=== PATIENT | male | born 1945 | race Caucasian/White ===

== ENCOUNTER 2019-12-15 12:32 | Inpatient (IN) | payer MEDICARE, SELFPAY ==
[2019-12-15] VITALS (7 sets, daily range): BP systolic 122–157; BP diastolic 65–95; PULSE 67–88; RESP 16–22; TEMP 36.4–37.3; O2SAT 98–100; BMI 19.8
--- NOTE | ~2019-12-15 | CT_ITS ---
EXAMINATION: CT brain wo con DATE: 12/15/2019 13:31 INDICATION: Altered mental status. TECHNIQUE: Computed tomography (CT) of the head was performed without intravenous contrast. The mA wa s adjusted according to patient size. Iterative reconstruction technique was employed. The dose-lengt h product was 605.33 mGy-cm. COMPARISON: Head CT 07/28/2019 FINDINGS: There is an old infarct in right occipital lobe. There is an infarct in left parietal occip ital region, new from 07/28/19. There is an old lacunar infarct in the trista. There are old lacunar infa rcts in the thalami and left basal ganglia. There are scattered areas of low attenuation in the cereb ral white matter. There is no intracranial hemorrhage or abnormal mass lesion. The ventricles are nor mal in size. There are likely changes of ocular lens replacement surgeries. There is mild mucosal thi ckening in right maxillary sinus. The mastoid air cells are normal. IMPRESSION: 1. Infarct in left parietal occipital region, likely acute or subacute. 2. Old infarcts involving the right occipital lobe, trista, thalami, and left basal ganglia. 3. Moderate nonspecific cerebral white matter disease, which likely represents chronic small vessel i schemic disease. Reviewed, dictated and finalized at location A. URY WASHER IMPRESSION: 1. Infarct in left parietal occipital region, likely acute or subacute. 2. Old infarcts involving the right occipital lobe, trista, thalami, and left bas al ganglia. 3. Moderate nonspecific cerebral white matter disease, which likely represents chronic small vessel ischemic disease.
--- NOTE | ~2019-12-15 | XR_ITS ---
EXAMINATION: XR chest 2V DATE: 12/15/2019 13:23 INDICATION: Transient alteration of awareness. TECHNIQUE: Frontal and lateral views of the chest were obtained. COMPARISON: Chest single view 07/28/2019, chest CT 07/28/2019 FINDINGS: There is mild atelectasis in right midlung zone and left lower lung zone. No pleural effusi on or pneumothorax. The heart size is normal. There is an old healed right rib fracture. IMPRESSION: 1. Mild atelectasis in right midlung zone and left lower lung zone. Reviewed, dictated and finalized at location A. TENDER
--- NOTE | ~2019-12-15 | XR_ITS ---
EXAMINATION: XR chest 1V portable DATE: 12/18/2019 08:04 INDICATION: Leukocytosis. TECHNIQUE: frontal view of the chest was obtained. COMPARISON: Chest radiograph dated 12/15/2019 FINDINGS: Opacity with sharp linear margins projecting over the lateral right lower lung zone most likely a ski nfold although airspace disease abutting the fissure cannot be excluded. No other airspace opacities, pulmonary edema, pleural effusion or pneumothorax. The cardiomediastinal silhouette is normal. IMPRESSION: 1. Opacity projecting over the right lower lung zone most likely related to a skinfold although diffe rential would include is likely atelectasis or pneumonia abutting the right major fissure. Reviewed, dictated and finalized at location A. RITY INSPECTOR IMPRESSION: 1. Opacity projecting over the right lower lung zone most likely related to a s kinfold although differential would include is likely atelectasis or pneumonia abutting the right major fissure.
--- NOTE | ~2019-12-15 | US_ITS ---
EXAMINATION: US carotid duplex BI DATE: 12/16/2019 13:19 INDICATION: Stroke TECHNIQUE: Grayscale, color Doppler, and pulsed Doppler images of the cervical carotid arteries were obtained. The degree of vessel stenosis is placed in one of the following categories: normal, <50%, 5 0-69%, >=70% but less than near-occlusion, near-occlusion, or total occlusion. Note that percent sten osis relative to normal distal artery lumen diameter is indirectly measured from velocity measurement s as described by Saroj, et al. Radiology 2003; 229:340-346. COMPARISON: 10/06/2017 FINDINGS: RIGHT: The right common carotid artery (CCA) peak systolic velocity (PSV) is 70 cm/s. The right internal car otid artery (ICA) PSV is 78 cm/s. The right ICA end-diastolic velocity (EDV) is 28 cm/s. The right IC A/CCA PSV ratio is 1.1. Grayscale and color Doppler images yield an estimate of <50% diameter reducti on from plaque in the ICA. The external carotid artery (ECA) PSV is 100 cm/s. There is antegrade flow in the right vertebral artery. LEFT: The left CCA PSV is 81 cm/s. The left ICA PSV is 77 cm/s. The left ICA EDV is 26 cm/s. The left ICA/C CA PSV ratio is 1.0. Grayscale and color Doppler images yield an estimate of <50% diameter reduction from plaque in the ICA. The ECA PSV is 81 cm/s. There is antegrade flow in the left vertebral artery. IMPRESSION: 1. <50% stenosis in the right internal carotid artery. 2. <50% stenosis in the left internal carotid artery. Reviewed, dictated and finalized at location A. NICAL ASSISTANCE CONSULTANT
--- NOTE | ~2019-12-15 | MR_ITS ---
EXAMINATION: MR brain/brain stem wo/w con DATE: 12/16/2019 13:06 INDICATION: Stroke TECHNIQUE: Magnetic resonance imaging (MRI) of the brain and brainstem was performed without and with 12 mL Multihance intravenous contrast. Sequences included sagittal and axial T1-weighted SE, axial d iffusion-weighted FS SE, axial T2*-weighted GRE, axial T2-weighted FLAIR, and axial T2-weighted FSE. Postcontrast axial, sagittal and coronal T1-weighted SE was obtained. Apparent diffusion coefficient (ADC) maps were created. COMPARISON: Head CT dated 12/15/2019 FINDINGS: There is restricted diffusion involving the left posterior cerebral artery vascular distribution of t he left parietal and occipital lobes with swelling and prominent T2 hyperintense cytotoxic edema cons istent with relatively acute infarct. Laminar necrosis and enhancement with thin linear increased T1 signal on the noncontrast images which increases on the postcontrast images consistent with an infarc t of at least 3-5 days of age. There is a small region of encephalomalacia consistent with chronic in farct in the contralateral right occipital lobe. There are additional old lacunar infarcts in the sean ateral trista, bilateral thalami, bilateral basal ganglia and white matter of the bilateral centrum xiang iovale. No intracranial hemorrhage or abnormal intracranial mass lesion. There are scattered areas of nonspecific increased T2-weighted signal intensity in the cerebral white matter, predominantly invol ving the deep and periventricular white matter. There are no intraparenchymal signal abnormalities se en on the other pulse sequences. No other abnormally enhancing brain lesions identified. Symmetric pr ominence of the sulci and ventricles consistent with moderate age-appropriate diffuse cerebral volume loss. There are no abnormal extra-axial fluid collections. Flow voids are seen in the cerebral arter ies on the T2-weighted sequences consistent with their expected patency. Changes of bilateral intraoc ular lens replacement. IMPRESSION: 1. Infarct in the left parieto-occipital region of likely 3-10 days of age. 2. Old infarcts involving the right occipital lobe, bilateral trista, thalami, basal ganglia and centru m semiovale. 3. Age-related changes including moderate diffuse volume loss and moderate scattered nonspecific cere bral white matter T2 hyperintensity consistent with chronic small vessel ischemic disease. Reviewed, dictated and finalized at location A. CENTER RN IMPRESSION: 1. Infarct in the left parieto-occipital region of likely 3-10 days of age. 2. Old infarcts involving the right occipital lobe, bilateral trista, thalami, ba ronak ganglia and centrum semiovale. 3. Age-related changes including moderate diffuse volume loss and moderate scat tered nonspecific cerebral white matter T2 hyperintensity consistent with chron ic small vessel ischemic disease.
--- NOTE | 2019-12-15 12:52 | ED.AMS ---
HPI - Altered Mental Status General Chief Complaint: Weakness Stated Complaint: ams Time Seen by Provider: 12/15/19 12:43 Source: patient, family (Niece at bedside), RN notes reviewed and other (Caregiver) Mode of arrival: ambulatory Limitations: clinical condition History of Present Illness HPI narrative: Pt is a 74 y/o male presenting to the ED c/o AMS. Pt states he ended up here, don't remember what happened . Pt's niece states the pt's caregiver witnessed the pt acting altered along with becoming very fatigued earlier today, so they called EMS. Pt's niece reports the pt has chronic weakness, and pt reports blurry vision, but denies CP, ABD pain, N/V, or SOB. Per niece, the pt is usually sharp with conversation, but notes the pt has been asking the same questions frequently. Per niece, the pt has a caregiver due to mobility issues. Pt reports Hx's of HTN and skin cancer excision on nose. Pt states he smokes 4-5 cigarettes per day and smokes marijuana. Pt notes he has a Hx of alcoholism, and states he drinks beer daily. HPI is limited due to pt's clinical condition. Most information provided by pt's niece at bedside. Onset (ago): unknown (Earlier today) Timing confirmed by: caregiver Context: alcohol abuse Associated symptoms: weakness (Chronic (per niece)) and other (Blurry vision; Fatigue (per caregiver)) Related Data Home Medications Medication Instructions Recorded Confirmed dutasteride 0.5 mg PO DAILY 12/15/19 12/15/19 hydrocodone-acetaminophen [[place]] 1 tablet PO Q6H PRN 12/15/19 12/15/19 olmesartan [Benicar] 20 mg PO DAILY 12/15/19 12/15/19 rivaroxaban [Xarelto] 20 mg PO DAILY 12/15/19 12/15/19 tamsulosin [Flomax] 0.4 mg PO DAILY 12/15/19 12/15/19 Allergies Allergy/AdvReac Type Severity Reaction Status Date / Time No Known Allergies Allergy Verified 12/15/19 15:10 Review of Systems Review of Systems: All systems reviewed & are unremarkable except as noted in HPI and below Constitutional: Constitutional: Reports fatigue (Per caregiver) Eyes: Eyes: Reports blurry vision Cardiovascular: Cardiovascular: Denies chest pain Respiratory: Respiratory: Denies dyspnea Gastrointestinal: Gastrointestinal: Denies abdominal pain, Denies nausea and Denies vomiting Neurologic: Reports weakness (Chronic (per niece)) and Reports other (AMS (per niece)) PMFSH Past Medical History Medical History Alcoholism HTN (hypertension) Surgical History Surgical History Status post surgical removal of malignant neoplasm of skin Nose Family History Family History Sibling Cerebrovascular accident Social History Social History Smoking status: Current every day smoker Second hand tobacco smoke exposure: No Smoking end date: 11/27/14 Alcohol intake: current Gender identity (if verbalized by the patient): Male Exam Const: General: cooperative, no acute distress and alert Nutritional Appearance: well nourished Limitations: altered mental status HENMT: Mouth: Yes lip normal and Yes moist mucous membranes Throat: posterior oropharynx normal Eyes: Pupils: Equal, round and reactive pupils present EOM: EOMs intact bilaterally Resp: Effort & Inspection: normal respiratory effort Auscultation: clear to auscultation bilaterally Cardio: Rate: regular rate Rhythm: regular rhythm Heart sounds: no murmurs Peripheral pulses: dorsalis pedis present (2+) GI: GI Palp: Yes Soft to palpation and No Tenderness to palpation present (GI) Auscultation: normal bowel sounds Skin: General skin exam: normal color Neuro: Cranial nerves: Yes CN's II-XII intact bilaterally Cognition (Neuro): normal cognition Speech: normal speech Motor exam (neuro): 5/5 motor strength present throughout Sensory Exam: normal sensation Extrem: General: normal to inspecti
--- NOTE | 2019-12-15 12:53 | ECG_ITS ---
Measurements Intervals Br[place] Rate: 65 P: 55 OH: 140 QRS: 51 QRSD: 114 T: -19 QT: 362 QTc: 378 Interpretive Statements SINUS RHYTHM INTRAVENTRICULAR CONDUCTION DELAY BORDERLINE ST-T WAVE ABNORMALITY- INFERIOR LEADS BASELINE ARTIFACT- I, II, III, AVR, AVL, AVF, V1-V6 BORDERLINE ECG Electronically Signed On 12-15-2019 17:17:52 SBA UNDERWRITER by Herminio Diaz D.O.
[2019-12-15 13:09] LABS: Glucose Point of Care 99 (65-105)
[2019-12-15] MEDS: THIAMINE HCL 200 MG/2 ML VIAL 100 MG IV PUSH (13:13)
[2019-12-15 13:22] LABS: Alveolar/Arterial O2 Gradient 29.9 mmHg; Base Excess ABG 1.6 mEq/l (+/-2.0); Carboxyhemoglobin 2.7 % THb (0-2.0); Device ROOM AIR; Fractional Inspired Oxygen 21 %; HCO3 ABG 24.8 mEq/l (22.0-26.0); Methemoglobin ABG 0.2 %THb (0-1.5); Oxygen Content ABG 16.6 %vol (16.0-22.0); Oxygen Saturation ABG 96.5 % (95.0-100.0); Oxyhemoglobin 93.6 % THb (90.0-100.0); PCO2 ABG 34.3 mmHg (35.0-45.0); PO2 ABG 78.8 mmHg (80.0-100.0); PO2 FiO2 Ratio Arterial Blood 3.75 %; Reduced Hemoglobin 3.5 %THb (0-5.0); Site Drawn RIGHT BRACHIAL; Total Hemoglobin 12.6 g/dL (12.0-18.0); pH ABG 7.477 (7.350-7.450)
[2019-12-15 13:23] LABS: Basophils Absolute Auto 0.1 K/mm3 (0.0-0.1); Basophils Percent Auto 0.6 % (0.2-1.2); Eosinophils Absolute Auto 0.1 K/mm3 (0-0.3); Eosinophils Percent Auto 0.6 % (0-4.4); Hematocrit 36.8 % (42.0-52.0); Hemoglobin 12.3 g/dL (14.0-18.0); Immature Granulocyte Absolute 0.04 K/mm3 (0.00-0.031); Immature Granulocyte Percent A 0.3 % (0-0.5); Lymphocytes Absolute Auto 2.33 K/mm3 (0.9-3.2); Lymphocytes Percent Auto 18.4 % (18.3-44.2); Mean Corpuscular HGB Conc 33.4 g/dl (32-36); Mean Corpuscular Hemoglobin 31.6 pg (26-34); Mean Corpuscular Volume 94.6 fl (80-100); Mean Platelet Volume 11.5 fl (7.4-10.4); Monocytes Absolute Auto 1.4 K/mm3 (0.1-0.6); Monocytes Percent Auto 11.1 % (2.6-8.5); Neutrophils Absolute Auto 8.8 K/mm3 (1.3-6.7); Platelet Count Result 307 k/mm3 (150-375); Red Blood Count 3.89 M/mm3 (4.6-6.20); Red Cell Distribution Width 14.2 % (11.5-14.5); White Blood Count 12.7 K/mm3 (4.5-10.0)
[2019-12-15 13:32] LABS: INR 1.6; Prothrombin Time 18.2 Seconds (11.1-14.7)
[2019-12-15 13:33] LABS: Partial Thromboplastin Time 43.2 SECONDS (22.3-36.8)
[2019-12-15 13:35] LABS: Ethanol < 10 mg/dL (<10)
[2019-12-15 13:36] LABS: Alanine Aminotransferase 13 U/L (4-50); Albumin Level 4.6 g/dL (3.5-5.1); Alkaline Phosphatase 80 U/L (38-126); Aspartate Amino Transferase 23 U/L (17-59); Bilirubin,Total 0.6 mg/dL (0.2-1.3); Blood Urea Nitrogen 12 mg/dL (9-20); Calcium 9.4 mg/dL (8.4-10.2); Carbon Dioxide 25 mmol/L (22-30); Chloride 99 mmol/L (98-107); Creatine Kinase 73 U/L (55-170); Estimated Glomerular Filt Rate > 60; Glucose 99 mg/dL (75-110); Magnesium 1.8 mg/dL (1.6-2.3); Potassium 3.6 mmol/L (3.4-5.0); Sodium 135 mmol/L (137-145)
[2019-12-15 14:02] LABS: Add Urine Microscopic? YES; Appearance Urine Cloudy (Clear); Bacteria Urine Trace /hpf; Bilirubin Urine Negative (Negative); Blood Urine Negative (Negative); Color Urine Yellow (Yellow); Glucose Urine UA Negative (Negative); Ketones Urine Negative (Negative); Leukocyte Esterase Ur Negative LEU/UL (Negative); Mucus Urine Heavy /lpf; Nitrate Urine Negative (Negative); Protein Urine Negative (Negative); RBC Urine 0-2 /hpf (0-2); Specific Grav Ur 1.015 (1.001-1.035); Squamous Epithelial Cell Urine Rare /hpf (Few)
[2019-12-15 14:45] LABS: Thyroid Stimulating Hormone Reflex 0.642 uIU/mL (0.465-4.68)
[2019-12-15 15:28] LABS: Amphetamine Screen Urine Negative (Negative); Barbiturate Screen Urine Negative (Negative); Benzodiazepines Screen Urine Negative (Negative); Cannabinoid Screen Urine Positive (Negative); Cocaine Screen Urine Negative (Negative); Methadone Screen Urine Negative (Negative); Opiate Screen Urine Positive (Negative); Phencyclidine Screen Urine Negative (Negative)
--- NOTE | 2019-12-15 16:02 | ADMGEN ---
This patient, Choco Hastings, was admitted to Medical Room 243-. Patient/family oriented to hospital policies and general routines including ID bracelet, bed and alarms, visiting hours, pain management, procedures, bathroom and other care routines, personal items, smoking policy, room service/diet, and visiting hours. Valuables list has been completed. Information on how to activate the Rapid Response Team has been discussed. Patient/Family are encouraged to report perceived risks to care and to ask questions if they do not understand what they are told or what they should do.
--- NOTE | 2019-12-15 17:20 | PM.IMHP ---
H&P: HPI History of Present Illness Chief complaint: CVA Narrative: Choco Hastings is a 74 year old male who has a history of having CVAs in the past without any residual. He also has a history of alcoholism. Patient tells me that he has not drink and months. He said he used to drink heavily but is down the 2 or 3 drinks a month. But that he also tells me when he does drink a gets drunk. He does have a roommate. She noticed that the patient was not acting like himself. He was very fatigued today and he does was acting altered and there for EMS was activated. The patient was complaining of some blurred vision which is new today. He is swallowing without difficulty and has no problems with speech or moving he is slightly weaker on the right side though. Patient is also had a withdrawal seizure in the past. CT of the brain shows infarction in the left parietal occipital region, likely acute or subacute. Old infarcts involving the right occipital lobe, trista, thalami, and left basal ganglia. Moderate nonspecific cerebral white matter disease, which likely represents chronic small vessel ischemic disease. Patient is on Xarelto for history of having PEs in the past. Neurology has been consulted. Date of service is 12/15/2019 Review of Systems Review of Systems: Narrative: Patient is a very poor historian All systems reviewed & are unremarkable except as noted in HPI and below Constitutional: Constitutional: Reports as per HPI and Reports no additional constitutional complaints Eyes: Eyes: Reports as per HPI and Reports loss of vision (He is having difficulty seeing things close up) ENT: Reports system reviewed and no additional complaints, except as documented and Reports Normal hearing present Cardiovascular: Cardiovascular: Reports no additional cardiovascular complaints Comments: Hypertension Respiratory: Respiratory: Reports no additional respiratory complaints and Reports no additional respiratory complaints Gastrointestinal: Gastrointestinal: Reports as per HPI and Reports no additional gastrointestinal complaints Musculoskeletal: Musculoskeletal: Reports no additional musculoskeletal complaints Comments: Slight weakness on the right upper and lower extremity Integumentary/Breasts: Skin/Breast: Reports system reviewed and no additional complaints, except as docu and Reports as per HPI Neurologic: Reports system reviewed and no additional complaints, except as documented, Reports as per HPI, Reports abnormal gait, Reports confusion and Reports focal weakness (Slightly weaker on the right) Psychiatric: Psychiatric: Reports no additional psychiatric complaints and Reports as per HPI Endocrine: Endocrine: Reports no additional endocrine complaints Hematologic/Lymphatic: Hematologic/Lymphatic: Reports no additional hematologic/lymphatic complaints Allergic/Immunologic: Allergic/Immunologic: Reports no additional allergic/immunologic complaints [facility] Past Medical History Medical History (Updated 12/15/19 @ 17:34 by Kalpana Rawls NP) Alcoholism BPH (benign prostatic hyperplasia) Chronic neck pain Congestive heart failure Diastolic COPD (chronic obstructive pulmonary disease) HTN (hypertension) Pulmonary emboli Tobacco abuse Surgical History Surgical History (Updated 12/15/19 @ 17:34 by Kalpana Rawls NP) H/O cataract extraction Left eye H/O cervical spine surgery Multiple Status post surgical removal of malignant neoplasm of skin Nose Family History Family History (Updated 12/15/19 @ 17:34 by Kalpana Rawls NP) Sibling Cerebrovascular accident Unknown Adopted Social History Social History (Updated 12/15/19 @ 17:37 by Kalpana Rawls NP) Social History: The patient stated that he has a roommate Ms. Hudson has 1 daughter Aliza who has a appointed power [employer] technology transactions attorney. He desires a full code status. Patient stated that he smoked since he is about 12 years old he smokes anywhere from half pack to pa
[2019-12-15] MEDS: CHLORDIAZEPOXIDE 25 MG CAPSULE PO (18:52)
[2019-12-16] VITALS (7 sets, daily range): BP systolic 82–132; BP diastolic 52–78; PULSE 43–90; RESP 16–20; TEMP 36.1–36.5; O2SAT 98–100
[2019-12-16] MEDS: CHLORDIAZEPOXIDE 25 MG CAPSULE PO ×3 (00:01→12:27)
--- NOTE | 2019-12-16 01:14 | PC.NURSE ---
12/15/20191999 PT HAVING DIFFICULTY WITH PERIPHERAL VISION
--- NOTE | 2019-12-16 05:43 | PC.NURSE ---
12/15/2019 0300 PT TAKING OFF MANAGER ANDROID FREQUENTLY AND AT TIMES THROWING IT ACROSS THE ROOM. PT STATES DID NOT KNOW HE DID IT
[2019-12-16 05:46] LABS: Basophils Absolute Auto 0.1 K/mm3 (0.0-0.1); Basophils Percent Auto 0.8 % (0.2-1.2); Eosinophils Absolute Auto 0.2 K/mm3 (0-0.3); Eosinophils Percent Auto 1.4 % (0-4.4); Hematocrit 33.9 % (42.0-52.0); Hemoglobin 10.8 g/dL (14.0-18.0); Immature Granulocyte Absolute 0.03 K/mm3 (0.00-0.031); Immature Granulocyte Percent A 0.3 % (0-0.5); Lymphocytes Absolute Auto 3.09 K/mm3 (0.9-3.2); Lymphocytes Percent Auto 29.2 % (18.3-44.2); Mean Corpuscular HGB Conc 31.9 g/dl (32-36); Mean Corpuscular Hemoglobin 29.8 pg (26-34); Mean Corpuscular Volume 93.6 fl (80-100); Mean Platelet Volume 11.9 fl (7.4-10.4); Monocytes Absolute Auto 1.2 K/mm3 (0.1-0.6); Monocytes Percent Auto 10.9 % (2.6-8.5); Neutrophils Absolute Auto 6.1 K/mm3 (1.3-6.7); Neutrophils Percent Auto 57.4 % (45.5-73.1); Platelet Count Result 279 k/mm3 (150-375); Red Blood Count 3.62 M/mm3 (4.6-6.20); White Blood Count 10.6 K/mm3 (4.5-10.0)
[2019-12-16 05:52] LABS: Alanine Aminotransferase 11 U/L (4-50); Albumin Level 3.7 g/dL (3.5-5.1); Alkaline Phosphatase 68 U/L (38-126); Aspartate Amino Transferase 20 U/L (17-59); Bilirubin,Total 0.5 mg/dL (0.2-1.3); Blood Urea Nitrogen 13 mg/dL (9-20); Calcium 8.9 mg/dL (8.4-10.2); Carbon Dioxide 26 mmol/L (22-30); Chloride 103 mmol/L (98-107); Estimated CRCL calculation 65 ml/min; Estimated Glomerular Filt Rate > 60; Glucose 89 mg/dL (75-110); Magnesium 1.7 mg/dL (1.6-2.3); Potassium 3.7 mmol/L (3.4-5.0); Sodium 136 mmol/L (137-145)
[2019-12-16 06:37] LABS: Thyroid Stimulating Hormone Reflex 0.822 uIU/mL (0.465-4.68)
--- NOTE | 2019-12-16 07:34 | ECHO_ITS ---
Patient Info Name: Choco Hastings Age: 74 years : 1945 Gender: Male Ht: 71 in Wt: 142 lbs BSA: 1.79 m2 HR: 91 bpm BP: 120 / 55 mmHg Heart Rhythm: Sinus Rhythm Technical Quality: Poor Exam Date: 12/16/2019 2:16 PM Exam Location: [facility] Patient Status: Inpatient Admit Date: 12/16/2019 Staff Ordering Physician: Kate Hurtado PA-C Director Of Dance: Isai Michelle RDCS Attending Provider: Kate Hurtado PA-C Exam Type: CA echo dop bubble study w con Study Info Indications 436.0 - CVA Complete two-dimensional, color flow and Doppler transthoracic echocardiogram is performed with contrast to opacify the left ventricle and to improve the deliniation of the left ventricle endocardial borders. Agitated saline study was performed. Contrast/Agitated Saline Contrast/Ag. Saline: Definity Amount: 2.00 ml Administered By: Coretta Serrano RN Contrast/Ag. Saline: Agitated Saline Amount: 18.00 ml Administered By: Coretta Serrano RN Reason for Poor Study: poor patient cooperation History/Risk Factors CVA; COPD, HTN, EtOH, AMS, HFpEF. Summary 1. Technically suboptimal study due to poor sonographic images. 2. Definity contrast administered improved wall motion interpretation. 3. Left ventricular chamber dimension is normal. 4. Left ventricular systolic function is normal, estimated at 55-60%. 5. The left ventricular diastolic function is grade I diastolic dysfunction. 6. E/e' 3 is not elevated. Left Ventricle E/e' 3 is not elevated. Definity contrast administered improved wall motion interpretation. Technically suboptimal study due to poor sonographic images. Left ventricular chamber dimension is normal. Left ventricular systolic function is normal, estimated at 55-60%. The left ventricular diastolic function is grade I diastolic dysfunction. Right Ventricle Right ventricular chamber dimension is not well visualized. Left Atria Left atrial chamber dimension is not well visualized. Right Atria Right atrial chamber dimension is not well visualized. Atrial Septum Interatrial septum not well visualized by agitated saline imaging. No obvious shunting of administered agitated saline with and without valsalva maneuver. Aortic Valve The aortic valve is not well visualized. There is no aortic valve stenosis. There is no aortic valve regurgitation. Pulmonic Valve The pulmonic valve is not well visualized. Mitral Valve The mitral valve has not well visualized. There is no mitral valve stenosis. There is no mitral valve regurgitation. Tricuspid Valve The tricuspid valve leaflets are not well visualized. Pericardium/Pleural There is no pericardial effusion. Aorta The aortic root size at the sinus of Valsalva is not well visualized. Mitral Valve Name Value Normal MV Doppler MV Decel [place] 163 cm/s2 MV PHT 72 ms MV Area (PHT) 3.0 cm2 4.0-5.0 MV Diastolic Function MV E Peak Velocity
[2019-12-16] MEDS: RIVAROXABAN 20 MG TABLET PO (08:37)
[2019-12-16] MEDS: DUTASTERIDE 0.5 MG CAPSULE PO (08:37)
[2019-12-16] MEDS: OLMESARTAN MEDOXOMIL 20 MG TABLET PO (08:37)
[2019-12-16] MEDS: FOLIC ACID 1 MG TABLET PO (08:37)
[2019-12-16] MEDS: THIAMINE HCL 100 MG TABLET PO (08:37)
[2019-12-16] MEDS: TAMSULOSIN HCL 0.4 MG CAPSULE PO (08:37)
--- NOTE | 2019-12-16 09:05 | PC.NURSE ---
Kate ROSENBAUM notified that pt will not keep tele on and keeps throwing it across the room. Pt also pulled his iv out and threw his plate breakfast tray across room and broke the plate. Pt confused and does not know where he is at or that he is trowing stuff
[2019-12-16] MEDS: MAGNESIUM SULF 2 GM/WATER 50ML 2 GM/50 ML BAG IVPB (11:23)
--- NOTE | 2019-12-16 13:43 | PM.IMPN ---
Progress Note: A&P Assessment and Plan (1) CVA (cerebral vascular accident): Qualifiers: CVA mechanism: unspecified Qualified Code(s): I63.9 - Cerebral infarction, unspecified Code(s): I63.9 - Cerebral infarction, unspecified Status: Acute Assessment and Plan: Patient with history of multiple prior CVAs presents with change in vision. MRI brain shows an infarct in the left parieto-occipital region and multiple old infarcts. Carotid Dopplers are within normal limits. Echocardiogram shows normal systolic function, EF 55-60% without obvious evidence of shunting. Neurology consulted -appreciate recommendations. Continue Xarelto. Check and lipid profile in the morning and start statin therapy. Continue PT/OT. He lives at home with a roommate. Therapy recommends rehab. Care coordination working on SNF. (2) Behavior disturbance: Code(s): F91.9 - Conduct disorder, unspecified Status: Acute Assessment and Plan: Patient has been throwing things in the room such as his breakfast plate and his telemetry box. He has required a patient sitter today. Patient has a history of alcoholism in the past and I am unsure if he is withdrawing or if his behavior is psychiatric vs. neurologic related. Monitor further symptoms of alcohol withdrawal. Ativan available. (3) HTN (hypertension): Qualifiers: Hypertension type: essential hypertension Qualified Code(s): I10 - Essential (primary) hypertension Code(s): I10 - Essential (primary) hypertension Status: Chronic Assessment and Plan: Stable on his home Benicar. Monitor BP and adjust if needed. (4) Alcoholism: Code(s): F10.20 - Alcohol dependence, uncomplicated Status: Chronic Assessment and Plan: Patient reports previously being a heavy drinker, but reported he has been drinking much less recently. Continue to monitor with CIWA protocol. Continue folic acid, thiamine, Librium. (5) Tobacco abuse: Code(s): Z72.0 - Tobacco use Status: Chronic Assessment and Plan: Smoking cessation encouraged. (6) Chronic neck pain: Code(s): M54.2 - Cervicalgia; G89.29 - Other chronic pain Status: Acute Assessment and Plan: Continue home [place]. (7) BPH (benign prostatic hyperplasia): Qualifiers: Lower urinary tract symptom presence: symptoms absent Qualified Code(s): N40.0 - Benign prostatic hyperplasia without lower urinary tract symptoms Code(s): N40.0 - Benign prostatic hyperplasia without lower urinary tract symptoms Status: Chronic Assessment and Plan: Stable. Continue home meds. (8) Anticoagulation therapy continued upon discharge: Code(s): Z79.01 - salvage determiner (current) use of anticoagulants Status: Acute Assessment and Plan: Patient is on Xarelto for history of PEs. Subjective Date/time seen: 12/16/19 13:20 Interval history: Mr. Hastings is a 74yo M admitted for new CVA. He continues with right-sided weakness today. He has had a sitter in the room today because he is throwing things. He has, however, cooperative from my exam. He reports feeling well and denies chest pain, shortness of breath, nausea, or vomiting. He is tolerating PO intake. Review of Systems Review of Systems: Narrative: Twelve systems were reviewed with pertinent positives and negatives as per HPI. Exam Narrative: Exam Narrative: General: Male resting in bed in no acute distress, eating lunch. HEENT: Normocephalic, EOMI, oral mucosa moist. Cardiovascular: Rate and rhythm regular. Respiratory: Lungs clear to auscultation all carmona. Non-labored breathing. Abdomen: Soft, non-tender, non-distended, bowel sounds present. Extr
--- NOTE | 2019-12-16 15:13 | CONS_ITS ---
DATE OF CONSULTATION: 12/16/2019 HISTORY: This 74 years old right-handed male, admitted to the hospital with the complaint not behaving like himself, very fatigued, EMS was called to the scene when he was complaining of blurred vision, swallowing difficulties, and weakness on the right side. The patient does have ongoing history of chronic alcoholism, though he has not been drinking regularly for the several months. Initial evaluation in the emergency room included a CT scan of the brain, which documented left parietal occipital stroke, likely subacute or acute in addition to the old stroke in the right occipital lobe, thalami, trista, and left basal ganglia with moderate nonspecific white matter disease. Neurology consultation was obtained for that particular reason. MEDICAL HISTORY: The patient has ongoing history of chronic recurrent alcoholism, benign prostatic hypertrophy, chronic neck pain, congestive heart failure, COPD, hypertension, tobacco abuse, and pulmonary emboli. 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 SOCIAL HISTORY: He had smoked for 57 years with documented date of smoking November 27, 2014, but drinking 2 drinks twice per week and also smoking marijuana. MEDICATIONS: At the time of admission to the hospital, he was taking 1. Dutasteride 0.5 mg daily. 2. Hydrocodone p.r.n. 3. Benicar 20 mg daily. 4. Xarelto 20 mg daily. 5. Tamsulosin 0.4 mg daily. ALLERGIES: HE IS NOT ALLERGIC TO ANY MEDICATION. PHYSICAL EXAMINATION: VITAL SIGNS: Evaluation up until now revealed him to be afebrile with pulse of 78, respirations 16, and blood pressure 157/74. GENERAL: Today, he was awake, alert, and cooperative, in no obvious acute distress. HEENT: Head normocephalic with no cranial bruit. Ear, nose, throat examination normal except the scar of the previous surgery on the nasal tip. HEART: Regular. LUNGS: Clear. ABDOMEN: Soft with no organomegaly. NEUROLOGICAL: He is awake, alert. He recognized the physician immediately. His speech not dysphasic, not dysarthric, not dysphonic. Pupils round and regular. Brooks of vision full. Extraocular movements full. Face symmetrical. Tongue midline. Motor examination revealed him to have decreased strength on the right side compared to the left with hyperreflexia, but downgoing plantar responses and ankle jerks absent. IMPRESSION AND PLAN: History of chronic recurrent alcoholism. In addition the history of the stroke documented by the head CT scan bilaterally more so on the left in addition to old stroke on the right side as well. Plan is to continue the treatment as such and involving the Physical Therapy and Occupational Therapy. Further care accordingly. JOSEPH ROSENBAUM M.D. LEGAL FILE CLERK LEGAL FILE CLERK D I MT: Rufus
[2019-12-16] MEDS: LORAZEPAM INJ 2 MG/ML VIAL 1 MG IV PUSH (15:23)
--- NOTE | 2019-12-16 15:25 | PCPTNOTE ---
Attempted PT, unable to see patient, per nursing: patient is agitated and feels PT should wait until tomorrow to see patient.
[2019-12-16] MEDS: CHLORDIAZEPOXIDE 25 MG CAPSULE 50 MG PO ×2 (17:14→23:55)
--- NOTE | 2019-12-16 17:35 | PC.NURSE ---
Patient was transferred ICU 3. Report given to nurse at bedside.
--- NOTE | 2019-12-16 17:36 | PC.NURSE ---
Called into patients room around 1515 for patient being aggressive and agitated. Patient was trying to climb out of bed and also throwing blankets and pillows from bed. Tried talking with patient to help calm him down. Ativan given IVP to patient around 1530. Patient continued to get more agitated and started to get physical with aides and nurses. Arleen olivares called at this time. Dr Tran came and evaluated patient and adjusted meds and transferred him to ICU.
--- NOTE | 2019-12-16 17:47 | PM.IMPN ---
Progress Note: A&P Assessment and Plan (1) CVA (cerebral vascular accident): Qualifiers: CVA mechanism: unspecified Qualified Code(s): I63.9 - Cerebral infarction, unspecified Code(s): I63.9 - Cerebral infarction, unspecified Status: Acute Assessment and Plan: CT brain on admission with infarct in left parietal occipital region, likely acute or subacute and old infarcts involving the right occipital lobe, trista, thalami and left basal ganglia. MRI brain infarct in left parietal-occipital region likely 3-10 days of age, old infarcts also noted. Carotid Dopplers less than 50% stenosis bilaterally. EF 55-60% and grade 1 diastolic dysfunction. Neurology consulted and appreciate input. On Xarelto. Continue PT/OT when able. Given continued increasing agitation and aggressive behavior, PA did speak with waterway traffic checker. Transfer to ICU. Precedex drip started. Total time spent in critical care 35 minutes. (2) Alcoholism: Code(s): F10.20 - Alcohol dependence, uncomplicated Status: Chronic Assessment and Plan: Known alcohol use. Nurse reports daughter who lives in [place] has stated patient with increasing alcohol use. Patient with noted increasing CIWA which was 13 at time of code purple. Already on scheduled Librium which was increased to 50 mg p.o. q.6 hours. IM lorazepam ordered as needed per Neurology. Now started on Precedex drip and in ICU. Will continue thiamine and folic acid. (3) HTN (hypertension): Qualifiers: Hypertension type: essential hypertension Qualified Code(s): I10 - Essential (primary) hypertension Code(s): I10 - Essential (primary) hypertension Status: Chronic Assessment and Plan: Blood pressure reviewed on 12/16/2019 and stable. Will continue to monitor on home olmesartan. (4) BPH (benign prostatic hyperplasia): Qualifiers: Lower urinary tract symptom presence: symptoms absent Qualified Code(s): N40.0 - Benign prostatic hyperplasia without lower urinary tract symptoms Code(s): N40.0 - Benign prostatic hyperplasia without lower urinary tract symptoms Status: Chronic Assessment and Plan: Continue home tamsulosin. (5) Tobacco abuse: Code(s): Z72.0 - Tobacco use Status: Chronic Assessment and Plan: Cessation encouraged. (6) Chronic neck pain: Code(s): M54.2 - Cervicalgia; G89.29 - Other chronic pain Status: Acute Assessment and Plan: Has oral hydrocodone acetaminophen available if needed. (7) DVT prophylaxis: Code(s): Z29.9 - Encounter for prophylactic measures, unspecified Status: Acute Assessment and Plan: Remains on home Xarelto. Time Spent With Patient Time with patient: 25 - 35 minutes Subjective Date/time seen: 12/16/19 17:47 Interval history: Date of Service: 12/16/2019. Admitted with new CVA and alcohol abuse. Discussed with PA. Case reviewed. Patient has been combative with staff throughout the day. Arleen olivares called this evening. Upon my arrival, nursing staff in room. Patient trying to get out bed. Requiring frequent redirection. I able to calm him and speak with him. He states he is ?pissed . Continues to ask about getting some food. Denies headache. No chest pain. No shortness of breath. No abdominal pain. Review of Systems Cardiovascular: Cardiovascular: Denies chest pain Respiratory: Respiratory: Denies dyspnea Gastrointestinal: Gastrointestinal: Denies abdominal pain Neurologic: Comments: unable to see on right side Psychiatric: Comments: irritated Exam Narrative: Exam Narrative: Awake. Continue is still trying to climb out of bed. Requires report frequent redirection. Eventually, does throw food that had been put in front of him. Disheveled. HENMT: Other: Unable to assess. Neck: Neck: supple Lymphatic: lymphadenopathy not noted Resp: Auscultation: clear to auscultation bilaterally, no r
[2019-12-17] VITALS (12 sets, daily range): BP systolic 101–162; BP diastolic 56–88; PULSE 53–107; RESP 14–24; TEMP 36.3–37.1; O2SAT 97–100
[2019-12-17] MEDS: LORAZEPAM INJ 2 MG/ML VIAL IM (00:57)
[2019-12-17] MEDS: LORAZEPAM INJ 2 MG/ML VIAL IV PUSH ×4 (03:18→22:45)
[2019-12-17 04:42] LABS: Basophils Absolute Auto 0.1 K/mm3 (0.0-0.1); Basophils Percent Auto 0.4 % (0.2-1.2); Eosinophils Absolute Auto 0.2 K/mm3 (0-0.3); Eosinophils Percent Auto 0.9 % (0-4.4); Hemoglobin 11.1 g/dL (14.0-18.0); Immature Granulocyte Absolute 0.08 K/mm3 (0.00-0.031); Immature Granulocyte Percent A 0.5 % (0-0.5); Lymphocytes Percent Auto 11.8 % (18.3-44.2); Mean Corpuscular HGB Conc 31.7 g/dl (32-36); Mean Corpuscular Hemoglobin 29.6 pg (26-34); Mean Corpuscular Volume 93.3 fl (80-100); Mean Platelet Volume 11.4 fl (7.4-10.4); Monocytes Absolute Auto 1.7 K/mm3 (0.1-0.6); Monocytes Percent Auto 9.8 % (2.6-8.5); Neutrophils Percent Auto 76.6 % (45.5-73.1); Platelet Count Result 259 k/mm3 (150-375); Red Blood Count 3.75 M/mm3 (4.6-6.20); Red Cell Distribution Width 14.1 % (11.5-14.5); White Blood Count 16.9 K/mm3 (4.5-10.0)
[2019-12-17 05:04] LABS: Cholesterol 99 mg/dL (0-200); HDL Direct 30 mg/dL; Triglycerides 57 mg/dL (<150)
[2019-12-17 05:15] LABS: LDL Cholesterol Direct 64 mg/dL
[2019-12-17 05:43] LABS: Alanine Aminotransferase 12 U/L (4-50); Albumin Level 3.8 g/dL (3.5-5.1); Alkaline Phosphatase 73 U/L (38-126); Aspartate Amino Transferase 25 U/L (17-59); Bilirubin,Total 0.5 mg/dL (0.2-1.3); Blood Urea Nitrogen 17 mg/dL (9-20); Calcium 8.9 mg/dL (8.4-10.2); Carbon Dioxide 25 mmol/L (22-30); Chloride 104 mmol/L (98-107); Estimated CRCL calculation 67 ml/min; Estimated Glomerular Filt Rate > 60; Glucose 96 mg/dL (75-110); Phosphorus 3.5 mg/dL (2.5-4.5); Potassium 3.5 mmol/L (3.4-5.0); Sodium 139 mmol/L (137-145)
--- NOTE | 2019-12-17 07:39 | WPDCDIQUERY2 ---
CDI Query Clarification Request MRI FINDINGS: There is restricted diffusion involving the left posterior cerebral artery vascular distribution of the left parietal and occipital lobes with swelling and prominent T2 hyperintense cytotoxic edema consistent with relatively acute infarct. If you agree with above MRI findings of cytotoxic edema, please add to problem list.
--- NOTE | 2019-12-17 09:42 | WPDCNINT ---
Assessment and Plan Assessment and plan (1) Alcohol withdrawal: Qualifiers: Complication of substance-induced condition: with delirium Qualified Code(s): F10.231 - Alcohol dependence with withdrawal delirium Code(s): F10.239 - Alcohol dependence with withdrawal, unspecified Status: Acute Assessment and Plan: patient was transferred from medical floor to the ICU for alcohol withdrawal, delirium and combativeness. - Patient was placed on Librium and CIWA protocol - patient also on Precedex infusion overnight, was significantly bradycardic in the low 40s, Precedex was discontinued - with restart Precedex at a lower dose this morning, maintain RASS of 0-1. (2) Alcoholism: Code(s): F10.20 - Alcohol dependence, uncomplicated Status: Chronic Assessment and Plan: Patient with known alcohol use, according the records the daughter who lives in [place] stated that the patient has been having increasing Alcohol use - continue CIWA protocol - continue Librium - continue p.r.n. Ativan (3) CVA (cerebral vascular accident): Qualifiers: CVA mechanism: unspecified Qualified Code(s): I63.9 - Cerebral infarction, unspecified Code(s): I63.9 - Cerebral infarction, unspecified Status: Acute Assessment and Plan: patient presented with weakness, altered mental status was found to have acute to subacute left parietal occipital region infarct - neurology has been consulted - patient on Xarelto - will require rehab once he improves from his alcohol withdrawal (4) HTN (hypertension): Qualifiers: Hypertension type: essential hypertension Qualified Code(s): I10 - Essential (primary) hypertension Code(s): I10 - Essential (primary) hypertension Status: Chronic Assessment and Plan: patient not taking p.o. medications due to delirium and alcohol withdrawal symptoms - will add hydralazine p.r.n. for systolic blood pressures > 160 mmHg (5) Tobacco abuse: Code(s): Z72.0 - Tobacco use Status: Chronic Assessment and Plan: will counselor education professor patient on tobacco cessation once he is more alert and awake (6) DVT prophylaxis: Code(s): Z29.9 - Encounter for prophylactic measures, unspecified Status: Acute Assessment and Plan: Xarelto Additional Plan will discuss with family when available Code status: Full code Critical care time spent: 38 minutes Due to a high probability of clinically significant, life threatening deterioration, the patient required my highest level of preparedness to intervene emergently and I personally spent this critical care time directly and personally managing the patient. This critical care time included obtaining a history; examining the patient; pulse oximetry; ordering and review of studies; arranging urgent treatment with development of a management plan; evaluation of patient's response to treatment; frequent reassessment; and discussions with other providers. It was exclusive of separately billable procedures and treating other patients and teaching time. Please see Assessment and Plan section and the rest of the note for further information on patient assessment and treatment Integration Director Consult Note Consult date: 12/17/19 Time Seen: 07:04 Reason for consult: alcohol withdrawal, CVA HPI: Cohco Hastings is a 74 year old male with significant past medical history of CVAs in the past without any residual FX, history of alcoholism, BPH, diastolic heart failure, essential hypertension, history of pulmonary embolism, tobacco abuse presented to the ED on 12/15/2019 with altered mental status. According the patient's his caregiver patient was acting altered along with becoming tired and weak on the day of admission and was brought to the ED. Patient was found to have a new infarct in the left parietal occipital region, likely acute to subacute on CT scan of the head. On
--- NOTE | 2019-12-17 11:49 | WPDNEUROPN ---
Progress Note: A&P Assessment and Plan (1) Alcohol withdrawal: Qualifiers: Complication of substance-induced condition: with delirium Qualified Code(s): F10.231 - Alcohol dependence with withdrawal delirium Code(s): F10.239 - Alcohol dependence with withdrawal, unspecified Status: Acute (2) DVT prophylaxis: Code(s): Z29.9 - Encounter for prophylactic measures, unspecified Status: Acute (3) Behavior disturbance: Code(s): F91.9 - Conduct disorder, unspecified Status: Acute (4) COPD (chronic obstructive pulmonary disease): Qualifiers: COPD type: unspecified COPD Qualified Code(s): J44.9 - Chronic obstructive pulmonary disease, unspecified Code(s): J44.9 - Chronic obstructive pulmonary disease, unspecified Status: Chronic (5) Tobacco abuse: Code(s): Z72.0 - Tobacco use Status: Chronic (6) BPH (benign prostatic hyperplasia): Qualifiers: Lower urinary tract symptom presence: symptoms absent Qualified Code(s): N40.0 - Benign prostatic hyperplasia without lower urinary tract symptoms Code(s): N40.0 - Benign prostatic hyperplasia without lower urinary tract symptoms Status: Chronic (7) Congestive heart failure: Code(s): I50.9 - Heart failure, unspecified Status: Chronic (8) Alcoholism: Code(s): F10.20 - Alcohol dependence, uncomplicated Status: Chronic (9) HTN (hypertension): Qualifiers: Hypertension type: essential hypertension Qualified Code(s): I10 - Essential (primary) hypertension Code(s): I10 - Essential (primary) hypertension Status: Chronic (10) CVA (cerebral vascular accident): Qualifiers: CVA mechanism: unspecified Qualified Code(s): I63.9 - Cerebral infarction, unspecified Code(s): I63.9 - Cerebral infarction, unspecified Status: Acute Additional Plan alcohol withdrawl Review of Systems Constitutional: Constitutional: Reports no additional constitutional complaints Exam Const: General: no acute distress, confusion and poor hygiene Orientation/consciousness: oriented to person Eyes: General: appearance normal, both eyes and all related structures Neck: Neck: full ROM and no lymphadenopathy Resp: Effort & Inspection: normal respiratory effort Auscultation: clear to auscultation bilaterally Cardio: Jugular venous distension: no JVD Rate: regular rate Rhythm: regular rhythm GI: Auscultation: normal bowel sounds Neuro: General: moves all extremities and no meningeal signs Cranial nerves: Yes Equal, round and reactive pupils present, Yes Nystagmus not present, Yes Normal facial strength present and Yes Midline tongue present Cognition (Neuro): abnormal cognition Gait exam (Neuro): Unable to assess gait Motor exam (neuro): 5/5 motor strength present throughout (4/5), Pronator motor function not present, Motor fasciculations not present, Normal motor muscle tone present throughout and Motor abnormalities not present Deep tendon reflexes (DTR's): Right triceps reflex intensity grade: 1+, Left triceps reflex intensity grade: 1+, Rt Biceps (C5, C6): 1+, Left biceps reflex intensity grade: 1+, Right brachioradialis reflex intensity grade: 1+, Left brachioradialis reflex intensity grade: 1+, Right patellar reflex intensity grade: 1+, Left patellar reflex intensity grade: 1+, Right ankle reflex intensity grade: 1+ and Left ankle reflex intensity grade: 1+ Plantar Reflex Responses: equivocal: bilateral Psych: Appearance: disheveled Speech and movement: Slowed movement present (Neuro) Affect: Indifferent affect present Attitude: cooperative Thought process: Confabulating thought process present Insight: Poor insight present (Psych) Judgement: Poor judgement present (Psych) Objective Data Vital Signs Vital Signs: Vital Signs - 24 hr 12/16/19 14:00 12/16/19 16:00 12/16/19 20:00 Temperature 36.5 C 36.1 C L Pulse Rat
--- NOTE | 2019-12-17 12:01 | PCPTNOTE ---
The PT treatment was held today, nursing states patient unable to be seen for therapy due to other medical conditions. Will continue per Plan of Care frequency and duration.
--- NOTE | 2019-12-17 13:04 | PCOTNOTE ---
Hold today per nursing due to patient behaviors and restraints. Will attempt OT evaluation at later time per nurse/physician OK.
--- NOTE | 2019-12-17 15:38 | PM.IMPN ---
Progress Note: A&P Assessment and Plan (1) Alcohol withdrawal: Qualifiers: Complication of substance-induced condition: with delirium Qualified Code(s): F10.231 - Alcohol dependence with withdrawal delirium Code(s): F10.239 - Alcohol dependence with withdrawal, unspecified Status: Acute Assessment and Plan: Patient is admitted to the ICU after developing delirium on the medical floor. Suspected related to alcohol withdrawal. Precedex held because of bradycardia. Continue Ativan and Haldol as needed. Continue CIWA protocol. (2) CVA (cerebral vascular accident): Qualifiers: CVA mechanism: unspecified Qualified Code(s): I63.9 - Cerebral infarction, unspecified Code(s): I63.9 - Cerebral infarction, unspecified Status: Acute Assessment and Plan: CT brain on admission with infarct in left parietal occipital region, likely acute or subacute. Old infarcts involving the right occipital lobe, trista, thalami and left basal ganglia also noted. MRI brain showing an infarct in left parietal-occipital region likely 3-10 days of age, old infarcts also noted. Carotid Dopplers less than 50% stenosis bilaterally. Echo showing EF 55-60% and grade 1 diastolic dysfunction. Neurology following and appreciate their input. Resume PT/OT when able. Speech therapy also evaluated the patient and patient did not demonstrate any s/sx of aspiration. (3) Alcoholism: Code(s): F10.20 - Alcohol dependence, uncomplicated Status: Chronic Assessment and Plan: Daysi has known hx of alcohol abuse. Nurse reports daughter who lives in [place] has stated patient with increasing alcohol use. Daysi not taking the scheduled Librium at this point. Conitnue as above to keep the patinet calm. Continue Thiamine and Folate but change to IV route. (4) HTN (hypertension): Qualifiers: Hypertension type: essential hypertension Qualified Code(s): I10 - Essential (primary) hypertension Code(s): I10 - Essential (primary) hypertension Status: Chronic Assessment and Plan: Blood pressure reviewed on 12/17/2019. BP stable and would not intervene given recent CVA. Will continue to monitor. Not taking the oral home olmesartan. (5) BPH (benign prostatic hyperplasia): Qualifiers: Lower urinary tract symptom presence: symptoms absent Qualified Code(s): N40.0 - Benign prostatic hyperplasia without lower urinary tract symptoms Code(s): N40.0 - Benign prostatic hyperplasia without lower urinary tract symptoms Status: Chronic Assessment and Plan: Levy secured. Home Avodart and tamsulosin listed but not taking due to current condition. (6) Tobacco abuse: Code(s): Z72.0 - Tobacco use Status: Chronic Assessment and Plan: Cessation has been encouraged. Will need to be reinforced once he is more alert oriented. (7) Chronic neck pain: Code(s): M54.2 - Cervicalgia; G89.29 - Other chronic pain Status: Acute Assessment and Plan: Has oral hydrocodone acetaminophen available if needed. (8) DVT prophylaxis: Code(s): Z29.9 - Encounter for prophylactic measures, unspecified Status: Acute Assessment and Plan: Remains on home Xarelto but not taking. SCDs started. Subjective Date/time seen: 12/17/19 15:38 Interval history: 74yo male admitted with new CVA and alcohol abuse with symptoms of withdrawal. Assuming care. Chart reviewed. Patient was on Preceex but this was stopped due to bradycardia. Still having hallucinations per RN. Patietn being treated with Haldol and Ativan prn. Patient is calm and cooperative. He is confused and thus unable to provide history. Review of Systems Review of Systems: ROS unobtainable: unobtainable due to mental status Exam Narrative: Exam Narrative: Gen - NARD lying flat in bed Chest -lungs clear anteriorly and in th
[2019-12-17] MEDS: HALOPERIDOL LACTATE 5 MG/ML VIAL IV PUSH (16:02)
[2019-12-17] MEDS: THIAMINE HCL 200 MG/2 ML VIAL 100 MG IV PUSH (18:20)
[2019-12-17] MEDS: FOLIC ACID 1 MG/0.2 ML INJ IV PUSH (18:20)
[2019-12-18] VITALS (14 sets, daily range): BP systolic 90–171; BP diastolic 62–94; PULSE 88–133; RESP 16–27; TEMP 36.6–37.6; O2SAT 94–99; BMI 10.0
[2019-12-18] MEDS: CHLORDIAZEPOXIDE 25 MG CAPSULE 50 MG PO ×3 (00:29→11:51)
[2019-12-18 04:43] LABS: Basophils Absolute Auto 0.1 K/mm3 (0.0-0.1); Basophils Percent Auto 0.4 % (0.2-1.2); Eosinophils Percent Auto 0.2 % (0-4.4); Hematocrit 39.3 % (42.0-52.0); Hemoglobin 12.6 g/dL (14.0-18.0); Immature Granulocyte Absolute 0.08 K/mm3 (0.00-0.031); Immature Granulocyte Percent A 0.4 % (0-0.5); Lymphocytes Absolute Auto 1.82 K/mm3 (0.9-3.2); Lymphocytes Percent Auto 10.2 % (18.3-44.2); Mean Corpuscular HGB Conc 32.1 g/dl (32-36); Mean Corpuscular Hemoglobin 29.4 pg (26-34); Mean Corpuscular Volume 91.8 fl (80-100); Mean Platelet Volume 11.7 fl (7.4-10.4); Monocytes Absolute Auto 1.9 K/mm3 (0.1-0.6); Monocytes Percent Auto 10.6 % (2.6-8.5); Neutrophils Percent Auto 78.2 % (45.5-73.1); Platelet Count Result 292 k/mm3 (150-375); Red Blood Count 4.28 M/mm3 (4.6-6.20); Red Cell Distribution Width 14.2 % (11.5-14.5); White Blood Count 17.9 K/mm3 (4.5-10.0)
[2019-12-18 05:02] LABS: Alanine Aminotransferase 15 U/L (4-50); Albumin Level 4.4 g/dL (3.5-5.1); Alkaline Phosphatase 93 U/L (38-126); Aspartate Amino Transferase 30 U/L (17-59); Bilirubin,Total 0.7 mg/dL (0.2-1.3); Blood Urea Nitrogen 14 mg/dL (9-20); Calcium 9.4 mg/dL (8.4-10.2); Carbon Dioxide 27 mmol/L (22-30); Chloride 104 mmol/L (98-107); Estimated CRCL calculation 76 ml/min; Estimated Glomerular Filt Rate > 60; Glucose 87 mg/dL (75-110); Magnesium 1.8 mg/dL (1.6-2.3); Phosphorus 3.8 mg/dL (2.5-4.5); Potassium 3.7 mmol/L (3.4-5.0); Sodium 141 mmol/L (137-145)
[2019-12-18] MEDS: TAMSULOSIN HCL 0.4 MG CAPSULE PO (10:02)
[2019-12-18] MEDS: OLMESARTAN MEDOXOMIL 20 MG TABLET PO (10:02)
[2019-12-18] MEDS: RIVAROXABAN 20 MG TABLET PO (10:02)
[2019-12-18] MEDS: ATORVASTATIN 40 MG TABLET PO (10:02)
[2019-12-18] MEDS: DUTASTERIDE 0.5 MG CAPSULE PO (10:02)
[2019-12-18] MEDS: THIAMINE HCL 200 MG/2 ML VIAL 100 MG IV PUSH (10:04)
[2019-12-18] MEDS: FOLIC ACID 1 MG/0.2 ML INJ IV PUSH (10:07)
--- NOTE | 2019-12-18 12:22 | PM.IMPN ---
Progress Note: A&P Assessment and Plan (1) Alcohol withdrawal: Qualifiers: Complication of substance-induced condition: with delirium Qualified Code(s): F10.231 - Alcohol dependence with withdrawal delirium Code(s): F10.239 - Alcohol dependence with withdrawal, unspecified Status: Acute Assessment and Plan: Patient is admitted to the ICU after developing delirium on the medical floor. Suspected related to alcohol withdrawal. Precedex held because of bradycardia. Continue Ativan as needed. Continue CIWA protocol. Decrease Librium dose. Discussed with usability specialist. (2) CVA (cerebral vascular accident): Qualifiers: CVA mechanism: unspecified Qualified Code(s): I63.9 - Cerebral infarction, unspecified Code(s): I63.9 - Cerebral infarction, unspecified Status: Acute Assessment and Plan: CT brain on admission with infarct in left parietal occipital region, likely acute or subacute. Old infarcts also noted. MRI brain showing left parietal and occipital lobes with swelling and prominent T2 hyperintense cytotoxic edema consistent with relatively acute infarct likely 3-10 days of age. Old infarcts involving the right occipital lobe, bilateral trista, thalami, basal ganglia and centrum semiovale as well. Carotid Dopplers less than 50% stenosis bilaterally. Echo showing EF 55-60% and grade 1 diastolic dysfunction. Neurology following and appreciate their input. Resume PT/OT when able. Speech therapy also evaluated the patient and patient did not demonstrate any s/sx of aspiration. Add aspirin. (3) Cytotoxic cerebral edema: Code(s): G93.6 - Cerebral edema Status: Acute Assessment and Plan: As above. (4) Alcoholism: Code(s): F10.20 - Alcohol dependence, uncomplicated Status: Chronic Assessment and Plan: Daysi has known hx of alcohol abuse. Nurse reports daughter who lives in [place] has stated patient with increasing alcohol use. Daysi now taking the scheduled Librium at 50mg Q6hr. Continue Thiamine and Folate IV route for now. Will back off on the Librium. (5) Leukocytosis: Code(s): D72.829 - Elevated white blood cell count, unspecified Status: Acute Assessment and Plan: WBC mildly elevated on admission but has climbed to 17K. MRSA nasal swab negative. No other cultures drawn. No fevers. CXR showing no acute findings. Could be leukomoid reaction from the withdrawal. UA ordered and is pending. Continue to follow. (6) HTN (hypertension): Qualifiers: Hypertension type: essential hypertension Qualified Code(s): I10 - Essential (primary) hypertension Code(s): I10 - Essential (primary) hypertension Status: Chronic Assessment and Plan: Blood pressure reviewed on 12/18/2019. BP stable. Will continue to monitor. Continue oral home olmesartan. (7) BPH (benign prostatic hyperplasia): Qualifiers: Lower urinary tract symptom presence: symptoms absent Qualified Code(s): N40.0 - Benign prostatic hyperplasia without lower urinary tract symptoms Code(s): N40.0 - Benign prostatic hyperplasia without lower urinary tract symptoms Status: Chronic Assessment and Plan: Levy secured. Continue home Avodart and tamsulosin. (8) Tobacco abuse: Code(s): Z72.0 - Tobacco use Status: Chronic Assessment and Plan: Cessation has been encouraged. Will need to be reinforced once he is more alert oriented. (9) Chronic neck pain: Code(s): M54.2 - Cervicalgia; G89.29 - Other chronic pain Status: Acute Assessment and Plan: Has oral hydrocodone acetaminophen available if needed but has not been requiring this. (10) DVT prophylaxis: Code(s): Z29.9 - Encounter for prophylactic measures, unspecified Status: Acute Assessment and Plan: Remains on home Xarelto (11) Atrial fibr
--- NOTE | 2019-12-18 13:52 | WPDINTPN ---
Progress Note: A&P Assessment and Plan (1) Alcohol withdrawal: Qualifiers: Complication of substance-induced condition: with delirium Qualified Code(s): F10.231 - Alcohol dependence with withdrawal delirium Code(s): F10.239 - Alcohol dependence with withdrawal, unspecified Status: Acute Assessment and Plan: patient was transferred from medical floor to the ICU for alcohol withdrawal, delirium and combativeness. - Patient is on CIWA protocol. Precedex drip is off - patient has been taking his Librium - patient is more awake, cooperative and calm with intermittent confusion but no agitation. (2) Alcoholism: Code(s): F10.20 - Alcohol dependence, uncomplicated Status: Chronic Assessment and Plan: Patient with known alcohol use, according the records the daughter who lives in [place] stated that the patient has been having increasing Alcohol use - continue CIWA protocol - Librium dose has been decreased - continue p.r.n. Ativan (3) CVA (cerebral vascular accident): Qualifiers: CVA mechanism: unspecified Qualified Code(s): I63.9 - Cerebral infarction, unspecified Code(s): I63.9 - Cerebral infarction, unspecified Status: Acute Assessment and Plan: patient presented with weakness, altered mental status was found to have acute to subacute left parietal occipital region infarct - neurology has been consulted - patient on Xarelto and aspirin - will require rehab once he improves from his alcohol withdrawal (4) HTN (hypertension): Qualifiers: Hypertension type: essential hypertension Qualified Code(s): I10 - Essential (primary) hypertension Code(s): I10 - Essential (primary) hypertension Status: Chronic Assessment and Plan: patient not taking p.o. medications due to delirium and alcohol withdrawal symptoms - will add hydralazine p.r.n. for systolic blood pressures > 160 mmHg (5) Tobacco abuse: Code(s): Z72.0 - Tobacco use Status: Chronic Assessment and Plan: will guidance counselor patient on tobacco cessation once he is more alert and awake (6) DVT prophylaxis: Code(s): Z29.9 - Encounter for prophylactic measures, unspecified Status: Acute Assessment and Plan: Xarelto (7) Leukocytosis: Code(s): D72.829 - Elevated white blood cell count, unspecified Status: Acute Assessment and Plan: leukocytosis with increased WBC to 17,000. no fevers, chest x-ray with no acute findings, UA is been ordered and is pending. - Could be reactive - will continue to monitor Additional Plan will discuss with family when available Code status: Full code Critical care time spent: 32 minutes minutes discussed with grupo Aquino to transfer to IMU Due to a high probability of clinically significant, life threatening deterioration, the patient required my highest level of preparedness to intervene emergently and I personally spent this critical care time directly and personally managing the patient. This critical care time included obtaining a history; examining the patient; pulse oximetry; ordering and review of studies; arranging urgent treatment with development of a management plan; evaluation of patient's response to treatment; frequent reassessment; and discussions with other providers. It was exclusive of separately billable procedures and treating other patients and teaching time. Please see Assessment and Plan section and the rest of the note for further information on patient assessment and treatment Subjective Date/time seen: 12/18/19 13:52 Reason for consult: alcohol withdrawal, CVA 12/18/2019: Patient seen examined this morning in the ICU. patient is off Precedex infusion, is more awake, alert, oriented x2. Patient was to eat breakfast. Patient has been taking his Librium. Received 1 dose of Ativan yesterday 10:00 p.m.. still has i
--- NOTE | 2019-12-18 14:48 | ECG_ITS ---
Measurements Intervals [place] Rate: 139 P: [place]: 0 QRS: 58 QRSD: 105 T: 254 QT: 282 QTc: 430 Interpretive Statements ATRIAL FIBRILLATION WITH RAPID VENTRICULAR RESPONSE VOLTAGE CRITERIA FOR LVH ST-T WAVE ABNORMALITY IN ANTEROLAT/INF LEADS- CONSIDER ISCHEMIA BASELINE ARTIFACT- I, III, AVL, AVF ABNORMAL ECG Electronically Signed On 12-18-2019 15:38:49 CHILD LIFE THERAPIST by Herminio Diaz D.O.
[2019-12-18] MEDS: METOPROLOL TARTRATE INJ 5 MG/5 ML VIAL IV PUSH (15:10)
[2019-12-18] MEDS: ASPIRIN 81 MG CHEWABLE TABLET PO (15:14)
[2019-12-18 15:15] LABS: Add Urine Microscopic? YES; Appearance Urine Cloudy (Clear); Bacteria Urine Trace /hpf; Bilirubin Urine Negative (Negative); Blood Urine 3+ (Negative); Color Urine Amber (Yellow); Glucose Urine UA Negative (Negative); Ketones Urine 1+ mg/dL (Negative); Leukocyte Esterase Ur 2+ LEU/UL (Negative); Mucus Urine Heavy /lpf; Nitrate Urine Negative (Negative); Protein Urine 2+ mg/dL (Negative); RBC Urine >75 /hpf (0-2); Specific Grav Ur 1.025 (1.001-1.035); Squamous Epithelial Cell Urine Rare /hpf (Few); WBC Urine >75 /hpf
[2019-12-18] MEDS: CHLORDIAZEPOXIDE 25 MG CAPSULE PO (17:43)
[2019-12-18] MEDS: METOPROLOL TARTRATE 12.5 MG TABLET PO (21:50)
[2019-12-19] VITALS (14 sets, daily range): BP systolic 91–115; BP diastolic 60–79; PULSE 72–125; RESP 16–18; TEMP 36.6–36.9; O2SAT 95–100
[2019-12-19] MEDS: CHLORDIAZEPOXIDE 25 MG CAPSULE PO ×5 (00:15→23:04)
[2019-12-19 04:25] LABS: Basophils Absolute Auto 0.1 K/mm3 (0.0-0.1); Basophils Percent Auto 0.4 % (0.2-1.2); Eosinophils Absolute Auto 0.1 K/mm3 (0-0.3); Eosinophils Percent Auto 0.8 % (0-4.4); Hematocrit 37.8 % (42.0-52.0); Hemoglobin 12.3 g/dL (14.0-18.0); Immature Granulocyte Absolute 0.09 K/mm3 (0.00-0.031); Immature Granulocyte Percent A 0.6 % (0-0.5); Lymphocytes Percent Auto 15.8 % (18.3-44.2); Mean Corpuscular HGB Conc 32.5 g/dl (32-36); Mean Corpuscular Hemoglobin 29.6 pg (26-34); Mean Corpuscular Volume 90.9 fl (80-100); Mean Platelet Volume 11.7 fl (7.4-10.4); Monocytes Absolute Auto 1.9 K/mm3 (0.1-0.6); Monocytes Percent Auto 11.8 % (2.6-8.5); Neutrophils Absolute Auto 11.1 K/mm3 (1.3-6.7); Neutrophils Percent Auto 70.6 % (45.5-73.1); Platelet Count Result 269 k/mm3 (150-375); Red Blood Count 4.16 M/mm3 (4.6-6.20); Red Cell Distribution Width 14.5 % (11.5-14.5); White Blood Count 15.8 K/mm3 (4.5-10.0)
[2019-12-19 04:45] LABS: Blood Urea Nitrogen 22 mg/dL (9-20); Calcium 9.2 mg/dL (8.4-10.2); Carbon Dioxide 25 mmol/L (22-30); Chloride 103 mmol/L (98-107); Estimated CRCL calculation 63 ml/min; Estimated Glomerular Filt Rate > 60; Glucose 101 mg/dL (75-110); Potassium 3.5 mmol/L (3.4-5.0); Sodium 137 mmol/L (137-145)
[2019-12-19] MEDS: METOPROLOL TARTRATE 12.5 MG TABLET PO ×2 (05:52→20:10)
[2019-12-19 06:08] LABS: Folic Acid > 20.0 ng/mL (2.76->20)
[2019-12-19] MEDS: ATORVASTATIN 40 MG TABLET PO (08:35)
[2019-12-19] MEDS: FOLIC ACID 1 MG TABLET PO (08:35)
[2019-12-19] MEDS: ASPIRIN 81 MG CHEWABLE TABLET PO (08:35)
[2019-12-19] MEDS: THIAMINE HCL 100 MG TABLET PO (08:35)
[2019-12-19] MEDS: TAMSULOSIN HCL 0.4 MG CAPSULE PO (08:35)
[2019-12-19] MEDS: DUTASTERIDE 0.5 MG CAPSULE PO (08:35)
[2019-12-19] MEDS: RIVAROXABAN 20 MG TABLET PO (08:35)
--- NOTE | 2019-12-19 10:39 | PM.IMPN ---
Progress Note: A&P Assessment and Plan (1) Alcohol withdrawal: Qualifiers: Complication of substance-induced condition: with delirium Qualified Code(s): F10.231 - Alcohol dependence with withdrawal delirium Code(s): F10.239 - Alcohol dependence with withdrawal, unspecified Status: Acute Assessment and Plan: Patient is admitted to the ICU after developing delirium on the medical floor. Suspected related to alcohol withdrawal. Precedex held because of bradycardia. Symptoms improving. Continue Ativan as needed. Continue CIWA protocol. Continue current Librium dose. (2) CVA (cerebral vascular accident): Qualifiers: CVA mechanism: unspecified Qualified Code(s): I63.9 - Cerebral infarction, unspecified Code(s): I63.9 - Cerebral infarction, unspecified Status: Acute Assessment and Plan: CT brain on admission with infarct in left parietal occipital region, likely acute or subacute. Old infarcts also noted. MRI brain showing left parietal and occipital lobes with swelling and prominent T2 hyperintense cytotoxic edema consistent with relatively acute infarct likely 3-10 days of age. Old infarcts involving the right occipital lobe, bilateral trista, thalami, basal ganglia and centrum semiovale as well. Carotid Dopplers less than 50% stenosis bilaterally. Echo showing EF 55-60% and grade 1 diastolic dysfunction. Neurology following and appreciate their input. Continue PT/OT. Speech therapy also evaluated the patient and patient did not demonstrate any s/sx of aspiration. Continue aspirin. Continue Lipitor. (3) Cytotoxic cerebral edema: Code(s): G93.6 - Cerebral edema Status: Acute Assessment and Plan: As above (4) Atrial fibrillation: Code(s): I48.91 - Unspecified atrial fibrillation Status: Acute Assessment and Plan: Patient developed AFib yesterday afternoon treated with Metoprolol IV once and then placed on scheduled Metoprolol orally. Already on Xarelto. Daysi converted this mornign. Continue telemetry monitoring. (5) Alcoholism: Code(s): F10.20 - Alcohol dependence, uncomplicated Status: Chronic Assessment and Plan: Patient has known hx of alcohol abuse. Nurse reports daughter who lives in [place] stated patient with increasing alcohol use. Patient was taking the scheduled Librium at 50mg Q6hr but decreased to 25mg yesterday. Continue Thiamine and Folate. Continue current Librium dose for now. maybe wean tomorrow if remains stable. (6) Leukocytosis: Code(s): D72.829 - Elevated white blood cell count, unspecified Status: Acute Assessment and Plan: WBC mildly elevated on admission but has climbed to 17K. MRSA nasal swab negative. No other cultures drawn. No fevers. CXR (12/18) showing no acute findings. Could be leukomoid reaction from the withdrawal. UA noted. UCx pending. Start Rocephin. (7) HTN (hypertension): Qualifiers: Hypertension type: essential hypertension Qualified Code(s): I10 - Essential (primary) hypertension Code(s): I10 - Essential (primary) hypertension Status: Chronic Assessment and Plan: Blood pressure reviewed on 12/19/2019. BP low this morning. Will decrease frequency of Metoprolol and hold home olmesartan. BP may be low due to dehydration. NS stared as mentioned below. (8) BPH (benign prostatic hyperplasia): Qualifiers: Lower urinary tract symptom presence: symptoms absent Qualified Code(s): N40.0 - Benign prostatic hyperplasia without lower urinary tract symptoms Code(s): N40.0 - Benign prostatic hyperplasia without lower urinary tract symptoms Status: Chronic Assessment and Plan: Levy removed. Continue home Avodart and tamsulosin. Monitor UOP closely. Called by RN later and informed poor UOP but bladder scan also showing only 150mL. Will start NS. M
[2019-12-19] MEDS: SODIUM CHLORIDE 0.9% IV 1,000 ML 75 ML IV CONT (17:40)
[2019-12-20] VITALS (15 sets, daily range): BP systolic 100–175; BP diastolic 59–130; PULSE 63–79; RESP 12–20; TEMP 36–37.1; O2SAT 95–100
[2019-12-20 04:43] LABS: Basophils Absolute Auto 0.1 K/mm3 (0.0-0.1); Basophils Percent Auto 0.4 % (0.2-1.2); Eosinophils Absolute Auto 0.2 K/mm3 (0-0.3); Eosinophils Percent Auto 1.4 % (0-4.4); Hematocrit 33.7 % (42.0-52.0); Hemoglobin 10.6 g/dL (14.0-18.0); Immature Granulocyte Absolute 0.05 K/mm3 (0.00-0.031); Immature Granulocyte Percent A 0.4 % (0-0.5); Lymphocytes Absolute Auto 2.28 K/mm3 (0.9-3.2); Mean Corpuscular HGB Conc 31.5 g/dl (32-36); Mean Corpuscular Hemoglobin 29.4 pg (26-34); Mean Corpuscular Volume 93.6 fl (80-100); Mean Platelet Volume 12.4 fl (7.4-10.4); Monocytes Absolute Auto 1.4 K/mm3 (0.1-0.6); Monocytes Percent Auto 10.6 % (2.6-8.5); Neutrophils Absolute Auto 9.4 K/mm3 (1.3-6.7); Neutrophils Percent Auto 70.2 % (45.5-73.1); Platelet Count Result 252 k/mm3 (150-375); Red Cell Distribution Width 14.5 % (11.5-14.5); White Blood Count 13.4 K/mm3 (4.5-10.0)
[2019-12-20 05:01] LABS: Blood Urea Nitrogen 24 mg/dL (9-20); Calcium 8.7 mg/dL (8.4-10.2); Carbon Dioxide 28 mmol/L (22-30); Chloride 104 mmol/L (98-107); Estimated CRCL calculation 58 ml/min; Estimated Glomerular Filt Rate > 60; Glucose 96 mg/dL (75-110); Potassium 3.6 mmol/L (3.4-5.0); Sodium 138 mmol/L (137-145)
[2019-12-20] MEDS: CHLORDIAZEPOXIDE 25 MG CAPSULE PO (05:17)
[2019-12-20] MEDS: SODIUM CHLORIDE 0.9% IV 1,000 ML 75 ML IV CONT ×2 (08:24→21:44)
[2019-12-20] MEDS: METOPROLOL TARTRATE 12.5 MG TABLET PO ×2 (09:01→20:43)
[2019-12-20] MEDS: ATORVASTATIN 40 MG TABLET PO (09:01)
[2019-12-20] MEDS: THIAMINE HCL 100 MG TABLET PO (09:01)
[2019-12-20] MEDS: TAMSULOSIN HCL 0.4 MG CAPSULE PO (09:02)
[2019-12-20] MEDS: FOLIC ACID 1 MG TABLET PO (09:02)
[2019-12-20] MEDS: RIVAROXABAN 20 MG TABLET PO (09:02)
[2019-12-20] MEDS: DUTASTERIDE 0.5 MG CAPSULE PO (09:02)
[2019-12-20] MEDS: ASPIRIN 81 MG CHEWABLE TABLET PO (09:02)
--- NOTE | 2019-12-20 10:32 | PM.IMPN ---
Progress Note: A&P Assessment and Plan (1) Alcohol withdrawal: Qualifiers: Complication of substance-induced condition: with delirium Qualified Code(s): F10.231 - Alcohol dependence with withdrawal delirium Code(s): F10.239 - Alcohol dependence with withdrawal, unspecified Status: Acute Assessment and Plan: Patient is admitted to the ICU after developing delirium on the medical floor. Suspected related to alcohol withdrawal. Precedex held because of bradycardia. Symptoms improving. Ativan available as needed but none required. Continue CIWA protocol. Will wean Librium. (2) CVA (cerebral vascular accident): Qualifiers: CVA mechanism: unspecified Qualified Code(s): I63.9 - Cerebral infarction, unspecified Code(s): I63.9 - Cerebral infarction, unspecified Status: Acute Assessment and Plan: CT brain on admission with infarct in left parietal occipital region, likely acute or subacute. Old infarcts also noted. MRI brain showing left parietal and occipital lobes with swelling and prominent T2 hyperintense cytotoxic edema consistent with relatively acute infarct likely 3-10 days of age. Old infarcts involving the right occipital lobe, bilateral trista, thalami, basal ganglia and centrum semiovale as well. Carotid Dopplers less than 50% stenosis bilaterally. Echo showing EF 55-60% and grade 1 diastolic dysfunction. Neurology following and appreciate their input. Continue PT/OT. Speech therapy also evaluated the patient and patient did not demonstrate any s/sx of aspiration. Continue aspirin and Lipitor. Willneed placement (3) Cytotoxic cerebral edema: Code(s): G93.6 - Cerebral edema Status: Acute Assessment and Plan: As above. (4) Atrial fibrillation: Code(s): I48.91 - Unspecified atrial fibrillation Status: Acute Assessment and Plan: Patient developed AFib 11/28/19 treated with Metoprolol IV once and then placed on scheduled Metoprolol orally. Already on Xarelto. Patietn converted on the morning on 12/19/19. No obvious recurrence. Continue telemetry monitoring. Check Mag level (5) Alcoholism: Code(s): F10.20 - Alcohol dependence, uncomplicated Status: Chronic Assessment and Plan: Patient has known hx of alcohol abuse. Nurse reports daughter who lives in [place] stated patient with increasing alcohol use. Patient was taking the scheduled Librium at 50mg Q6hr but decreased to 25mg on 1/22/20. Continue Thiamine and Folate. Continue to wean Librium. (6) Leukocytosis: Code(s): D72.829 - Elevated white blood cell count, unspecified Status: Acute Assessment and Plan: WBC mildly elevated on admission but has climbed to 17K. MRSA nasal swab negative. No other cultures drawn. No fevers. CXR (12/18) showing no acute findings. Could be leukomoid reaction from the withdrawal. UA noted but UCx not consistent with UTI. Stop Rocephin. WBC tredning down past few days. (7) HTN (hypertension): Qualifiers: Hypertension type: essential hypertension Qualified Code(s): I10 - Essential (primary) hypertension Code(s): I10 - Essential (primary) hypertension Status: Chronic Assessment and Plan: Blood pressure reviewed on 12/20/2019. BP remains well controlled. continueMetoprolol and hold home olmesartan. (8) BPH (benign prostatic hyperplasia): Qualifiers: Lower urinary tract symptom presence: symptoms absent Qualified Code(s): N40.0 - Benign prostatic hyperplasia without lower urinary tract symptoms Code(s): N40.0 - Benign prostatic hyperplasia without lower urinary tract symptoms Status: Chronic Assessment and Plan: Levy removed. Continue home Avodart and tamsulosin. urine output improving. Stop IV fluids once patient eating normally. (9) Tobacco abuse: Code(s): Z72.0 - Tobacco use Status: Chroni
[2019-12-20 12:40] LABS: Magnesium 1.8 mg/dL (1.6-2.3)
[2019-12-20] MEDS: MAGNESIUM SULF 2 GM/WATER 50ML 2 GM/50 ML BAG IVPB (13:39)
[2019-12-20] MEDS: CHLORDIAZEPOXIDE 10 MG CAPSULE PO ×2 (15:39→23:45)
--- NOTE | 2019-12-20 17:54 | PC.NURSE ---
pt trying to climb out of bed, pulling off leads for telemetry. whipping covers off, taking gown off, unable to redirect, doctor Carly here and exhibeted behavior, pt also pulled out one iv, reoriented to no avail
--- NOTE | 2019-12-20 18:00 | PC.NURSE ---
This patient, Choco Hastings, was transferred to [ ] on 12/20/19 at 1801. Personal belongings sent with patient. [ ]. Report given to [rn ]. Appropriate documentation sent with patient.
[2019-12-20] MEDS: hydrALAZINE HCL 20 MG/ML VIAL 10 MG IV PUSH (23:43)
[2019-12-20] MEDS: LORAZEPAM INJ 2 MG/ML VIAL 1 MG IV PUSH (23:45)
[2019-12-21] VITALS (14 sets, daily range): BP systolic 126–175; BP diastolic 61–130; PULSE 52–85; RESP 16–20; TEMP 36.4–36.6; O2SAT 93–100
[2019-12-21] MEDS: LORAZEPAM INJ 2 MG/ML VIAL 1 MG IV PUSH ×2 (04:12→21:16)
[2019-12-21 04:50] LABS: Hematocrit 33.5 % (42.0-52.0); Hemoglobin 10.7 g/dL (14.0-18.0); Mean Corpuscular HGB Conc 31.9 g/dl (32-36); Mean Corpuscular Hemoglobin 29.3 pg (26-34); Mean Corpuscular Volume 91.8 fl (80-100); Mean Platelet Volume 12.5 fl (7.4-10.4); Platelet Count Result 242 k/mm3 (150-375); Red Blood Count 3.65 M/mm3 (4.6-6.20); White Blood Count 10.5 K/mm3 (4.5-10.0)
[2019-12-21 05:07] LABS: Blood Urea Nitrogen 14 mg/dL (9-20); Calcium 8.9 mg/dL (8.4-10.2); Carbon Dioxide 24 mmol/L (22-30); Chloride 104 mmol/L (98-107); Estimated CRCL calculation 85 ml/min; Estimated Glomerular Filt Rate > 60; Glucose 88 mg/dL (75-110); Potassium 3.8 mmol/L (3.4-5.0); Sodium 136 mmol/L (137-145)
[2019-12-21] MEDS: ATORVASTATIN 40 MG TABLET PO (09:26)
[2019-12-21] MEDS: ASPIRIN 81 MG CHEWABLE TABLET PO (09:26)
[2019-12-21] MEDS: FOLIC ACID 1 MG TABLET PO (09:27)
[2019-12-21] MEDS: TAMSULOSIN HCL 0.4 MG CAPSULE PO (09:27)
[2019-12-21] MEDS: DUTASTERIDE 0.5 MG CAPSULE PO (09:27)
[2019-12-21] MEDS: RIVAROXABAN 20 MG TABLET PO (09:27)
[2019-12-21] MEDS: METOPROLOL TARTRATE 12.5 MG TABLET PO ×2 (09:27→19:52)
[2019-12-21] MEDS: THIAMINE HCL 100 MG TABLET PO (09:28)
--- NOTE | 2019-12-21 12:03 | PM.IMPN ---
Progress Note: A&P Assessment and Plan (1) Alcohol withdrawal: Qualifiers: Complication of substance-induced condition: with delirium Qualified Code(s): F10.231 - Alcohol dependence with withdrawal delirium Code(s): F10.239 - Alcohol dependence with withdrawal, unspecified Status: Acute Assessment and Plan: Patient is admitted to the ICU after developing delirium on the medical floor. Suspected related to alcohol withdrawal. Precedex held because of bradycardia. Symptoms improving. Was on Librium but his has been weaned off. Ativan available as needed but none required. Continue CIWA protocol. Hopefully the confusion sameer limprove. (2) CVA (cerebral vascular accident): Qualifiers: CVA mechanism: unspecified Qualified Code(s): I63.9 - Cerebral infarction, unspecified Code(s): I63.9 - Cerebral infarction, unspecified Status: Acute Assessment and Plan: CT brain on admission with infarct in left parietal occipital region, likely acute or subacute. Old infarcts also noted. MRI brain showing left parietal and occipital lobes with swelling and prominent T2 hyperintense cytotoxic edema consistent with relatively acute infarct likely 3-10 days of age. Old infarcts involving the right occipital lobe, bilateral trista, thalami, basal ganglia and centrum semiovale as well. Carotid Dopplers less than 50% stenosis bilaterally. Echo showing EF 55-60% and grade 1 diastolic dysfunction. Neurology following and appreciate their input. Speech therapy also evaluated the patient and patient did not demonstrate any s/sx of aspiration. Continue aspirin and Lipitor. Contineu PT/OT. Will need placement.. (3) Cytotoxic cerebral edema: Code(s): G93.6 - Cerebral edema Status: Acute Assessment and Plan: As above. (4) Atrial fibrillation: Code(s): I48.91 - Unspecified atrial fibrillation Status: Acute Assessment and Plan: Patient developed AFib 12/18/19 treated with Metoprolol IV once and then placed on scheduled Metoprolol orally. Already on Xarelto. Patient converted on the morning on 12/19/19. No obvious recurrence by tele. Mag low yesterday and replaced due to the bigeminy. No further bigeminy. Continue telemetry monitoring. (5) Alcoholism: Code(s): F10.20 - Alcohol dependence, uncomplicated Status: Chronic Assessment and Plan: Patient has known hx of alcohol abuse. Nurse reports daughter stated patient with increasing alcohol use. Patient was taking the scheduled Librium at 50mg Q6hr but able to wean off. Continue Thiamine and Folate. (6) Leukocytosis: Code(s): D72.829 - Elevated white blood cell count, unspecified Status: Acute Assessment and Plan: WBC mildly elevated on admission but has climbed to 17.9K. MRSA nasal swab negative. No other cultures drawn. No fevers. CXR (12/18) showing no acute findings. Could be leukomoid reaction from the withdrawal. UA noted but UCx not consistent with UTI (strept viridans with only 10-50K colonies and more likely contaminate). Rocephin stopped. WBC continues to trend down off abx. (7) HTN (hypertension): Qualifiers: Hypertension type: essential hypertension Qualified Code(s): I10 - Essential (primary) hypertension Code(s): I10 - Essential (primary) hypertension Status: Chronic Assessment and Plan: Blood pressure reviewed on 12/21/2019. BP remains well controlled. Continue Metoprolol and hold home olmesartan. (8) BPH (benign prostatic hyperplasia): Qualifiers: Lower urinary tract symptom presence: symptoms absent Qualified Code(s): N40.0 - Benign prostatic hyperplasia without lower urinary tract symptoms Code(s): N40.0 - Benign prostatic hyperplasia without lower urinary tract symptoms Status: Chronic Assessment and Plan: Levy removed. No evidence of urine reten
--- NOTE | 2019-12-21 12:13 | PCPTNOTE ---
Attempted therapy Pt was unable to stay awake. Will attempt again.
--- NOTE | 2019-12-21 12:23 | PC.NURSE ---
Notified Dr. Carroll of intermittent bradycardia, no new orders at this time. Will continue to monitor closely. Pt has no complaints at this time.
--- NOTE | 2019-12-21 14:20 | PC.NURSE ---
pt moving to 245 12/21/19 at 1415. Report given to Bri VALENZUELA. family called.
--- NOTE | 2019-12-21 14:27 | PC.NURSE ---
Patient transferred from room 231 to room 245. Sitter at bedside.
--- NOTE | 2019-12-21 14:52 | PCPTNOTE ---
Attempt PT this PM, pt refused to participate, stating I'm not doing any exercise until I get my belongings . Pt confused and uncooperative. Will continue per Plan of Care frequency and duration.
[2019-12-21] MEDS: MEGESTROL ACETATE (*CHEMO) ORAL SUSP 40 MG/ML SYR 800 MG PO (15:41)
[2019-12-21] MEDS: QUEtiapine FUMARATE 12.5 MG TABLET PO (19:52)
[2019-12-21] MEDS: CHLORDIAZEPOXIDE 10 MG CAPSULE PO (22:29)
[2019-12-22] VITALS (9 sets, daily range): BP systolic 112–143; BP diastolic 52–79; PULSE 70–88; RESP 18–20; TEMP 36.6; O2SAT 96–97
[2019-12-22] MEDS: LORAZEPAM INJ 2 MG/ML VIAL 1 MG IV PUSH ×3 (02:37→16:27)
--- NOTE | 2019-12-22 05:49 | PC.NURSE ---
ON 12/21/2019 @ 2009 PT THREW HIS PLATE OF FOOD ACROSS THE ROOM. JAIDA THE SENIOR JAVA PROGRAMMER WAS IN SITTING WHEN THIS OCCURRED. WILL MONITOR PATIENT CLOSELY. BED EXIT ALARM ACTIVATED. REFER TO EMAR REGARDING MEDICATIONS GIVEN.
--- NOTE | 2019-12-22 05:54 | PC.NURSE ---
HE KEEPS PULLING THE TELEMETRY LEADS OFF THROUGHOUT THE NIGHT. HE JUST THREW HIS TELEMETRY BOX ACROSS THE ROOM. SITTER AT BEDSIDE. MONITORING PT CLOSELY.
[2019-12-22] MEDS: FOLIC ACID 1 MG TABLET PO (09:18)
[2019-12-22] MEDS: ASPIRIN 81 MG CHEWABLE TABLET PO (09:18)
[2019-12-22] MEDS: DUTASTERIDE 0.5 MG CAPSULE PO (09:18)
[2019-12-22] MEDS: MEGESTROL ACETATE (*CHEMO) ORAL SUSP 40 MG/ML SYR 800 MG PO (09:18)
[2019-12-22] MEDS: ATORVASTATIN 40 MG TABLET PO (09:18)
[2019-12-22] MEDS: METOPROLOL TARTRATE 12.5 MG TABLET PO ×2 (09:18→20:47)
[2019-12-22] MEDS: TAMSULOSIN HCL 0.4 MG CAPSULE PO (09:19)
[2019-12-22] MEDS: THIAMINE HCL 100 MG TABLET PO (09:19)
[2019-12-22] MEDS: RIVAROXABAN 20 MG TABLET PO (09:19)
--- NOTE | 2019-12-22 15:06 | PM.IMPN ---
Progress Note: A&P Assessment and Plan (1) Alcohol withdrawal: Qualifiers: Complication of substance-induced condition: with delirium Qualified Code(s): F10.231 - Alcohol dependence with withdrawal delirium Code(s): F10.239 - Alcohol dependence with withdrawal, unspecified Status: Acute Assessment and Plan: Patient is admitted to the ICU after developing delirium on the medical floor. Suspected related to alcohol withdrawal. Precedex started but held because of bradycardia. Symptoms improving. Was on scheduld Librium but he was over sedated and this has since been weaned off. Ativan available as needed. Hopefully the confusion will improve. (2) CVA (cerebral vascular accident): Qualifiers: CVA mechanism: unspecified Qualified Code(s): I63.9 - Cerebral infarction, unspecified Code(s): I63.9 - Cerebral infarction, unspecified Status: Acute Assessment and Plan: CT brain on admission with infarct in left parietal occipital region, likely acute or subacute. Old infarcts also noted. MRI brain showing left parietal and occipital lobes with swelling and prominent T2 hyperintense cytotoxic edema consistent with relatively acute infarct likely 3-10 days of age. Old infarcts involving the right occipital lobe, bilateral trista, thalami, basal ganglia and centrum semiovale as well. Carotid Dopplers less than 50% stenosis bilaterally. Echo showing EF 55-60% and grade 1 diastolic dysfunction. Neurology following and appreciate their input. Speech therapy also evaluated the patient and patient did not demonstrate any s/sx of aspiration. Continue aspirin and Lipitor. Continue PT/OT. Awaiting placement. (3) Cytotoxic cerebral edema: Code(s): G93.6 - Cerebral edema Status: Acute Assessment and Plan: As above. (4) Atrial fibrillation: Code(s): I48.91 - Unspecified atrial fibrillation Status: Acute Assessment and Plan: Patient developed AFib 12/18/19 treated with Metoprolol IV once and then placed on scheduled Metoprolol orally. Already on Xarelto. Patient converted on the morning on 12/19/19. No obvious recurrence by tele. Okay to stop telemetry monitoring. (5) Alcoholism: Code(s): F10.20 - Alcohol dependence, uncomplicated Status: Chronic Assessment and Plan: Patient has known hx of alcohol abuse. Nurse reports daughter stated patient with increasing alcohol use. Patient was taking the scheduled Librium at 50mg Q6hr but able to wean off. Patient remaining calm except at night. Seroquel added a few nights ago and will advance dose. Continue Megace to try to improve oral intake. Continue supplements. Continue Thiamine and Folate. (6) Leukocytosis: Code(s): D72.829 - Elevated white blood cell count, unspecified Status: Acute Assessment and Plan: WBC mildly elevated on admission but climbed to 17.9K. MRSA nasal swab negative. No other cultures drawn. No fevers. CXR (12/18) showing no acute findings. Could be leukomoid reaction from the withdrawal. UA noted but UCx not consistent with UTI (strept viridans with only 10-50K colonies and more likely contaminate). Rocephin stopped. WBC continues to trend down off abx. WBC not checked today. Follow periodically. (7) HTN (hypertension): Qualifiers: Hypertension type: essential hypertension Qualified Code(s): I10 - Essential (primary) hypertension Code(s): I10 - Essential (primary) hypertension Status: Chronic Assessment and Plan: Blood pressure reviewed on 12/22/2019. BP elevated at times but could be related to his agitation. Continue Metoprolol and continue to hold home olmesartan. (8) BPH (benign prostatic hyperplasia): Qualifiers: Lower urinary tract symptom presence: symptoms absent Qualified Code(s): N40.0 - Benign prostatic hyperplasia without lower urinary tract symp
--- NOTE | 2019-12-22 15:35 | WPDNEUROPN ---
Progress Note: A&P Assessment and Plan (1) Atrial fibrillation: Code(s): I48.91 - Unspecified atrial fibrillation Status: Acute (2) Alcohol withdrawal: Qualifiers: Complication of substance-induced condition: with delirium Qualified Code(s): F10.231 - Alcohol dependence with withdrawal delirium Code(s): F10.239 - Alcohol dependence with withdrawal, unspecified Status: Acute (3) Behavior disturbance: Code(s): F91.9 - Conduct disorder, unspecified Status: Acute (4) COPD (chronic obstructive pulmonary disease): Qualifiers: COPD type: unspecified COPD Qualified Code(s): J44.9 - Chronic obstructive pulmonary disease, unspecified Code(s): J44.9 - Chronic obstructive pulmonary disease, unspecified Status: Chronic (5) Tobacco abuse: Code(s): Z72.0 - Tobacco use Status: Chronic (6) BPH (benign prostatic hyperplasia): Qualifiers: Lower urinary tract symptom presence: symptoms absent Qualified Code(s): N40.0 - Benign prostatic hyperplasia without lower urinary tract symptoms Code(s): N40.0 - Benign prostatic hyperplasia without lower urinary tract symptoms Status: Chronic (7) Congestive heart failure: Code(s): I50.9 - Heart failure, unspecified Status: Chronic (8) Anticoagulation therapy continued upon discharge: Code(s): Z79.01 - alf (current) use of anticoagulants Status: Acute (9) Chronic neck pain: Code(s): M54.2 - Cervicalgia; G89.29 - Other chronic pain Status: Acute (10) Alcoholism: Code(s): F10.20 - Alcohol dependence, uncomplicated Status: Chronic (11) HTN (hypertension): Qualifiers: Hypertension type: essential hypertension Qualified Code(s): I10 - Essential (primary) hypertension Code(s): I10 - Essential (primary) hypertension Status: Chronic (12) CVA (cerebral vascular accident): Qualifiers: CVA mechanism: unspecified Qualified Code(s): I63.9 - Cerebral infarction, unspecified Code(s): I63.9 - Cerebral infarction, unspecified Status: Acute Additional Plan patient's neurological status has improved but he does have cognitive deficit and 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 he is on appropriate medication including the anti-platelet and anticoagulation therapy for underlying issues he has had I understand placement is being looked into patient is happy what he has and does not have any specific complaints to this examiner Review of Systems Constitutional: Constitutional: Reports no additional constitutional complaints Eyes: Eyes: Reports no additional eye complaints ENT: Reports system reviewed and no additional complaints, except as documented Cardiovascular: Cardiovascular: Reports no additional cardiovascular complaints Respiratory: Respiratory: Reports no additional respiratory complaints Gastrointestinal: Gastrointestinal: Reports no additional gastrointestinal complaints Musculoskeletal: Musculoskeletal: Reports no additional musculoskeletal complaints Integumentary/Breasts: Skin/Breast: Reports system reviewed and no additional complaints, except as docu Neurologic: Reports system reviewed and no additional complaints, except as documented Psychiatric: Psychiatric: Reports no additional psychiatric complaints Exam Const: General: comfortable and no acute distress HENMT: General nose exam: Normal nares present Mouth: Yes moist mucous membranes Eyes: General: appearance normal, both eyes and all related structures Neck: Neck: supple and no JVD Resp: Effort & Inspection: normal respiratory effort Auscultation: clear to auscultation bilaterally Cardio: Rate: regular rate Rhythm: regular rhythm GI: Auscultation: normal bowel sounds Skin: General skin exam: normal color Neuro: Other: patient has alcohol related dementia and r
[2019-12-22] MEDS: QUEtiapine FUMARATE 12.5 MG TABLET PO ×2 (20:47→21:49)
[2019-12-23] VITALS: BP 124/65; PULSE 87; RESP 18; O2SAT 97
[2019-12-23 08:00] VITALS: BP 116/63; PULSE 81; RESP 18; TEMP 36.9; O2SAT 95
[2019-12-23 09:20] VITALS: PULSE 87
[2019-12-23] MEDS: ASPIRIN 81 MG CHEWABLE TABLET PO (09:20)
[2019-12-23] MEDS: TAMSULOSIN HCL 0.4 MG CAPSULE PO (09:20)
[2019-12-23] MEDS: ATORVASTATIN 40 MG TABLET PO (09:20)
[2019-12-23] MEDS: METOPROLOL TARTRATE 12.5 MG TABLET PO (09:20)
[2019-12-23] MEDS: FOLIC ACID 1 MG TABLET PO (09:20)
[2019-12-23] MEDS: DUTASTERIDE 0.5 MG CAPSULE PO (09:20)
[2019-12-23] MEDS: THIAMINE HCL 100 MG TABLET PO (09:21)
[2019-12-23] MEDS: RIVAROXABAN 20 MG TABLET PO (09:21)
[2019-12-23] MEDS: MEGESTROL ACETATE (*CHEMO) ORAL SUSP 40 MG/ML SYR 800 MG PO (09:31)
--- NOTE | 2019-12-23 10:35 | WPDNEUROPN ---
Progress Note: A&P Additional Plan remains stable/placement needed meds same Review of Systems Review of Systems: All systems reviewed & are unremarkable except as noted in HPI and below Exam Const: General: cooperative, comfortable and no acute distress Nutritional Appearance: cachectic Orientation/consciousness: oriented to person and oriented to place Eyes: General: appearance normal, both eyes and all related structures Pupils: Equal, round and reactive pupils present EOM: EOMs intact bilaterally Neck: Neck: full ROM and no lymphadenopathy Resp: Auscultation: clear to auscultation bilaterally Cardio: Rate: regular rate Rhythm: regular rhythm GI: Auscultation: normal bowel sounds Neuro: General: oriented to person Cranial nerves: Yes Equal, round and reactive pupils present, Yes Bilaterally intact EOM present, Yes Nystagmus not present, Yes Normal facial strength present, Yes Midline tongue present and Yes Ability to bilaterally elevate shoulders present Cognition (Neuro): abnormal cognition Gait exam (Neuro): Unable to assess gait Motor exam (neuro): Normal motor muscle tone present throughout (decreased) and Abnormal motor strength present (decreased) Sensory Exam: normal sensation (decreased distally) Deep tendon reflexes (DTR's): Right triceps reflex intensity grade: 1+, Left triceps reflex intensity grade: 1+, Rt Biceps (C5, C6): 1+, Left biceps reflex intensity grade: 1+, Right brachioradialis reflex intensity grade: 0, Left brachioradialis reflex intensity grade: 0, Right patellar reflex intensity grade: 0, Left patellar reflex intensity grade: 0, Right ankle reflex intensity grade: 0 and Left ankle reflex intensity grade: 0 Psych: Appearance: disheveled Affect: Anxious affect present Attitude: cooperative Insight: Limited insight present (Psych) Objective Data Vital Signs Vital Signs: Vital Signs - 24 hr 12/22/19 12:00 12/22/19 14:00 12/22/19 16:00 Temperature 36.6 C Pulse Rate 84 74 79 Pulse Rate [Monitor] 84 79 Respiratory Rate 18 Blood Pressure 112/52 L Pulse Oximetry 97 12/22/19 20:47 12/23/19 00:00 12/23/19 09:20 Temperature Pulse Rate 87 87 87 Pulse Rate [Monitor] Respiratory Rate 18 Blood Pressure 124/65 Pulse Oximetry 97 Intake/Output Intake/Output: Intake & Output 12/20/19 12/21/19 12/22/19 12/23/19 23:59 23:59 23:59 23:59 Intake Total 3030 1527 120 Output Total 500 0 Balance 2530 1527 120 Meds/Results Medications: Active Medications Generic Name Dose Route Start Last Admin Trade Name Freq PRN Reason Stop Dose Admin Hydrocodone Bitart/Acetaminophen 1 tab 12/15/19 17:17 12/20/19 05:17 Powell 7.5-325 Mg PO 1 tab Q6H PRN Administration Pain Aspirin 81 mg 12/18/19 12:35 12/23/19 09:20 Aspirin Chewable PO 81 mg DAILY@0800 JESS Administration Atorvastatin Calcium 40 mg 12/17/19 09:00 12/23/19 09:20 Lipitor PO 40 mg DAILY JESS Administration Chlordiazepoxide HCl 10 mg 12/20/19 10:40 12/21/19 22:29 Librium Po PO 10 mg Q8H PRN Administration Anxiety Dutasteride 0.5 mg 12/16/19 09:00 12/23/19 09:20 Avodart PO 0.5 mg DAILY JESS Administration Folic Acid 1 mg 12/16/19 09:00 12/23/19 09:20 Folic Acid PO 1 mg DAILY JESS Administration Hydralazine HCl 10 mg 12/17/19 09:48 12/20/19 23:43 Apresoline Hcl Inj IV PUSH 10 mg Q8H PRN Administration Blood Pressure - High Lorazepam 1 mg 12/18/19 14:13 12/22/19 16:27 Ativan Inj IV PUSH 1 mg Q4H PRN Administration Anxiety Megestrol Acetate 800 mg 12/21/19 12:15 12/23/19 09:31 Megace Oral Susp PO 800 mg QAM JESS Administration Metoprolol Tartrate 12.5 mg 12/19/19 21:00 12/23/19 09:20 Lopressor PO 12.5 mg Q12HR JESS Administration Quetiapine Fumarate 25 mg 12/23/19 21:00 Seroquel PO HS [facility] Rivaroxaban 20 mg 12/16/19 09:00 12/23/19 09:21 Xarelto PO 20 mg D
[2019-12-23 11:39] VITALS: BMI 18.8
--- NOTE | 2019-12-23 14:30 | PM.DS ---
DS: Diagnosis Admitting Diagnosis Admitting Diagnosis: Cerebral infarction, unspecified Discharge Diagnosis (1) Alcohol withdrawal: Qualifiers: Complication of substance-induced condition: with delirium Qualified Code(s): F10.231 - Alcohol dependence with withdrawal delirium Code(s): F10.239 - Alcohol dependence with withdrawal, unspecified Status: Acute Assessment and Plan: Patient is admitted to the ICU after developing delirium on the medical floor. Suspected related to alcohol withdrawal. Precedex was started but held because of bradycardia. Symptoms improved. Was on scheduled Librium but he was somnolent so Librium weaned then ultimately stopped. Ativan was made available as needed. (2) CVA (cerebral vascular accident): Qualifiers: CVA mechanism: unspecified Qualified Code(s): I63.9 - Cerebral infarction, unspecified Code(s): I63.9 - Cerebral infarction, unspecified Status: Acute Assessment and Plan: CT brain on admission with infarct in left parietal occipital region, likely acute or subacute. Old infarcts also noted. MRI brain showing left parietal and occipital lobes with swelling and prominent T2 hyperintense cytotoxic edema consistent with relatively acute infarct likely 3-10 days of age. Old infarcts involving the right occipital lobe, bilateral trista, thalami, basal ganglia and centrum semiovale as well. Carotid Dopplers less than 50% stenosis bilaterally. Echo showing EF 55-60% and grade 1 diastolic dysfunction. Neurology followed. Speech therapy also evaluated the patient and patient did not demonstrate any s/sx of aspiration. We added low dose aspirin and Lipitor. We continued PT/OT. Placement arranged for further therapy. (3) Cytotoxic cerebral edema: Code(s): G93.6 - Cerebral edema Status: Acute Assessment and Plan: As above. (4) Atrial fibrillation: Code(s): I48.91 - Unspecified atrial fibrillation Status: Acute Assessment and Plan: Patient developed AFib 12/18/19 treated with Metoprolol IV once and then placed on scheduled Metoprolol orally. Already on Xarelto. Patient converted on the morning on 12/19/19. No obvious recurrence by tele. We continue the metoprolol. (5) Alcoholism: Code(s): F10.20 - Alcohol dependence, uncomplicated Status: Chronic Assessment and Plan: Patient has known hx of alcohol abuse. Nurse reports daughter stated patient with increasing alcohol use. Patient was taking the scheduled Librium at 50mg Q6hr but able to wean off. Patient remaining calm except at night. Seroquel added at night with benefit. Started Megace to try to improve oral intake. Supplements added. Has been on Thiamine and Folate. (6) Leukocytosis: Code(s): D72.829 - Elevated white blood cell count, unspecified Status: Acute Assessment and Plan: WBC mildly elevated on admission but climbed to 17.9K. MRSA nasal swab negative. No other cultures drawn. No fevers. CXR (12/18) showing no acute findings. Could be leukomoid reaction from the withdrawal. UA noted but UCx not consistent with UTI (strept viridans with only 10-50K colonies and more likely contaminate). Rocephin stopped. WBC trended to 10.5K. (7) HTN (hypertension): Qualifiers: Hypertension type: essential hypertension Qualified Code(s): I10 - Essential (primary) hypertension Code(s): I10 - Essential (primary) hypertension Status: Chronic Assessment and Plan: Blood pressure monitored closely. BP elevated at times but could be related to his agitation. We continued Metoprolol and held home olmesartan. (8) BPH (benign prostatic hyperplasia): Qualifiers: Lower urinary tract symptom presence: symptoms absent Qualified Code(s): N40.0 - Benign prostatic hyperplasia without lower urinary tract symptoms Code(s): N40.0 - Benign prostati
[2019-12-23 16:00] VITALS: BP 118/69; PULSE 80; RESP 20; TEMP 36.7; O2SAT 99
== END 2019-12-23 16:20 | DRG 65 ==
LOC: ANHED 14:29 → ANH2MED 14:42 → ANHICU 12-16 23:47 → ANH2MED 12-23 14:43 → ANHICU 12-26 08:50 → ANHIMU 12-26 08:50
PROVIDERS: Internal Medicine; Nurse Practitioner; Physician Assistant; Admitting Provider Hospitalist; Emergency Provider Emergency Medicine; PCP Family Medicine; Visit Provider Internal Medicine
DX: I63.50 Cerebral infarction due to unspecified occlusion or stenosis of unspecified cerebral artery (principal); I50.32 Chronic diastolic (congestive) heart failure; F10.231 Alcohol dependence with withdrawal delirium; I11.0 Hypertensive heart disease with heart failure; I48.91 Unspecified atrial fibrillation; R00.1 Bradycardia, unspecified; Z86.73 Personal history of transient ischemic attack (TIA), and cerebral infarction without residual deficits; Z86.711 Personal history of pulmonary embolism; N40.0 Benign prostatic hyperplasia without lower urinary tract symptoms; J44.9 Chronic obstructive pulmonary disease, unspecified; Z85.828 Personal history of other malignant neoplasm of skin; Z98.49 Cataract extraction status, unspecified eye; G89.29 Other chronic pain; M54.2 Cervicalgia; F17.210 Nicotine dependence, cigarettes, uncomplicated; Z79.01 Long term (current) use of anticoagulants
CPT/HCPCS: 36415; 36600; 70450; 70553; 71045; 71046; 80048; 80053; 80061; 80307; 81001; 82375; 82550; 82607; 82746; 82805; 82948; 83050; 83735; 84100; 84443; 85025; 85027; 85610; 85730; 87081; 87086; 87088; 87804; 92610; 93005; 93880; 96374; 96375; 97110; 97162; 97166; 97530; 97535; 99285; A9270; A9577; C8929; G0378; J0360; J0696; J1630; J2060; J3411; J3475; J7030; Q9957

== ENCOUNTER 2020-01-31 12:22 | Emergency (ER) | payer MEDICARE, SELFPAY ==
--- NOTE | ~2020-01-31 | XR_ITS ---
EXAMINATION: XR foot RT min 3V DATE: 01/31/2020 13:37 INDICATION: Right foot fracture. TECHNIQUE: 4 views of right foot were obtained. COMPARISON: None. FINDINGS: There is an old healed fracture deformity of neck of fifth metatarsal. No acute fracture. O steopenia is noted. There is mild osteoarthritis of many of the interphalangeal joints. There are ent hesophytes at the posterior and plantar aspects of calcaneal tuberosity. IMPRESSION: 1. Polyarticular osteoarthritis. Reviewed, dictated and finalized at location A. S LEAD
--- NOTE | ~2020-01-31 | CT_ITS ---
EXAMINATION: CT brain wo con DATE: 01/31/2020 13:33 INDICATION: History of falls. CVA 6 weeks ago. TECHNIQUE: Computed tomography (CT) of the head was performed without intravenous contrast. The dose- length product was 605.33 mGy-cm. The mA was adjusted according to patient size. Iterative reconstruc tion technique was employed. COMPARISON: CT dated 12/15/2019 FINDINGS: There are bilateral occipital lobe infarctions. There are chronic infarctions of the left t halamus, trista there is intracranial atherosclerosis. Generalized atrophy. There are scattered moderat e periventricular and subcortical white matter changes, most likely related to small vessel ischemic disease (microangiopathy). No depressed skull fractures. Paranasal sinuses and mastoids are pneumatiz ed. There are changes of ocular lens surgery. IMPRESSION: 1. No acute intracranial abnormality. 2: Chronic right occipital and maturing subacute left occipital lobe infarction. Chronic left thalami c and trista infarctions. 3: Chronic age-related findings. Reviewed, dictated and finalized at location B. ATE CHANGE RISK ASSESSOR IMPRESSION: 1. No acute intracranial abnormality. 2: Chronic right occipital and maturing subacute left occipital lobe infarction . Chronic left thalamic and trista infarctions. 3: Chronic age-related findings.
--- NOTE | 2020-01-31 12:31 | ED.LOWEXIN ---
HPI - Extremity Injury (Lower) General Chief Complaint: Extremity Injury, Lower Stated Complaint: Rt foot injury Time Seen by Provider: 01/31/20 12:29 Source: patient Mode of arrival: wheelchair Limitations: no limitations History of Present Illness HPI Narrative: A 74 y/o male presents to the ED with c/o right foot injury. According to the patient's family, the patient had a stroke 6 weeks ago. After the stroke he was sent to [facility], and has been there for the last 6 weeks. He has memory issues, confusion, generalized weakness, frequent falls, and right sided weakness since the stroke according to family. The family notes that these residual effects from the stroke are unchanged today. [place] staff called the patient's family today and informed them that he had an X-Ray done on his right foot that revealed a fracture. It is unknown how and when the patient injured his right foot. Pt denies fever, N/V/D, ABD pain, CP, and SOB. MD complaint: foot injury (Right) Onset (ago): unknown Injury: Right: foot Type of Injury: unknown Place: other ([facility]) Context: other (Unknown) Other symptoms: none Related Data Home Medications Medication Instructions Recorded Confirmed Xarelto 20 mg PO DAILY 12/15/19 12/15/19 dutasteride 0.5 mg PO DAILY 12/15/19 12/15/19 tamsulosin [Flomax] 0.4 mg PO DAILY 12/15/19 12/15/19 Allergies Allergy/AdvReac Type Severity Reaction Status Date / Time No Known Allergies Allergy Verified 12/15/19 15:10 Review of Systems Review of Systems: All systems reviewed & are unremarkable except as noted in HPI and below Constitutional: Constitutional: Denies fever(s) Cardiovascular: Cardiovascular: Denies chest pain Respiratory: Respiratory: Denies dyspnea Gastrointestinal: Gastrointestinal: Denies abdominal pain, Denies diarrhea, Denies nausea and Denies vomiting Musculoskeletal: Musculoskeletal: Reports other (Right foot injury) [facility] Past Medical History Medical History (Updated 01/31/20 @ 14:38 by Riley Bautista MD) Alcohol withdrawal Alcoholism Atrial fibrillation BPH (benign prostatic hyperplasia) Chronic neck pain Congestive heart failure Diastolic COPD (chronic obstructive pulmonary disease) CVA (cerebral vascular accident) Cytotoxic cerebral edema DVT (deep venous thrombosis) DVT prophylaxis HTN (hypertension) Hyperlipidemia Leukocytosis Pneumonia Pulmonary emboli Tobacco abuse Surgical History Surgical History (Updated 01/31/20 @ 13:04 by Chaya Russell) H/O cataract extraction Left eye H/O cervical spine surgery Multiple H/O local excision of skin lesion History of open reduction and internal fixation (ORIF) procedure History of tonsillectomy 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 Hudson has 1 daughter Aliza who has a appointed power ip attorney. He desires a full code status. Patient stated that he smoked since he is about 12 years old he smokes anywhere from half pack to pack cigarettes a day. Patient states that he drinks 3 to 4 times a month and he usually drinks to get drunk. He said he has not drank in over a week. 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 He also sold [employer] is a as well. Years smoked: 57 Smoking status: Current every day smoker Tobacco type: cigarettes Second hand tobacco smoke exposure: Yes Smoking end date: 11/27/14 Alcohol intake: current Drinks per week: 2 Substance use: current Substance use type: marijuana Other substance usage details: Uses marijuana 1 to 2 times a month Gender identity (if verbalized by the patient): Male Spiritual care concerns: No Agree to blood products: Yes
[2020-01-31 12:41] VITALS: BP 131/65; PULSE 65; RESP 18; TEMP 36.9; O2SAT 99
[2020-01-31 13:01] VITALS: RESP 18
--- NOTE | 2020-01-31 13:02 | ECG_ITS ---
Measurements Intervals [place] Rate: 72 P: 61 GA: 153 QRS: 52 QRSD: 118 T: 28 QT: 374 QTc: 412 Interpretive Statements SINUS RHYTHM INTRAVENTRICULAR CONDUCTION DELAY PEAKED T WAVES- CONSIDER HYPERKALEMIA OR ISCHEMIA BORDERLINE ST ABNORMALITY- INFERIOR LEADS BASELINE ARTIFACT- I, II, III, AVR, AVL, AVF, V1-V6 ABNORMAL ECG Electronically Signed On 01-31-2020 13:23:52 HYDRAULIC PRESS IN OPERATOR by Herimnio Diaz D.O.
--- NOTE | 2020-01-31 13:28 | PC.NURSE ---
Patient in CT at this time.
[2020-01-31 13:42] LABS: Basophils Absolute Auto 0.1 K/mm3 (0.0-0.1); Basophils Percent Auto 0.6 % (0.2-1.2); Eosinophils Absolute Auto 0.3 K/mm3 (0-0.3); Hematocrit 29.6 % (42.0-52.0); Hemoglobin 9.3 g/dL (14.0-18.0); Immature Granulocyte Absolute 0.03 K/mm3 (0.00-0.031); Immature Granulocyte Percent A 0.3 % (0-0.5); Lymphocytes Absolute Auto 2.19 K/mm3 (0.9-3.2); Lymphocytes Percent Auto 21.4 % (18.3-44.2); Mean Corpuscular HGB Conc 31.4 g/dl (32-36); Mean Corpuscular Hemoglobin 28.1 pg (26-34); Mean Corpuscular Volume 89.4 fl (80-100); Mean Platelet Volume 10.1 fl (7.4-10.4); Monocytes Absolute Auto 1.2 K/mm3 (0.1-0.6); Monocytes Percent Auto 11.4 % (2.6-8.5); Neutrophils Absolute Auto 6.5 K/mm3 (1.3-6.7); Neutrophils Percent Auto 63.3 % (45.5-73.1); Platelet Count Result 475 k/mm3 (150-375); Red Blood Count 3.31 M/mm3 (4.6-6.20); Red Cell Distribution Width 15.3 % (11.5-14.5); White Blood Count 10.3 K/mm3 (4.5-10.0)
[2020-01-31 13:55] LABS: Blood Urea Nitrogen 14 mg/dL (9-20); Calcium 8.5 mg/dL (8.4-10.2); Carbon Dioxide 28 mmol/L (22-30); Chloride 108 mmol/L (98-107); Estimated Glomerular Filt Rate > 60; Glucose 67 mg/dL (75-110); Potassium 3.3 mmol/L (3.4-5.0); Sodium 141 mmol/L (137-145)
[2020-01-31 14:42] LABS: Add Urine Microscopic? YES; Appearance Urine Clear (Clear); Bilirubin Urine Negative (Negative); Blood Urine Negative (Negative); Color Urine Yellow (Yellow); Glucose Urine UA Negative (Negative); Ketones Urine Negative (Negative); Leukocyte Esterase Ur Negative LEU/UL (Negative); Mucus Urine Rare /lpf; Nitrate Urine Negative (Negative); Protein Urine Negative (Negative); RBC Urine 0-2 /hpf (0-2); Specific Grav Ur 1.024 (1.001-1.035); WBC Urine 0-3 /hpf
--- NOTE | 2020-01-31 14:44 | PC.NURSE ---
Pt. removed IV themselves. Pt. is confused. Pt. stated they didn't it was an IV they removed. Pt. threw it across the room.
[2020-01-31 14:55] VITALS: BP 112/79; PULSE 65; RESP 16; O2SAT 100
== END 2020-01-31 15:26 ==
PROVIDERS: Emergency Provider Emergency Medicine; PCP Family Medicine
DX: R53.1 Weakness (principal); I69.351 Hemiplegia and hemiparesis following cerebral infarction affecting right dominant side; I69.311 Memory deficit following cerebral infarction; M19.071 Primary osteoarthritis, right ankle and foot; I48.91 Unspecified atrial fibrillation; Z79.01 Long term (current) use of anticoagulants; N40.0 Benign prostatic hyperplasia without lower urinary tract symptoms; J44.9 Chronic obstructive pulmonary disease, unspecified; Z86.718 Personal history of other venous thrombosis and embolism; I10 Essential (primary) hypertension; E78.5 Hyperlipidemia, unspecified; Z86.711 Personal history of pulmonary embolism; Z98.42 Cataract extraction status, left eye; Z85.828 Personal history of other malignant neoplasm of skin; F17.210 Nicotine dependence, cigarettes, uncomplicated; I45.9 Conduction disorder, unspecified; R94.31 Abnormal electrocardiogram [ECG] [EKG]
CPT/HCPCS: 36415; 51701; 70450; 73630; 80048; 81001; 85025; 93005; 99284

== ENCOUNTER 2020-05-14 17:13 | Inpatient (IN) | payer MEDICARE, SELFPAY ==
[2020-05-14] VITALS (11 sets, daily range): BP systolic 103–139; BP diastolic 54–72; PULSE 103–121; RESP 15–25; TEMP 36.8–38.5; O2SAT 93–100; BMI 21.2
--- NOTE | ~2020-05-14 | CT_ITS ---
EXAMINATION: CT brain wo con DATE: 05/14/2020 20:13 INDICATION: Stroke 6 weeks prior presenting with increasing confusion and falls. TECHNIQUE: Computed tomography (CT) of the head was performed without intravenous contrast. Sagittal and coronal reconstructions were performed. The mA was adjusted according to patient size. Iterative reconstruction technique was employed. The dose-length product was 1513.33 mGy-cm. COMPARISON: head CT dated 01/31/2020 FINDINGS: Again seen is encephalomalacia consistent with chronic bilateral occipital lobe infarctions. Addition al unchanged small old lacunar infarcts in the central trista and left thalamus. No acute intracranial hemorrhage, acute infarction or abnormal extra axial fluid collection. There is mild scattered white matter hypoattenuation consistent with chronic small vessel ischemic disease. Symmetric prominence of the sulci and ventricles consistent with moderate age-appropriate diffuse cerebral volume loss. No m ass/mass effect. Changes of bilateral intraocular lens replacement. The orbits, paranasal sinuses and mastoid air cells are normal. Intracranial calcified cerebral atherosclerosis is noted. IMPRESSION: 1. No acute intracranial process. 2. Chronic infarcts in the bilateral occipital lobes and additional small old lacunar infarcts in the trista and left thalamus. 3. Age-related changes including moderate diffuse volume loss and mild scattered white matter hypoatt enuation consistent with chronic small vessel ischemic disease. Reviewed, dictated and finalized at location A. IMPRESSION: 1. No acute intracranial process. 2. Chronic infarcts in the bilateral occipital lobes and additional small old l acunar infarcts in the trista and left thalamus. 3. Age-related changes including moderate diffuse volume loss and mild scattere d white matter hypoattenuation consistent with chronic small vessel ischemic di sease.
--- NOTE | ~2020-05-14 | CT_ITS ---
EXAMINATION: CT abdomen pelvis w con DATE: 05/14/2020 19:07 INDICATION: Abdominal pain and fever TECHNIQUE: Computed tomography (CT) of the abdomen and pelvis was performed with 100 mL Omnipaque-350 intravenous contrast. Automated exposure control and iterative reconstruction technique were employe d. The dose-length product was 612.38 mGy-cm. COMPARISON: None FINDINGS: Small posteriorly layering left pleural effusion with mild compressive atelectasis in the dependent l eft lower lobe. Minimal dependent atelectasis at the medial right lower lobe. Borderline heart size w ith mild left ventricular enlargement. Atherosclerotic coronary artery calcifications. Subendocardial fat along the lateral wall of the left ventricle consistent with chronic infarct. No pericardial eff usion. Liver, gallbladder, spleen, pancreas, bilateral adrenal glands and right kidney are normal. 1.4 cm in termediate attenuation lesion at the lower pole of the left kidney which is equivocal for complex cys t versus solid neoplasm. Normal appendix. Moderate amount of stool scattered throughout the colon. Th ere is a 6.3 cm ball of stool at the rectum. There is mild wall thickening of the distal rectum with mild haziness to the perirectal fat consistent with stercoral colitis. No bowel obstruction. There is diffuse wall thickening of the bladder which is decompressed around a Levy catheter. No free intrap eritoneal gas or fluid. No pathologically enlarged abdominal/pelvic lymphadenopathy. Moderate to jakob re lumbar spondylosis. L5 spondylolysis with bilateral pars interarticularis defects and 10 mm zari listhesis on S1. IMPRESSION: 1. Small left pleural effusion. 2. Large ball of stool at the rectum with mild rectal wall thickening and haziness to the surrounding fat consistent with stercoral colitis. 3. 1.4 cm indeterminate intermediate attenuation lesion at the lower pole of the left kidney which co uld represent either complex cyst or solid neoplasm. Recommend further evaluation with follow-up pre and postcontrast MRI or CT. 4. Diffuse wall thickening of the decompressed bladder which could be due to decompressed state with differential including cystitis either acute or chronic. Correlate with urinalysis. 5. Coronary artery disease and borderline heart size with mild left ventricular enlargement and fatty replacement of some epicardial fat along the lateral wall of the left ventricle consistent with dopeman candice infarct. Reviewed, dictated and finalized at location A. IMPRESSION: 1. Small left pleural effusion. 2. Large ball of stool at the rectum with mild rectal wall thickening and hazin ess to the surrounding fat consistent with stercoral colitis. 3. 1.4 cm indeterminate intermediate attenuation lesion at the lower pole of th e left kidney which could represent either complex cyst or solid neoplasm. Seamus mmend further evaluation with follow-up pre and postcontrast MRI or CT. 4. Diffuse wall thickening of the decompressed bladder which could be due to de compressed state with differential including cystitis either acute or chronic. Correlate with urinalysis. 5. Coronary artery disease and borderline heart size with mild left ventricular enlargement and fatty replacement of some epicardial fat along the lateral wal l of the left ventricle consistent with chronic infarct.
--- NOTE | ~2020-05-14 | XR_ITS ---
EXAMINATION: XR chest 1V portable DATE: 05/14/2020 17:45 INDICATION: Shortness of breath. Fever. TECHNIQUE: frontal view of the chest was obtained. COMPARISON: Chest radiograph dated 12/18/2019 FINDINGS: The lungs are clear with no focal airspace opacities, pulmonary edema, pleural effusion or pneumothor ax. The cardiomediastinal silhouette is normal. Atherosclerotic aorta. Old healed left rib fractures. IMPRESSION: 1. No acute cardiopulmonary disease. Reviewed, dictated and finalized at location A.
--- NOTE | 2020-05-14 17:36 | ED.FEVER ---
HPI - Fever General Chief Complaint: Fever <CARLY Zuleta Last Filed: 05/14/20 20:50> Stated Complaint: Fever,low BP <CARLY Zuleta Last Filed: 05/14/20 20:50> Time Seen by Provider: 05/14/20 17:15 <CARLY Zuleta Last Filed: 05/14/20 20:50> Source: patient <CARLY Zuleta Last Filed: 05/14/20 20:50> Mode of arrival: EMS <CARLY Zuleta Last Filed: 05/14/20 20:50> Limitations: dementia <CARLY Zuleta Last Filed: 05/14/20 20:50> History of Present Illness HPI Narrative: Patient is a 74-year-old male who [facility] of weakness lethargy and fever that reportedly began today per EMS. Patient is alert and oriented x1 which is his baseline mentation with history of dementia. Patient on arrival is in the bed in no distress and orients to verbal stimuli and name. Patient is an unreliable historian unable to answer questions effectively. EMS denies any known recent illness medication changes injury or trauma or COVID-19 cases at this facility <CARLY Zuleta Last Filed: 05/14/20 20:50> MD elicited complaint: fever <CARLY Zuleta Last Filed: 05/14/20 20:50> Related Data Home Medications: Home Medications Medication Instructions Recorded Confirmed Xarelto 20 mg PO DAILY 12/15/19 12/15/19 [id number] K tablet PO 05/14/20 [Adults Multivitamin] <CARLY Zuleta Last Filed: 05/14/20 20:50> Allergies/Adverse Reactions: Allergies Allergy/AdvReac Type Severity Reaction Status Date / Time No Known Allergies Allergy Verified 05/14/20 17:28 <CARLY Zuleta Last Filed: 05/14/20 20:50> Review of Systems Review of Systems: ROS unobtainable: Yes unobtainable due to medical condition and unobtainable due to mental status <CARLY Zuleta Last Filed: 05/14/20 20:50> [facility] Past Medical History Medical History: Medical History Alcohol withdrawal Alcoholism Atrial fibrillation BPH (benign prostatic hyperplasia) Chronic neck pain Congestive heart failure Diastolic COPD (chronic obstructive pulmonary disease) CVA (cerebral vascular accident) Cytotoxic cerebral edema DVT (deep venous thrombosis) DVT prophylaxis HTN (hypertension) Hyperlipidemia Leukocytosis Pneumonia Pulmonary emboli Tobacco abuse <Adria Cody PA-C - Last Filed: 05/14/20 20:50> Surgical History Surgical History: Surgical History H/O cataract extraction Left eye H/O cervical spine surgery Multiple H/O local excision of skin lesion History of open reduction and internal fixation (ORIF) procedure History of tonsillectomy Status post surgical removal of malignant neoplasm of skin Nose <Adria Cody PA-C - Last Filed: 05/14/20 20:50> Social History Social History: Social History Social History: The patient stated that he has a roommate Ms. Hudson has 1 daughter Aliza who has a appointed power business attorney. He desires a full code status. Patient stated that he smoked since he is about 12 years old he smokes anywhere from half pack to pack cigarettes a day. Patient states that he drinks 3 to 4 times a month and he usually drinks to get drunk. He said he has not drank in over a week. 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 Years smoked: 57 Smoking status: Current every day smoker Tobacco type: cigarettes Second hand tobacco smoke exposure: Yes Smoking end date: 11/27/14 Alcohol intake: current Drinks per week: 2 Substance use: current Substance use type: marijuana Other substance usage details: Uses marijuana 1 to 2 times a month Gender identity (if verbalized by the patient): Mal
--- NOTE | 2020-05-14 17:39 | PC.NURSE ---
VERBAL ORDER PER [facility] COURT FOR PEREA CATH TO BE PLACED.
--- NOTE | 2020-05-14 17:40 | ECG_ITS ---
Measurements Intervals [place] Rate: 112 P: 83 KS: 133 QRS: 72 QRSD: 92 T: 32 QT: 320 QTc: 437 Interpretive Statements SINUS TACHYCARDIA ST-T WAVE ABNORMALITY IN ANT/INF LEADS- CONSIDER ISCHEMIA BASELINE ARTIFACT- I, II, III, AVR, AVL, AVF, V1-V4 ABNORMAL ECG Electronically Signed On 05-15-2020 6:48:14 CDT by Herminio Diaz D.O.
[2020-05-14] MEDS: LACTATED RINGERS 1,000 ML 999 ML IV CONT (17:52)
[2020-05-14 18:04] LABS: Basophils Percent Auto 0.2 % (0.2-1.2); Immature Granulocyte Absolute 0.07 K/mm3 (0.00-0.031); Immature Granulocyte Percent A 0.5 % (0-0.5); Lymphocytes Absolute Auto 2.47 K/mm3 (0.9-3.2); Lymphocytes Percent Auto 16.3 % (18.3-44.2); Mean Corpuscular HGB Conc 30.3 g/dl (32-36); Mean Corpuscular Volume 82.5 fl (80-100); Mean Platelet Volume 11.2 fl (7.4-10.4); Monocytes Absolute Auto 2.5 K/mm3 (0.1-0.6); Monocytes Percent Auto 16.4 % (2.6-8.5); Neutrophils Absolute Auto 10.1 K/mm3 (1.3-6.7); Neutrophils Percent Auto 66.6 % (45.5-73.1); Nucleated Red Blood Cells Absolute Auto 0.1 K/mm3 (0.0-0.012); Nucleated Red Blood Cells Perc 0.6 % (0.0-0.2); Platelet Count Result 519 k/mm3 (150-375); White Blood Count 15.1 K/mm3 (4.5-10.0)
--- NOTE | 2020-05-14 18:09 | PC.NURSE ---
Per NICOLAS Ragsdale @ [facility] - Patient was given Tylenol 650mg @ 1615.
[2020-05-14 18:14] LABS: Hematocrit 13.2 % (42.0-52.0)
[2020-05-14 18:15] LABS: INR 1.6; Partial Thromboplastin Time 28.2 SECONDS (22.3-36.8); Prothrombin Time 18.3 Seconds (11.1-14.7)
[2020-05-14 18:20] LABS: Lactic Acid Reflex 2.3 mmol/L (0.7-2.1)
[2020-05-14 18:22] LABS: Add Urine Microscopic? YES; Amorphous Sediment Urine Few; Appearance Urine Cloudy (Clear); Bacteria Urine Trace /hpf; Bilirubin Urine Negative (Negative); Blood Urine Negative (Negative); Color Urine Yellow (Yellow); Glucose Urine UA Negative (Negative); Ketones Urine Negative (Negative); Leukocyte Esterase Ur Negative LEU/UL (Negative); Mucus Urine Rare /lpf; Nitrate Urine Negative (Negative); Protein Urine Negative (Negative); RBC Urine 0-2 /hpf (0-2); Specific Grav Ur 1.017 (1.001-1.035); Squamous Epithelial Cell Urine Rare /hpf (Few); WBC Urine 0-3 /hpf
[2020-05-14 18:24] LABS: Alanine Aminotransferase 28 U/L (4-50); Alkaline Phosphatase 63 U/L (38-126); Aspartate Amino Transferase 75 U/L (17-59); Bilirubin,Total 0.5 mg/dL (0.2-1.3); Blood Urea Nitrogen 37 mg/dL (9-20); CRP 2.8 mg/dL (<1.0); Calcium 7.7 mg/dL (8.4-10.2); Carbon Dioxide 20 mmol/L (22-30); Chloride 112 mmol/L (98-107); Estimated CRCL calculation 59 ml/min; Estimated Glomerular Filt Rate > 60; Glucose 99 mg/dL (75-110); Potassium 4.1 mmol/L (3.4-5.0); Sodium 140 mmol/L (137-145)
[2020-05-14] MEDS: SODIUM CHLORIDE 0.9% IV 1,000 ML 999 ML IV CONT (18:34)
--- NOTE | 2020-05-14 18:46 | PC.NURSE ---
ERP at bedside for stool occult.
[2020-05-14 20:00] LABS: Ethanol < 10 mg/dL (<10)
--- NOTE | 2020-05-14 20:22 | PC.NURSE ---
Per Marixa in the lab, blood is still being prepared.
[2020-05-14 21:01] LABS: Reflex Lactic Acid Yes or No Add Lactic
[2020-05-14] MEDS: SODIUM CHLORIDE 0.9% IV 250 ML 30 ML IV CONT (21:30)
--- NOTE | 2020-05-14 22:34 | PM.IMHP ---
H&P: HPI History of Present Illness Chief complaint: Sepsis, dehydration, elevated troponin, anemia Narrative: This is a 74 year old male well known to our Hospitalist service from a previous admission this year for alcohol withdrawal and who returned to the hospital today from [facility] secondary to weakness, fever, and lethargy. The patient was found to be alert and oriented only to himself in the ER and denied any significant symptoms. He denied any pain, cough, dysuria, diarrhea, rectal bleeding, or other symptoms. Routine labs were obtained which demonstrated profound anemia w/ an H/H of 4.0 and 13.2 and an elevated troponin of 8.2. He was also found to be severely septic w/ leukocytosis, tachycardia, fever, and elevated lactic acid. The patient is known to be anticoagulated on Xarelto. He was given Zosyn IV in the ER. Auto Service Writer, Dr. Briceno and Cardiology was consulted. EKG was obtained and did not demonstrate any ST segment elevation. Review of Systems Review of Systems: All systems reviewed & are unremarkable except as noted in HPI and below PMFSH Past Medical History Medical History Alcohol withdrawal Alcoholism Atrial fibrillation BPH (benign prostatic hyperplasia) Chronic neck pain Congestive heart failure Diastolic COPD (chronic obstructive pulmonary disease) CVA (cerebral vascular accident) Cytotoxic cerebral edema DVT (deep venous thrombosis) DVT prophylaxis HTN (hypertension) Hyperlipidemia Leukocytosis Pneumonia Pulmonary emboli Tobacco abuse Surgical History Surgical History H/O cataract extraction Left eye H/O cervical spine surgery Multiple H/O local excision of skin lesion History of open reduction and internal fixation (ORIF) procedure History of tonsillectomy 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 Hudson has 1 daughter Aliza who has a appointed power associate attorney. He desires a full code status. Patient stated that he smoked since he is about 12 years old he smokes anywhere from half pack to pack cigarettes a day. Patient states that he drinks 3 to 4 times a month and he usually drinks to get drunk. He said he has not drank in over a week. 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 Years smoked: 57 Smoking status: Former smoker Tobacco type: cigarettes Second hand tobacco smoke exposure: Yes Smoking end date: 11/27/14 Alcohol intake: former Drinks per week: 2 Substance use: former Substance use type: unknown Other substance usage details: Uses marijuana 1 to 2 times a month Gender identity (if verbalized by the patient): Male Spiritual care concerns: No Agree to blood products: Yes Meds Home Medications and Allergies Home Medications Medication Instructions Recorded Confirmed Type Xarelto 20 mg PO DAILY 12/15/19 05/15/20 History aspirin [Children's Aspirin] 81 mg PO DAILY@0800 #30 tablet 12/23/19 05/15/20 Rx folic acid 1 mg PO DAILY #30 tablet 12/23/19 05/15/20 Rx megestrol 800 mg PO QAM #200 ml 12/23/19 05/15/20 Rx thiamine HCl (vitamin B1) [Vitamin 100 mg PO QAM #30 tablet 12/23/19 05/15/20 Rx B-1] dutasteride 0.5 mg capsule 0.5 mg PO DAILY #90 cap 02/24/20 05/15/20 Rx tamsulosin 0.4 mg capsule 0.4 mg PO DAILY #90 cap 02/24/20 05/15/20 Rx ptkdwhenhpux-lyl-epxf-FA-vit K 1 tablet PO DAILY 05/14/20 05/15/20 History [Adults Multivitamin] atorvastatin 40 mg PO HS 05/15/20 05/15/20 History chlordiazepoxide HCl 10 mg PO BID 05/15/20 05/15/20 History metoprolol tartrate 12.5 mg PO Q12H
[2020-05-14] MEDS: FAMOTIDINE 20 MG/2 ML VIAL IV PUSH (22:35)
[2020-05-14] MEDS: PANTOPRAZOLE SODIUM IV 40 MG VIAL IV PUSH (22:36)
[2020-05-15] VITALS (28 sets, daily range): BP systolic 90–126; BP diastolic 51–87; PULSE 70–106; RESP 10–20; TEMP 36.4–37.6; O2SAT 96–100; BMI 21.7
[2020-05-15 01:52] LABS: Glucose Point of Care 110 (65-105)
[2020-05-15 05:19] LABS: Mean Corpuscular HGB Conc 30.1 g/dl (32-36); Mean Corpuscular Hemoglobin 24.7 pg (26-34); Mean Corpuscular Volume 82.1 fl (80-100); Mean Platelet Volume 10.8 fl (7.4-10.4); Platelet Count Result 395 k/mm3 (150-375); Red Blood Count 2.35 M/mm3 (4.6-6.20); Red Cell Distribution Width 16.5 % (11.5-14.5); White Blood Count 13.5 K/mm3 (4.5-10.0)
[2020-05-15 05:30] LABS: Lactic Acid 0.8 mmol/L (0.7-2.1)
[2020-05-15 05:45] LABS: Hematocrit 19.3 % (42.0-52.0); Hemoglobin 5.8 g/dL (14.0-18.0)
--- NOTE | 2020-05-15 07:29 | PC.NURSE ---
05/14/20202199 This patient, Choco Hastings, was admitted to Intensive Care Unit-1. Patient/family oriented to hospital policies and general routines including ID bracelet, bed and alarms, visiting hours, pain management, procedures, bathroom and other care routines, personal items, smoking policy, room service/diet, and visiting hours. Valuables list has been completed. Information on how to activate the Rapid Response Team has been discussed. Patient/Family are encouraged to report perceived risks to care and to ask questions if they do not understand what they are told or what they should do.
--- NOTE | 2020-05-15 07:29 | PM.CNCAR ---
Assessment and Plan Assessment and plan (1) NSTEMI (non-ST elevated myocardial infarction): Code(s): I21.4 - Non-ST elevation (NSTEMI) myocardial infarction Status: Acute Assessment and Plan: 74 y/o with h/o tobacco and alcohol abuse, h/o PE 2016, ?history of A fib, CVA who presented with AMS Patient has NSTMI with trop that peaked at 8 in the setting of profound anemia (Hg 4) and sepsis (fever, leukocytosis and lactic acidosis) EKG shows sinus tachycardia with no acute injury. No report of chest pain though patient is very altered currently NonSTMI is likely due to type II NM from increased demand and less likely due to ACS though he likely has underlying CAD given extensive risk factors Will check 2D echo to assess LV function He is not candidate for anticoagulation in the setting of severe anemia. Previously he was on Xarelto that is on hold now Would start low dose ASA once Hg is stable. Resume Statin . Will consider ischemic evaluation once more stable depending on his neurological recovery and overall condition. We need to take in consideration his baseline mental and physical status (2) HTN (hypertension): Qualifiers: Hypertension type: essential hypertension Qualified Code(s): I10 - Essential (primary) hypertension Code(s): I10 - Essential (primary) hypertension Status: Chronic Assessment and Plan: Borderline low. Blood transufusions and IV fluids per primary team for sepsis management (3) Sepsis: Code(s): A41.9 - Sepsis, unspecified organism Status: Acute Assessment and Plan: Unclear source. Follow cultures (4) Alcoholism: Code(s): F10.20 - Alcohol dependence, uncomplicated Status: Chronic (5) Anemia: Code(s): D64.9 - Anemia, unspecified Status: Acute Assessment and Plan: in the setting of Xarelto use with h/o PE and ?Afib. Hold AC. Start ASA once Hg stable (6) History of pulmonary embolism: Code(s): Z86.711 - Personal history of pulmonary embolism Status: Acute Assessment and Plan: Xarelto on hold History of Present Illness History of Present Illness Consult date/time: 05/15/20 07:29 74 y/o with h/o HTN, HLD, tobacco and alcohol abuse, h/o sub massive PE and DVT in 2016 who presented from [facility] with [facility] and fever. Patient is lethargic now and unable to provide any history. On presentation he was noted to be febrile at 38.5 with labs showing profound anemia with Hg of 4.0, markedly leukocytosis 22K and lactic acidosis at 2.3. His labs were also notable for Troponin of 8.2 that has peaked already at that level (subsequent trop was 5.2). It is unclear to me what his baseline mental status is but it was documented that he has history of dementia. Currently he is very lethargic and difficult to arouse. EKG shows sinus tachycardia at HR 110. It appears that he underwent extensive cardiac work up around 2018 by [facility] including 2D echo showing normal EF with mildly dilated left atrium, Holter monitor with PACs but no arrhythmia, , Carotid US with mild disease and US of lower ext with chronic DVT in right leg extending from distal femoral vein to popliteal vein. It does not appear he had any ischemic work up at that time Reason For Visit: Sepsis, dehydration, elevated troponin, anemia Review of Systems Review of Systems: Narrative: Unable to obtain. [facility], [facility] Past Medical History Medical History Alcohol withdrawal Alcoholism Atrial fibrillation BPH (benign prostatic hyperplasia) Chronic neck pain Congestive heart failure Diastolic COPD (chronic obstructive pulmonary disease) CVA (cerebral vascular accident) Cytotoxic cerebral edema DVT (deep venous thrombosis) DVT prophylaxis HTN (hypertension) Hyperlipidemia Leukocytosis Pneumonia Pulmonary emboli Tobacco abuse Surgical History Surgical Hist
[2020-05-15] MEDS: SODIUM CHLORIDE 0.9% IV 250 ML 30 ML IV CONT (07:34)
[2020-05-15] MEDS: FAMOTIDINE 20 MG/2 ML VIAL IV PUSH (07:36)
[2020-05-15] MEDS: PANTOPRAZOLE SODIUM IV 40 MG VIAL IV PUSH ×2 (07:36→20:58)
[2020-05-15] MEDS: THIAMINE HCL 200 MG/2 ML VIAL 100 MG IV PUSH (07:36)
--- NOTE | 2020-05-15 07:52 | ECHO_ITS ---
Patient Info Name: Choco Hastings Age: 74 years : 1945 Gender: Male Ht: 67 in Wt: 138 lbs BSA: 1.72 m2 HR: 75 bpm BP: 102 / 63 mmHg Heart Rhythm: Sinus Rhythm Technical Quality: Fair Exam Date: 05/15/2020 1:59 PM Exam Location: [facility] Patient Status: Inpatient Admit Date: 05/14/2020 Staff Ordering Physician: Salvatore Hennessy MD (adiel/bandar) It Support Technician: Isai Michelle RDCS Attending Provider: Bri Schroeder DO Exam Type: CA echo dop color flow w con Study Info Indications I21.4 - Non-ST elevation (NSTEMI) myocardial infarction Complete two-dimensional, color flow and Doppler transthoracic echocardiogram is performed with contrast to opacify the left ventricle and to improve the deliniation of the left ventricle endocardial borders. Contrast/Agitated Saline Contrast/Ag. Saline: Definity Amount: 2.00 ml Administered By: Steff Morton RN Existing IV Access: Yes History/Risk Factors NSTEMI w/ profound anemia, Afib, CHF, COPD, HTN, EtOH. Summary 1. There is mild mitral valve regurgitation. 2. Left ventricular systolic function is normal, estimated at 50-55%. Left Ventricle Left ventricular systolic function is normal, estimated at 50-55%. Left ventricular chamber dimension is normal. There is no increased left ventricular wall thickness. Left ventricular septal wall motion is normal. The left ventricular diastolic function is normal. The apical septum, apical lateral wall, apical inferior wall, and apical cap are hypokinetic. All other smith appear normal. Right Ventricle Right ventricular chamber dimension is normal. Right ventricular systolic function is normal. Left Atria Left atrial chamber dimension is normal. Right Atria Right atrial chamber dimension is normal. Aortic Valve The aortic valve is trileaflet. There is no aortic valve sclerosis. There is no aortic valve stenosis. There is no aortic valve regurgitation. Pulmonic Valve The pulmonic valve is normal. There is no pulmonic valve stenosis. There is no pulmonic regurgitation. Mitral Valve There is mild mitral valve regurgitation. The mitral valve has normal leaflets. There is no mitral valve stenosis. Tricuspid Valve Mild pulmonary hypertension, estimated pulmonary arterial systolic pressure is 38 mmHg. The tricuspid valve leaflets are normal. There is no significant tricuspid valve stenosis. There is no tricuspid valve regurgitation. Pericardium/Pleural The pericardium appears normal. There is no pericardial effusion. Aorta The aortic root size at the sinus of Valsalva is normal. The prox ascending aorta size is normal. Left Ventricular Outflow Tract Name Value Normal LVOT 2D LVOT Diameter 1.92 cm LVOT Doppler LVOT Peak Gradient 3 mmHg LVOT Mean Gradient 1 mmHg LVOT VTI 14.48 cm LVOT VTI/AV VTI Ratio 0.75 LVOT Stroke Volume 41.84 ml LVOT CO
--- NOTE | 2020-05-15 09:40 | WPDCNINT ---
Assessment and Plan Assessment and plan (1) Symptomatic anemia: Code(s): D64.9 - Anemia, unspecified Status: Acute Assessment and Plan: Symptomatic anemia with weakness, hypotension, shortness of breath. -receiving a total of 4 units of packed RBCs -blood pressures have been stable -will monitor H&H -GI following the patient with possible GI bleed -stool for Hemoccult times, check iron panel, fall at and B12 levels. (2) Severe sepsis: Code(s): A41.9 - Sepsis, unspecified organism; R65.20 - Severe sepsis without septic shock Status: Acute Assessment and Plan: Patient with severe sepsis, lactic acidosis, tachypnea and tachycardia -tachypnea and tachycardia have resolved with blood transfusion -started on Zosyn and vancomycin -cultures have been obtained -blood pressures have been stable -continue to monitor (3) Alcoholism: Code(s): F10.20 - Alcohol dependence, uncomplicated Status: Chronic Assessment and Plan: Patient with history of alcoholism, alcohol withdrawal. -currently at [facility], non if he is continues to drain -patient's has been started on thiamine and folic acid -CIWA protocol in place -monitor for withdrawals (4) NSTEMI (non-ST elevated myocardial infarction): Code(s): I21.4 - Non-ST elevation (NSTEMI) myocardial infarction Status: Acute Assessment and Plan: Significantly elevated troponins likely related to NSTEMI, -tropes peaked at 8.2, this could be also secondary to profound anemia and severe sepsis -EKG showed sinus tachycardia with no acute ST-T changes. -appreciate Cardiology evaluation recommendation, -patient not a candidate for anticoagulation since patient has severe anemia and possible GI bleed -echocardiogram has been ordered per Cardiology, patient will have to be evaluated for ischemia at some point (5) Suspected 2019 novel coronavirus infection: Code(s): Z20.828 - Contact with and (suspected) exposure to other viral communicable diseases Status: Acute Assessment and Plan: Patient with fevers, has severe sepsis, weakness, from the retirement -SARS-CoV-2 PCR has been obtained and pending -patient started on droplet, airborne and contact precautions/isolation (6) Colitis: Code(s): K52.9 - Noninfective gastroenteritis and colitis, unspecified Status: Acute Assessment and Plan: CT scan of the abdomen and pelvis showed large ball of stool at the rectum with mild rectal wall thickening and haziness in the surrounding fat consistent with stercoral colitis. -patient has been on opiates at at retirement (7) HTN (hypertension): Qualifiers: Hypertension type: essential hypertension Qualified Code(s): I10 - Essential (primary) hypertension Code(s): I10 - Essential (primary) hypertension Status: Chronic Assessment and Plan: Patient with history of essential hypertension, blood pressures were low on admission, after the IV fluids and blood transfusions, blood pressures have been stable. Will hold antihypertensives for now (8) Congestive heart failure: Qualifiers: Heart failure chronicity: chronic Heart failure type: diastolic Qualified Code(s): I50.32 - Chronic diastolic (congestive) heart failure Code(s): I50.9 - Heart failure, unspecified Status: Chronic Assessment and Plan: Echocardiogram on 12/16/2019 showed normal LV chamber dimension, normal LV systolic function with estimated EF of 55-60%. Grade 1 diastolic dysfunction -currently seems to be compensated, will continue to monitor (9) DVT prophylaxis: Code(s): Z29.9 - Encounter for prophylactic measures, unspecified Status: Acute Assessment and Plan: SCDs Additional Plan Code status: Full code Critical care time spent: 43 minutes Due to a high probability of clinically significant, life threatening deterioration, the patient required my hig
--- NOTE | 2020-05-15 10:49 | WPDGICN ---
Assessment and Plan Assessment and plan (1) Anemia: Code(s): D64.9 - Anemia, unspecified Status: Acute Assessment and Plan: Profound anemia noted at the time of presentation. No obvious signs of GI bleeding. Plan is for stool Hemoccult iron folate B12 levels will be obtained. Consider GI endoscopy when is status is more stable perhaps after several days in the ICU. (2) Atrial fibrillation: Qualifiers: Atrial fibrillation type: unspecified Qualified Code(s): I48.91 - Unspecified atrial fibrillation Code(s): I48.91 - Unspecified atrial fibrillation Status: Acute Assessment and Plan: Patient on anticoagulation because of atrial fibrillation concern over significant anemia. will hold his anticoagulation for the immediate future. (3) Anticoagulation therapy continued upon discharge: Code(s): Z79.01 - buttermilk drier operator (current) use of anticoagulants Status: Acute (4) Alcoholism: Code(s): F10.20 - Alcohol dependence, uncomplicated Status: Chronic (5) COPD (chronic obstructive pulmonary disease): Qualifiers: COPD type: unspecified COPD Qualified Code(s): J44.9 - Chronic obstructive pulmonary disease, unspecified Code(s): J44.9 - Chronic obstructive pulmonary disease, unspecified Status: Chronic (6) Sepsis: Code(s): A41.9 - Sepsis, unspecified organism Status: Acute Assessment and Plan: Fever I would and leukocytosis identified in ER period source of anemia remains somewhat unclear. It is difficult to attribute stercoral colitis as an etiology for this fever. Other etiology should be considered. (7) NSTEMI (non-ST elevated myocardial infarction): Code(s): I21.4 - Non-ST elevation (NSTEMI) myocardial infarction Status: Acute Assessment and Plan: Acute [place] manifested by elevated troponins. Plan is for ICU management cardiology follow-up. (8) Colitis: Code(s): K52.9 - Noninfective gastroenteritis and colitis, unspecified Status: Acute Assessment and Plan: Fecal impaction identified on CT scan stercoral colitis described on CT scan. It is unlikely this contributes to anemia unless significant bleed loss has been identified. Additional Plan We will follow with you in the ICU. Consider covering with proton pump inhibitor. Monitor hemoglobin as patient is transfuse. GI Consult Note Consult date/time: 05/15/20 10:49 HPI: Choco Hastings is a 74 year old male seen at the request of the emergency room. Patient is a resident of a intermediate. Presented to the ER with complaints of weakness fevers lethargy. He has a past history of alcoholism alcohol withdrawal dementia atrial fibrillation on chronic Xarelto anticoagulation, underlying COPD. In the emergency room he was found to have rather profound anemia. No obvious GI bleeding was described in none has been visualized. In the emergency room he remains somewhat confused unable to give additional history. He was found to be profoundly anemic with elevated troponins. His past history is significant for alcohol abuse. On physical exam today patient is able to wake up and responds to his name. He is unable to give any useful history. During the night he was noted have a fever. No obvious GI bleeding is described by the nursing staff. Review of Systems Review of Systems: All systems reviewed & are unremarkable except as noted in HPI and below PMFSH Past Medical History Medical History Alcohol withdrawal Alcoholism Atrial fibrillation BPH (benign prostatic hyperplasia) Chronic neck pain Congestive heart failure Diastolic COPD (chronic obstructive pulmonary disease) CVA (cerebral vascular accident) Cytotoxic cerebral edema DVT (deep venous thrombosis) DVT prophylaxis HTN (hypertension) Hyperlipidemia Leukocytosis Pneumonia Pulmonary emboli Tobacco abuse Surg
[2020-05-15] MEDS: LACTATED RINGERS 1,000 ML 75 ML IV CONT (11:49)
[2020-05-15 12:30] LABS: Iron 44 ug/dL (49-181)
[2020-05-15 12:39] LABS: Percent Iron Saturation 14 % (20-50)
[2020-05-15 13:14] LABS: Folic Acid > 20.0 ng/mL (2.76->20)
[2020-05-15 13:27] LABS: SARS-CoV-2 RNA PCR Negative
--- NOTE | 2020-05-15 14:02 | PC.NURSE ---
Dr. Manley notified of covid-19 results are negative
[2020-05-15] MEDS: PERFLUTREN LIPID MICROSPHERES 1.5 ML VIAL DILUTED TO 10 ML TOTAL VOLUME IV PUSH (14:32)
--- NOTE | 2020-05-15 15:51 | PC.NURSE ---
Pt transfered via bed to [facility]. .Belonging verified and sent with patient. No issues noted during transport. No report given as RN will be the same in IMU
--- NOTE | 2020-05-15 16:08 | PM.IMPN ---
Progress Note: A&P Assessment and Plan (1) Symptomatic anemia: Code(s): D64.9 - Anemia, unspecified Status: Acute Assessment and Plan: May be secondary to an GI Bleed and initially thought acute but with hemoglobin rising appropriately with 4 units of packed cells and no further evidence of GI blood loss with large stool and the rectal sigmoid area is probably more chronic blood loss anemia. Iron studies are compatible with iron deficiency anemia with low ferritin also. PPI and GI is following can advance to clear liquids (2) NSTEMI (non-ST elevated myocardial infarction): Code(s): I21.4 - Non-ST elevation (NSTEMI) myocardial infarction Status: Acute Assessment and Plan: r/o NSTEMI. troponin trending down The patient is not a candidate for anticoagulation given his likely GI Bleed. Elevated troponin and non ST elevation [place] probably secondary to severe anemia with no ongoing ischemia. Repeat echo is pending to assess for any new wall motion abnormality and assessed ejection fraction compared echo 04/14. (3) Elevated troponin: Code(s): R79.89 - Other specified abnormal findings of blood chemistry Status: Acute Assessment and Plan: As above (4) Severe sepsis: Code(s): A41.9 - Sepsis, unspecified organism; R65.20 - Severe sepsis without septic shock Status: Acute Assessment and Plan: May be secondray to colitis? Continue IV antibiotics. blood cultures pending. Continue IV hydration. (5) Colitis: Code(s): K52.9 - Noninfective gastroenteritis and colitis, unspecified Status: Acute Assessment and Plan: Continue IV antibiotics without any significant colitis with no evidence of ongoing stools (6) Suspected 2019 novel coronavirus infection: Code(s): Z20.828 - Contact with and (suspected) exposure to other viral communicable diseases Status: Acute Assessment and Plan: The patient has been swabbed for COVID-19 virus. And results are negative (7) Elevated lactic acid level: Code(s): R79.89 - Other specified abnormal findings of blood chemistry Status: Acute Assessment and Plan: Seconadry to severe sepsis. Returned quickly to normal (8) Alcoholism: Code(s): F10.20 - Alcohol dependence, uncomplicated Status: Chronic Assessment and Plan: The patient states he has not had a drink of alcohol for over a week. Thiamine daily. CIWA-AR protocol. Ativan IV prn. (9) HTN (hypertension): Qualifiers: Hypertension type: essential hypertension Qualified Code(s): I10 - Essential (primary) hypertension Code(s): I10 - Essential (primary) hypertension Status: Chronic Assessment and Plan: stable. Monitor blood pressure. Resume metoprolol this p.m. . (10) Congestive heart failure: Qualifiers: Heart failure type: diastolic Heart failure chronicity: chronic Qualified Code(s): I50.32 - Chronic diastolic (congestive) heart failure Code(s): I50.9 - Heart failure, unspecified Status: Chronic Assessment and Plan: Compensated. Chronic diastolic Monitor Is and Os and daily weights. Resume beta-juan. (11) BPH (benign prostatic hyperplasia): Qualifiers: Lower urinary tract symptom presence: symptoms absent Qualified Code(s): N40.0 - Benign prostatic hyperplasia without lower urinary tract symptoms Code(s): N40.0 - Benign prostatic hyperplasia without lower urinary tract symptoms Status: Chronic Assessment and Plan: Continue flomax and dutasteride (12) COPD (chronic obstructive pulmonary disease): Qualifiers: COPD type: unspecified COPD Qualified Code(s): J44.9 - Chronic obstructive pulmonary disease, unspecified Code(s): J44.9 - Chronic obstructive pulmonary disease, unspecified Status: Chronic Assessment and Plan: PRN bronchodilators. (13) Leukocytosis: Quali
[2020-05-15] MEDS: polyethylene glycoL 3350 17 GM POWD.PACK BY MOUTH (17:35)
[2020-05-15 18:29] LABS: IFOB Positive Control Positive; Immunochemical Fecal Occult Bl Positive (N)
[2020-05-15] MEDS: TAMSULOSIN HCL 0.4 MG CAPSULE PO (20:57)
[2020-05-15] MEDS: METOPROLOL TARTRATE 12.5 MG TABLET PO (20:57)
[2020-05-15] MEDS: QUEtiapine FUMARATE 12.5 MG TABLET PO (20:57)
[2020-05-15] MEDS: CHLORDIAZEPOXIDE 10 MG CAPSULE PO (20:57)
[2020-05-16] VITALS (21 sets, daily range): BP systolic 101–130; BP diastolic 46–58; PULSE 66–97; RESP 14–18; TEMP 35.9–37.7; O2SAT 97–100
[2020-05-16] MEDS: LACTATED RINGERS 1,000 ML 75 ML IV CONT (03:28)
[2020-05-16] MEDS: LORAZEPAM INJ 2 MG/ML VIAL 0.5 MG IV PUSH (04:47)
[2020-05-16 07:02] LABS: Basophils Percent Auto 0.3 % (0.2-1.2); Eosinophils Absolute Auto 0.3 K/mm3 (0-0.3); Hematocrit 22.4 % (42.0-52.0); Hemoglobin 7.1 g/dL (14.0-18.0); Immature Granulocyte Absolute 0.05 K/mm3 (0.00-0.031); Immature Granulocyte Percent A 0.5 % (0-0.5); Lymphocytes Absolute Auto 1.95 K/mm3 (0.9-3.2); Lymphocytes Percent Auto 17.7 % (18.3-44.2); Mean Corpuscular HGB Conc 31.7 g/dl (32-36); Mean Corpuscular Hemoglobin 25.9 pg (26-34); Mean Corpuscular Volume 81.8 fl (80-100); Mean Platelet Volume 10.7 fl (7.4-10.4); Monocytes Absolute Auto 1.1 K/mm3 (0.1-0.6); Monocytes Percent Auto 9.6 % (2.6-8.5); Neutrophils Absolute Auto 7.6 K/mm3 (1.3-6.7); Neutrophils Percent Auto 68.9 % (45.5-73.1); Nucleated Red Blood Cells Absolute Auto 0.1 K/mm3 (0.0-0.012); Nucleated Red Blood Cells Perc 0.5 % (0.0-0.2); Platelet Count Result 312 k/mm3 (150-375); Red Blood Count 2.74 M/mm3 (4.6-6.20); Red Cell Distribution Width 15.9 % (11.5-14.5)
[2020-05-16 07:37] LABS: Blood Urea Nitrogen 14 mg/dL (9-20); Calcium 7.4 mg/dL (8.4-10.2); Carbon Dioxide 24 mmol/L (22-30); Chloride 109 mmol/L (98-107); Estimated CRCL calculation 85 ml/min; Estimated Glomerular Filt Rate > 60; Glucose 90 mg/dL (75-110); Potassium 2.9 mmol/L (3.4-5.0); Sodium 135 mmol/L (137-145)
[2020-05-16] MEDS: THIAMINE HCL 100 MG TABLET PO (09:04)
[2020-05-16] MEDS: METOPROLOL TARTRATE 12.5 MG TABLET PO ×2 (09:04→20:45)
[2020-05-16] MEDS: DUTASTERIDE 0.5 MG CAPSULE PO (09:04)
[2020-05-16] MEDS: PANTOPRAZOLE SODIUM IV 40 MG VIAL IV PUSH ×2 (09:04→20:45)
[2020-05-16] MEDS: CHLORDIAZEPOXIDE 10 MG CAPSULE PO ×2 (09:06→20:45)
[2020-05-16] MEDS: polyethylene glycoL 3350 17 GM POWD.PACK PO (09:06)
--- NOTE | 2020-05-16 09:30 | WPDGIPROGNO ---
Progress Note: A&P Additional Plan Patient more alert this morning. Not oriented. Lying in bed. No bleeding night reported per nursing staff. Good bowel movement reported last evening. Physical exam reveals patient alert but not oriented. Vital Signs more stable. Lungs are clear. Heart without murmur. Abdomen bowel sounds are present soft and nontender. Digital rectal exam reveals no obvious lesions. Labs reveal white count 11, hemoglobin 7.1, hematocrit 22.4, MCV 81. Stool confirmed to be Hemoccult-positive. Impression 1. Profound anemia. Stool Hemoccult confirmed to be positive. Suspect GI blood loss. Likely chronic. Plan is to transfuse to a stable hemoglobin. GI endoscopy when more stable. No active bleeding has been described. 2. Fecal impaction. Identified by CT scan. Concern over possible surrounding colitis. This could certainly could contribute to patient's anemia. Plan is to continue laxatives as needed to correct patient's bowel habits. Abnormality seen on CT scan can be evaluated at a later date when more stable by colonoscopy. 3. Dementia. 4. Acute [place]. 5. Sepsis. Elevated fever at the time of admission etiology of this remains somewhat unclear. Patient on empiric antibiotics. COVID has been excluded. 6. Alcoholism. Patient drinking heavily until the last week. Seven. Atrial fibrillation. Patient previously anticoagulated. No longer on anticoagulation. This certainly could contribute to blood loss. In subsequent anemia. Plan is for GI endoscopy at a later day when cardiovascular status is felt more stable. Subjective Date/time seen: 05/16/20 09:30 Objective Data Vital Signs Vital Signs: Vital Signs - 24 hr 05/15/20 09:45 05/15/20 10:00 05/15/20 10:10 Temperature 37.0 C 37.3 C 37.3 C Pulse Rate 77 73 93 Pulse Rate [Monitor] Respiratory Rate 20 16 20 Blood Pressure 106/62 105/65 106/65 Pulse Oximetry 99 97 99 05/15/20 10:22 05/15/20 10:39 05/15/20 11:39 Temperature 37.3 C 37.3 C 37.6 C Pulse Rate 75 74 78 Pulse Rate [Monitor] Respiratory Rate 10 L 17 19 Blood Pressure 110/66 109/68 108/63 Pulse Oximetry 99 99 99 05/15/20 12:00 05/15/20 12:43 05/15/20 14:00 Temperature 37.6 C 37.0 C Pulse Rate 75 74 75 Pulse Rate [Monitor] 75 Respiratory Rate 19 15 Blood Pressure 108/63 101/59 L Pulse Oximetry 99 98 05/15/20 15:39 05/15/20 16:00 05/15/20 18:00 Temperature 37.0 C Pulse Rate 74 77 98 Pulse Rate [Monitor] 74 Respiratory Rate 13 Blood Pressure 123/60 123/60 Pulse Oximetry 96 05/15/20 20:00 05/15/20 20:22 05/15/20 20:57 Temperature 36.4 C Pulse Rate 92 97 84 Pulse Rate [Monitor] Respiratory Rate 20 Blood Pressure 121/51 L Pulse Oximetry 100 05/15/20 22:00 05/16/20 00:00 05/16/20 00:09 Temperature 36.3 C L Pulse Rate 72 86 81 Pulse Rate [Monitor] Respiratory Rate 18 Blood Pressure 112/50 L Pulse Oximetry 99 05/16/20 02:00 05/16/20 03:58 05/16/20 04:00 Temperature 35.9 C L Pulse Rate 87 80 81 Pulse Rate [Monitor] Respiratory Rate 18 Blood Pressure 108/58 L Pulse Oximetry 99 05/16/20 05:52 05/16/20 08:00 05/16/20 09:04 Temperature 36.2 C L Pulse Rate 79 73 66 Pulse Rate [Monitor] Respiratory Rate 14 Blood Pressure 109/49 L Pulse Oximetry 97 Intake/Output Intake/Output: Intake & Output 05/13/20 05/14/20 05/15/20 05/16/20 23:59 23:59 23:59 23:59 Intake Total 3050 3462.7 1365.3 Output Total 1475 300 Balance 3050 1987.7 1065.3 Meds/Results Medications: Active Medications Generic Name Dose Route Start Last Admin Trade Name Freq PRN Reason Stop Dose Admin Chlordiazepoxide HCl 10 mg 05/15/20 21:00 05/16/20 09:06 Librium Po PO 10 mg Q12HR JESS Administration Dutasteride 0.5 mg 05/16/20 09:00 05/16/20 09:04 Avodart PO 0.5 mg QAM JESS Administration Lactated Ringer's 1,000 mls @ 75 mls/hr 05/14/20 20:55 05/16/20 05:58 Lr - L
--- NOTE | 2020-05-16 11:36 | PM.PNCARD ---
Progress Note: A&P Assessment and Plan (1) NSTEMI (non-ST elevated myocardial infarction): Code(s): I21.4 - Non-ST elevation (NSTEMI) myocardial infarction Status: Acute Assessment and Plan: 74 y/o with h/o tobacco and alcohol abuse, h/o PE 2016, ?history of A fib, CVA who presented with AMS Patient has NSTMI with trop that peaked at 8 in the setting of profound anemia (Hg 4) and sepsis (fever, leukocytosis and lactic acidosis) EKG shows sinus tachycardia with no acute injury. No report of chest pain though patient is very altered currently NonSTMI is likely due to type II VA from increased demand and less likely due to ACS though he likely has underlying CAD given extensive risk factors echocardiogram showed mild left ventricular wall motion abnormalities, he would need to have cardiac catheterization if he is otherwise okay will tentatively plan on doing this next week (2) HTN (hypertension): Qualifiers: Hypertension type: essential hypertension Qualified Code(s): I10 - Essential (primary) hypertension Code(s): I10 - Essential (primary) hypertension Status: Chronic Assessment and Plan: Borderline low. Blood transufusions and IV fluids per primary team for sepsis management (3) Sepsis: Code(s): A41.9 - Sepsis, unspecified organism Status: Acute Assessment and Plan: Unclear source. Follow cultures (4) Alcoholism: Code(s): F10.20 - Alcohol dependence, uncomplicated Status: Chronic (5) Anemia: Code(s): D64.9 - Anemia, unspecified Status: Acute Assessment and Plan: in the setting of Xarelto use with h/o PE and ?Afib. Hold AC. Start ASA once Hg stable (6) History of pulmonary embolism: Code(s): Z86.711 - Personal history of pulmonary embolism Status: Acute Assessment and Plan: Xarelto on hold Subjective Date/time seen: 05/16/20 11:36 he feels better today, seems to be confused no chest pain Exam Narrative: Exam Narrative: obtunded. Appears younger than stated age Const: General: no acute distress Eyes: Sclera: sclerae normal Neck: Neck: no JVD Carotids: no bruits Resp: Effort & Inspection: normal respiratory effort Auscultation: clear to auscultation bilaterally Cardio: Rate: regular rate and not tachycardic Rhythm: regular rhythm Heart sounds: no gallops, no murmurs and no rubs Skin: General skin exam: normal color Neuro: Cranial nerves: Yes Normal hearing present Other: obtunded Extrem: General: normal to inspection and no edema Objective Data Vital Signs Vital Signs: Vital Signs - 24 hr 05/15/20 11:39 05/15/20 12:00 05/15/20 12:43 Temperature 37.6 C 37.6 C 37.0 C Pulse Rate 78 75 74 Pulse Rate [Monitor] 75 Respiratory Rate 19 19 15 Blood Pressure 108/63 108/63 101/59 L Pulse Oximetry 99 99 98 05/15/20 14:00 05/15/20 15:39 05/15/20 16:00 Temperature 37.0 C Pulse Rate 75 74 77 Pulse Rate [Monitor] 74 Respiratory Rate 13 Blood Pressure 123/60 123/60 Pulse Oximetry 96 05/15/20 18:00 05/15/20 20:00 05/15/20 20:22 Temperature 36.4 C Pulse Rate 98 92 97 Pulse Rate [Monitor] Respiratory Rate 20 Blood Pressure 121/51 L Pulse Oximetry 100 05/15/20 20:57 05/15/20 22:00 05/16/20 00:00 Temperature Pulse Rate 84 72 86 Pulse Rate [Monitor] Respiratory Rate Blood Pressure Pulse Oximetry 05/16/20 00:09 05/16/20 02:00 05/16/20 03:58 Temperature 36.3 C L 35.9 C L Pulse Rate 81 87 80 Pulse Rate [Monitor] Respiratory Rate 18 18 Blood Pressure 112/50 L 108/58 L Pulse Oximetry 99 99 05/16/20 04:00 05/16/20 05:52 05/16/20 08:00 Temperature 36.2 C L Pulse Rate 81 79 74 Pulse Rate [Monitor] Respiratory Rate 14 Blood Pressure 109/49 L Pulse Oximetry 97 05/16/20 09:04 05/16/20 10:00 Temperature Pulse Rate 66 70 Pulse Rate [Monitor] Respiratory Rate Blood Pressure Pulse
[2020-05-16 12:09] LABS: Hematocrit 22.9 % (42.0-52.0); Hemoglobin 7.4 g/dL (14.0-18.0); Mean Corpuscular HGB Conc 32.3 g/dl (32-36); Mean Corpuscular Hemoglobin 26.3 pg (26-34); Mean Corpuscular Volume 81.5 fl (80-100); Mean Platelet Volume 9.8 fl (7.4-10.4); Platelet Count Result 276 k/mm3 (150-375); Red Blood Count 2.81 M/mm3 (4.6-6.20); Red Cell Distribution Width 16.1 % (11.5-14.5); White Blood Count 10.7 K/mm3 (4.5-10.0)
[2020-05-16] MEDS: POTASSIUM CHLORIDE 20 MEQ TABLET 40 MEQ PO ×3 (12:11→18:15)
[2020-05-16] MEDS: SODIUM CHLORIDE 0.9% IV 250 ML 30 ML IV CONT (15:26)
[2020-05-16] MEDS: TUBING, BLOOD PLUM PUMP TUBING 1 EACH XX (15:27)
--- NOTE | 2020-05-16 15:45 | PM.IMPN ---
Progress Note: A&P Assessment and Plan (1) Symptomatic anemia: Code(s): D64.9 - Anemia, unspecified Status: Acute Assessment and Plan: May be secondary to GI Bleed and initially thought acute but with hemoglobin rising appropriately with 4 units of packed cells and no further evidence of GI blood loss with large stool in the rectal sigmoid area is probably more chronic blood loss anemia. Iron studies are compatible with iron deficiency anemia with low ferritin also. PPI and GI is following can advance to clear liquids will transfuse to hgb of 8 with the NSTEMI (2) NSTEMI (non-ST elevated myocardial infarction): Code(s): I21.4 - Non-ST elevation (NSTEMI) myocardial infarction Status: Acute Assessment and Plan: NSTEMI. troponin trending down The patient is not a candidate for anticoagulation given his likely GI Bleed. Elevated troponin and non ST elevation [place] probably secondary to severe anemia with no ongoing ischemia. Repeat echo new wall motion abnormality with EF of 50%. (3) Elevated troponin: Code(s): R79.89 - Other specified abnormal findings of blood chemistry Status: Acute Assessment and Plan: As above (4) Severe sepsis: Code(s): A41.9 - Sepsis, unspecified organism; R65.20 - Severe sepsis without septic shock Status: Acute Assessment and Plan: May be secondray to colitis? Continue IV antibiotics. blood cultures NG . . (5) Colitis: Code(s): K52.9 - Noninfective gastroenteritis and colitis, unspecified Status: Acute Assessment and Plan: Continue IV antibiotics doubt any significant colitis with no evidence of ongoing stools (6) Suspected 2019 novel coronavirus infection: Code(s): Z20.828 - Contact with and (suspected) exposure to other viral communicable diseases Status: Acute Assessment and Plan: The patient has been swabbed for COVID-19 virus. And results are negative (7) Elevated lactic acid level: Code(s): R79.89 - Other specified abnormal findings of blood chemistry Status: Acute Assessment and Plan: Seconadry to severe sepsis. Returned quickly to normal (8) Alcoholism: Code(s): F10.20 - Alcohol dependence, uncomplicated Status: Chronic Assessment and Plan: The patient states he has not had a drink of alcohol for over a week. Thiamine daily. CIWA-AR protocol. Ativan IV prn. (9) HTN (hypertension): Qualifiers: Hypertension type: essential hypertension Qualified Code(s): I10 - Essential (primary) hypertension Code(s): I10 - Essential (primary) hypertension Status: Chronic Assessment and Plan: stable. Monitor blood pressure. Resumed metoprolol 05/15 pm. . (10) Congestive heart failure: Qualifiers: Heart failure type: diastolic Heart failure chronicity: chronic Qualified Code(s): I50.32 - Chronic diastolic (congestive) heart failure Code(s): I50.9 - Heart failure, unspecified Status: Chronic Assessment and Plan: Compensated. Chronic diastolic Monitor Is and Os and daily weights. Resumed beta-juan 05/15 pm (11) BPH (benign prostatic hyperplasia): Qualifiers: Lower urinary tract symptom presence: symptoms absent Qualified Code(s): N40.0 - Benign prostatic hyperplasia without lower urinary tract symptoms Code(s): N40.0 - Benign prostatic hyperplasia without lower urinary tract symptoms Status: Chronic Assessment and Plan: Continue flomax and dutasteride (12) COPD (chronic obstructive pulmonary disease): Qualifiers: COPD type: unspecified COPD Qualified Code(s): J44.9 - Chronic obstructive pulmonary disease, unspecified Code(s): J44.9 - Chronic obstructive pulmonary disease, unspecified Status: Chronic Assessment and Plan: PRN bronchodilators. (13) Leukocytosis: Qualifiers: Leukocytosis type: unspecif
--- NOTE | 2020-05-16 16:40 | PC.NURSE ---
This patient, Choco Hastings, was transferred to [facility] on 05/16/20 at 1625. Personal belongings sent with patient. Belongings list checked. Report given to Marko VALENZUELA. Appropriate documentation sent with patient.
--- NOTE | 2020-05-16 16:40 | PC.NURSE ---
This patient, Choco Hastings, was received from IMU on 05/16/20 at 1630. Personal belongings list checked and signed. Patient oriented to unit policies and routines
[2020-05-16] MEDS: TAMSULOSIN HCL 0.4 MG CAPSULE PO (20:45)
[2020-05-16] MEDS: QUEtiapine FUMARATE 12.5 MG TABLET PO (20:45)
[2020-05-17] VITALS (12 sets, daily range): BP systolic 102–114; BP diastolic 45–56; PULSE 67–91; RESP 18; TEMP 36.4–37.9; O2SAT 97–100
[2020-05-17 06:35] LABS: Basophils Percent Auto 0.3 % (0.2-1.2); Eosinophils Absolute Auto 0.6 K/mm3 (0-0.3); Eosinophils Percent Auto 5.1 % (0-4.4); Hematocrit 28.3 % (42.0-52.0); Hemoglobin 9.1 g/dL (14.0-18.0); Immature Granulocyte Absolute 0.07 K/mm3 (0.00-0.031); Immature Granulocyte Percent A 0.6 % (0-0.5); Lymphocytes Absolute Auto 1.46 K/mm3 (0.9-3.2); Lymphocytes Percent Auto 12.3 % (18.3-44.2); Mean Corpuscular HGB Conc 32.2 g/dl (32-36); Mean Corpuscular Hemoglobin 25.9 pg (26-34); Mean Corpuscular Volume 80.4 fl (80-100); Mean Platelet Volume 10.7 fl (7.4-10.4); Monocytes Absolute Auto 1.3 K/mm3 (0.1-0.6); Monocytes Percent Auto 10.7 % (2.6-8.5); Neutrophils Absolute Auto 8.4 K/mm3 (1.3-6.7); Nucleated Red Blood Cells Perc 0.3 % (0.0-0.2); Platelet Count Result 293 k/mm3 (150-375); Red Blood Count 3.52 M/mm3 (4.6-6.20); Red Cell Distribution Width 16.4 % (11.5-14.5); White Blood Count 11.8 K/mm3 (4.5-10.0)
[2020-05-17 06:59] LABS: Blood Urea Nitrogen 7 mg/dL (9-20); Calcium 7.5 mg/dL (8.4-10.2); Carbon Dioxide 23 mmol/L (22-30); Chloride 110 mmol/L (98-107); Estimated CRCL calculation 85 ml/min; Estimated Glomerular Filt Rate > 60; Glucose 84 mg/dL (75-110); Potassium 3.9 mmol/L (3.4-5.0); Sodium 135 mmol/L (137-145)
--- NOTE | 2020-05-17 08:28 | WPDGIPROGNO ---
Progress Note: A&P Additional Plan Patient had a good night. Slept throughout the night. He denies abdominal pain. He does have a baseline dementia is unable to give any additional history. No bleeding is reported. He denies abdominal or chest pain. Tolerating diet. Physical exam reveals patient to be alert. Vital signs are stable. HEENT exam reveals him to be anicteric. Lungs are clear. Heart without murmur. Abdomen bowel sounds are present soft nontender with no organomegaly. Laboratory work reveals hemoglobin 9.1, hematocrit 28.3, MCV 80. This appears stable. Impression 1. Dementia. 2. Alcohol abuse. 3. Profound anemia. Likely multifactorial. Occult blood noted in stool raises question of GI blood loss. Plan is for GI endoscopy. However this will be held until cardiovascular status. Patient is status post acute NSTEMI. 4. NSTEMI. 5. Atrial fibrillation. It Xarelto on hold because of profound anemia and possible contributing to GI blood loss. 6. Constipation. Stercal fecal ball noted on CT scan. Question of stercoral colitis. This is unlikely to contribute to sepsis. Potentially could contribute to anemia. 7. Sepsis with fever on admission etiology remains unclear. Patient on empiric antibiotics. Plan is for GI endoscopy eventually when cardiac status felt stable. Currently hemoglobin stable. On empiric acid suppression for possible stress gastritis or ulceration. Laxatives for constipation. Subjective Date/time seen: 05/17/20 08:28 Objective Data Vital Signs Vital Signs: Vital Signs - 24 hr 05/16/20 09:04 05/16/20 10:00 05/16/20 12:00 Temperature 36.6 C Pulse Rate 66 70 66 Respiratory Rate 16 Blood Pressure 101/58 L Pulse Oximetry 100 05/16/20 15:38 05/16/20 15:39 05/16/20 15:53 Temperature 36.7 C 36.7 C 36.7 C Pulse Rate 75 75 75 Respiratory Rate 18 18 18 Blood Pressure 106/53 L 106/53 L 114/52 L Pulse Oximetry 100 100 100 05/16/20 16:00 05/16/20 16:53 05/16/20 17:53 Temperature 36.8 C 37.0 C Pulse Rate 75 73 97 Respiratory Rate 18 18 Blood Pressure 119/58 L 107/56 L Pulse Oximetry 100 100 05/16/20 18:53 05/16/20 19:25 05/16/20 20:45 Temperature 37.0 C 37.0 C Pulse Rate 95 96 92 Respiratory Rate 18 18 Blood Pressure 120/58 L 121/46 L Pulse Oximetry 99 99 05/16/20 21:00 05/16/20 22:00 05/17/20 00:00 Temperature 37.7 C H 37.1 C Pulse Rate 82 84 83 Respiratory Rate 18 Blood Pressure 130/56 L Pulse Oximetry 97 05/17/20 04:00 05/17/20 06:00 05/17/20 07:41 Temperature 37.9 C H 37.1 C Pulse Rate 67 78 Respiratory Rate 18 Blood Pressure 114/56 L Pulse Oximetry 100 Intake/Output Intake/Output: Intake & Output 05/14/20 05/15/20 05/16/20 05/17/20 23:59 23:59 23:59 23:59 Intake Total 3050 3462.7 2295.3 400 Output Total 1475 300 225 Balance 3050 1987.7 1995.3 175 Meds/Results Medications: Active Medications Generic Name Dose Route Start Last Admin Trade Name Freq PRN Reason Stop Dose Admin Chlordiazepoxide HCl 10 mg 05/15/20 21:00 05/16/20 20:45 Librium Po PO 10 mg Q12HR JESS Administration Dutasteride 0.5 mg 05/16/20 09:00 05/16/20 09:04 Avodart PO 0.5 mg QAM JESS Administration Piperacillin/Tazobactam/Dextrose 3.375 gm in 50 mls @ 100 mls/hr 05/15/20 00:00 05/17/20 06:38 Zosyn 3.375 Gm/D5w 50ml Pm IVPB 100 mls/hr Q6HR JESS Administration Vancomycin HCl 1,000 mg in 250 mls @ 250 mls/hr 05/16/20 11:00 05/17/20 00:50 Vancomycin 1,000 Mg/D5w 250 Ml IVPB Infused Q12H JESS Infusion Metoprolol Tartrate 12.5 mg 05/15/20 21:00 05/16/20 20:45 Lopressor PO 12.5 mg Q12HR JESS Administration Ondansetron HCl 4 mg 05/14/20 20:52 Zofran Inj IV PUSH Q4H PRN Nausea Pantoprazole Sodium 40 mg 05/14/20 21:00 05/16/20 20:45 Protonix Iv IV PUSH 40 mg Q12HR JESS Administration Polyethylene Glycol 17 gm 05/16/20 09:00 05/16/20 09:06 Miralax PO
[2020-05-17] MEDS: polyethylene glycoL 3350 17 GM POWD.PACK PO (09:00)
[2020-05-17] MEDS: THIAMINE HCL 100 MG TABLET PO (09:00)
[2020-05-17] MEDS: PANTOPRAZOLE SODIUM IV 40 MG VIAL IV PUSH ×2 (09:00→20:58)
[2020-05-17] MEDS: DUTASTERIDE 0.5 MG CAPSULE PO (09:00)
[2020-05-17] MEDS: METOPROLOL TARTRATE 12.5 MG TABLET PO ×2 (09:01→20:58)
[2020-05-17] MEDS: CHLORDIAZEPOXIDE 10 MG CAPSULE PO ×2 (09:06→21:00)
--- NOTE | 2020-05-17 12:18 | PM.PNCARD ---
Progress Note: A&P Assessment and Plan (1) NSTEMI (non-ST elevated myocardial infarction): Code(s): I21.4 - Non-ST elevation (NSTEMI) myocardial infarction Status: Acute Assessment and Plan: 74 y/o with h/o tobacco and alcohol abuse, h/o PE 2016, ?history of A fib, CVA who presented with AMS Patient has NSTMI with trop that peaked at 8 in the setting of profound anemia (Hg 4) and sepsis (fever, leukocytosis and lactic acidosis) EKG shows sinus tachycardia with no acute injury. No report of chest pain though patient is very altered currently Non STMI is likely due to type II DC from increased demand and less likely due to ACS though he likely has underlying CAD given extensive risk factors echocardiogram showed mild left ventricular wall motion abnormalities, he would need to have cardiac catheterization if he is otherwise okay will tentatively plan on doing this next week (2) HTN (hypertension): Qualifiers: Hypertension type: essential hypertension Qualified Code(s): I10 - Essential (primary) hypertension Code(s): I10 - Essential (primary) hypertension Status: Chronic Assessment and Plan: Borderline low. Blood transufusions and IV fluids per primary team for sepsis management (3) Sepsis: Code(s): A41.9 - Sepsis, unspecified organism Status: Acute Assessment and Plan: Unclear source. Follow cultures (4) Alcoholism: Code(s): F10.20 - Alcohol dependence, uncomplicated Status: Chronic (5) Anemia: Code(s): D64.9 - Anemia, unspecified Status: Acute Assessment and Plan: in the setting of Xarelto use with h/o PE and ?Afib. Hold AC. Start ASA once Hg stable Okay to go for GI procedures tomorrow, to consider cardiac catheterization after that (6) History of pulmonary embolism: Code(s): Z86.711 - Personal history of pulmonary embolism Status: Acute Assessment and Plan: Xarelto on hold Subjective Date/time seen: 05/17/20 12:18 He feels better today, still is confused but denies any chest pain no shortness of breath at rest Exam Narrative: Exam Narrative: obtunded. Appears younger than stated age Const: General: no acute distress Eyes: Sclera: sclerae normal Neck: Neck: no JVD Carotids: no bruits Resp: Effort & Inspection: normal respiratory effort Auscultation: clear to auscultation bilaterally Cardio: Rate: regular rate and not tachycardic Rhythm: regular rhythm Heart sounds: no gallops, no murmurs and no rubs Skin: General skin exam: normal color Neuro: Cranial nerves: Yes Normal hearing present Other: obtunded Extrem: General: normal to inspection and no edema Objective Data Vital Signs Vital Signs: Vital Signs - 24 hr 05/16/20 15:38 05/16/20 15:39 05/16/20 15:53 Temperature 36.7 C 36.7 C 36.7 C Pulse Rate 75 75 75 Respiratory Rate 18 18 18 Blood Pressure 106/53 L 106/53 L 114/52 L Pulse Oximetry 100 100 100 05/16/20 16:00 05/16/20 16:53 05/16/20 17:53 Temperature 36.8 C 37.0 C Pulse Rate 75 73 97 Respiratory Rate 18 18 Blood Pressure 119/58 L 107/56 L Pulse Oximetry 100 100 05/16/20 18:53 05/16/20 19:25 05/16/20 20:45 Temperature 37.0 C 37.0 C Pulse Rate 95 96 92 Respiratory Rate 18 18 Blood Pressure 120/58 L 121/46 L Pulse Oximetry 99 99 05/16/20 21:00 05/16/20 22:00 05/17/20 00:00 Temperature 37.7 C H 37.1 C Pulse Rate 82 84 83 Respiratory Rate 18 Blood Pressure 130/56 L Pulse Oximetry 97 05/17/20 04:00 05/17/20 06:00 05/17/20 07:41 Temperature 37.9 C H 37.1 C Pulse Rate 67 78 Respiratory Rate 18 Blood Pressure 114/56 L Pulse Oximetry 100 05/17/20 08:00 05/17/20 09:01 Temperature Pulse Rate 81 91 Respiratory Rate Blood Pressure Pulse Oximetry Intake/Output Intake/Output: Intake & Output 05/14/20 05/15/20 05/16/20 05/17/20 23:59 23:59 23:59 23:59 Intake Total 3050 3462.7 2295.3 1450
[2020-05-17] MEDS: PEG (High)/E-LYTE SOLN 4,000 ML BTL 4000 ML PO (13:35)
--- NOTE | 2020-05-17 14:32 | PM.IMPN ---
Progress Note: A&P Assessment and Plan (1) Symptomatic anemia: Code(s): D64.9 - Anemia, unspecified Status: Acute Assessment and Plan: May be secondary to GI Bleed and initially thought acute but with hemoglobin rising appropriately with 5 units of packed cells and no further evidence of GI blood loss with large stool in the rectal sigmoid area is probably more chronic blood loss anemia. Iron studies are compatible with iron deficiency anemia with low ferritin also. PPI and GI is following can advance to regular diet now will transfuse to hgb of 8 with the NSTEMI (2) NSTEMI (non-ST elevated myocardial infarction): Code(s): I21.4 - Non-ST elevation (NSTEMI) myocardial infarction Status: Acute Assessment and Plan: NSTEMI. troponin trending down The patient is not a candidate for anticoagulation given his likely GI Bleed. Elevated troponin and non ST elevation [place] probably secondary to severe anemia with no ongoing ischemia. Repeat echo new wall motion abnormality with EF of 50%. beta juan and cardiology may proceed to cath. (3) Elevated troponin: Code(s): R79.89 - Other specified abnormal findings of blood chemistry Status: Acute Assessment and Plan: As above (4) Severe sepsis: Code(s): A41.9 - Sepsis, unspecified organism; R65.20 - Severe sepsis without septic shock Status: Acute Assessment and Plan: May be secondray to colitis? Continue IV antibiotics. blood cultures NG .and if continues to do well d/c antibiotics 05/18 . (5) Colitis: Code(s): K52.9 - Noninfective gastroenteritis and colitis, unspecified Status: Acute Assessment and Plan: Continue IV antibiotics doubt any significant colitis with no evidence of ongoing stools and probable d/c antibiotics 05/18 (6) Suspected 2019 novel coronavirus infection: Code(s): Z20.828 - Contact with and (suspected) exposure to other viral communicable diseases Status: Acute Assessment and Plan: The patient has been swabbed for COVID-19 virus. And results are negative (7) Elevated lactic acid level: Code(s): R79.89 - Other specified abnormal findings of blood chemistry Status: Acute Assessment and Plan: [place] to severe sepsis. Returned quickly to normal (8) Alcoholism: Code(s): F10.20 - Alcohol dependence, uncomplicated Status: Chronic Assessment and Plan: The patient states he has not had a drink of alcohol for over a week. Thiamine daily. PRESTONWA-RICK protocol. Ativan IV prn. (9) HTN (hypertension): Qualifiers: Hypertension type: essential hypertension Qualified Code(s): I10 - Essential (primary) hypertension Code(s): I10 - Essential (primary) hypertension Status: Chronic Assessment and Plan: stable. Monitor blood pressure. Resumed metoprolol 05/15 pm. . (10) Congestive heart failure: Qualifiers: Heart failure type: diastolic Heart failure chronicity: chronic Qualified Code(s): I50.32 - Chronic diastolic (congestive) heart failure Code(s): I50.9 - Heart failure, unspecified Status: Chronic Assessment and Plan: Compensated. Chronic diastolic Monitor Is and Os and daily weights. Resumed beta-juan 05/15 pm (11) BPH (benign prostatic hyperplasia): Qualifiers: Lower urinary tract symptom presence: symptoms absent Qualified Code(s): N40.0 - Benign prostatic hyperplasia without lower urinary tract symptoms Code(s): N40.0 - Benign prostatic hyperplasia without lower urinary tract symptoms Status: Chronic Assessment and Plan: Continue flomax and dutasteride (12) COPD (chronic obstructive pulmonary disease): Qualifiers: COPD type: unspecified COPD Qualified Code(s): J44.9 - Chronic obstructive pulmonary disease, unspecified Code(s): J44.9 - Chronic obstructive pulmonary disease, unspecified Status: C
[2020-05-17] MEDS: QUEtiapine FUMARATE 12.5 MG TABLET PO (20:58)
[2020-05-17] MEDS: TAMSULOSIN HCL 0.4 MG CAPSULE PO (20:58)
[2020-05-17 23:06] LABS: Vancomycin Trough 10.9 ug/mL (10.0-20.0)
[2020-05-18] VITALS (15 sets, daily range): BP systolic 96–120; BP diastolic 38–75; PULSE 65–91; RESP 16–23; TEMP 36.8–37.7; O2SAT 90–100
[2020-05-18 05:50] LABS: Basophils Percent Auto 0.2 % (0.2-1.2); Eosinophils Absolute Auto 0.7 K/mm3 (0-0.3); Eosinophils Percent Auto 5.7 % (0-4.4); Hematocrit 27.3 % (42.0-52.0); Hemoglobin 8.7 g/dL (14.0-18.0); Immature Granulocyte Absolute 0.13 K/mm3 (0.00-0.031); Immature Granulocyte Percent A 1.1 % (0-0.5); Lymphocytes Absolute Auto 1.73 K/mm3 (0.9-3.2); Lymphocytes Percent Auto 14.1 % (18.3-44.2); Mean Corpuscular HGB Conc 31.9 g/dl (32-36); Mean Corpuscular Hemoglobin 25.8 pg (26-34); Mean Platelet Volume 10.7 fl (7.4-10.4); Monocytes Absolute Auto 1.3 K/mm3 (0.1-0.6); Monocytes Percent Auto 10.4 % (2.6-8.5); Neutrophils Absolute Auto 8.4 K/mm3 (1.3-6.7); Neutrophils Percent Auto 68.5 % (45.5-73.1); Platelet Count Result 261 k/mm3 (150-375); Red Blood Count 3.37 M/mm3 (4.6-6.20); Red Cell Distribution Width 17.2 % (11.5-14.5); White Blood Count 12.3 K/mm3 (4.5-10.0)
[2020-05-18 06:03] LABS: Blood Urea Nitrogen 7 mg/dL (9-20); Calcium 7.3 mg/dL (8.4-10.2); Carbon Dioxide 23 mmol/L (22-30); Chloride 108 mmol/L (98-107); Estimated CRCL calculation 101 ml/min; Estimated Glomerular Filt Rate > 60; Glucose 91 mg/dL (75-110); Potassium 3.1 mmol/L (3.4-5.0); Sodium 135 mmol/L (137-145)
[2020-05-18] MEDS: PANTOPRAZOLE SODIUM IV 40 MG VIAL IV PUSH ×2 (08:51→20:06)
--- NOTE | 2020-05-18 10:27 | PCOTNOTE ---
OT evaluation attempted. Patient getting new IV started. Will attempt OT evaluation at later time.
--- NOTE | 2020-05-18 10:32 | PCPTNOTE ---
PT evaluation attempted. Patient getting new IV started. Will attempt PT evaluation at later time.
--- NOTE | 2020-05-18 11:12 | PCOTNOTE ---
OT evaluation attempted. Patient down for procedure. Will attempt OT evaluation at later time.
[2020-05-18] MEDS: LACTATED RINGERS 1,000 ML 150 ML IV CONT (11:28)
--- NOTE | 2020-05-18 11:31 | WPDANESEPPF ---
Anes - Initial Pre Proc Eval Procedure: Operation Date: 05/18/20 11:00 Proposed Procedures p Esophagogastroduodenoscopy & Colonoscopy - Riley Larson MD Date/Time: 05/18/20 11:31 Surgeon: Bri Schroeder DO Pre Op Diagnosis: Sepsis, dehydration, elevated troponin, anemia Patient Data Age: 74 Gender: M Height: 1.7 m Weight: 64.8 kg Last Vital Signs Temp 37.7 C H 05/18/20 11:25 Pulse 81 05/18/20 11:25 Resp 18 05/18/20 11:25 BP 111/75 05/18/20 11:25 Pulse Ox 95 05/18/20 11:25 Allergies Allergy/AdvReac Type Severity Reaction Status Date / Time No Known Allergies Allergy Verified 05/18/20 11:23 Home Medications Medication Instructions Recorded Confirmed Type Xarelto 20 mg PO DAILY 12/15/19 05/15/20 History aspirin [Children's Aspirin] 81 mg PO DAILY@0800 #30 tablet 12/23/19 05/15/20 Rx folic acid 1 mg PO DAILY #30 tablet 12/23/19 05/15/20 Rx megestrol 800 mg PO QAM #200 ml 12/23/19 05/15/20 Rx thiamine HCl (vitamin B1) [Vitamin 100 mg PO QAM #30 tablet 12/23/19 05/15/20 Rx B-1] dutasteride 0.5 mg capsule 0.5 mg PO DAILY #90 cap 02/24/20 05/15/20 Rx tamsulosin 0.4 mg capsule 0.4 mg PO DAILY #90 cap 02/24/20 05/15/20 Rx uhafpdjdyrdb-bvg-dhjf-FA-vit K 1 tablet PO DAILY 05/14/20 05/15/20 History [Adults Multivitamin] atorvastatin 40 mg PO HS 05/15/20 05/15/20 History chlordiazepoxide HCl 10 mg PO BID 05/15/20 05/15/20 History metoprolol tartrate 12.5 mg PO Q12H 05/15/20 05/15/20 History quetiapine 12.5 mg PO HS 05/15/20 05/15/20 History Laboratory Tests 05/17/20 05/18/20 05/18/20 22:21 05:34 05:34 WBC 12.3 K/mm3 H K/mm3 (4.5-10.0) RBC 3.37 M/mm3 L M/mm3 (4.6-6.20) Hgb 8.7 g/dL L g/dL (14.0-18.0) Hct 27.3 % L % (42.0-52.0) MCV 81.0 fl fl (80-100) MCH 25.8 pg L pg (26-34) MCHC 31.9 g/dl L g/dl (32-36) RDW 17.2 % H % (11.5-14.5) Plt Count 261 k/mm3 k/mm3 (150-375) MPV 10.7 fl H fl (7.4-10.4) Immature Gran % (Auto) 1.1 % H % (0-0.5) Neut % (Auto) 68.5 % % (45.5-73.1) Lymph % (Auto) 14.1 % L % (18.3-44.2) [place] % (Auto) 10.4 % H % (2.6-8.5) Eos % (Auto) 5.7 % H % (0-4.4) Baso % (Auto) 0.2 % % (0.2-1.2) Lymph # (Auto) 1.73 K/mm3 K/mm3 (0.9-3.2) [place] # (Auto) 1.3 K/mm3 H K/mm3 (0.1-0.6) Eos # (Auto) 0.7 K/mm3 H K/mm3 (0-0.3) Baso # (Auto) 0.0 K/mm3 K/mm3 (0.0-0.1) Abs Immat Gran (auto) 0.13 K/mm3 H K/mm3 (0.00-0.031) Absolute Neuts (auto) 8.4 K/mm3 H K/mm3 (1.3-6.7) Absolute Nucleated RBC 0.0 K/mm3 K/mm3 (0.0-0.012) Nucleated RBC % 0.0 % % (0.0-0.2) Sodium 135 mmol/L L mmol/L (137-145) Potassium 3.1 mmol/L L mmol/L (3.4-5.0) Chloride 108 mmol/L H mmol/L (98-107) Carbon Dioxide 23 mmol/L mmol/L (22-30) BUN 7 mg/dL L mg/dL (9-20) Creatinine 0.50 mg/dL L mg/dL (0.7-1.3) Estim Creat Clear Calc 101 ml/min ml/min Estimated GFR > 60 (59 - ) Glucose 91 mg/dL mg/dL (75-110) Calcium 7.3 mg/dL L mg/dL (8.4-10.2) Vancomycin Trough 10.9 ug/mL ug/mL (10.0-20.0) Patient hx anesthesia problems: none Family hx anesthesia problems: none PMF Past Medical History Medical History Alcohol withdrawal Alcoholism Atrial fibrillation BPH (benign prostatic hyperplasia) Chronic neck pain Congestive heart failure Diastolic COPD (chronic obstructive pulmonary disease) CVA (cerebral vascular accident) Cytotoxic cerebral edema DVT (deep venous thrombosis) DVT prophylaxis HTN (hypertension) Hyperlipidemia Leukocytosis Pneumonia Pulmonary emboli Tobacco abuse Surgical History Surgical History (Reviewed 05/15/20 @ 10:51 by Riley Whalen
--- NOTE | 2020-05-18 11:34 | PCNFU ---
Nutrition Follow-Up Complete: Inadequate oral intake related to multiple medical issues as evidenced by NPO status. Goal: Patient to meet estimated nutritional needs. Progressing towards goal. We will continue with current goal. Pt current nutrition is NPO. Nutrition recommendation: 4 gm Na Last recorded weight is 64.8 kg. Bowel Motility:+BM reported 05/18 Labs Reviewed:Na 135,Cr 0.5,K 3.1 Meds Noted:Vanco,LR @ 150 ml/hr,Thiamine, Protonix Additional Notes: Patient NPO for EGD/colonoscopy and possible heart cath today. Overall intake's have been 100% of a 4 gm Na diet. Plans to transfer back to [place] at discharge. Monitoring: Follow up every 5 days.
--- NOTE | 2020-05-18 13:18 | SUR.OPER ---
egd ended 1255, colonoscopy started 1303.
--- NOTE | 2020-05-18 13:44 | SUR.OPER ---
set up for snare of polyp, dr. cantu decided not to snare polyp at this time due to poor prep.
--- NOTE | 2020-05-18 13:54 | SUR.PHASEII ---
1330 pt cleaned up of a large liquid brown stool, prior to leaving procedure room.
--- NOTE | 2020-05-18 13:55 | SUR.PHASEII ---
1335 left arm noted to be very bruised most of arm prior to procedure. not change noted during proc and into post-op
[2020-05-18] MEDS: THIAMINE HCL 100 MG TABLET PO (14:25)
[2020-05-18] MEDS: DUTASTERIDE 0.5 MG CAPSULE PO (14:25)
[2020-05-18] MEDS: polyethylene glycoL 3350 17 GM POWD.PACK PO (14:26)
[2020-05-18] MEDS: METOPROLOL TARTRATE 12.5 MG TABLET PO ×2 (14:28→20:05)
[2020-05-18] MEDS: PEG (High)/E-LYTE SOLN 4,000 ML BTL 4000 ML PO (15:20)
--- NOTE | 2020-05-18 16:18 | PM.IMPN ---
Progress Note: A&P Assessment and Plan (1) Symptomatic anemia: Code(s): D64.9 - Anemia, unspecified Status: Acute Assessment and Plan: May be secondary to GI Bleed and initially thought acute but with hemoglobin rising appropriately with 5 units of packed cells and no further evidence of GI blood loss with large stool in the rectal sigmoid area is probably more chronic blood loss anemia. Iron studies are compatible with iron deficiency anemia with low ferritin also. PPI and GI is following EGD neg today, and poor prep for colon but no colitis or source of blood loss. Polyp seen and repeat scope planned for 05/19 will transfuse to hgb of 8 with the NSTEMI (2) NSTEMI (non-ST elevated myocardial infarction): Code(s): I21.4 - Non-ST elevation (NSTEMI) myocardial infarction Status: Acute Assessment and Plan: NSTEMI. troponin trending down The patient is not a candidate for anticoagulation given his likely GI Bleed. Elevated troponin and non ST elevation [place] probably secondary to severe anemia with no ongoing ischemia. Repeat echo new wall motion abnormality with EF of 50%. beta juan and cardiology may proceed to cath. once cleared from GI that no source of obvious blood loss in case anticoagulants needed post cath (3) Severe sepsis: Code(s): A41.9 - Sepsis, unspecified organism; R65.20 - Severe sepsis without septic shock Status: Acute Assessment and Plan: no infectious source found. no colitis on scope. blood cultures NG .Lactic acid normal and will d/c antibiotics (4) Colitis: Code(s): K52.9 - Noninfective gastroenteritis and colitis, unspecified Status: Acute Assessment and Plan: suspected on ct but none seen on colonoscope so antibiotics stopped (5) Suspected 2019 novel coronavirus infection: Code(s): Z20.828 - Contact with and (suspected) exposure to other viral communicable diseases Status: Acute Assessment and Plan: The patient has been swabbed for COVID-19 virus. And results are negative (6) Alcoholism: Code(s): F10.20 - Alcohol dependence, uncomplicated Status: Chronic Assessment and Plan: The patient states he has not had a drink of alcohol for over a week. Thiamine daily. CIWA-AR protocol. Ativan IV prn. (7) HTN (hypertension): Qualifiers: Hypertension type: essential hypertension Qualified Code(s): I10 - Essential (primary) hypertension Code(s): I10 - Essential (primary) hypertension Status: Chronic Assessment and Plan: stable. Monitor blood pressure. Resumed metoprolol 05/15 pm. . (8) Congestive heart failure: Qualifiers: Heart failure chronicity: chronic Heart failure type: diastolic Qualified Code(s): I50.32 - Chronic diastolic (congestive) heart failure Code(s): I50.9 - Heart failure, unspecified Status: Chronic Assessment and Plan: Compensated. Chronic diastolic Monitor Is and Os and daily weights. Resumed beta-juan 05/15 pm (9) BPH (benign prostatic hyperplasia): Qualifiers: Lower urinary tract symptom presence: symptoms absent Qualified Code(s): N40.0 - Benign prostatic hyperplasia without lower urinary tract symptoms Code(s): N40.0 - Benign prostatic hyperplasia without lower urinary tract symptoms Status: Chronic Assessment and Plan: Continue flomax and dutasteride (10) COPD (chronic obstructive pulmonary disease): Qualifiers: COPD type: unspecified COPD Qualified Code(s): J44.9 - Chronic obstructive pulmonary disease, unspecified Code(s): J44.9 - Chronic obstructive pulmonary disease, unspecified Status: Chronic Assessment and Plan: PRN bronchodilators. (11) Atrial fibrillation: Qualifiers: Atrial fibrillation type: unspecified Qualified Code(s): I48.91 - Unspecified atrial fibrillation Code(s): I48.91 - Unspecified atrial fibr
--- NOTE | 2020-05-18 16:59 | PM.PNCARD ---
Progress Note: A&P Assessment and Plan (1) NSTEMI (non-ST elevated myocardial infarction): Code(s): I21.4 - Non-ST elevation (NSTEMI) myocardial infarction Status: Acute Assessment and Plan: 74 y/o with h/o tobacco and alcohol abuse, h/o PE 2016, ?history of A fib, CVA who presented with AMS Patient has NSTMI with trop that peaked at 8 in the setting of profound anemia (Hg 4) and sepsis (fever, leukocytosis and lactic acidosis) EKG shows sinus tachycardia with no acute injury. No report of chest pain though patient is very altered currently Non STMI is likely due to type II HI from increased demand and less likely due to ACS though he likely has underlying CAD given extensive risk factors echocardiogram showed mild left ventricular wall motion abnormalities, he would need to have cardiac catheterization if he is otherwise okay will tentatively plan tomorrow (2) HTN (hypertension): Qualifiers: Hypertension type: essential hypertension Qualified Code(s): I10 - Essential (primary) hypertension Code(s): I10 - Essential (primary) hypertension Status: Chronic Assessment and Plan: Borderline low. Blood transufusions and IV fluids per primary team for sepsis management (3) Sepsis: Code(s): A41.9 - Sepsis, unspecified organism Status: Acute Assessment and Plan: Unclear source. Follow cultures (4) Alcoholism: Code(s): F10.20 - Alcohol dependence, uncomplicated Status: Chronic (5) Anemia: Code(s): D64.9 - Anemia, unspecified Status: Acute Assessment and Plan: in the setting of Xarelto use with h/o PE and ?Afib. Hold AC. Start ASA once Hg stable Okay to go for GI procedures tomorrow, to consider cardiac catheterization after that (6) History of pulmonary embolism: Code(s): Z86.711 - Personal history of pulmonary embolism Status: Acute Assessment and Plan: Xarelto on hold Subjective Date/time seen: 05/18/20 16:59 Feels okay today, no chest pain no shortness breath, he had EGD which was negative, supposed to go for colonoscopy tomorrow. Exam Narrative: Exam Narrative: obtunded. Appears younger than stated age Const: General: no acute distress Eyes: Sclera: sclerae normal Neck: Neck: no JVD Carotids: no bruits Resp: Effort & Inspection: normal respiratory effort Auscultation: clear to auscultation bilaterally Cardio: Rate: regular rate and not tachycardic Rhythm: regular rhythm Heart sounds: no gallops, no murmurs and no rubs Skin: General skin exam: normal color Neuro: Cranial nerves: Yes Normal hearing present Other: obtunded Extrem: General: normal to inspection and no edema Objective Data Vital Signs Vital Signs: Vital Signs - 24 hr 05/17/20 20:00 05/17/20 20:58 05/17/20 22:00 Temperature 36.7 C Pulse Rate 85 70 79 Respiratory Rate 18 Blood Pressure 102/47 L Pulse Oximetry 97 05/18/20 00:00 05/18/20 04:00 05/18/20 06:00 Temperature 37.3 C Pulse Rate 83 82 78 Respiratory Rate 20 Blood Pressure 100/38 L Pulse Oximetry 90 05/18/20 08:00 05/18/20 09:00 05/18/20 11:25 Temperature 37.1 C 37.7 C H Pulse Rate 76 80 81 Respiratory Rate 16 18 Blood Pressure 100/42 L 111/75 Pulse Oximetry 91 95 05/18/20 13:33 05/18/20 13:43 05/18/20 13:53 Temperature Pulse Rate 75 71 68 Respiratory Rate 20 23 H 20 Blood Pressure 116/55 L 96/56 L 110/53 L Pulse Oximetry 99 99 100 05/18/20 14:10 05/18/20 14:28 05/18/20 16:00 Temperature 36.8 C Pulse Rate 81 65 75 Respiratory Rate 18 Blood Pressure 120/56 L Pulse Oximetry 100 Intake/Output Intake/Output: Intake & Output 05/15/20 05/16/20 05/17/20 05/18/20 23:59 23:59 23:59 23:59 Intake Total 3462.7 2295.3 2660 4100 Output Total 1475 300 225 2 Balance 1986.7 1994.3 5995 4098 Meds/Results Medications: Active Medications Generic Name Dose Route Start Last Admin Trade N
[2020-05-18] MEDS: POTASSIUM CHLORIDE 20 MEQ TABLET 40 MEQ PO (17:20)
[2020-05-18] MEDS: CHLORDIAZEPOXIDE 10 MG CAPSULE PO (20:06)
[2020-05-18] MEDS: TAMSULOSIN HCL 0.4 MG CAPSULE PO (20:06)
[2020-05-18] MEDS: QUEtiapine FUMARATE 12.5 MG TABLET PO (20:06)
[2020-05-19] VITALS (18 sets, daily range): BP systolic 100–137; BP diastolic 50–72; PULSE 65–98; RESP 12–20; TEMP 36.6–38.1; O2SAT 95–100
[2020-05-19 06:38] LABS: Basophils Percent Auto 0.3 % (0.2-1.2); Eosinophils Absolute Auto 0.9 K/mm3 (0-0.3); Eosinophils Percent Auto 6.9 % (0-4.4); Hematocrit 28.7 % (42.0-52.0); Hemoglobin 9.5 g/dL (14.0-18.0); Immature Granulocyte Absolute 0.13 K/mm3 (0.00-0.031); Lymphocytes Absolute Auto 1.29 K/mm3 (0.9-3.2); Lymphocytes Percent Auto 10.3 % (18.3-44.2); Mean Corpuscular HGB Conc 33.1 g/dl (32-36); Mean Corpuscular Hemoglobin 28.6 pg (26-34); Mean Corpuscular Volume 86.4 fl (80-100); Mean Platelet Volume 11.2 fl (7.4-10.4); Monocytes Absolute Auto 1.3 K/mm3 (0.1-0.6); Monocytes Percent Auto 10.6 % (2.6-8.5); Neutrophils Absolute Auto 8.9 K/mm3 (1.3-6.7); Neutrophils Percent Auto 70.9 % (45.5-73.1); Platelet Count Result 238 k/mm3 (150-375); Red Blood Count 3.32 M/mm3 (4.6-6.20); Red Cell Distribution Width 17.9 % (11.5-14.5); White Blood Count 12.6 K/mm3 (4.5-10.0)
[2020-05-19 06:50] LABS: Blood Urea Nitrogen 4 mg/dL (9-20); Calcium 7.6 mg/dL (8.4-10.2); Carbon Dioxide 22 mmol/L (22-30); Chloride 108 mmol/L (98-107); Estimated CRCL calculation 101 ml/min; Estimated Glomerular Filt Rate > 60; Glucose 77 mg/dL (75-110); Potassium 3.6 mmol/L (3.4-5.0); Sodium 135 mmol/L (137-145)
--- NOTE | 2020-05-19 07:07 | PC.NURSE ---
Pt to GI lab at this time.
--- NOTE | 2020-05-19 07:13 | WPDANESEPPF ---
Anes - Initial Pre Proc Eval Procedure: Operation Date: 05/18/20 11:00 Proposed Procedures p Esophagogastroduodenoscopy & Colonoscopy - Riley Larson MD Operation Date: 05/19/20 08:00 Proposed Procedures p Colonoscopy - Riley Larson MD Date/Time: 05/19/20 07:13 Surgeon: Bryan Carroll MD Pre Op Diagnosis: Sepsis, dehydration, elevated troponin, anemia Patient Data Age: 74 Gender: M Height: 1.7 m Weight: 65.5 kg Last Vital Signs Temp 36.9 C 05/19/20 05:30 Pulse 97 05/19/20 05:30 Resp 20 05/19/20 05:30 BP 137/72 05/19/20 05:30 Pulse Ox 96 05/19/20 05:30 Allergies Allergy/AdvReac Type Severity Reaction Status Date / Time No Known Allergies Allergy Verified 05/18/20 11:23 Home Medications Medication Instructions Recorded Confirmed Type Xarelto 20 mg PO DAILY 12/15/19 05/15/20 History aspirin [Children's Aspirin] 81 mg PO DAILY@0800 #30 tablet 12/23/19 05/15/20 Rx folic acid 1 mg PO DAILY #30 tablet 12/23/19 05/15/20 Rx megestrol 800 mg PO QAM #200 ml 12/23/19 05/15/20 Rx thiamine HCl (vitamin B1) [Vitamin 100 mg PO QAM #30 tablet 12/23/19 05/15/20 Rx B-1] dutasteride 0.5 mg capsule 0.5 mg PO DAILY #90 cap 02/24/20 05/15/20 Rx tamsulosin 0.4 mg capsule 0.4 mg PO DAILY #90 cap 02/24/20 05/15/20 Rx cngmkfltputa-bwy-bozv-FA-vit K 1 tablet PO DAILY 05/14/20 05/15/20 History [Adults Multivitamin] atorvastatin 40 mg PO HS 05/15/20 05/15/20 History chlordiazepoxide HCl 10 mg PO BID 05/15/20 05/15/20 History metoprolol tartrate 12.5 mg PO Q12H 05/15/20 05/15/20 History quetiapine 12.5 mg PO HS 05/15/20 05/15/20 History Laboratory Tests 06/23/20 06/23/20 06:03 06:03 WBC 12.6 K/mm3 H K/mm3 (4.5-10.0) RBC 3.32 M/mm3 L M/mm3 (4.6-6.20) Hgb 9.5 g/dL L g/dL (14.0-18.0) Hct 28.7 % L % (42.0-52.0) MCV 86.4 fl D fl (80-100) MCH 28.6 pg D pg (26-34) MCHC 33.1 g/dl g/dl (32-36) RDW 17.9 % H % (11.5-14.5) Plt Count 238 k/mm3 k/mm3 (150-375) MPV 11.2 fl H fl (7.4-10.4) Immature Gran % (Auto) 1.0 % H % (0-0.5) Neut % (Auto) 70.9 % % (45.5-73.1) Lymph % (Auto) 10.3 % L % (18.3-44.2) [place] % (Auto) 10.6 % H % (2.6-8.5) Eos % (Auto) 6.9 % H % (0-4.4) Baso % (Auto) 0.3 % % (0.2-1.2) Lymph # (Auto) 1.29 K/mm3 K/mm3 (0.9-3.2) [place] # (Auto) 1.3 K/mm3 H K/mm3 (0.1-0.6) Eos # (Auto) 0.9 K/mm3 H K/mm3 (0-0.3) Baso # (Auto) 0.0 K/mm3 K/mm3 (0.0-0.1) Abs Immat Gran (auto) 0.13 K/mm3 H K/mm3 (0.00-0.031) Absolute Neuts (auto) 8.9 K/mm3 H K/mm3 (1.3-6.7) Absolute Nucleated RBC 0.0 K/mm3 K/mm3 (0.0-0.012) Nucleated RBC % 0.0 % % (0.0-0.2) Sodium 135 mmol/L L mmol/L (137-145) Potassium 3.6 mmol/L mmol/L (3.4-5.0) Chloride 108 mmol/L H mmol/L (98-107) Carbon Dioxide 22 mmol/L mmol/L (22-30) BUN 4 mg/dL L mg/dL (9-20) Creatinine 0.50 mg/dL L mg/dL (0.7-1.3) Estim Creat Clear Calc 101 ml/min ml/min Estimated GFR > 60 (59 - ) Glucose 77 mg/dL mg/dL (75-110) Calcium 7.6 mg/dL L mg/dL (8.4-10.2) Patient hx anesthesia problems: none Family hx anesthesia problems: none [facility] Past Medical History Medical History Alcohol withdrawal Alcoholism Atrial fibrillation BPH (benign prostatic hyperplasia) Chronic neck pain Congestive heart failure Diastolic COPD (chronic obstructive pulmonary disease) CVA (cerebral vascular accident) Cytotoxic cerebral edema DVT (deep venous thrombosis) DVT prophylaxis HTN (hypertension) Hyperlipidemia Leukocytosis Pneumonia Pulmonary emboli Tobacco abuse Surgical History Surgical History H/O cataract extraction Left eye H/O cervical spine surgery Multiple
[2020-05-19] MEDS: LACTATED RINGERS 1,000 ML 150 ML IV CONT (07:26)
--- NOTE | 2020-05-19 07:57 | WPDANESPN ---
Anes - Prog Note Post-Op Date/Time: 05/19/20 07:57 Cardiovascular status: normal Respiratory status: normal Airway patency: baseline Mental status: baseline Post-Op hydration status: normal Vital Signs: Last Vital Signs Temp 37.6 C H 05/19/20 07:20 Pulse 78 05/19/20 07:20 Resp 18 05/19/20 07:20 BP 115/60 05/19/20 07:20 Pulse Ox 96 05/19/20 07:20 I/O: Intake & Output 05/18/20 05/18/20 05/19/20 15:59 23:59 07:59 Intake Total 50 765 2030 Balance 50 765 2030 Laboratory Tests 05/19/20 06:03 05/19/20 06:03 05/19/20 05/19/20 06:03 06:03 WBC 12.6 H RBC 3.32 L Hgb 9.5 L Hct 28.7 L MCV 86.4 D MCH 28.6 D MCHC 33.1 RDW 17.9 H Plt Count 238 MPV 11.2 H Immature Gran % (Auto) 1.0 H Neut % (Auto) 70.9 Lymph % (Auto) 10.3 L [place] % (Auto) 10.6 H Eos % (Auto) 6.9 H Baso % (Auto) 0.3 Lymph # (Auto) 1.29 [place] # (Auto) 1.3 H Eos # (Auto) 0.9 H Baso # (Auto) 0.0 Abs Immat Gran (auto) 0.13 H Absolute Neuts (auto) 8.9 H Absolute Nucleated RBC 0.0 Nucleated RBC % 0.0 Sodium 135 L Potassium 3.6 Chloride 108 H Carbon Dioxide 22 BUN 4 L Creatinine 0.50 L Estim Creat Clear Calc 101 Estimated GFR > 60 Glucose 77 Calcium 7.6 L Post-procedural complaints: none Patient Feedback: Patient satisfied with anesthetic care.
[2020-05-19] MEDS: SIMETHICONE ORAL SUSPENSION 20 MG/0.3 ML 30 ML BOTTLE 0.6 ML PO (08:20)
--- NOTE | 2020-05-19 08:59 | SUR.PHASEII ---
pt recieved to recovery, pin-point non raised rash noted over trunk, back, chest, abd., and extremities. temp. in procedure room at [id number] 101, now reading at 100.5
--- NOTE | 2020-05-19 11:01 | PM.IMPN ---
Progress Note: A&P Assessment and Plan (1) Symptomatic anemia: Code(s): D64.9 - Anemia, unspecified Status: Acute Assessment and Plan: May be secondary to GI Bleed and initially thought acute but with hemoglobin rising appropriately with 5 units of packed cells and no further evidence of GI blood loss with large stool in the rectal sigmoid area is probably more chronic blood loss anemia. Iron studies are compatible with iron deficiency anemia with low ferritin also. PPI started and GI consulted. 05/18/20: EGD on normal but colonoscopy with poor prep but no colitis or source of blood loss. Polyp seen. 05/19/20: Colonoscopy today showing colon and rectal polyp with diverticulosis. Monitor HH closely and transfuse as necessary. (2) NSTEMI (non-ST elevated myocardial infarction): Code(s): I21.4 - Non-ST elevation (NSTEMI) myocardial infarction Status: Acute Assessment and Plan: Troponin peaked at 8.2 and now trending down. The patient is not a candidate for anticoagulation given his likely GI Bleed. NSTEMI probably secondary to severe anemia with no ongoing ischemia. Repeat echo (05/15) showing EF 50-55% with hypokinetic apical area. Beta juan added. Plan for heart cath once cleared from GI that no source of obvious blood loss in case anticoagulants needed post cath and if no further fevers. (3) Rash: Code(s): R21 - Rash and other nonspecific skin eruption Status: Acute Assessment and Plan: Patient with fine maculopapular rash with no pastia lines. Consider viral source or from abx. Abx to be stopped regardless. Will change to Pepcid and add claritin. benadryl prn. (4) Severe sepsis: Code(s): A41.9 - Sepsis, unspecified organism; R65.20 - Severe sepsis without septic shock Status: Acute Assessment and Plan: No infectious source found. No colitis on scope. Blood cultures NGTD. Lactic acid normal. Having low grade fevers this morning despite abx. Will stop abx and monitor for now. Severe sepsis ruled out. (5) Colitis: Code(s): K52.9 - Noninfective gastroenteritis and colitis, unspecified Status: Acute Assessment and Plan: Suspected on CT but none seen on colonoscopy. Will stop antibiotics today. (6) Alcoholism: Code(s): F10.20 - Alcohol dependence, uncomplicated Status: Chronic Assessment and Plan: The patient states he has not had a drink of alcohol for over a week. Continue daily Thiamine. CIWA-AR protocol with Ativan IV available prn. (7) HTN (hypertension): Qualifiers: Hypertension type: essential hypertension Qualified Code(s): I10 - Essential (primary) hypertension Code(s): I10 - Essential (primary) hypertension Status: Chronic Assessment and Plan: Stable. Blood pressure reviewed on 05/19/20. BP well controlled on metoprolol. Contineu to monitor. (8) Congestive heart failure: Qualifiers: Heart failure chronicity: chronic Heart failure type: diastolic Qualified Code(s): I50.32 - Chronic diastolic (congestive) heart failure Code(s): I50.9 - Heart failure, unspecified Status: Chronic Assessment and Plan: Compensated. Chronic diastolic CHF. Monitor Is and Os and daily weights. Resumed beta-juan 05/15 and BP tolerating. (9) BPH (benign prostatic hyperplasia): Qualifiers: Lower urinary tract symptom presence: symptoms absent Qualified Code(s): N40.0 - Benign prostatic hyperplasia without lower urinary tract symptoms Code(s): N40.0 - Benign prostatic hyperplasia without lower urinary tract symptoms Status: Chronic Assessment and Plan: Stable. Continue flomax and dutasteride (10) COPD (chronic obstructive pulmonary disease): Qualifiers: COPD type: unspecified COPD Qualified Code(s): J44.9 - Chronic obstructive pulmonary disease, unspecified Code(s):
--- NOTE | 2020-05-19 11:14 | PM.PNCARD ---
Progress Note: A&P Assessment and Plan (1) NSTEMI (non-ST elevated myocardial infarction): Code(s): I21.4 - Non-ST elevation (NSTEMI) myocardial infarction Status: Acute Assessment and Plan: 74 y/o with h/o tobacco and alcohol abuse, h/o PE 2016, ?history of A fib, CVA who presented with AMS Patient has NSTMI with trop that peaked at 8 in the setting of profound anemia (Hg 4) and sepsis on admission Plan for cath today. He had low grade fever this morning following colonscopy but appears stable otheriwse. His cath scheduled late this afternoon. WIll continue to monitor and consider reschedule if any changes in his clinical status Non STMI is likely due to type II [place] from increased demand and less likely due to ACS though he likely has underlying CAD given extensive risk factors echocardiogram showed mild left ventricular wall motion abnormalities. Will plan [facility] when stable (2) HTN (hypertension): Qualifiers: Hypertension type: essential hypertension Qualified Code(s): I10 - Essential (primary) hypertension Code(s): I10 - Essential (primary) hypertension Status: Chronic Assessment and Plan: Has been running borderline low. He is tolerating low dose Metoprolol (3) Sepsis: Code(s): A41.9 - Sepsis, unspecified organism Status: Acute Assessment and Plan: Unclear source. Cultures negative to date. Abx per primary team. (4) Alcoholism: Code(s): F10.20 - Alcohol dependence, uncomplicated Status: Chronic (5) Anemia: Code(s): D64.9 - Anemia, unspecified Status: Acute Assessment and Plan: in the setting of Xarelto use with h/o PE and ?Afib. Hold AC. s/p colonscopy this morning with no active bleed. Will continue to hold Xarelto but would start ASA 81 mg daily given [place] (6) History of pulmonary embolism: Code(s): Z86.711 - Personal history of pulmonary embolism Status: Acute Assessment and Plan: Xarelto on hold Subjective Date/time seen: 05/19/20 11:14 He had colonoscopy earlier this morning. Had low grade fever after he returned and had rash. He appears somewhat confused. He denies chest pain or dyspnea. Review of Systems ENT: Reports Normal hearing present Neurologic: Reports Normal hearing present Exam Narrative: Exam Narrative: obtunded. Appears younger than stated age Const: General: no acute distress Eyes: Sclera: sclerae normal Neck: Neck: no JVD Carotids: no bruits Resp: Effort & Inspection: normal respiratory effort Auscultation: clear to auscultation bilaterally Cardio: Rate: regular rate and not tachycardic Rhythm: regular rhythm Heart sounds: no gallops, no murmurs and no rubs Skin: General skin exam: normal color Neuro: Cranial nerves: Yes Normal hearing present Other: obtunded Extrem: General: normal to inspection and no edema Objective Data Vital Signs Vital Signs: Vital Signs - 24 hr 05/18/20 11:25 05/18/20 13:33 05/18/20 13:43 Temperature 37.7 C H Pulse Rate 81 75 71 Respiratory Rate 18 20 23 H Blood Pressure 111/75 116/55 L 96/56 L Pulse Oximetry 95 99 99 05/18/20 13:53 05/18/20 14:10 05/18/20 14:28 Temperature 36.8 C Pulse Rate 68 81 65 Respiratory Rate 20 18 Blood Pressure 110/53 L 120/56 L Pulse Oximetry 100 100 05/18/20 16:00 05/18/20 20:00 05/18/20 20:05 Temperature Pulse Rate 75 91 71 Respiratory Rate Blood Pressure Pulse Oximetry 05/18/20 21:30 05/19/20 00:00 05/19/20 02:30 Temperature 37.4 C 37.1 C Pulse Rate 74 70 86 Respiratory Rate 20 12 Blood Pressure 99/60 L 112/66 Pulse Oximetry 97 95 05/19/20 04:00 05/19/20 05:30 05/19/20 07:20 Temperature 36.9 C 37.6 C H Pulse Rate 77 97 78 Respiratory Rate 20 18 Blood Pressure 137/72 115/60 Pulse Oximetry 96 96 05/19/20 08:43 05/19/20 08:53 05/19/20 09:03 Temperature 38.1 C H Pulse Rate 71 70 67 Respiratory Rate 15 18 18 Bl
--- NOTE | 2020-05-19 13:26 | WPDCDIQUERY2 ---
CDI Query Clarification Request - Severe sepsis- status acute- on problem list and no infectious source found, no colitis on scope, blood cultures NG, lactic acid normal, will d/c antbiotics documented. Please clarify if severe sepsis was ruled in or ruled out. <Radha Peraza RN - Last Filed: 05/19/20 13:30>
[2020-05-19] MEDS: METOPROLOL TARTRATE 12.5 MG TABLET PO (20:11)
[2020-05-19] MEDS: CHLORDIAZEPOXIDE 10 MG CAPSULE PO (20:12)
[2020-05-19] MEDS: TAMSULOSIN HCL 0.4 MG CAPSULE PO (20:12)
[2020-05-19] MEDS: QUEtiapine FUMARATE 12.5 MG TABLET PO (20:12)
[2020-05-19] MEDS: FAMOTIDINE 20 MG TABLET PO (20:12)
[2020-05-20] VITALS (17 sets, daily range): BP systolic 108–134; BP diastolic 56–84; PULSE 79–99; RESP 14–18; TEMP 36.6–37.4; O2SAT 93–99
[2020-05-20 06:32] LABS: Basophils Percent Auto 0.1 % (0.2-1.2); Eosinophils Absolute Auto 0.8 K/mm3 (0-0.3); Eosinophils Percent Auto 4.8 % (0-4.4); Hematocrit 29.3 % (42.0-52.0); Hemoglobin 9.4 g/dL (14.0-18.0); Immature Granulocyte Absolute 0.12 K/mm3 (0.00-0.031); Immature Granulocyte Percent A 0.7 % (0-0.5); Lymphocytes Absolute Auto 0.81 K/mm3 (0.9-3.2); Lymphocytes Percent Auto 4.8 % (18.3-44.2); Mean Corpuscular HGB Conc 32.1 g/dl (32-36); Mean Corpuscular Hemoglobin 26.7 pg (26-34); Mean Corpuscular Volume 83.2 fl (80-100); Mean Platelet Volume 10.7 fl (7.4-10.4); Monocytes Absolute Auto 1.3 K/mm3 (0.1-0.6); Monocytes Percent Auto 7.4 % (2.6-8.5); Neutrophils Absolute Auto 13.9 K/mm3 (1.3-6.7); Neutrophils Percent Auto 82.2 % (45.5-73.1); Platelet Count Result 271 k/mm3 (150-375); Red Blood Count 3.52 M/mm3 (4.6-6.20)
[2020-05-20 06:52] LABS: Alanine Aminotransferase 18 U/L (4-50); Albumin Level 2.5 g/dL (3.5-5.1); Alkaline Phosphatase 65 U/L (38-126); Aspartate Amino Transferase 25 U/L (17-59); Bilirubin,Total 0.8 mg/dL (0.2-1.3); Blood Urea Nitrogen 6 mg/dL (9-20); CRP 5.7 mg/dL (<1.0); Calcium 7.9 mg/dL (8.4-10.2); Carbon Dioxide 24 mmol/L (22-30); Chloride 107 mmol/L (98-107); Estimated CRCL calculation 103 ml/min; Estimated Glomerular Filt Rate > 60; Glucose 87 mg/dL (75-110); Magnesium 1.6 mg/dL (1.6-2.3); Phosphorus 3.1 mg/dL (2.5-4.5); Potassium 3.5 mmol/L (3.4-5.0); Sodium 135 mmol/L (137-145)
--- NOTE | 2020-05-20 08:15 | WPDANESPN ---
Anes - Prog Note Post-Op Date/Time: 05/20/20 08:15 Cardiovascular status: normal Respiratory status: normal Airway patency: baseline Mental status: baseline Post-Op hydration status: normal Vital Signs: Last Vital Signs Temp 37.4 C 05/20/20 06:00 Pulse 80 05/20/20 06:00 Resp 16 05/20/20 06:00 BP 124/68 05/20/20 06:00 Pulse Ox 98 05/20/20 06:00 I/O: Intake & Output 05/19/20 05/20/20 05/20/20 23:59 07:59 15:59 Intake Total 240 50 Output Total 200 Balance 240 -150 Laboratory Tests 05/20/20 06:11 05/20/20 06:11 05/20/20 05/20/20 06:11 06:11 WBC 17.0 H RBC 3.52 L Hgb 9.4 L Hct 29.3 L MCV 83.2 MCH 26.7 D MCHC 32.1 RDW 18.0 H Plt Count 271 MPV 10.7 H Immature Gran % (Auto) 0.7 H Neut % (Auto) 82.2 H Lymph % (Auto) 4.8 L [place] % (Auto) 7.4 Eos % (Auto) 4.8 H Baso % (Auto) 0.1 L Lymph # (Auto) 0.81 L [place] # (Auto) 1.3 H Eos # (Auto) 0.8 H Baso # (Auto) 0.0 Abs Immat Gran (auto) 0.12 H Absolute Neuts (auto) 13.9 H Absolute Nucleated RBC 0.0 Nucleated RBC % 0.0 Sodium 135 L Potassium 3.5 Chloride 107 Carbon Dioxide 24 BUN 6 L Creatinine 0.50 L Estim Creat Clear Calc 103 Estimated GFR > 60 Glucose 87 Calcium 7.9 L Phosphorus 3.1 Magnesium 1.6 Total Bilirubin 0.8 AST 25 ALT 18 Alkaline Phosphatase 65 C-Reactive Protein 5.7 H Total Protein 5.0 L Albumin 2.5 L Post-procedural complaints: none Patient Feedback: Patient satisfied with anesthetic care.
[2020-05-20] MEDS: CHLORDIAZEPOXIDE 10 MG CAPSULE PO ×2 (08:55→22:02)
--- NOTE | 2020-05-20 10:24 | PM.PNCARD ---
Progress Note: A&P Assessment and Plan (1) NSTEMI (non-ST elevated myocardial infarction): Code(s): I21.4 - Non-ST elevation (NSTEMI) myocardial infarction Status: Acute Assessment and Plan: 74 y/o with h/o tobacco and alcohol abuse, h/o PE 2016, ?history of A fib, CVA who presented with AMS, anemia and NSTMI Patient has NSTMI with trop that peaked at 8 in the setting of profound anemia (Hg 4) and sepsis on admission He is clinically stable now and underwent GI work up already Will plan [facility] later this afternoon. Okay to have clear liquids this am Non STMI was likely due to type II [place] from increased demand and less likely due to ACS though he likely has underlying CAD given extensive risk factors echocardiogram showed mild left ventricular wall motion abnormalities. Will plan [facility] today. Explained procedure in details to the patient including risks and benefits. he is agreeable to proceed . (2) HTN (hypertension): Qualifiers: Hypertension type: essential hypertension Qualified Code(s): I10 - Essential (primary) hypertension Code(s): I10 - Essential (primary) hypertension Status: Chronic Assessment and Plan: Has been running borderline low. He is tolerating low dose Metoprolol (3) Sepsis: Code(s): A41.9 - Sepsis, unspecified organism Status: Acute Assessment and Plan: Unclear source. Cultures negative to date. Abx stopped (4) Alcoholism: Code(s): F10.20 - Alcohol dependence, uncomplicated Status: Chronic (5) Anemia: Code(s): D64.9 - Anemia, unspecified Status: Acute Assessment and Plan: in the setting of Xarelto use with h/o PE and ?Afib. Hold AC. s/p colonscopy yesterday with no active bleed. Will continue to hold Xarelto but would start ASA 81 mg daily given [place] (6) History of pulmonary embolism: Code(s): Z86.711 - Personal history of pulmonary embolism Status: Acute Assessment and Plan: Xarelto on hold Subjective Date/time seen: 05/20/20 10:24 Feels fatigued and has no energy. Denies chest pain or dyspnea. Review of Systems Review of Systems: All systems reviewed & are unremarkable except as noted in HPI and below Constitutional: Constitutional: Denies fatigue and Denies headache(s) Eyes: Eyes: Denies blurry vision ENT: Reports Normal hearing present Cardiovascular: Cardiovascular: Denies chest pain, Denies diaphoresis, Denies pedal edema, Denies leg edema, Denies lightheadedness, Denies palpitations and Denies dyspnea Respiratory: Respiratory: Denies cough and Denies dyspnea Gastrointestinal: Gastrointestinal: Denies abdominal pain Musculoskeletal: Musculoskeletal: Denies back pain Neurologic: Reports Normal hearing present Psychiatric: Psychiatric: Denies anxiety Endocrine: Endocrine: Denies fatigue and Denies palpitations Exam Narrative: Exam Narrative: obtunded. Appears younger than stated age Const: General: no acute distress Eyes: Sclera: sclerae normal Neck: Neck: no JVD Carotids: no bruits Resp: Effort & Inspection: normal respiratory effort Auscultation: clear to auscultation bilaterally Cardio: Rate: regular rate and not tachycardic Rhythm: regular rhythm Heart sounds: no gallops, no murmurs and no rubs Skin: General skin exam: normal color Neuro: Cranial nerves: Yes Normal hearing present Other: obtunded Extrem: General: normal to inspection and no edema Objective Data Vital Signs Vital Signs: Vital Signs - 24 hr 05/19/20 12:00 05/19/20 12:42 05/19/20 14:00 Temperature 37.0 C 36.9 C Pulse Rate 84 84 Respiratory Rate 16 Blood Pressure 127/56 L Pulse Oximetry 96 05/19/20 16:00 05/19/20 18:00 05/19/20 20:00 Temperature 36.7 C Pulse Rate 88 96 89 Respiratory Rate 18 Blood Pressure 136/72 Pulse Oximetry 99 05/19/20 20:11 05/19/20 22:00 05/20/20 00:00 Temperature 37.6 C H Pulse Rate 92 98 87 Re
--- NOTE | 2020-05-20 11:31 | WPDGIPROGNO ---
Progress Note: A&P Additional Plan Patient alert and comfortable this morning denies any abdominal or chest pain. Physical exam reveals him to be alert. Vital signs stable. Abdomen is soft. Bowel sounds are present nontender with no organomegaly. Labs reveal hemoglobin 9.4, hematocrit 29.3, MCV 83 stable. Impression 1. Large ascending colon polyp. This required piecemeal removal. Follow-up colonoscopy in 4-6 months advised. Because of this finding I would continue to avoid Xarelto for several days at least. Hopefully for 5 days. 2. Atherosclerotic heart disease. Status post ND. Heart service following. Procedures plan to evaluate more thoroughly. Aspirin should be okay but as stated hold Xarelto for few days if at all possible. 3. Alcohol abuse. Patient would benefit from strict alcohol avoidance. 4. Fever. No longer febrile. But had a fever at the time of admission. Etiology remains unclear. No evidence of colitis by colonoscopy. Subjective Date/time seen: 05/20/20 11:31 Objective Data Vital Signs Vital Signs: Vital Signs - 24 hr 05/19/20 12:00 05/19/20 12:42 05/19/20 14:00 Temperature 37.0 C 36.9 C Pulse Rate 84 84 Respiratory Rate 16 Blood Pressure 127/56 L Pulse Oximetry 96 05/19/20 16:00 05/19/20 18:00 05/19/20 20:00 Temperature 36.7 C Pulse Rate 88 96 89 Respiratory Rate 18 Blood Pressure 136/72 Pulse Oximetry 99 05/19/20 20:11 05/19/20 22:00 05/20/20 00:00 Temperature 37.6 C H Pulse Rate 92 98 87 Respiratory Rate 18 Blood Pressure 119/52 L Pulse Oximetry 100 05/20/20 04:00 05/20/20 06:00 05/20/20 08:00 Temperature 37.4 C Pulse Rate 91 80 80 Respiratory Rate 16 Blood Pressure 124/68 Pulse Oximetry 98 05/20/20 08:17 Temperature Pulse Rate 84 Respiratory Rate Blood Pressure 134/61 Pulse Oximetry Intake/Output Intake/Output: Intake & Output 05/17/20 05/18/20 05/19/20 05/20/20 23:59 23:59 23:59 23:59 Intake Total 2660 4865 2270 50 Output Total 225 2 200 Balance 2435 4863 2270 -150 Meds/Results Medications: Active Medications Generic Name Dose Route Start Last Admin Trade Name Freq PRN Reason Stop Dose Admin Chlordiazepoxide HCl 10 mg 05/15/20 21:00 05/20/20 08:55 Librium Po PO 10 mg Q12HR JESS Administration Diphenhydramine HCl 25 mg 05/19/20 11:22 Benadryl Inj IV PUSH Q4H PRN Itching Dutasteride 0.5 mg 05/16/20 09:00 05/19/20 15:07 Avodart PO Not Given QAM [facility] Famotidine 20 mg 05/19/20 21:00 05/19/20 20:12 Pepcid PO 20 mg Q12HR JESS Administration Loratadine 5 mg 05/19/20 11:25 05/19/20 15:08 Claritin PO Not Given QAM JESS Metoprolol Tartrate 12.5 mg 05/15/20 21:00 05/19/20 20:11 Lopressor PO 12.5 mg Q12HR JESS Administration Ondansetron HCl 4 mg 05/14/20 20:52 Zofran Inj IV PUSH Q4H PRN Nausea Polyethylene Glycol 17 gm 05/16/20 09:00 05/19/20 15:08 Miralax PO Not Given QAM [facility] Quetiapine Fumarate 12.5 mg 05/15/20 21:00 05/19/20 20:12 Seroquel PO 12.5 mg HS JESS Administration Tamsulosin HCl 0.4 mg 05/15/20 21:00 05/19/20 20:12 Flomax PO 0.4 mg HS JESS Administration Thiamine HCl 100 mg 05/16/20 09:00 05/19/20 15:08 Vitamin B-1 PO Not Given QAM [facility] Radiology Results: ITS Impressions Chest X-Ray 05/14/20 17:50 IMPRESSION: 1. No acute cardiopulmonary disease. Abdomen/Pelvis CT 05/14/20 19:11 IMPRESSION: 1. Small left pleural effusion. 2. Large ball of stool at the rectum with mild rectal wall thickening and haziness to the surrounding fat consistent with stercoral colitis. 3. 1.4 cm indeterminate intermediate attenuation lesion at the lower pole of the left kidney which could represent either complex cyst or solid neoplasm. Recommend further evaluation with follow-up pre and postcontrast MRI or CT. 4. Diffuse wall thickening of the decompressed bladder which could
--- NOTE | 2020-05-20 12:20 | PM.IMPN ---
Progress Note: A&P Assessment and Plan (1) Symptomatic anemia: Code(s): D64.9 - Anemia, unspecified Status: Acute Assessment and Plan: May be secondary to GI Bleed and initially thought acute but with hemoglobin rising appropriately with 5 units of packed cells and no further evidence of GI blood loss with large stool in the rectal sigmoid area is probably more chronic blood loss anemia. Iron studies are compatible with iron deficiency anemia with low ferritin also. PPI started and GI consulted. 05/18/20: EGD on normal but colonoscopy with poor prep but no colitis or source of blood loss. Polyp seen. 05/19/20: Colonoscopy showing colon and rectal polyp with diverticulosis and polypecotmy. HH stable. Continue to monitor HH closely and transfuse as necessary. (2) NSTEMI (non-ST elevated myocardial infarction): Code(s): I21.4 - Non-ST elevation (NSTEMI) myocardial infarction Status: Acute Assessment and Plan: Troponin peaked at 8.2 and now trending down. The patient is not a candidate for anticoagulation given his likely GI Bleed. NSTEMI probably secondary to severe anemia with no ongoing ischemia. Repeat echo (05/15) showing EF 50-55% with hypokinetic apical area. Beta juan added and he is tolerating this. Plan for heart cath today. Heart cath showing moderate coronary artery disease with normal left ventricular systolic function. Plan for medical management. (3) Rash: Code(s): R21 - Rash and other nonspecific skin eruption Status: Acute Assessment and Plan: Patient with fine maculopapular rash with no pastia lines. Consider viral source or from abx. Abx have been stopped regardless. Continue Pepcid and claritin. benadryl prn. (4) Severe sepsis: Code(s): A41.9 - Sepsis, unspecified organism; R65.20 - Severe sepsis without septic shock Status: Acute Assessment and Plan: Sepsis criteria met on admission but no infectious source found. No colitis on scope. Blood cultures NGTD. CXR clear. Lactic acid normal. UA clear. WBC higher today but fevers have not returned. Currently off abx. Meño continue to monitor for possible brewing infection. (5) Alcoholism: Code(s): F10.20 - Alcohol dependence, uncomplicated Status: Chronic Assessment and Plan: The patient states he has not had a drink of alcohol for over a week. Continue daily Thiamine. Ativan IV available prn. (6) HTN (hypertension): Qualifiers: Hypertension type: essential hypertension Qualified Code(s): I10 - Essential (primary) hypertension Code(s): I10 - Essential (primary) hypertension Status: Chronic Assessment and Plan: Stable. Blood pressure reviewed on 05/20/20. BP well controlled on metoprolol. Contineue to monitor. (7) Congestive heart failure: Qualifiers: Heart failure chronicity: chronic Heart failure type: diastolic Qualified Code(s): I50.32 - Chronic diastolic (congestive) heart failure Code(s): I50.9 - Heart failure, unspecified Status: Chronic Assessment and Plan: Compensated. Chronic diastolic CHF. Monitor Is and Os and daily weights. Resumed beta-juan 05/15 and BP tolerating. (8) BPH (benign prostatic hyperplasia): Qualifiers: Lower urinary tract symptom presence: symptoms absent Qualified Code(s): N40.0 - Benign prostatic hyperplasia without lower urinary tract symptoms Code(s): N40.0 - Benign prostatic hyperplasia without lower urinary tract symptoms Status: Chronic Assessment and Plan: Stable. Continue flomax and dutasteride (9) COPD (chronic obstructive pulmonary disease): Qualifiers: COPD type: unspecified COPD Qualified Code(s): J44.9 - Chronic obstructive pulmonary disease, unspecified Code(s): J44.9 - Chronic obstructive pulmonary disease, unspecified Status: Chronic Assessment
--- NOTE | 2020-05-20 16:16 | WPDMODSED ---
Moderate Sedation Note-Pt Data Patient Data Allergies Allergy/AdvReac Type Severity Reaction Status Date / Time No Known Allergies Allergy Verified 05/18/20 11:23 Home Medications Medication Instructions Recorded Confirmed Type Xarelto 20 mg PO DAILY 12/15/19 05/15/20 History aspirin [Children's Aspirin] 81 mg PO DAILY@0800 #30 tablet 12/23/19 05/15/20 Rx folic acid 1 mg PO DAILY #30 tablet 12/23/19 05/15/20 Rx megestrol 800 mg PO QAM #200 ml 12/23/19 05/15/20 Rx thiamine HCl (vitamin B1) [Vitamin 100 mg PO QAM #30 tablet 12/23/19 05/15/20 Rx B-1] dutasteride 0.5 mg capsule 0.5 mg PO DAILY #90 cap 02/24/20 05/15/20 Rx tamsulosin 0.4 mg capsule 0.4 mg PO DAILY #90 cap 02/24/20 05/15/20 Rx ppwvrbeyjjbc-fav-dibn-FA-vit K 1 tablet PO DAILY 05/14/20 05/15/20 History [Adults Multivitamin] atorvastatin 40 mg PO HS 05/15/20 05/15/20 History chlordiazepoxide HCl 10 mg PO BID 05/15/20 05/15/20 History metoprolol tartrate 12.5 mg PO Q12H 05/15/20 05/15/20 History quetiapine 12.5 mg PO HS 05/15/20 05/15/20 History Current Medications: Active Medications Chlordiazepoxide HCl (Librium Po) 10 mg PO Q12HR [facility] Last Admin: 05/20/20 08:55 Dose: 10 mg Documented by: Diphenhydramine HCl (Benadryl Inj) 25 mg IV PUSH Q4H PRN PRN Reason: Itching Dutasteride (Avodart) 0.5 mg PO [facility] Last Admin: 05/19/20 15:07 Dose: Not Given Documented by: Famotidine (Pepcid) 20 mg PO Q12HR [facility] Last Admin: 05/20/20 16:06 Dose: Not Given Documented by: [facility]ad[facility] ([facility]) [facility] Admin: 05/20/20 16:06 Dose: Not Given Documented by: Metoprolol Tartrate (Lopressor) 12.5 mg PO Q12HR [facility] Last Admin: 05/20/20 16:06 Dose: Not Given Documented by: Ondansetron HCl (Zofran Inj) 4 mg IV PUSH Q4H PRN PRN Reason: Nausea Polyethylene Glycol (Miralax) 17 gm PO [facility] Last Admin: 05/20/20 16:06 Dose: Not Given Documented by: Quetiapine Fumarate (Seroquel) 12.5 mg PO [facility] Last Admin: 05/19/20 20:12 Dose: 12.5 mg Documented by: Tamsulosin HCl (Flomax) 0.4 mg PO [facility] Last Admin: 05/19/20 20:12 Dose: 0.4 mg Documented by: Thiamine HCl (Vitamin B-1) 100 mg PO [facility] Last Admin: 05/20/20 16:06 Dose: Not Given Documented by: Sedation/Anesthesia: No previous sedation/anesthesia problems (including family history). [facility] Past Medical History Medical History Alcohol withdrawal Alcoholism Atrial fibrillation BPH (benign prostatic hyperplasia) Chronic neck pain Congestive heart failure Diastolic COPD (chronic obstructive pulmonary disease) CVA (cerebral vascular accident) Cytotoxic cerebral edema DVT (deep venous thrombosis) DVT prophylaxis HTN (hypertension) Hyperlipidemia Leukocytosis Pneumonia Pulmonary emboli Tobacco abuse Surgical History Surgical History H/O cataract extraction Left eye H/O cervical spine surgery Multiple H/O local excision of skin lesion History of open reduction and internal fixation (ORIF) procedure History of tonsillectomy 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 Hudson has 1 daughter Aliza who has a appointed power title attorney. He desires a full code status. Patient stated that he smoked since he is about 12 years old he smokes anywhere from half pack to pack cigarettes a day. Patient states that he drinks 3 to 4 times a month and he usually drinks to get drunk. He said he has not drank in over a week. 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 He also sold [employer] is a as well. Years smoked: 57 Smoking status: Former smoker Tobacco type:
--- NOTE | 2020-05-20 17:18 | PC.NURSE ---
Patient to chest pain center for cardiac cath per stretcher.
--- NOTE | 2020-05-20 17:52 | WPDCARDPROC ---
Cardiac Cath Procedure Note Date of procedure:: 05/20/20 Performing physician:: Robert Stack MD Procedure: 1. Left heart catheterization, selective coronary angiogram. 2. Left ventricular angiogram. 3. Conscious sedation. 4. Angio-Seal device for arterial hemostasis Program Director Substance Abuse: Dr. Robert Stack Complications: None. Sedation: Conscious sedation, local anesthesia, using 1 mg of Versed said, 25 mcg of fentanyl, and using 1% lidocaine for local anesthesia. starting time is 5:20 p.m. ending time is 5:50 p.m. Technique: After informed consent was obtained from patient's family, was brought to the cleaning laborer, put in the cleaning laborer table, prepped and draped in usual sterile fashion. Five Monegasque sheath was inserted into the right common femoral artery, through the sheath 5 Monegasque JL4 catheter inserted, advanced to the left coronary artery, left coronary artery angiogram was obtained. The catheter was exchanged over guidewire into a 5 Monegasque JR4 catheter, advanced to the right coronary artery, right coronary artery angiogram was obtained. The catheter then was exchanged over guidewire into this 5 Monegasque pigtail catheter, advanced to left ventricle, left ventricular angiogram was obtained. The catheter then was pulled, the sheath was pulled applying Angio-Seal device for arterial hemostasis. Patient tolerated the procedure no complication, taken from the cleaning laborer to his room in stable condition stable vital signs. Hemodynamics: aortic pressure 124/60 . LV pressure 124/04 with LVEDP of 24 mmHg Angiographic findings: Left main: Medium size artery no significant disease or stenosis. Lad medium size artery showed proximal 60% stenosis followed by aneurysmal dilatation, and distally is a then another lesion about 60% Left circumflex artery, she admits narrowing RCA: very small vessel non dominant no significant disease or stenosis LV: Normal size left ventricle with normal left ventricular systolic function. Summary: moderate coronary artery disease, normal left ventricular systolic function. Recommendation: Maximum medical treatment. Risk factor modification.
--- NOTE | 2020-05-20 18:47 | PC.NURSE ---
Patient returned from chest pain center per stretcher.
[2020-05-20] MEDS: DUTASTERIDE 0.5 MG CAPSULE PO (19:08)
[2020-05-20] MEDS: QUEtiapine FUMARATE 12.5 MG TABLET PO (22:01)
[2020-05-20] MEDS: FAMOTIDINE 20 MG TABLET PO (22:01)
[2020-05-20] MEDS: METOPROLOL TARTRATE 12.5 MG TABLET PO (22:02)
[2020-05-20] MEDS: TAMSULOSIN HCL 0.4 MG CAPSULE PO (22:02)
[2020-05-21] VITALS (13 sets, daily range): BP systolic 108–151; BP diastolic 54–77; PULSE 64–101; RESP 16–18; TEMP 36.8–37.4; O2SAT 97–99
[2020-05-21 06:31] LABS: Basophils Percent Auto 0.1 % (0.2-1.2); Eosinophils Absolute Auto 0.8 K/mm3 (0-0.3); Eosinophils Percent Auto 5.1 % (0-4.4); Hematocrit 30.4 % (42.0-52.0); Hemoglobin 9.4 g/dL (14.0-18.0); Immature Granulocyte Absolute 0.11 K/mm3 (0.00-0.031); Immature Granulocyte Percent A 0.7 % (0-0.5); Lymphocytes Absolute Auto 0.78 K/mm3 (0.9-3.2); Lymphocytes Percent Auto 4.8 % (18.3-44.2); Mean Corpuscular HGB Conc 30.9 g/dl (32-36); Mean Corpuscular Hemoglobin 25.6 pg (26-34); Mean Corpuscular Volume 82.8 fl (80-100); Mean Platelet Volume 10.2 fl (7.4-10.4); Monocytes Absolute Auto 1.3 K/mm3 (0.1-0.6); Monocytes Percent Auto 8.2 % (2.6-8.5); Neutrophils Absolute Auto 13.1 K/mm3 (1.3-6.7); Neutrophils Percent Auto 81.1 % (45.5-73.1); Platelet Count Result 279 k/mm3 (150-375); Red Blood Count 3.67 M/mm3 (4.6-6.20); Red Cell Distribution Width 17.9 % (11.5-14.5); White Blood Count 16.2 K/mm3 (4.5-10.0)
[2020-05-21 06:43] LABS: Blood Urea Nitrogen 5 mg/dL (9-20); Calcium 7.9 mg/dL (8.4-10.2); Carbon Dioxide 25 mmol/L (22-30); Chloride 107 mmol/L (98-107); Estimated CRCL calculation 102 ml/min; Estimated Glomerular Filt Rate > 60; Glucose 85 mg/dL (75-110); Potassium 3.8 mmol/L (3.4-5.0); Sodium 134 mmol/L (137-145)
--- NOTE | 2020-05-21 09:06 | WPDGIPROGNO ---
Progress Note: A&P Additional Plan Patient alert and comfortable this morning. Tolerating diet. Denies abdominal or chest pain. Physical exam reveals Vital Signs to be stable. HEENT exam is anicteric. Lungs are clear. Heart without murmur or extra sounds. Abdominal exam bowel sounds are present soft nontender with no organomegaly. Laboratory studies reveal hemoglobin 9.4, hematocrit 30.4 stable. Results of cardiac catheterization noted. Plan is for medical treatment. Impression 1. Alcoholism. Patient will need to abstain from alcohol if at all possible. 2. Iron deficiency anemia. Plan is for iron replacement follow-up CBC after discharge. 3. Large ascending colon polyp. Piecemeal removal by recent colonoscopy. Follow-up colonoscopy in 4-6 months advised to ensure complete excision of this polyp. 4. Atherosclerotic heart disease. Status post ID. Cardiology evaluation noted. Medical therapy anticipated. If anticoagulation required. Would try to hold off for about 5 days given recent polyp extraction. Subjective Date/time seen: 05/21/20 09:06 Objective Data Vital Signs Vital Signs: Vital Signs - 24 hr 05/20/20 12:00 05/20/20 14:00 05/20/20 16:00 Temperature 36.6 C Pulse Rate 89 79 95 Respiratory Rate 18 Blood Pressure 128/69 Pulse Oximetry 98 05/20/20 18:00 05/20/20 18:15 05/20/20 18:30 Temperature Pulse Rate 96 99 98 Respiratory Rate 14 15 16 Blood Pressure 126/56 L 119/65 108/84 Pulse Oximetry 99 98 97 05/20/20 19:21 05/20/20 20:00 05/20/20 20:51 Temperature 37.4 C 37.3 C Pulse Rate 91 94 92 Respiratory Rate 18 18 Blood Pressure 116/65 124/65 Pulse Oximetry 93 97 05/20/20 21:00 05/20/20 22:00 05/20/20 22:02 Temperature 37.3 C 37.3 C Pulse Rate 92 80 91 Respiratory Rate 18 18 Blood Pressure 112/63 116/74 Pulse Oximetry 97 93 05/21/20 00:00 05/21/20 02:00 05/21/20 04:00 Temperature 37.4 C Pulse Rate 90 86 92 Respiratory Rate 18 Blood Pressure 114/64 Pulse Oximetry 99 05/21/20 06:00 Temperature 37.2 C Pulse Rate 90 Respiratory Rate 18 Blood Pressure 110/56 L Pulse Oximetry 98 Intake/Output Intake/Output: Intake & Output 05/18/20 05/19/20 05/20/20 05/21/20 23:59 23:59 23:59 23:59 Intake Total 4865 2270 490 50 Output Total 2 200 Balance 4863 2270 290 50 Meds/Results Medications: Active Medications Generic Name Dose Route Start Last Admin Trade Name Freq PRN Reason Stop Dose Admin Chlordiazepoxide HCl 10 mg 05/15/20 21:00 05/20/20 22:02 Librium Po PO 10 mg Q12HR JESS Administration Diphenhydramine HCl 25 mg 05/19/20 11:22 Benadryl Inj IV PUSH Q4H PRN Itching Dutasteride 0.5 mg 05/16/20 09:00 05/20/20 19:08 Avodart PO 0.5 mg QAM JESS Administration Famotidine 20 mg 05/19/20 21:00 05/20/20 22:01 Pepcid PO 20 mg Q12HR JESS Administration Loratadine 5 mg 05/19/20 11:25 05/20/20 16:06 Claritin PO Not Given QAM JESS Metoprolol Tartrate 12.5 mg 05/15/20 21:00 05/20/20 22:02 Lopressor PO 12.5 mg Q12HR JESS Administration Ondansetron HCl 4 mg 05/14/20 20:52 Zofran Inj IV PUSH Q4H PRN Nausea Polyethylene Glycol 17 gm 05/16/20 09:00 05/20/20 16:06 Miralax PO Not Given QAM JESS Quetiapine Fumarate 12.5 mg 05/15/20 21:00 05/20/20 22:01 Seroquel PO 12.5 mg HS JESS Administration Tamsulosin HCl 0.4 mg 05/15/20 21:00 05/20/20 22:02 Flomax PO 0.4 mg HS JESS Administration Thiamine HCl 100 mg 05/16/20 09:00 05/20/20 16:06 Vitamin B-1 PO Not Given QAM JESS Radiology Results: ITS Impressions Chest X-Ray 05/14/20 17:50 IMPRESSION: 1. No acute cardiopulmonary disease. Abdomen/Pelvis CT 05/14/20 19:11 IMPRESSION: 1. Small left pleural effusion. 2. Large ball of stool at the rectum with mild rectal wall thickening and haziness to the surrounding fat consistent with stercoral c
[2020-05-21] MEDS: CHLORDIAZEPOXIDE 10 MG CAPSULE PO ×2 (09:36→20:20)
[2020-05-21] MEDS: LORATADINE 5 MG TABLET PO (09:37)
[2020-05-21] MEDS: THIAMINE HCL 100 MG TABLET PO (09:37)
[2020-05-21] MEDS: FAMOTIDINE 20 MG TABLET PO ×2 (09:37→20:21)
[2020-05-21] MEDS: polyethylene glycoL 3350 17 GM POWD.PACK PO (09:37)
[2020-05-21] MEDS: METOPROLOL TARTRATE 12.5 MG TABLET PO ×2 (09:37→20:20)
--- NOTE | 2020-05-21 09:37 | PM.PNCARD ---
Progress Note: A&P Assessment and Plan (1) NSTEMI (non-ST elevated myocardial infarction): Code(s): I21.4 - Non-ST elevation (NSTEMI) myocardial infarction Status: Acute Assessment and Plan: 74 y/o with h/o tobacco and alcohol abuse, h/o PE 2016, ?history of A fib, CVA who presented with AMS, anemia and NSTMI Patient has NSTMI with trop that peaked at 8 in the setting of profound anemia (Hg 4) and sepsis on admission C revealed calcified coronaries with 60% LAD lesion, 25% LCx lesion. Continue maximal medical therapy. Will start ASA 81 mg daily. Start Atorvastatin 10 mg daily Smoking cessation counseling . (2) HTN (hypertension): Qualifiers: Hypertension type: essential hypertension Qualified Code(s): I10 - Essential (primary) hypertension Code(s): I10 - Essential (primary) hypertension Status: Chronic Assessment and Plan: Has been running borderline low. He is tolerating low dose Metoprolol (3) Sepsis: Code(s): A41.9 - Sepsis, unspecified organism Status: Acute Assessment and Plan: Unclear source. Cultures negative to date. Abx stopped (4) Alcoholism: Code(s): F10.20 - Alcohol dependence, uncomplicated Status: Chronic (5) Anemia: Code(s): D64.9 - Anemia, unspecified Status: Acute Assessment and Plan: in the setting of Xarelto use with h/o PE in 2016 and ?Afib. Hold AC. s/p colonscopy yesterday with no active bleed. Will continue to hold Xarelto but would start ASA 81 mg daily given AR (6) History of pulmonary embolism: Code(s): Z86.711 - Personal history of pulmonary embolism Status: Acute Assessment and Plan: Xarelto on hold Subjective Date/time seen: 05/21/20 09:37 He feels well overall, He appears somewhat confused. He denies chest pain or dyspnea. Review of Systems Review of Systems: All systems reviewed & are unremarkable except as noted in HPI and below Constitutional: Constitutional: Denies fatigue and Denies headache(s) Eyes: Eyes: Denies blurry vision ENT: Reports Normal hearing present and Denies headache(s) Cardiovascular: Cardiovascular: Denies chest pain, Denies diaphoresis, Denies pedal edema, Denies leg edema, Denies lightheadedness, Denies palpitations and Denies dyspnea Respiratory: Respiratory: Denies cough and Denies dyspnea Gastrointestinal: Gastrointestinal: Denies abdominal pain Musculoskeletal: Musculoskeletal: Denies back pain Neurologic: Reports Normal hearing present and Denies headache(s) Psychiatric: Psychiatric: Denies anxiety Endocrine: Endocrine: Denies fatigue and Denies palpitations Exam Narrative: Exam Narrative: obtunded. Appears younger than stated age Const: General: no acute distress Eyes: Sclera: sclerae normal Neck: Neck: no JVD Carotids: no bruits Resp: Effort & Inspection: normal respiratory effort Auscultation: clear to auscultation bilaterally Cardio: Rate: regular rate and not tachycardic Rhythm: regular rhythm Heart sounds: no gallops, no murmurs and no rubs Skin: General skin exam: normal color Neuro: Cranial nerves: Yes Normal hearing present Other: obtunded Extrem: General: normal to inspection and no edema Objective Data Vital Signs Vital Signs: Vital Signs - 24 hr 05/20/20 12:00 05/20/20 14:00 05/20/20 16:00 Temperature 36.6 C Pulse Rate 89 79 95 Respiratory Rate 18 Blood Pressure 128/69 Pulse Oximetry 98 05/20/20 18:00 05/20/20 18:15 05/20/20 18:30 Temperature Pulse Rate 96 99 98 Respiratory Rate 14 15 16 Blood Pressure 126/56 L 119/65 108/84 Pulse Oximetry 99 98 97 05/20/20 19:21 05/20/20 20:00 05/20/20 20:51 Temperature 37.4 C 37.3 C Pulse Rate 91 94 92 Respiratory Rate 18 18 Blood Pressure 116/65 124/65 Pulse Oximetry 93 97 05/20/20 21:00 05/20/20 22:00 05/20/20 22:02 Temperature 37.3 C 37.3 C Pulse Rate 92 80 91 Respiratory Rate 18 18
[2020-05-21] MEDS: ASPIRIN 81 MG ENTERIC TABLET PO (11:36)
--- NOTE | 2020-05-21 12:21 | PCNFU ---
Nutrition Follow-Up Complete: Inadequate oral intake related to multiple medical issues as evidenced by NPO status. Goal: Patient to meet estimated nutritional needs. Progressing towards goal. We will continue current goal. Pt current nutrition is Heart Healthy. Nutrition recommendation: Agree Last recorded weight is 65.5 kg. Bowel Motility:+Bm reported 05/18 Labs Reviewed:Cr 0.5,Na 134,BUN 5 Meds Noted: Thiamine, Miralax Additional Notes: Patient had heart cath 05/20. He remains confused, he is a feeder. Breakfast tray was being at assessment time. Tray was ordered with Eggs, Oatmeal and OJ intake 100% of meal. Hamburger and baked chips ordered for lunch. Monitoring: Follow up every 5 days.
--- NOTE | 2020-05-21 13:27 | P.PNIM_ITS ---
Progress Note: A&P Assessment and Plan (1) Symptomatic anemia: Code(s): D64.9 - Anemia, unspecified Status: Acute Assessment and Plan: May be secondary to GI Bleed and initially thought acute but with hemoglobin rising appropriately with 5 units of packed cells and no further evidence of GI blood loss with large stool in the rectal sigmoid area is probably more chronic blood loss anemia. Iron studies are compatible with iron deficiency anemia with low ferritin also. PPI started and GI consulted. * 05/18/20: EGD on normal but colonoscopy with poor prep but no colitis or source of blood loss. Polyp seen. * 05/19/20: Colonoscopy showing colon and rectal polyp with diverticulosis and polypecotmy. HH stable. Continue to monitor HH closely and transfuse as necessary. (2) NSTEMI (non-ST elevated myocardial infarction): Code(s): I21.4 - Non-ST elevation (NSTEMI) myocardial infarction Status: Acute Assessment and Plan: Troponin peaked at 8.2 and now trending down. The patient is not a candidate for anticoagulation given his likely GI Bleed. NSTEMI probably secondary to severe anemia with no ongoing ischemia. Repeat echo (05/15) showing EF 50-55% with hypokinetic apical area. Beta juan added and he is tolerating this. Plan for heart cath today. Heart cath showing moderate coronary artery disease with normal left ventricular systolic function. Plan for medical management. (3) Rash: Code(s): R21 - Rash and other nonspecific skin eruption Status: Acute Assessment and Plan: Patient with fine maculopapular rash with no pastia lines. Consider viral source or from abx. Abx have been stopped regardless. Continue Pepcid and claritin. benadryl prn. (4) Severe sepsis: Code(s): A41.9 - Sepsis, unspecified organism; R65.20 - Severe sepsis without septic shock Status: Acute Assessment and Plan: Sepsis criteria met on admission but no infectious source found. No colitis on scope. Blood cultures NGTD. CXR clear. Lactic acid normal. UA clear. WBC higher today but fevers have not returned. Currently off abx. Meño continue to monitor for possible brewing infection. (5) Alcoholism: Code(s): F10.20 - Alcohol dependence, uncomplicated Status: Chronic Assessment and Plan: The patient states he has not had a drink of alcohol for over a week. Continue daily Thiamine. Ativan IV available prn. (6) HTN (hypertension): Qualifiers: Hypertension type: essential hypertension Qualified Code(s): I10 - Essential (primary) hypertension Code(s): I10 - Essential (primary) hypertension Status: Chronic Assessment and Plan: Stable. Blood pressure reviewed on 05/20/20. BP well controlled on metoprolol. Contineue to monitor. (7) Congestive heart failure: Qualifiers: Heart failure chronicity: chronic Heart failure type: diastolic Qualified Code(s): I50.32 - Chronic diastolic (congestive) heart failure Code(s): I50.9 - Heart failure, unspecified Status: Chronic Assessment and Plan: Compensated. Chronic diastolic CHF. Monitor Is and Os and daily weights. Resumed beta-juan 05/15 and BP tolerating. (8) BPH (benign prostatic hyperplasia): Qualifiers: Lower urinary tract symptom presence: symptoms absent Qualified Code(s): N40.0 - Benign prostatic hyperplasia without lower urinary tract symptoms Code(s): N40.0 - Benign prostatic hyperplasia without lower urinary tract symptoms Status: Chronic
--- NOTE | 2020-05-21 15:50 | PM.DS ---
DS: Admitting Diagnosis Admitting Diagnosis Admitting Diagnosis: Anemia, unspecified DS: Discharge Diagnosis Discharge Diagnosis (1) Symptomatic anemia: Code(s): D64.9 - Anemia, unspecified Status: Acute Assessment and Plan: Hgb 4.0 on admission, May be secondary to GI Bleed and initially thought acute but with hemoglobin rising appropriately with 5 units of packed cells. No evidence of GI blood loss. Iron studies are compatible with iron deficiency anemia. PPI started and GI consulted. 05/18/20: EGD was normal but colonoscopy with poor prep but no colitis or source of blood loss. Polyp seen. 05/19/20: Colonoscopy showing sessile sigmoid polyp and small polyp in the rectum. Diverticulosis noted. Polypectomy performed HH stable. We monitored HH closely. (2) NSTEMI (non-ST elevated myocardial infarction): Code(s): I21.4 - Non-ST elevation (NSTEMI) myocardial infarction Status: Acute Assessment and Plan: Troponin peaked at 8.2 and now trending down. The patient is not a candidate for anticoagulation given his likely GI Bleed. NSTEMI probably secondary to severe anemia with no ongoing ischemia. Repeat echo (05/15) showing EF 50-55% with hypokinetic apical area. Beta juan added and he tolerated this. Heart cath 05/20/20 showing moderate coronary artery disease with normal left ventricular systolic function. Plan for medical management. (3) Rash: Code(s): R21 - Rash and other nonspecific skin eruption Status: Acute Assessment and Plan: Patient with fine maculopapular rash with no pastia lines. Consider viral source or from abx. Abx have been stopped regardless. Treated with Pepcid and Claritin. Benadryl available prn. (4) Severe sepsis: Code(s): A41.9 - Sepsis, unspecified organism; R65.20 - Severe sepsis without septic shock Status: Acute Assessment and Plan: Sepsis criteria met on admission but no infectious source found. No colitis on scope. Blood cultures Negative. CXR clear. Lactic acid normal. UA clear. Tmax 100.5 while on antibiotics otherwise remained afebrile. WBC 15K on admission and dropped to 10-12 range. Off abx, WBC climbed to 17 but then trended down still off abx. He did complete 5 day course of IV Zosyn and Vanco. No evidence of infectious process. Plan to check CBC after discharge. (5) Alcoholism: Code(s): F10.20 - Alcohol dependence, uncomplicated Status: Chronic Assessment and Plan: The patient states he has not had a drink of alcohol for over a week prior to admission. We continued daily Thiamine. We continued his home scheduled Librium as well. (6) HTN (hypertension): Qualifiers: Hypertension type: essential hypertension Qualified Code(s): I10 - Essential (primary) hypertension Code(s): I10 - Essential (primary) hypertension Status: Chronic Assessment and Plan: Blood pressure monitored closely. BP remained well controlled on metoprolol. (7) Congestive heart failure: Qualifiers: Heart failure type: diastolic Heart failure chronicity: chronic Qualified Code(s): I50.32 - Chronic diastolic (congestive) heart failure Code(s): I50.9 - Heart failure, unspecified Status: Chronic Assessment and Plan: Compensated. Chronic diastolic CHF. Beta-juan resumed 05/15 and patient tolerated this well. Cardiology was following. (8) BPH (benign prostatic hyperplasia): Qualifiers: Lower urinary tract symptom presence: symptoms absent Qualified Code(s): N40.0 - Benign prostatic hyperplasia without lower urinary tract symptoms Code(s): N40.0 - Benign prostatic hyperplasia without lower urinary tract symptoms Status: Chronic Assessment and Plan: Stable. We continued flomax and dutasteride (9) COPD (chronic obstructive pulmonary disease): Qualifiers: COPD type: uns
[2020-05-21] MEDS: DUTASTERIDE 0.5 MG CAPSULE PO (17:57)
[2020-05-21] MEDS: TAMSULOSIN HCL 0.4 MG CAPSULE PO (20:20)
[2020-05-21] MEDS: QUEtiapine FUMARATE 12.5 MG TABLET PO (20:21)
== END 2020-05-21 23:45 | DRG 811 ==
LOC: ANHED 20:50 → ANHICU 05-15 03:43 → ANH3MEDSUR 05-17 19:18 → ANHICU 05-25 14:21 → ANHIMU 05-25 14:21
PROVIDERS: Emergency Medicine Emergency Medical Services; Internal Medicine; Internal Medicine Gastroenterology; Specialist; Admitting Provider Family Medicine; Emergency Provider Emergency Medicine; PCP Family Medicine; Visit Provider Internal Medicine
PROC: 0DJ08ZZ Inspection of Upper Intestinal Tract, Via Natural or Artificial Opening Endoscopic (ICD-10-PCS; CPT 43235; principal; 2020-05-18 11:00)
PROC: 0DJD8ZZ Inspection of Lower Intestinal Tract, Via Natural or Artificial Opening Endoscopic (ICD-10-PCS; CPT 45378; principal; 2020-05-19 08:00)
PROC: 4A023N7 Measurement of Cardiac Sampling and Pressure, Left Heart, Percutaneous Approach (ICD-10-PCS; CPT 93452; principal; 2020-05-20 15:30)
PROC: 4A023N7 Measurement of Cardiac Sampling and Pressure, Left Heart, Percutaneous Approach (ICD-10-PCS; 2020-05-20 15:30)
DX: D50.9 Iron deficiency anemia, unspecified (principal); I21.4 Non-ST elevation (NSTEMI) myocardial infarction; I50.32 Chronic diastolic (congestive) heart failure; N17.9 Acute kidney failure, unspecified; I11.0 Hypertensive heart disease with heart failure; D12.5 Benign neoplasm of sigmoid colon; K62.1 Rectal polyp; K57.30 Diverticulosis of large intestine without perforation or abscess without bleeding; R19.5 Other fecal abnormalities; Z12.11 Encounter for screening for malignant neoplasm of colon; I25.10 Atherosclerotic heart disease of native coronary artery without angina pectoris; I48.91 Unspecified atrial fibrillation; F10.20 Alcohol dependence, uncomplicated; E86.0 Dehydration; R21 Rash and other nonspecific skin eruption; R79.89 Other specified abnormal findings of blood chemistry; Z20.828 Contact with and (suspected) exposure to other viral communicable diseases; N28.89 Other specified disorders of kidney and ureter; F03.90 Unspecified dementia, unspecified severity, without behavioral disturbance, psychotic disturbance, mood disturbance, and anxiety; N40.0 Benign prostatic hyperplasia without lower urinary tract symptoms; J44.9 Chronic obstructive pulmonary disease, unspecified; E78.5 Hyperlipidemia, unspecified; Z79.01 Long term (current) use of anticoagulants; Z79.82 Long term (current) use of aspirin; Z86.73 Personal history of transient ischemic attack (TIA), and cerebral infarction without residual deficits; Z86.718 Personal history of other venous thrombosis and embolism; Z86.711 Personal history of pulmonary embolism; Z87.891 Personal history of nicotine dependence; Z98.42 Cataract extraction status, left eye
CPT/HCPCS: 36415; 36430; 70450; 71045; 74177; 80048; 80053; 80202; 80307; 81001; 82274; 82607; 82728; 82746; 83540; 83550; 83605; 83735; 84100; 84484; 85014; 85018; 85025; 85027; 85610; 85730; 86140; 86850; 86900; 86901; 86923; 87040; 87635; 88305; 93005; 93458; 96361; 96365; 97162; 97166; 97535; 99285; A9270; C1760; C1887; C1894; C8929; C9113; C9803; G0269; J1644; J2060; J2250; J2370; J2543; J2704; J3010; J3370; J3411; J3480; J7030; J7040; J7050; J7120; P9016; Q9957; Q9967; U0003

== ENCOUNTER 2020-05-25 20:27 | Inpatient (IN) | payer MEDICARE, SELFPAY ==
--- NOTE | ~2020-05-25 | CT_ITS ---
EXAMINATION: CT abdomen pelvis w con DATE: 05/26/2020 00:51 INDICATION: Rectal bleeding TECHNIQUE: Computed tomography (CT) of the abdomen and pelvis was performed with 100 mL Omnipaque-350 intravenous contrast. Automated exposure control and iterative reconstruction technique were employe d. The dose-length product was 708.10 mGy-cm. COMPARISON: 05/14/2020 FINDINGS: Mild mosaic attenuation with groundglass opacities in the right lower lobe and favor mild atelectasis with subsegmental air trapping related to small airway disease over pneumonia or pulmonary edema. Mi ld cardiomegaly. Atherosclerotic coronary artery calcification. Subendocardial fat along the lateral wall of the left ventricle consistent with chronic infarct. No pericardial or pleural effusion. Mild bilateral gynecomastia. Liver, gallbladder, spleen, pancreas and bilateral adrenal glands are normal. Calcification is at the bilateral kidneys likely combination of atherosclerotic calcifications and n onobstructing nephrolithiasis. Small region of cortical scarring at the right kidney likely sequela of prior infection or infarction . Again seen is an indeterminate approximately 1.5 cm intermediate attenuation lesion at the lower po le of the left kidney. A couple additional small peripheral region of significantly decreased attenua tion/enhancement at the upper pole of the left kidney which are more suspicious for infarct or infect ion. 1 mm stone in the dependent midline of the otherwise normal-appearing bladder. Fluid throughout the proximal colon consistent with diarrhea. There appears be a focus of active contrast extravasatio n at the ascending colon approximately 4 cm cephalad from the ileocecal valve. Again seen is mild wal l thickening at the distal rectum which is now decompressed consistent with proctitis which as previo usly suggested could be related to stercoral colitis. Small bowel and appendix are normal. No free in traperitoneal gas or fluid. No pathologically enlarged abdominal or pelvic lymphadenopathy. There is extensive calcified atherosclerosis of the aorta and many of the other arteries. Interval development of right trochanteric bursitis with improvement in prior left trochanteric bursitis. Moderate to sev ere lumbar spondylosis. L5 spondylolysis with bilateral pars interarticularis defects and 10 mm anter olisthesis L5 on S1. IMPRESSION: 1. Diarrhea with suggestion of active contrast extravasation in the ascending colon. 2. Persistent wall thickening in the now decompressed rectum consistent with proctitis which could be related to stercoral proctitis, infection, inflammation or less likely ischemia. 3. Persistent approximately 1.4 cm indeterminate intermediate attenuation lesion at the lower pole of the left kidney which could represent complex cyst, solid neoplasm such as renal cell carcinoma, inf arct or pyelonephritis, the latter to etiologies also suspected at the upper pole of the left kidney. Correlate with urinalysis and recommend further evaluation with pre and postcontrast CT or MRI when clinically appropriate. 4. Nonobstructing nephrolithiasis with 1 mm stone in the dependent aspect of the normal-appearing maida dder. 5. Moderate cardiomegaly with coronary artery disease and chronic infarct along the lateral wall of t he left ventricle. 6. Interval development of right trochanteric bursitis. Reviewed, dictated and finalized at location A. IMPRESSION: 1. Diarrhea with suggestion of active contrast extravasation in the ascending c olon. 2. Persistent wall thickening in the now decompressed rectum consistent with pr octitis which could be related to stercoral proctitis, infection, inflammation or less likely ischemia. 3. Persistent approximately 1.4 cm indeterminate intermediate a
[2020-05-25 20:33] VITALS: BP 112/57; PULSE 87; RESP 20; TEMP 36.8; O2SAT 98
[2020-05-25 21:44] VITALS: BP 113/53; PULSE 91; RESP 18
[2020-05-25 21:47] LABS: Basophils Absolute Auto 0.1 K/mm3 (0.0-0.1); Basophils Percent Auto 0.4 % (0.2-1.2); Eosinophils Absolute Auto 0.6 K/mm3 (0-0.3); Hematocrit 26.2 % (42.0-52.0); Immature Granulocyte Absolute 0.18 K/mm3 (0.00-0.031); Immature Granulocyte Percent A 0.9 % (0-0.5); Lymphocytes Absolute Auto 1.24 K/mm3 (0.9-3.2); Lymphocytes Percent Auto 6.3 % (18.3-44.2); Mean Corpuscular HGB Conc 30.5 g/dl (32-36); Mean Corpuscular Hemoglobin 26.1 pg (26-34); Mean Corpuscular Volume 85.3 fl (80-100); Monocytes Absolute Auto 1.7 K/mm3 (0.1-0.6); Monocytes Percent Auto 8.8 % (2.6-8.5); Neutrophils Absolute Auto 15.9 K/mm3 (1.3-6.7); Neutrophils Percent Auto 80.6 % (45.5-73.1); Platelet Count Result 318 k/mm3 (150-375); Red Blood Count 3.07 M/mm3 (4.6-6.20); White Blood Count 19.7 K/mm3 (4.5-10.0)
[2020-05-25 21:56] LABS: Ovalocytes 1+ (NORMAL); Platelet Estimate Adequate (Adequate)
[2020-05-25 21:57] LABS: INR 2.2; Prothrombin Time 24.1 Seconds (11.1-14.7)
[2020-05-25 21:58] LABS: Partial Thromboplastin Time 35.1 SECONDS (22.3-36.8)
[2020-05-25 21:59] LABS: Alanine Aminotransferase 12 U/L (4-50); Albumin Level 2.5 g/dL (3.5-5.1); Alkaline Phosphatase 61 U/L (38-126); Aspartate Amino Transferase 18 U/L (17-59); Bilirubin,Total 0.4 mg/dL (0.2-1.3); Blood Urea Nitrogen 16 mg/dL (9-20); Calcium 7.6 mg/dL (8.4-10.2); Carbon Dioxide 26 mmol/L (22-30); Chloride 110 mmol/L (98-107); Estimated CRCL calculation 77 ml/min; Estimated Glomerular Filt Rate > 60; Glucose 106 mg/dL (75-110); Potassium 3.9 mmol/L (3.4-5.0); Sodium 140 mmol/L (137-145)
--- NOTE | 2020-05-25 22:13 | ECG_ITS ---
Measurements Intervals [place] Rate: 87 P: 64 VT: 141 QRS: 54 QRSD: 100 T: -32 QT: 345 QTc: 416 Interpretive Statements SINUS RHYTHM EARLY PRECORDIAL R/S TRANSITION ST-T WAVE ABNORMALITY IN INFERIOR LEADS- CONSIDER ISCHEMIA BASELINE ARTIFACT- I, II, III, AVR, AVL, AVF, V1-V6 ABNORMAL ECG Electronically Signed On 05-26-2020 7:14:34 CDT by Herminio Diaz D.O.
[2020-05-25 22:36] VITALS: BP 106/74; PULSE 78; RESP 20; O2SAT 99
--- NOTE | 2020-05-25 23:51 | ED.GENADULT ---
HPI - General Adult General Chief complaint: Unspecified Stated complaint: poss gi bleed Time Seen by Provider: 05/25/20 23:47 History of Present Illness HPI narrative: Patient arrives via EMS from the [facility] for rectal bleeding. It is listed on his chart that he has had a stroke. He says that he is in no pain, and would like something to eat. Other than that I cannot get useful information from him. He does not seem to know that he has had a stroke. He also seems to be hard of hearing and has some difficulty understanding the questions. We will work him up for GI bleed and admit, for GI consult. Related Data Home Medications Medication Instructions Recorded Confirmed Xarelto 20 mg PO DAILY 12/15/19 05/15/20 Adults Multivitamin 1 tablet PO DAILY 05/14/20 05/15/20 atorvastatin 40 mg PO HS 05/15/20 05/15/20 metoprolol tartrate 12.5 mg PO Q12H 05/15/20 05/15/20 quetiapine 12.5 mg PO HS 05/15/20 05/15/20 Allergies Allergy/AdvReac Type Severity Reaction Status Date / Time No Known Allergies Allergy Verified 05/18/20 11:23 Review of Systems Review of Systems: Narrative: Unable to get a review of systems because of the patient's previous stroke and dementia. [facility] Past Medical History Medical History Alcohol withdrawal Alcoholism Atrial fibrillation BPH (benign prostatic hyperplasia) Chronic neck pain Congestive heart failure Diastolic COPD (chronic obstructive pulmonary disease) CVA (cerebral vascular accident) Cytotoxic cerebral edema DVT (deep venous thrombosis) DVT prophylaxis HTN (hypertension) Hyperlipidemia Leukocytosis Pneumonia Pulmonary emboli Tobacco abuse Surgical History Surgical History H/O cataract extraction Left eye H/O cervical spine surgery Multiple H/O local excision of skin lesion History of open reduction and internal fixation (ORIF) procedure History of tonsillectomy Status post surgical removal of malignant neoplasm of skin Nose Social History Social History Social History: The patient stated that he has a roommate Ms. Hudson has 1 daughter Aliza who has a appointed power disability attorney. He desires a full code status. Patient stated that he smoked since he is about 12 years old he smokes anywhere from half pack to pack cigarettes a day. Patient states that he drinks 3 to 4 times a month and he usually drinks to get drunk. He said he has not drank in over a week. 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 Years smoked: 57 Smoking status: Former smoker Tobacco type: cigarettes Second hand tobacco smoke exposure: Yes Smoking end date: 11/27/14 Alcohol intake: former Drinks per week: 2 Substance use: former Substance use type: unknown Other substance usage details: Uses marijuana 1 to 2 times a month Gender identity (if verbalized by the patient): Male Spiritual care concerns: No Agree to blood products: Yes Exam Narrative: Exam Narrative: GENERAL: Thin, pale, and unkempt, with dried something coming out of the corner of his mouth, and in no acute distress. HEAD: Normocephalic, atraumatic. EYES: PERRLA and EOMI. ENT: Nares clear, no rhinorrhea or epistaxis. Mucous membranes moist. NECK: Supple. CHEST: Clear to auscultation. No respiratory distress. HEART: Regular rate and rhythm. No murmur heard. Normal peripheral pulses. ABDOMEN: Soft, nontender, nondistended, normal active bowel sounds. Rectal area has hemorrhoids and salazar red blood present. EXTREMITIES: Normal range of motion. No edema. SKIN: Warm, dry, no rash. NEURO: No focal deficits. Alert and oriented x3. PSYCH: Flat affect, poor speech, no eye contact. Course Consultations Consultation #1: Call Dr. Regalado general surgery, for consult. He said he would like the patient to either be scope
[2020-05-26] VITALS (33 sets, daily range): BP systolic 105–140; BP diastolic 51–73; PULSE 84–112; RESP 14–20; TEMP 36.4–37.8; O2SAT 96–100
[2020-05-26] MEDS: SODIUM CHLORIDE 0.9% IV 1,000 ML 999 ML IV CONT (00:13)
--- NOTE | 2020-05-26 03:35 | ADMGEN ---
This patient, Choco Hastings, was admitted to [facility] Surg Room 305-02. Patient/family oriented to hospital policies and general routines including ID bracelet, bed and alarms, visiting hours, pain management, procedures, bathroom and other care routines, personal items, smoking policy, room service/diet, and visiting hours. Valuables list has been completed. Information on how to activate the Rapid Response Team has been discussed. Patient/Family are encouraged to report perceived risks to care and to ask questions if they do not understand what they are told or what they should do.
[2020-05-26 05:12] LABS: Hematocrit 19.9 % (42.0-52.0); Hemoglobin 6.1 g/dL (14.0-18.0)
--- NOTE | 2020-05-26 05:30 | PC.NURSE ---
Tried to reach the patient's ROSALES [place] for the second time to obtain consent for blood transfusion with no luck. Voicemail left.
[2020-05-26] MEDS: SODIUM CHLORIDE 0.9% IV 250 ML 30 ML IV CONT ×3 (06:27→20:03)
--- NOTE | 2020-05-26 09:42 | WPDGICN ---
Assessment and Plan Assessment and plan (1) Rectal bleed: Code(s): K62.5 - Hemorrhage of anus and rectum Status: Acute Assessment and Plan: Lower GI bleeding appears to be from area of previous large polypectomy. Undoubtedly related to remaining on anticoagulation. Plan is to discontinue anticoagulation. Transfuse to a stable hemoglobin. At some point follow-up colonoscopy advised. We will plan this sooner should he continue to bleed. Otherwise in several months for additional polypectomy. He should continue to avoid anticoagulation for an extended period of time because of large colon polyp in propensity to bleeding. (2) Anticoagulated: Code(s): Z79.01 - [facility] (current) use of anticoagulants Status: Acute Assessment and Plan: Anticoagulation undoubtedly contributes to current GI bleeding. Anticoagulation will need to be held. For an extended period of time. (3) Renal mass: Code(s): N28.89 - Other specified disorders of kidney and ureter Status: Acute Assessment and Plan: Renal mass seen on CT scan. May benefit from known Urology follow-up. (4) Anemia: Code(s): D64.9 - Anemia, unspecified Status: Acute Assessment and Plan: Patient has anemia. Currently appears to be related to GI blood loss. Patient known to have colon polyps. Plan to hold anticoagulation and transfuse to stable hemoglobin. (5) Atrial fibrillation: Qualifiers: Atrial fibrillation type: unspecified Qualified Code(s): I48.91 - Unspecified atrial fibrillation Code(s): I48.91 - Unspecified atrial fibrillation Status: Acute Assessment and Plan: Patient known to have atrial fibrillation will need to hold anticoagulation as stated above. (6) Alcoholism: Code(s): F10.20 - Alcohol dependence, uncomplicated Status: Chronic (7) Proctitis: Code(s): K62.89 - Other specified diseases of anus and rectum Status: Acute Assessment and Plan: Recent colonoscopy revealed no evidence of proctitis or stercoral colitis is suggested on CT scan. This is probably a spurious finding. Stool softeners are encourage because of apparent constipation at the time of previous colonoscopy. GI Consult Note Consult date/time: 05/26/20 09:42 HPI: Choco Hastings is a 74 year old male Seen in evaluation at the request of the emergency room. Patient known to my service from recent hospital stay. During the hospital stay patient was known to have a non ST elevated VT. He was found to have rather profound anemia prompting GI endoscopy. An EGD was performed on 05/18 was unremarkable. Colonoscopy ultimately performed on 05/19/2020 revealed a large sessile colon polyp in the ascending colon requiring piecemeal resection. For histology of this polyp was benign villous adenoma. It was likely not totally resected. It was anticipated that patient would have follow-up colonoscopy in 4-5 months. At the time of discharge patient was restarted on Xarelto anticoagulation. He apparently did well till last evening apparently rectal bleeding was identified he present to the emergency room. A CT scan of the abdomen suggested a blush in the right colon is suspicious for bleeding. Additionally tumor in the kidney was identified. Patient is unable to give much significant additional history. In the past he has a significant history of alcoholism. He has a history of atrial fibrillation and for this reason he was maintained on Xarelto anticoagulation. Review of Systems Review of Systems: All systems reviewed & are unremarkable except as noted in HPI and below PMFSH Past Medical History Medical History Alcohol withdrawal Alcoholism Atrial fibrillation BPH (benign prostatic hyperplasia) Chronic neck pain Congestive heart failure Diastolic COPD (chronic obstructive pulmonary disease) CVA (cer
[2020-05-26] MEDS: SODIUM CHLORIDE 0.9% IV 250 ML 30 ML (10:00)
[2020-05-26 13:56] LABS: Hemoglobin 7.6 g/dL (14.0-18.0)
--- NOTE | 2020-05-26 15:03 | PM.CNGS ---
Assessment and Plan Assessment and plan (1) GI bleeding: Code(s): K92.2 - Gastrointestinal hemorrhage, unspecified Status: Acute Assessment and Plan: This patient has recently underwent an EGD and colonoscopy with polypectomy by Dr. Larson on his previous hospitalization on 05/19/20 due to concern of GI bleeding with anemia. CT scan of the abdomen and pelvis on this admission does show contrast extravasation in the ascending colon, which would be near the location of the ascending colon polypectomy. It is suspected that his acute GI bleeding is from the site of the large polypectomy. Hemoglobin has been monitored and is currently 7.6 after 2 units of PRBCs. He is hemodynamically stable at this time. Also noted is that his coags are elevated without the patient receiving any recent anticoagulation. Could consider FFP if he continues to bleed. Will repeat coags again in the morning. GI has been consulted and their recommendations are appreciated. If he continues to have active bleeding, we would recommend initially trying to do a colonoscopy if at all possible to identify the bleeding and see if this can be stopped during endoscopy. Then, if this is unsuccessful, we would consider proceeding with surgical intervention, which would be more invasive. If unable to proceed with a colonoscopy, could consider a nuclear medicine tagged red blood cell scan to better identify the area of bleeding. Will continue to closely monitor serial H/H's and keep him NPO for now with continuous IV fluids. (2) Anemia: Code(s): D64.9 - Anemia, unspecified Status: Acute Assessment and Plan: Likely due to acute GI bleeding. Hgb 8.0 on admission. Dropped to 6.1 and received 2 units of PRBCs, and now up to 7.6. Continue to closely monitor H/H. See plan above. (3) History of pulmonary embolism: Code(s): Z86.711 - Personal history of pulmonary embolism Status: Acute Assessment and Plan: Previously being anticoagulated with Xarelto prior to his previous hospitalization on 05/14/20, when this was stopped. Has not had any anticoagulation since being discharged. Therefore, he has not had any anticoagulation since before 05/14/20. Continue to hold Xarelto. (4) Leukocytosis: Qualifiers: Leukocytosis type: unspecified Qualified Code(s): D72.829 - Elevated white blood cell count, unspecified Code(s): D72.829 - Elevated white blood cell count, unspecified Status: Acute Assessment and Plan: WBC 19,000 on admission but afebrile. Unclear etiology for leukocytosis. Mention of diarrhea through the colon with persistent wall thickening in the decompressed rectum on today's CT scan. This was noted on his previous CT on 05/14/20 when he also had a rectal stool ball due to constipation, which has since passed with treatment of his constipation. No evidence of colitis on his recent colonoscopy. Continue IV antibiotics for now and monitor labs. (5) Renal mass: Code(s): N28.89 - Other specified disorders of kidney and ureter Status: Acute Assessment and Plan: Finding on CT. Management per Hospitalist service. (6) Atrial fibrillation: Qualifiers: Atrial fibrillation type: unspecified Qualified Code(s): I48.91 - Unspecified atrial fibrillation Code(s): I48.91 - Unspecified atrial fibrillation Status: Acute Assessment and Plan: History of paroxysmal atrial fibrillation. Heart rate and rhythm regular on my exam. (7) COPD (chronic obstructive pulmonary disease): Qualifiers: COPD type: unspecified COPD Qualified Code(s): J44.9 - Chronic obstructive pulmonary disease, unspecified Code(s): J44.9 - Chronic obstructive pulmonary disease, unspecified Status: Chronic (8) Congestive heart failure: Qualifiers: Heart failure type: diastolic Heart failure chronicity: chronic Qualified Code(s): I50.32 - Chronic diastolic (congestive) heart
--- NOTE | 2020-05-26 16:12 | PM.IMHP ---
H&P: HPI History of Present Illness Chief complaint: gi bleed Narrative: 74-year-old male h/o congestive heart failure, hypertension, paroxysmal atrial fibrillation, hyperlipidemia, COPD, and previously on chronic anticoagulation for PE/DVTs. He admitted to [facility] in april with GI bleed and NSTEMI, pt had upper endoscopy and colonoscopy under DR Larson An EGD was performed on 05/18 was unremarkable. Colonoscopy ultimately performed on 05/19/2020 revealed a large sessile colon polyp in the ascending colon requiring piecemeal resection. For histology of this polyp was benign villous adenoma. It was likely not totally resected. Pt is bleeding again, hb is low, from polypectomy and anticoagulation Poor historian - anemia secondary to acute blood loss Review of Systems Review of Systems: ROS unobtainable: Yes unobtainable due to medical condition [facility] Past Medical History Medical History (Updated 05/27/20 @ 14:36 by Mo Regalado MD) Alcohol withdrawal Alcoholism Atrial fibrillation (Unknown) BPH (benign prostatic hyperplasia) Chronic neck pain Congestive heart failure Diastolic COPD (chronic obstructive pulmonary disease) Coronary artery disease CVA (cerebral vascular accident) (Unknown) Cytotoxic cerebral edema DVT (deep venous thrombosis) DVT prophylaxis HTN (hypertension) Hyperlipidemia Leukocytosis Pneumonia Pulmonary emboli Tobacco abuse Surgical History Surgical History H/O cataract extraction Left eye H/O cervical spine surgery Multiple H/O local excision of skin lesion History of colonoscopy with polypectomy [address] Larson. History of open reduction and internal fixation (ORIF) procedure History of tonsillectomy 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 Hudson has 1 daughter Aliza who has a appointed power city attorney. Years smoked: 57 Smoking status: Former smoker Tobacco type: cigarettes Second hand tobacco smoke exposure: Yes Smoking end date: 11/27/14 Alcohol intake: former Alcohol use details: Unable to answer specific questions d/t confusion. Substance use: unknown Substance use type: unknown Other substance usage details: Has previously used marijuana, unclear on recent drug use d/t confusion. Living arrangements: [facility] Gender identity (if verbalized by the patient): Male Spiritual care concerns: No Agree to blood products: Yes Meds Home Medications and Allergies Home Medications Medication Instructions Recorded Confirmed Type Xarelto 20 mg PO DAILY 12/15/19 05/26/20 History aspirin [Children's Aspirin] 81 mg PO DAILY@0800 #30 tablet 12/23/19 05/26/20 Rx folic acid 1 mg PO DAILY #30 tablet 12/23/19 05/26/20 Rx thiamine HCl (vitamin B1) [Vitamin 100 mg PO QAM #30 tablet 12/23/19 05/26/20 Rx B-1] dutasteride 0.5 mg capsule 0.5 mg PO DAILY #90 cap 02/24/20 05/26/20 Rx Adults Multivitamin 1 tablet PO DAILY 05/14/20 05/26/20 History atorvastatin 40 mg PO HS 05/15/20 05/26/20 History metoprolol tartrate 12.5 mg PO Q12H 05/15/20 05/26/20 History quetiapine 12.5 mg PO HS 05/15/20 05/26/20 History chlordiazepoxide HCl 10 mg PO BID #10 cap 05/21/20 05/26/20 Rx famotidine 20 mg PO Q12HR #60 tablet 05/21/20 05/26/20 Rx polyethylene glycol 3350 [Miralax] 17 g PO QAM #30 ea 05/21/20 05/26/20 Rx tamsulosin [Flomax] 0.4 mg PO HS #90 cap 05/21/20 05/26/20 Rx Allergies Allergy/AdvReac Type Severity Reaction Status Date / Time No Known Allergies Allergy Verified 05/18/20 11:23 Vital Signs Vital Signs - 24 hr 05/25/20 20:33 05/25/20 21:44 04/28
[2020-05-26] MEDS: PANTOPRAZOLE SODIUM IV 40 MG VIAL IV PUSH (20:28)
[2020-05-26] MEDS: ACETAMINOPHEN 325 MG TABLET 650 MG PO (21:19)
[2020-05-27] VITALS (15 sets, daily range): BP systolic 119–154; BP diastolic 40–89; PULSE 74–88; RESP 16–20; TEMP 36.3–37.1; O2SAT 96–99
[2020-05-27 06:19] LABS: Basophils Absolute Auto 0.1 K/mm3 (0.0-0.1); Basophils Percent Auto 1.1 % (0.2-1.2); Eosinophils Absolute Auto 0.6 K/mm3 (0-0.3); Eosinophils Percent Auto 5.3 % (0-4.4); Hematocrit 27.8 % (42.0-52.0); Hemoglobin 9.2 g/dL (14.0-18.0); Immature Granulocyte Absolute 0.14 K/mm3 (0.00-0.031); Immature Granulocyte Percent A 1.2 % (0-0.5); Lymphocytes Absolute Auto 1.89 K/mm3 (0.9-3.2); Mean Corpuscular HGB Conc 33.1 g/dl (32-36); Mean Corpuscular Volume 87.7 fl (80-100); Mean Platelet Volume 10.7 fl (7.4-10.4); Monocytes Absolute Auto 1.1 K/mm3 (0.1-0.6); Monocytes Percent Auto 9.5 % (2.6-8.5); Neutrophils Absolute Auto 7.9 K/mm3 (1.3-6.7); Neutrophils Percent Auto 66.9 % (45.5-73.1); Platelet Count Result 221 k/mm3 (150-375); Red Blood Count 3.17 M/mm3 (4.6-6.20); White Blood Count 11.8 K/mm3 (4.5-10.0)
[2020-05-27 06:27] LABS: INR 1.2; Prothrombin Time 14.6 Seconds (11.1-14.7)
[2020-05-27 06:28] LABS: Partial Thromboplastin Time 28.6 SECONDS (22.3-36.8)
[2020-05-27] MEDS: PANTOPRAZOLE SODIUM IV 40 MG VIAL IV PUSH ×2 (09:03→20:45)
--- NOTE | 2020-05-27 09:34 | WPDGIPROGNO ---
Progress Note: A&P Additional Plan Patient alert this morning. Not inclined to give much additional history. Nursing staff reports only 1 maroon bowel movement during the fast food shift lead. He patient denies abdominal pain. Physical exam reveals him to be alert. Vital signs stable. HEENT exam reveals him to be anicteric. Lungs are clear. Heart without murmur. Abdomen bowel sounds are present soft nontender. Labs reveal protime 14.6, INR 1.2. Patient received plasma last night with improvement in his INR. hemoglobin 9.2, hematocrit 27.8, MCV 87.7. After transfusion yesterday. This appears stable at present. Impression 1. Lower GI bleeding. Appears to be from the ascending colon where large colon polyp was excised. Suspect this is aggravated by his coagulopathy. Presumably from Xarelto anticoagulation. Plan is to hold Xarelto. Continue to monitor hemoglobin. A colonoscopy in the morning to assess this bleeding site will be planned. 2. Alcoholism. 3. I atherosclerotic heart disease. History of non ST elevated NC several weeks ago. Subjective Date/time seen: 05/27/20 09:34 Objective Data Vital Signs Vital Signs: Vital Signs - 24 hr 05/26/20 09:35 05/26/20 09:39 05/26/20 10:00 Temperature 36.9 C 36.9 C 36.8 C Pulse Rate 109 H 110 H 106 H Respiratory Rate 16 16 18 Blood Pressure 117/65 107/63 130/61 Pulse Oximetry 98 99 99 05/26/20 10:06 05/26/20 10:24 05/26/20 11:24 Temperature 36.9 C 36.8 C 36.4 C Pulse Rate 112 H 105 H 104 H Respiratory Rate 16 16 16 Blood Pressure 128/54 L 108/59 L 113/66 Pulse Oximetry 99 99 98 05/26/20 12:00 05/26/20 12:24 05/26/20 12:55 Temperature 36.8 C 36.8 C 36.9 C Pulse Rate 103 H 100 100 Respiratory Rate 18 16 16 Blood Pressure 130/61 115/65 126/70 Pulse Oximetry 99 98 99 05/26/20 16:00 05/26/20 16:49 05/26/20 18:12 Temperature 37.1 C 36.9 C Pulse Rate 111 H 108 H 91 Respiratory Rate 16 16 Blood Pressure 140/60 138/62 Pulse Oximetry 99 99 05/26/20 18:20 05/26/20 20:00 05/26/20 20:20 Temperature 36.9 C 36.6 C 36.8 C Pulse Rate 100 101 H 98 Respiratory Rate 16 16 18 Blood Pressure 128/62 126/73 116/68 Pulse Oximetry 98 99 96 05/26/20 20:40 05/26/20 21:19 05/26/20 21:40 Temperature 37.8 C H 37.8 C H 37.1 C Pulse Rate 102 H 85 Respiratory Rate 18 20 Blood Pressure 133/64 129/66 Pulse Oximetry 98 99 05/26/20 22:15 05/26/20 22:40 05/26/20 23:40 Temperature 37.2 C 36.6 C 36.6 C Pulse Rate 86 84 Respiratory Rate 16 20 Blood Pressure 118/66 128/65 Pulse Oximetry 97 98 05/27/20 00:00 05/27/20 00:10 05/27/20 00:46 Temperature 36.6 C 37.1 C Pulse Rate 81 83 85 Respiratory Rate 20 18 Blood Pressure 154/68 H 150/65 H Pulse Oximetry 98 97 05/27/20 01:05 05/27/20 02:05 05/27/20 03:05 Temperature 36.9 C 36.6 C 36.9 C Pulse Rate 86 74 74 Respiratory Rate 18 20 16 Blood Pressure 139/53 L 138/56 L 119/40 L Pulse Oximetry 98 99 98 05/27/20 03:55 05/27/20 04:00 05/27/20 06:00 Temperature 36.7 C 37.0 C Pulse Rate 83 81 77 Respiratory Rate 16 16 Blood Pressure 132/67 141/68 H Pulse Oximetry 99 97 Intake/Output Intake/Output: Intake & Output 05/24/20 05/25/20 05/26/20 05/27/20 23:59 23:59 23:59 23:59 Intake Total 2440 950 Balance 2440 950 Meds/Results Medications: Active Medications Generic Name Dose Route Start Last Admin Trade Name Freq PRN Reason Stop Dose Admin Acetaminophen 650 mg 05/26/20 20:47 05/26/20 21:19 Tylenol Tablet PO 650 mg Q4H PRN Administration Headache Piperacillin/Tazobactam/Dextrose 3.375 gm in 50 mls @ 100 mls/hr 05/26/20 06:00 05/27/20 06:00 Zosyn 3.375 Gm/D5w 50ml Pm IVPB Infused Q6H JESS Infusion Ondansetron HCl 4 mg 05/26/20 02:55 Zofran Inj IV PUSH Q4H PRN Nausea Pantoprazole Sodium 40 mg 05/26/20 21:00 05/27/20 09:03 Protonix Iv IV PUSH 40 mg Q12HR JESS Administration Radiology Results: ITS Impr
--- NOTE | 2020-05-27 14:29 | PM.PNGS ---
Progress Note: A&P Assessment and Plan (1) GI bleeding: Onset Date: ~04/2020 Code(s): K92.2 - Gastrointestinal hemorrhage, unspecified Status: Acute Assessment and Plan: This was the main reason for his admission and for our consultation. His coags are better today. It appears bleeding may have stopped. Discussed with Dr. Larson this morning. He is planning to repeat colonoscopy tomorrow and evaluate the probable source of bleeding which is the polyp seen in the right colon before. He will either take more pieces or apply cautery or clips to stop bleeding. Hopefully patient will not come to surgery at this time, but we will standby. (2) NSTEMI (non-ST elevated myocardial infarction): Onset Date: ~04/2020 Code(s): I21.4 - Non-ST elevation (NSTEMI) myocardial infarction Status: Acute (3) CVA (cerebral vascular accident): Onset Date: Unknown Qualifiers: CVA mechanism: unspecified Qualified Code(s): I63.9 - Cerebral infarction, unspecified Code(s): I63.9 - Cerebral infarction, unspecified Status: Acute (4) Atrial fibrillation: Onset Date: Unknown Qualifiers: Atrial fibrillation type: unspecified Qualified Code(s): I48.91 - Unspecified atrial fibrillation Code(s): I48.91 - Unspecified atrial fibrillation Status: Acute Assessment and Plan: Off anticoagulation for now because of GI bleeding. Subjective Subjective Date/Time Seen: 05/27/20 14:29 Patient seen today in his room. He was laying in his bed stating that in quotes he wants to go to his bed and quotes. When asked he through same that he wanted to leave the hospital in go back to where he is usually stays. Patient denied abdominal pain. Review of Systems Constitutional: Constitutional: Reports no additional constitutional complaints ENT: Reports other (Mucous Membranes moist.) Cardiovascular: Cardiovascular: Denies dyspnea Respiratory: Respiratory: Denies pain on inspiration and Denies dyspnea Musculoskeletal: Musculoskeletal: Reports other (No calf swelling or edema) Integumentary/Breasts: Skin/Breast: Reports system reviewed and no additional complaints, except as docu Exam Const: General: cooperative, no acute distress, alert and awake Orientation/consciousness: patient oriented x3 HENMT: Mouth: Yes moist mucous membranes Neck: Neck: normal visual inspection Chest: Chest palpation & inspection: normal inspection of the chest Resp: Effort & Inspection: normal respiratory effort Auscultation: clear to auscultation bilaterally Cardio: Jugular venous distension: no JVD Rate: regular rate Rhythm: regular rhythm GI: Inspection: normal to inspection GI Palp: No abdominal tenderness, Yes Soft to palpation and No Tenderness to palpation present (GI) Auscultation: normal bowel sounds Rectal Exam: deferred Neuro: General: patient oriented x3, moves all extremities and confusion ( Patient did not seem to know where he was. ) Cognition (Neuro): abnormal cognition ( Did not seem to know where he was.) Speech: normal speech Other: Did not remember talking to Dr. Larson this morning. Extrem: General: normal exam except as noted Psych: Speech and movement: Normal speech and movement present Thought content: Yes Normal thought content present Objective Data Vital Signs Vital Signs: Vital Signs - 24 hr 05/26/20 16:00 05/26/20 16:49 05/26/20 18:12 Temperature 37.1 C 36.9 C Pulse Rate 111 H 108 H 91 Respiratory Rate 16 16 Blood Pressure 140/60 138/62 Pulse Oximetry 99 99 05/26/20 18:20 05/26/20 20:00 05/26/20 20:20 Temperature 36.9 C 36.6 C 36.8 C Pulse Rate 100 101 H 98 Respiratory Rate 16 16 18 Blood Pressure 128/62 126/73 116/68 Pulse Oximetry 98 99 96 05/26/20 20:40 05/26/20 21:19 05/26/20 21:40 Temperature 37.8 C H 37.8 C H 37.1 C Pulse Rate 102 H 85 Respiratory Rate 18 20 Blood Pressure 133/64 129/
[2020-05-27] MEDS: PEG (High)/E-LYTE SOLN 4,000 ML BTL 4000 ML PO (14:58)
--- NOTE | 2020-05-27 16:35 | PM.IMPN ---
Progress Note: A&P Assessment and Plan (1) Coronary artery disease: Code(s): I25.10 - Atherosclerotic heart disease of [place] coronary artery without angina pectoris Status: Acute (2) GI bleeding: Onset Date: ~04/2020 Code(s): K92.2 - Gastrointestinal hemorrhage, unspecified Status: Acute Assessment and Plan: Pt is bleeding again on admission, bleeding has stopped, hb is low, from polypectomy and anticoagulation, pt is going for colonscopy tomorrow to revisualise the colon (3) Anticoagulated: Code(s): Z79.01 - detention (current) use of anticoagulants Status: Acute Assessment and Plan: Pt is bleeding again on admission, bleeding has stopped, hb is low, from polypectomy and anticoagulation, pt is going for colonscopy tomorrow to revisualise the colon (4) Rectal bleed: Code(s): K62.5 - Hemorrhage of anus and rectum Status: Acute Assessment and Plan: Pt is bleeding again on admission, bleeding has stopped, hb is low, from polypectomy and anticoagulation, pt is going for colonscopy tomorrow to revisualise the colon (5) Renal mass: Code(s): N28.89 - Other specified disorders of kidney and ureter Status: Acute Assessment and Plan: Persistent approximately 1.4 cm indeterminate intermediate attenuation lesion at the lower pole of the left kidney which could represent complex cyst, solid neoplasm such as renal cell carcinoma, infarct or pyelonephritis, the latter to etiologies also suspected at the upper pole of the left kidney. consult urology for renal mass Subjective Date/time seen: 05/27/20 16:35 Interval history: EGD was performed on 05/18 was unremarkable. Colonoscopy ultimately performed on 05/19/2020 revealed a large sessile colon polyp in the ascending colon requiring piecemeal resection. For histology of this polyp was benign villous adenoma. It was likely not totally resected. History of alcholism Pt is bleeding again on admission, bleeding has stopped, hb is low, from polypectomy and anticoagulation, pt is going for colonscopy tomorrow to revisualise the colon Review of Systems Review of Systems: ROS unobtainable: Yes unobtainable due to medical condition Exam Const: General: other (pale) Nutritional Appearance: well nourished Resp: Effort & Inspection: normal respiratory effort Auscultation: clear to auscultation bilaterally Cardio: Jugular venous distension: no JVD Rhythm: regular rhythm Heart sounds: S1 normal heart sound present and S2 normal heart sound present GI: Inspection: normal to inspection Auscultation: normal bowel sounds Skin: General skin exam: normal color and dry skin Neuro: Cranial nerves: Yes CN's II-XII intact bilaterally and Yes Equal, round and reactive pupils present Cognition (Neuro): normal cognition Speech: normal speech Motor exam (neuro): 5/5 motor strength present throughout Extrem: General: normal to inspection Objective Data Vital Signs Vital Signs: Vital Signs - 24 hr 05/26/20 16:49 05/26/20 18:12 05/26/20 18:20 Temperature 37.1 C 36.9 C 36.9 C Pulse Rate 108 H 91 100 Respiratory Rate 16 16 16 Blood Pressure 140/60 138/62 128/62 Pulse Oximetry 99 99 98 05/26/20 20:00 05/26/20 20:20 05/26/20 20:40 Temperature 36.6 C 36.8 C 37.8 C H Pulse Rate 101 H 98 102 H Respiratory Rate 16 18 18 Blood Pressure 126/73 116/68 133/64 Pulse Oximetry 99 96 98 05/26/20 21:19 05/26/20 21:40 05/26/20 22:15 Temperature 37.8 C H 37.1 C 37.2 C Pulse Rate 85 Respiratory Rate 20 Blood Pressure 129/66 Pulse Oximetry 99 05/26/20 22:40 05/26/20 23:40 05/27/20 00:00 Temperature 36.6 C 36.6 C Pulse Rate 86 84 81 Respiratory Rate 16 20 Blood Pressure 118/66 128/65 Pulse Oximetry 97 98 05/27/20 00:10 05/27/20 00:46 05/27/20 01:05 Temperature 36.6 C 37.1 C 36.9 C Pulse Rate 83 85 86 Respiratory Rate 20 18 18 Blood Pressure 154/68 H 150/65 H 139/53 L Pulse Oxim
[2020-05-27] MEDS: chlordiazePOXIDE 10 MG CAPSULE PO (20:44)
[2020-05-27] MEDS: QUEtiapine FUMARATE 12.5 MG TABLET PO (20:45)
[2020-05-27] MEDS: METOPROLOL TARTRATE 12.5 MG TABLET PO (20:45)
[2020-05-28] VITALS (15 sets, daily range): BP systolic 107–135; BP diastolic 45–64; PULSE 52–97; RESP 13–22; TEMP 36.3–37.2; O2SAT 97–100
[2020-05-28 06:00] LABS: Basophils Absolute Auto 0.1 K/mm3 (0.0-0.1); Basophils Percent Auto 0.9 % (0.2-1.2); Eosinophils Absolute Auto 0.4 K/mm3 (0-0.3); Eosinophils Percent Auto 3.9 % (0-4.4); Hematocrit 26.4 % (42.0-52.0); Hemoglobin 8.6 g/dL (14.0-18.0); Immature Granulocyte Absolute 0.14 K/mm3 (0.00-0.031); Immature Granulocyte Percent A 1.3 % (0-0.5); Lymphocytes Percent Auto 20.9 % (18.3-44.2); Mean Corpuscular HGB Conc 32.6 g/dl (32-36); Mean Corpuscular Hemoglobin 28.2 pg (26-34); Mean Corpuscular Volume 86.6 fl (80-100); Mean Platelet Volume 10.3 fl (7.4-10.4); Monocytes Absolute Auto 1.1 K/mm3 (0.1-0.6); Monocytes Percent Auto 10.3 % (2.6-8.5); Neutrophils Absolute Auto 6.9 K/mm3 (1.3-6.7); Neutrophils Percent Auto 62.7 % (45.5-73.1); Platelet Count Result 258 k/mm3 (150-375); Red Blood Count 3.05 M/mm3 (4.6-6.20); Red Cell Distribution Width 16.3 % (11.5-14.5)
[2020-05-28 06:36] LABS: Alanine Aminotransferase 10 U/L (4-50); Albumin Level 2.4 g/dL (3.5-5.1); Alkaline Phosphatase 51 U/L (38-126); Aspartate Amino Transferase 19 U/L (17-59); Bilirubin,Total 0.9 mg/dL (0.2-1.3); Blood Urea Nitrogen 8 mg/dL (9-20); Calcium 7.7 mg/dL (8.4-10.2); Carbon Dioxide 26 mmol/L (22-30); Chloride 106 mmol/L (98-107); Estimated CRCL calculation 105 ml/min; Estimated Glomerular Filt Rate > 60; Glucose 83 mg/dL (75-110); Potassium 3.4 mmol/L (3.4-5.0); Sodium 135 mmol/L (137-145)
[2020-05-28] MEDS: PANTOPRAZOLE SODIUM IV 40 MG VIAL IV PUSH ×2 (08:27→21:32)
[2020-05-28] MEDS: METOPROLOL TARTRATE 12.5 MG TABLET PO ×2 (08:27→21:33)
[2020-05-28] MEDS: MULTIVITAMINS /C LUTEIN (CENTRUM SILVER) TABLET *BKC 1 TAB PO (08:28)
[2020-05-28] MEDS: THIAMINE HCL 100 MG TABLET PO (08:28)
[2020-05-28] MEDS: FOLIC ACID 1 MG TABLET PO (08:28)
[2020-05-28] MEDS: chlordiazePOXIDE 10 MG CAPSULE PO ×2 (08:32→21:38)
--- NOTE | 2020-05-28 09:24 | WPDANESEPPF ---
Anes - Initial Pre Proc Eval Procedure: Operation Date: 05/28/20 11:30 Proposed Procedures p Colonoscopy - Riley Larson MD Date/Time: 05/28/20 09:24 Surgeon: Bri Schroeder DO Pre Op Diagnosis: gi bleed Patient Data Age: 74 Gender: M Height: 1.82 m Weight: 67.4 kg Last Vital Signs Temp 36.4 C L 05/28/20 06:00 Pulse 96 05/28/20 08:27 Resp 16 05/28/20 06:00 BP 129/50 L 05/28/20 06:00 Pulse Ox 97 05/28/20 06:00 Allergies Allergy/AdvReac Type Severity Reaction Status Date / Time No Known Allergies Allergy Verified 05/28/20 10:33 Home Medications Medication Instructions Recorded Confirmed Type Xarelto 20 mg PO DAILY 12/15/19 05/26/20 History aspirin [Children's Aspirin] 81 mg PO DAILY@0800 #30 tablet 12/23/19 05/26/20 Rx folic acid 1 mg PO DAILY #30 tablet 12/23/19 05/26/20 Rx thiamine HCl (vitamin B1) [Vitamin 100 mg PO QAM #30 tablet 12/23/19 05/26/20 Rx B-1] dutasteride 0.5 mg capsule 0.5 mg PO DAILY #90 cap 02/24/20 05/26/20 Rx Adults Multivitamin 1 tablet PO DAILY 05/14/20 05/26/20 History atorvastatin 40 mg PO HS 05/15/20 05/26/20 History metoprolol tartrate 12.5 mg PO Q12H 05/15/20 05/26/20 History quetiapine 12.5 mg PO HS 05/15/20 05/26/20 History chlordiazepoxide HCl 10 mg PO BID #10 cap 05/21/20 05/26/20 Rx famotidine 20 mg PO Q12HR #60 tablet 05/21/20 05/26/20 Rx polyethylene glycol 3350 [Miralax] 17 g PO QAM #30 ea 05/21/20 05/26/20 Rx tamsulosin [Flomax] 0.4 mg PO HS #90 cap 05/21/20 05/26/20 Rx Laboratory Tests 05/28/20 05/28/20 05:13 05:13 WBC 11.0 K/mm3 H K/mm3 (4.5-10.0) RBC 3.05 M/mm3 L M/mm3 (4.6-6.20) Hgb 8.6 g/dL L g/dL (14.0-18.0) Hct 26.4 % L % (42.0-52.0) MCV 86.6 fl fl (80-100) MCH 28.2 pg pg (26-34) MCHC 32.6 g/dl g/dl (32-36) RDW 16.3 % H % (11.5-14.5) Plt Count 258 k/mm3 k/mm3 (150-375) MPV 10.3 fl fl (7.4-10.4) Immature Gran % (Auto) 1.3 % H % (0-0.5) Neut % (Auto) 62.7 % % (45.5-73.1) Lymph % (Auto) 20.9 % % (18.3-44.2) [place] % (Auto) 10.3 % H % (2.6-8.5) Eos % (Auto) 3.9 % % (0-4.4) Baso % (Auto) 0.9 % % (0.2-1.2) Lymph # (Auto) 2.30 K/mm3 K/mm3 (0.9-3.2) [place] # (Auto) 1.1 K/mm3 H K/mm3 (0.1-0.6) Eos # (Auto) 0.4 K/mm3 H K/mm3 (0-0.3) Baso # (Auto) 0.1 K/mm3 K/mm3 (0.0-0.1) Abs Immat Gran (auto) 0.14 K/mm3 H K/mm3 (0.00-0.031) Absolute Neuts (auto) 6.9 K/mm3 H K/mm3 (1.3-6.7) Absolute Nucleated RBC 0.0 K/mm3 K/mm3 (0.0-0.012) Nucleated RBC % 0.0 % % (0.0-0.2) Sodium 135 mmol/L L mmol/L (137-145) Potassium 3.4 mmol/L mmol/L (3.4-5.0) Chloride 106 mmol/L mmol/L (98-107) Carbon Dioxide 26 mmol/L mmol/L (22-30) BUN 8 mg/dL L D mg/dL (9-20) Creatinine 0.50 mg/dL L mg/dL (0.7-1.3) Estim Creat Clear Calc 105 ml/min ml/min Estimated GFR > 60 (59 - ) Glucose 83 mg/dL mg/dL (75-110) Calcium 7.7 mg/dL L mg/dL (8.4-10.2) Total Bilirubin 0.9 mg/dL mg/dL (0.2-1.3) AST 19 U/L U/L (17-59) ALT 10 U/L U/L (4-50) Alkaline Phosphatase 51 U/L U/L (38-126) Total Protein 5.0 g/dL L g/dL (6.3-8.2) Albumin 2.4 g/dL L g/dL (3.5-5.1) Patient hx anesthesia problems: none Family hx anesthesia problems: none [facility] Past Medical History Medical History (Updated 05/27/20 @ 14:36 by Mo Regalado MD) Alcohol withdrawal Alcoholism Atrial fibrillation (Unknown) BPH (benign prostatic hyperplasia) Chronic neck pain Congestive heart failure Diastolic COPD (chronic obstructive pulmonary disease) Coronary artery disease CVA (cerebral vascular accident) (Unknown) Cytotoxic cerebral edema DVT (deep venous thrombosis) DVT prophylaxis HTN (hypertension) Hyperlipidemia Leukocytosis Pneumonia Pulmonary emboli Tob[place]
--- NOTE | 2020-05-28 09:31 | PM.PNGS ---
Progress Note: A&P Assessment and Plan (1) GI bleeding: Onset Date: ~04/2020 Code(s): K92.2 - Gastrointestinal hemorrhage, unspecified Status: Acute Assessment and Plan: This was the main reason for his admission and for our consultation. His coags are better. It appears bleeding may have stopped. Discussed with Dr. Larson yesterday. He is planning to repeat colonoscopy and evaluate the probable source of bleeding which is the polyp seen in the right colon before. He will either take more pieces or apply cautery or clips to stop bleeding. Hopefully patient will not come to surgery at this time, but we will standby. (2) NSTEMI (non-ST elevated myocardial infarction): Onset Date: ~04/2020 Code(s): I21.4 - Non-ST elevation (NSTEMI) myocardial infarction Status: Acute Assessment and Plan: Medicine service following this. (3) CVA (cerebral vascular accident): Onset Date: Unknown Qualifiers: CVA mechanism: unspecified Qualified Code(s): I63.9 - Cerebral infarction, unspecified Code(s): I63.9 - Cerebral infarction, unspecified Status: Acute Assessment and Plan: Medicine service following this. (4) Atrial fibrillation: Onset Date: Unknown Qualifiers: Atrial fibrillation type: unspecified Qualified Code(s): I48.91 - Unspecified atrial fibrillation Code(s): I48.91 - Unspecified atrial fibrillation Status: Acute Assessment and Plan: Off anticoagulation for now because of GI bleeding. Heart rate seems to be controlled. Subjective Subjective Date/Time Seen: 05/28/20 09:31 Patient lying in bed when I entered the room. He denies abdominal pain. States the had several bowel movements overnight. Nurse states that his bowel movements seem to be fairly clear but are pink/blood tinged. Review of Systems Review of Systems: ROS unobtainable: Yes unobtainable due to mental status Constitutional: Constitutional: Reports no additional constitutional complaints ENT: Reports other (Mucous Membranes moist.) Cardiovascular: Cardiovascular: Denies dyspnea Respiratory: Respiratory: Denies pain on inspiration and Denies dyspnea Musculoskeletal: Musculoskeletal: Reports other (No calf swelling or edema) Integumentary/Breasts: Skin/Breast: Reports system reviewed and no additional complaints, except as docu Neurologic: Reports confusion ( Patient did not seem to know where he was. ) Psychiatric: Psychiatric: Reports confusion ( Patient did not seem to know where he was. ) Exam Const: General: cooperative, comfortable, no acute distress, alert, awake and confusion ( Patient did not seem to know where he was. ) Nutritional Appearance: well nourished Orientation/consciousness: oriented to person, No oriented to place, No oriented to time, patient oriented x3 and confusion ( Patient did not seem to know where he was. ) HENMT: Head: normal to inspection, normocephalic and atraumatic Ears: hearing grossly normal bilaterally and external ears normal General nose exam: Normal external nose present Mouth: Yes Normal oral and palatal mucosa present and Yes moist mucous membranes Neck: Neck: normal visual inspection and full ROM Resp: Effort & Inspection: normal respiratory effort, able to speak in complete sentences and no respiratory distress Auscultation: clear to auscultation bilaterally GI: Inspection: normal to inspection, non-distended and no scars (no obvious abdominal scars) Auscultation: normal bowel sounds Rectal Exam: deferred Other: RITU without mass or palpable abnormality noted. Objective Data Vital Signs Vital Signs: Vital Signs - 24 hr 05/27/20 10:00 05/27/20 14:00 05/27/20 18:00 Temperature 37.1 C 37.1 C 36.3 C L Pulse Rate 80 78 83 Respiratory Rate 16 18 18 Blood Pressure 129/66 119/49 L 130/68 Pulse Oximetry 99 98 98 05/27/20 20:00 05/27/20 20:45 05/28/20 00:00
--- NOTE | 2020-05-28 10:25 | PC.NURSE ---
patient to GI lab per jade. iv saline locked. report given to Rachna VALENZUELA.
[2020-05-28] MEDS: LACTATED RINGERS 1,000 ML 150 ML IV CONT (10:38)
[2020-05-28] MEDS: SIMETHICONE ORAL SUSPENSION 20 MG/0.3 ML 30 ML BOTTLE 0.6 ML PO (12:02)
--- NOTE | 2020-05-28 14:29 | PM.IMPN ---
Progress Note: A&P Assessment and Plan (1) Coronary artery disease: Code(s): I25.10 - Atherosclerotic heart disease of [place] coronary artery without angina pectoris Status: Acute Assessment and Plan: Recent NSTEMI ASA on hold (2) GI bleeding: Onset Date: ~04/2020 Code(s): K92.2 - Gastrointestinal hemorrhage, unspecified Status: Acute Assessment and Plan: GI scope shows -colonic ulcer and internal hemorrhoids (3) Anticoagulated: Code(s): Z79.01 - rn long term care (current) use of anticoagulants Status: Acute Assessment and Plan: Anticoagulated for AF hold anticoagulation because of rectal bleed (4) Rectal bleed: Code(s): K62.5 - Hemorrhage of anus and rectum Status: Acute Assessment and Plan: Bloodtransfusion, FFP, Pt is bleeding again on admission, bleeding has stopped, hb is low, from polypectomy and anticoagulation continue to monitor Hb/ hct pt is on iv protonix, iv fluids (5) Renal mass: Code(s): N28.89 - Other specified disorders of kidney and ureter Status: Acute Assessment and Plan: Urology consulted, surgery consulted (6) Atrial fibrillation: Onset Date: Unknown Qualifiers: Atrial fibrillation type: unspecified Qualified Code(s): I48.91 - Unspecified atrial fibrillation Code(s): I48.91 - Unspecified atrial fibrillation Status: Acute Assessment and Plan: Hold anticoagulation (7) Alcoholism: Code(s): F10.20 - Alcohol dependence, uncomplicated Status: Chronic Assessment and Plan: CIWA watch for any DTs Subjective Date/time seen: 05/28/20 14:29 Interval history: EGD was performed on 05/18 was unremarkable. Colonoscopy ultimately performed on 05/19/2020 revealed a large sessile colon polyp in the ascending colon requiring piecemeal resection. For histology of this polyp was benign villous adenoma. It was likely not totally resected. History of alcoholism -Pt is bleeding again on admission, bleeding has stopped, hb is low, from polypectomy and anticoagulation, pt has gone for colonoscopy today which showed-colonic ulcer and internal hemorrhoids Review of Systems Review of Systems: ROS unobtainable: Yes unobtainable due to medical condition Exam Const: General: other (pale) Nutritional Appearance: well nourished Chest: Chest palpation & inspection: normal inspection of the chest Resp: Effort & Inspection: normal respiratory effort Auscultation: clear to auscultation bilaterally Cardio: Jugular venous distension: no JVD Rhythm: regular rhythm Heart sounds: S1 normal heart sound present and S2 normal heart sound present GI: Inspection: normal to inspection Auscultation: normal bowel sounds Neuro: Cranial nerves: Yes CN's II-XII intact bilaterally and Yes Equal, round and reactive pupils present Speech: normal speech Motor exam (neuro): 5/5 motor strength present throughout Extrem: General: normal to inspection Psych: Appearance: other (confused) Objective Data Vital Signs Vital Signs: Vital Signs - 24 hr 05/27/20 18:00 05/27/20 20:00 05/27/20 20:45 Temperature 36.3 C L 36.6 C Pulse Rate 83 84 84 Respiratory Rate 18 16 Blood Pressure 130/68 130/89 Pulse Oximetry 98 96 05/28/20 00:00 05/28/20 02:00 05/28/20 04:00 Temperature 36.7 C Pulse Rate 76 64 81 Respiratory Rate 16 Blood Pressure 123/55 L Pulse Oximetry 100 05/28/20 06:00 05/28/20 08:27 05/28/20 10:36 Temperature 36.4 C L 37.2 C Pulse Rate 52 L 96 71 Respiratory Rate 16 16 Blood Pressure 129/50 L 135/61 Pulse Oximetry 97 98 05/28/20 12:16 05/28/20 12:26 05/28/20 12:36 Temperature Pulse Rate 52 L 64 56 L Respiratory Rate 14 21 H 22 H Blood Pressure 107/64 108/62 112/63 Pulse Oximetry 100 100 100 05/28/20 12:46 Temperature Pulse Rate 56 L Respiratory Rate 13 Blood Pressure 132/60 Pulse Oximetry 100 Intake/Output
[2020-05-28] MEDS: QUEtiapine FUMARATE 12.5 MG TABLET PO (21:33)
[2020-05-29 02:00] VITALS: BP 101/53; PULSE 75; RESP 18; TEMP 36.7; O2SAT 98
[2020-05-29 06:00] VITALS: BP 113/51; PULSE 73; RESP 16; TEMP 36.7; O2SAT 100
[2020-05-29 06:25] LABS: Hematocrit 25.8 % (42.0-52.0); Hemoglobin 8.4 g/dL (14.0-18.0); Mean Corpuscular HGB Conc 32.6 g/dl (32-36); Mean Corpuscular Hemoglobin 28.7 pg (26-34); Mean Corpuscular Volume 88.1 fl (80-100); Mean Platelet Volume 10.6 fl (7.4-10.4); Platelet Count Result 291 k/mm3 (150-375); Red Blood Count 2.93 M/mm3 (4.6-6.20); Red Cell Distribution Width 16.6 % (11.5-14.5); White Blood Count 10.9 K/mm3 (4.5-10.0)
[2020-05-29 06:45] LABS: Blood Urea Nitrogen 5 mg/dL (9-20); Calcium 7.6 mg/dL (8.4-10.2); Carbon Dioxide 24 mmol/L (22-30); Chloride 109 mmol/L (98-107); Estimated CRCL calculation 105 ml/min; Estimated Glomerular Filt Rate > 60; Glucose 88 mg/dL (75-110); Potassium 3.4 mmol/L (3.4-5.0); Sodium 136 mmol/L (137-145)
--- NOTE | 2020-05-29 07:43 | WPDGIPROGNO ---
Progress Note: A&P Additional Plan Patient unchanged this morning. Tolerating diet. He denies abdominal pain. No additional bleeding reported. Physical exam reveals abdomen to be benign. Bowel sounds are present. Soft and nontender. No organomegaly. Labs reveal hemoglobin 8.4, hematocrit 25.8. Stable. Impression 1. Lower GI bleeding. Secondary to ascending colon ulcer at site of previous polyp. No longer bleeding. Tattoo was placed at this site. Plan is for follow-up colonoscopy in several months as he may require additional polypectomy in this area. Advance diet. Early discharge advised. 2. Non ST elevated DC. Patient recovering from heart attack several weeks ago. Clinically stable. 3. Atrial fibrillation. Patient should avoid anticoagulation because of recent GI bleeding. And ulcer at polyp site. 4. Alcoholism. Patient should continue to abstain from alcohol. Subjective Date/time seen: 05/29/20 07:43 Objective Data Vital Signs Vital Signs: Vital Signs - 24 hr 05/28/20 08:00 05/28/20 08:27 05/28/20 10:36 Temperature 98.9 F Pulse Rate 66 96 71 Respiratory Rate 16 Blood Pressure 135/61 Pulse Oximetry 98 05/28/20 12:16 05/28/20 12:26 05/28/20 12:36 Temperature Pulse Rate 52 L 64 56 L Respiratory Rate 14 21 H 22 H Blood Pressure 107/64 108/62 112/63 Pulse Oximetry 100 100 100 05/28/20 12:46 05/28/20 14:00 05/28/20 18:00 Temperature 97.3 F L 98.2 F Pulse Rate 56 L 61 97 Respiratory Rate 13 16 16 Blood Pressure 132/60 126/45 L 123/64 Pulse Oximetry 100 99 99 05/28/20 21:33 05/28/20 21:41 05/29/20 02:00 Temperature 98.6 F 98.1 F Pulse Rate 88 88 75 Respiratory Rate 18 18 Blood Pressure 121/64 101/53 L Pulse Oximetry 98 98 05/29/20 06:00 Temperature 98.0 F Pulse Rate 73 Respiratory Rate 16 Blood Pressure 113/51 L Pulse Oximetry 100 Intake/Output Intake/Output: Intake & Output 05/26/20 05/27/20 05/28/20 05/29/20 23:59 23:59 23:59 23:59 Intake Total 2440 1940 1330 480 Balance 2440 1940 1330 480 Meds/Results Medications: Active Medications Generic Name Dose Route Start Last Admin Trade Name Freq PRN Reason Stop Dose Admin Acetaminophen 650 mg 05/26/20 20:47 05/26/20 21:19 Tylenol Tablet PO 650 mg Q4H PRN Administration Headache Chlordiazepoxide HCl 10 mg 05/27/20 21:00 05/28/20 21:38 Librium Po PO 10 mg Q12HR JESS Administration Folic Acid 1 mg 05/28/20 09:00 05/28/20 08:28 Folic Acid PO 1 mg DAILY JESS Administration Metoprolol Tartrate 12.5 mg 05/27/20 21:00 05/28/20 21:33 Lopressor PO 12.5 mg Q12HR JESS Administration Multivitamins/Minerals 1 tab 05/28/20 09:00 05/28/20 08:28 Centrum Silver PO 1 tab DAILY JESS Administration Ondansetron HCl 4 mg 05/26/20 02:55 Zofran Inj IV PUSH Q4H PRN Nausea Pantoprazole Sodium 40 mg 05/26/20 21:00 05/28/20 21:32 Protonix Iv IV PUSH 40 mg Q12HR JESS Administration Quetiapine Fumarate 12.5 mg 05/27/20 21:00 05/28/20 21:33 Seroquel PO 12.5 mg HS JESS Administration Simethicone 0.6 ml 05/28/20 12:01 05/28/20 12:02 Mylicon Infants Drops PO 0.6 ml ONCE PRN Administration Gas Discomfort Thiamine HCl 100 mg 05/28/20 09:00 05/28/20 08:28 Vitamin B-1 PO 100 mg QAM JESS Administration Radiology Results: ITS Impressions Abdomen/Pelvis CT 05/26/20 07:56 IMPRESSION: 1. Diarrhea with suggestion of active contrast extravasation in the ascending colon. 2. Persistent wall thickening in the now decompressed rectum consistent with proctitis which could be related to stercoral proctitis, infection, inflammation or less likely ischemia. 3. Persistent approximately 1.4 cm indeterminate intermediate attenuation lesion at the lower pole of the left kidney which could represent complex cyst, solid neoplasm such as renal cell carcinoma, infarct or pyelonephritis, the latter to etiol
[2020-05-29 09:22] VITALS: PULSE 70
[2020-05-29] MEDS: METOPROLOL TARTRATE 12.5 MG TABLET PO (09:22)
[2020-05-29] MEDS: PANTOPRAZOLE SODIUM IV 40 MG VIAL IV PUSH (09:22)
[2020-05-29] MEDS: MULTIVITAMINS /C LUTEIN (CENTRUM SILVER) TABLET *BKC 1 TAB PO (09:22)
[2020-05-29] MEDS: THIAMINE HCL 100 MG TABLET PO (09:23)
[2020-05-29] MEDS: FOLIC ACID 1 MG TABLET PO (09:23)
[2020-05-29] MEDS: chlordiazePOXIDE 10 MG CAPSULE PO (09:25)
[2020-05-29 10:00] VITALS: BP 119/55; PULSE 91; RESP 18; TEMP 37.1; O2SAT 97
--- NOTE | 2020-05-29 12:10 | WPDURCON ---
Assessment and Plan Additional Plan Incidental 1.4cm left renal mass. Further work up with dedicated renal mass imaging would be needed as an outpatient after recovered from his current medical issues. We discussed the mass may be malignant or benign, and further imaging with CT or MRI can help with this determination. We also discussed that a small renal mass, less than 2cm in size, has very low risk for metastatic disease development. Should the mass be solid on subsequent imaging, we discussed that options include observation, biopsy, ablation, and surgery. He should have a follow up visit scheduled with Dr. Renteria or Dr. Adams here at our [place] office. Urology Consult Note HPI Date Seen: 05/29/20 Requesting Physician: Bri Schroeder DO Primary Care Provider: Krista Houston MD Consult Narrative Narrative: Choco Hastings is a 74 year old male. We were consulted for a renal mass. I reviewed his films. There is an incidental 1.4cm left posterior renal mass. It has not been fully characterized on the prior single phase CT scan. Per the radiology report, the mass is not clearly cystic or solid based on the current imaging. Review of Systems Constitutional: Constitutional: Reports no additional constitutional complaints PMFSH Past Medical History Medical History (Updated 05/27/20 @ 14:36 by Mo Regalado MD) Alcohol withdrawal Alcoholism Atrial fibrillation (Unknown) BPH (benign prostatic hyperplasia) Chronic neck pain Congestive heart failure Diastolic COPD (chronic obstructive pulmonary disease) Coronary artery disease CVA (cerebral vascular accident) (Unknown) Cytotoxic cerebral edema DVT (deep venous thrombosis) DVT prophylaxis HTN (hypertension) Hyperlipidemia Leukocytosis Pneumonia Pulmonary emboli Tobacco abuse Surgical History Surgical History H/O cataract extraction Left eye H/O cervical spine surgery Multiple H/O local excision of skin lesion History of colonoscopy with polypectomy [address] Larson. History of open reduction and internal fixation (ORIF) procedure History of tonsillectomy 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 Hudson has 1 daughter Aliza who has a appointed power estate attorney. Years smoked: 57 Smoking status: Former smoker Tobacco type: cigarettes Second hand tobacco smoke exposure: Yes Smoking end date: 11/27/14 Alcohol intake: former Alcohol use details: Unable to answer specific questions d/t confusion. Substance use: unknown Substance use type: unknown Other substance usage details: Has previously used marijuana, unclear on recent drug use d/t confusion. Living arrangements: senior living Gender identity (if verbalized by the patient): Male Spiritual care concerns: No Agree to blood products: Yes Meds Home Medications and Allergies Home Medications Medication Instructions Recorded Confirmed Type Xarelto 20 mg PO DAILY 12/15/19 05/26/20 History aspirin [Children's Aspirin] 81 mg PO DAILY@0800 #30 tablet 12/23/19 05/26/20 Rx folic acid 1 mg PO DAILY #30 tablet 12/23/19 05/26/20 Rx thiamine HCl (vitamin B1) [Vitamin 100 mg PO QAM #30 tablet 12/23/19 05/26/20 Rx B-1] dutasteride 0.5 mg capsule 0.5 mg PO DAILY #90 cap 02/24/20 05/26/20 Rx Adults Multivitamin 1 tablet PO DAILY 05/14/20 05/26/20 History atorvastatin 40 mg PO HS 05/15/20 05/26/20 History metoprolol tartrate 12.5 mg PO Q12H 05/15/20 05/26/20 History quetiapine 12.5 mg PO HS 05/15/20 05/26/20 History chlordiazepoxide HCl 10 mg PO BID #10 cap 05/21/20 05/26/20 Rx famotidine 20 mg PO Q12H
--- NOTE | 2020-05-29 12:33 | PM.DS ---
DS: Admitting Diagnosis Admitting Diagnosis Admitting Diagnosis: Hemorrhage of anus and rectum DS: Discharge Diagnosis Discharge Diagnosis (1) Coronary artery disease: Code(s): I25.10 - Atherosclerotic heart disease of [place] coronary artery without angina pectoris Status: Acute Assessment and Plan: Recent NSTEMI -ASA restarted on dischrage (2) GI bleeding: Onset Date: ~04/2020 Code(s): K92.2 - Gastrointestinal hemorrhage, unspecified Status: Acute Assessment and Plan: colonic ulcer and internal hemorrhoids GI scope shows -colonic ulcer and internal hemorrhoids Seen by surgery, surgeon available if surgery option is necessary (3) Anticoagulated: Code(s): Z79.01 - oil heaterman (current) use of anticoagulants Status: Acute Assessment and Plan: Anticoagulated for AF hold anticoagulation because of rectal bleed (4) Rectal bleed: Code(s): K62.5 - Hemorrhage of anus and rectum Status: Acute Assessment and Plan: Pt is sp Blood transfusion and FFP. Pt is likely bleeding from polypectomy and anticoagulation Colonscopy shows- colonic ulcer and internal hemorrhoids Pt intially treated with iv zosyn for proctitis in the hospital Bleeding has stopped. (5) Renal mass: Code(s): N28.89 - Other specified disorders of kidney and ureter Status: Acute Assessment and Plan: Urology consulted, pt will be followed in clinic. Persistent approximately 1.4 cm indeterminate intermediate attenuation lesion at the lower pole of the left kidney which could represent complex cyst, solid neoplasm such as renal cell carcinoma, infarct or pyelonephritis, the latter to etiologies also suspected at the upper pole of the left kidney. Correlate with urinalysis and recommend further evaluation with pre and postcontrast CT or MRI when clinically appropriate. 4. Nonobstructing nephrolithiasis with 1 mm stone in the dependent aspect of the normal-appearing bladde (6) Atrial fibrillation: Onset Date: Unknown Qualifiers: Atrial fibrillation type: unspecified Qualified Code(s): I48.91 - Unspecified atrial fibrillation Code(s): I48.91 - Unspecified atrial fibrillation Status: Acute Assessment and Plan: Hold anticoagulation (7) Alcoholism: Code(s): F10.20 - Alcohol dependence, uncomplicated Status: Chronic Assessment and Plan: CIWA watch for any DTs DS: Summary Time Spent with Patient Time attestation: Total time spent providing and/or coordinating discharge services:40 minutes on the day of dischrage Exam Const: General: cooperative, comfortable and other (more coherent and talkative today ) Nutritional Appearance: well nourished Chest: Chest palpation & inspection: normal inspection of the chest Resp: Effort & Inspection: normal respiratory effort Auscultation: clear to auscultation bilaterally Cardio: Jugular venous distension: no JVD Rhythm: regular rhythm Heart sounds: S1 normal heart sound present and S2 normal heart sound present GI: Inspection: normal to inspection Auscultation: normal bowel sounds Extrem: General: normal to inspection DS: Data Data Completed and Pending Labs on day of discharge: Labs from last 24 hours 05/29/20 05/29/20 05:58 05:58 WBC 10.9 H RBC 2.93 L Hgb 8.4 L Hct 25.8 L MCV 88.1 MCH 28.7 MCHC 32.6 RDW 16.6 H Plt Count 291 MPV 10.6 H Sodium 136 L Potassium 3.4 Chloride 109 H Carbon Dioxide 24 BUN 5 L Creatinine 0.50 L Estim Creat Clear Calc 105 Estimated GFR > 60 Glucose 88 Calcium 7.6 L Discharge Plan Discharge Attending physician on discharge: Елена Briggs Consulting providers: Mo Regalado ; Riley Larson ; Tremaine Miranda Discharging Clinician: Елена Briggs Anticipated Discharge Date/Time: 05/29/20 12:27 Patient Disposition: SNF Activity: as tolerated
--- NOTE | 2020-05-29 12:38 | PM.PNGS ---
Progress Note: A&P Assessment and Plan (1) GI bleeding: Onset Date: ~04/2020 Code(s): K92.2 - Gastrointestinal hemorrhage, unspecified Status: Acute Assessment and Plan: No signs of recurrent bleeding, no intervention needed during colonoscopy. Tolerating regular diet. OK to discharge from surgical standpoint. No surgical follow up needed. Will sign off. (2) NSTEMI (non-ST elevated myocardial infarction): Onset Date: ~04/2020 Code(s): I21.4 - Non-ST elevation (NSTEMI) myocardial infarction Status: Acute (3) Atrial fibrillation: Onset Date: Unknown Qualifiers: Atrial fibrillation type: unspecified Qualified Code(s): I48.91 - Unspecified atrial fibrillation Code(s): I48.91 - Unspecified atrial fibrillation Status: Acute Subjective Subjective Date/Time Seen: 05/29/20 12:38 Interval history: Tolerating regular diet and no signs of GI bleed. No abdominal pain. Exam GI: Inspection: normal to inspection and non-distended GI Palp: No abdominal tenderness Auscultation: normal bowel sounds Objective Data Vital Signs Vital Signs: Vital Signs - 24 hr 05/28/20 12:46 05/28/20 14:00 05/28/20 18:00 Temperature 36.3 C L 36.8 C Pulse Rate 56 L 61 97 Respiratory Rate 13 16 16 Blood Pressure 132/60 126/45 L 123/64 Pulse Oximetry 100 99 99 05/28/20 21:33 05/28/20 21:41 05/29/20 02:00 Temperature 37.0 C 36.7 C Pulse Rate 88 88 75 Respiratory Rate 18 18 Blood Pressure 121/64 101/53 L Pulse Oximetry 98 98 05/29/20 06:00 05/29/20 09:22 05/29/20 10:00 Temperature 36.7 C 37.1 C Pulse Rate 73 70 91 Respiratory Rate 16 18 Blood Pressure 113/51 L 119/55 L Pulse Oximetry 100 97 Intake/Output Intake/Output: Intake & Output 05/26/20 05/27/20 05/28/20 05/29/20 23:59 23:59 23:59 23:59 Intake Total 2440 1940 1330 1130 Balance 2440 1940 1330 1130 Meds/Results Medications: Active Medications Generic Name Dose Route Start Last Admin Trade Name Freq PRN Reason Stop Dose Admin Acetaminophen 650 mg 05/26/20 20:47 05/26/20 21:19 Tylenol Tablet PO 650 mg Q4H PRN Administration Headache Chlordiazepoxide HCl 10 mg 05/27/20 21:00 05/29/20 09:25 Librium Po PO 10 mg Q12HR JESS Administration Folic Acid 1 mg 05/28/20 09:00 05/29/20 09:23 Folic Acid PO 1 mg DAILY JESS Administration Metoprolol Tartrate 12.5 mg 05/27/20 21:00 05/29/20 09:22 Lopressor PO 12.5 mg Q12HR JESS Administration Multivitamins/Minerals 1 tab 05/28/20 09:00 05/29/20 09:22 Centrum Silver PO 1 tab DAILY JESS Administration Ondansetron HCl 4 mg 05/26/20 02:55 Zofran Inj IV PUSH Q4H PRN Nausea Pantoprazole Sodium 40 mg 05/26/20 21:00 05/29/20 09:22 Protonix Iv IV PUSH 40 mg Q12HR JESS Administration Quetiapine Fumarate 12.5 mg 05/27/20 21:00 05/28/20 21:33 Seroquel PO 12.5 mg HS JESS Administration Simethicone 0.6 ml 05/28/20 12:01 05/28/20 12:02 Mylicon Infants Drops PO 0.6 ml ONCE PRN Administration Gas Discomfort Thiamine HCl 100 mg 05/28/20 09:00 05/29/20 09:23 Vitamin B-1 PO 100 mg QAM JESS Administration Radiology Results: ITS Impressions Abdomen/Pelvis CT 05/26/20 07:56 IMPRESSION: 1. Diarrhea with suggestion of active contrast extravasation in the ascending colon. 2. Persistent wall thickening in the now decompressed rectum consistent with proctitis which could be related to stercoral proctitis, infection, inflammation or less likely ischemia. 3. Persistent approximately 1.4 cm indeterminate intermediate attenuation lesion at the lower pole of the left kidney which could represent complex cyst, solid neoplasm such as renal cell carcinoma, infarct or pyelonephritis, the latter to etiologies also suspected at the upper pole of the left kidney. Correlate with urinalysis and recommend further evaluation with pre and postcontrast CT or
[2020-05-29 14:00] VITALS: BP 115/67; PULSE 62; RESP 18; TEMP 37.4; O2SAT 99
== END 2020-05-29 15:05 | DRG 377 ==
LOC: ANHED 05-26 02:57 → ANH3MEDSUR 05-26 03:05
PROVIDERS: Internal Medicine Gastroenterology; Surgery; Admitting Provider Internal Medicine; Emergency Provider Emergency Medicine; PCP Family Medicine; Visit Provider Family Medicine
PROC: 0DJD8ZZ Inspection of Lower Intestinal Tract, Via Natural or Artificial Opening Endoscopic (ICD-10-PCS; CPT 45378; principal; 2020-05-28 11:30)
DX: K92.2 Gastrointestinal hemorrhage, unspecified (principal); I21.4 Non-ST elevation (NSTEMI) myocardial infarction; K63.3 Ulcer of intestine; D62 Acute posthemorrhagic anemia; I50.32 Chronic diastolic (congestive) heart failure; I11.0 Hypertensive heart disease with heart failure; I95.9 Hypotension, unspecified; I25.10 Atherosclerotic heart disease of native coronary artery without angina pectoris; I48.91 Unspecified atrial fibrillation; K64.8 Other hemorrhoids; Z86.010 Personal history of colon polyps; N28.89 Other specified disorders of kidney and ureter; F10.20 Alcohol dependence, uncomplicated; N40.0 Benign prostatic hyperplasia without lower urinary tract symptoms; J44.9 Chronic obstructive pulmonary disease, unspecified; E78.5 Hyperlipidemia, unspecified; K62.89 Other specified diseases of anus and rectum; D72.829 Elevated white blood cell count, unspecified; Z79.01 Long term (current) use of anticoagulants; Z79.82 Long term (current) use of aspirin; Z86.711 Personal history of pulmonary embolism; Z86.718 Personal history of other venous thrombosis and embolism; Z86.73 Personal history of transient ischemic attack (TIA), and cerebral infarction without residual deficits; Z87.891 Personal history of nicotine dependence; Z98.42 Cataract extraction status, left eye
CPT/HCPCS: 36415; 36430; 74177; 80048; 80053; 85014; 85018; 85025; 85027; 85610; 85730; 86850; 86900; 86901; 86923; 93005; 96365; 99285; A9270; C9113; J2001; J2543; J2704; J7030; J7050; J7120; P9016; P9017; Q9967

== ENCOUNTER 2020-12-11 12:31 | Emergency (ER) | payer MEDICARE, MEDICAID, SELFPAY ==
--- NOTE | ~2020-12-11 | CT_ITS ---
EXAMINATION: CT brain wo con INDICATION: Head injury COMPARISON: 05/14/2020 TECHNIQUE: Standard unenhanced head CT. The dose-length product (DLP) was 605.33 mGy-cm. The mA was a djusted according to patient size. Iterative reconstruction technique was employed. FINDINGS: There is no acute intraparenchymal hemorrhage. No evidence of mass lesion. No evidence of a cute infarction. There our old infarcts in the right occipital lobe and right parieto-occipital regio n. Also seen are old infarcts of the thalami, basal ganglia and left trista. There is mild periventricu lar and subcortical hypodensity probably related to small vessel ischemic disease. There is mild prom inence of the sulci and ventricles related to cerebral atrophy. Intracranial calcified cerebral ather osclerosis is noted. There are no extra-axial collections. There is no mass effect or midline shift. Changes in the globes are likely from ocular lens surgery. The visualized sinuses and mastoid air debra ls are well aerated. IMPRESSION: 1. Multiple areas of prior infarction acute intracranial abnormality. 2. Age related findings. Reviewed, dictated and finalized at location A. T DAYCARE COORDINATOR
--- NOTE | ~2020-12-11 | CT_ITS ---
EXAMINATION: CT cervical spine wo con DATE: 12/11/2020 13:39 INDICATION: Head injury TECHNIQUE: Computed tomography (CT) of the cervical spine was performed without intravenous contrast. The dose-length product (DLP) was 131.14 mGy-cm. Automated exposure control and iterative reconstruc tion technique were employed. COMPARISON: MRI, 06/06/2013 FINDINGS: There is anterior fusion and posterior laminectomy from C4 through C7. No fracture is ident ified. There is severe loss of intervertebral disc space height at C3-4 and C7-T1. The odontoid is in tact. The prevertebral soft tissues are normal. IMPRESSION: 1. Surgical changes without acute osseous abnormality. Reviewed, dictated and finalized at location A. KER HAND
[2020-12-11 12:41] VITALS: BP 115/68; PULSE 57; RESP 18; TEMP 36.8; O2SAT 96
[2020-12-11 12:43] VITALS: O2SAT 96
[2020-12-11 12:45] VITALS: O2SAT 96
[2020-12-11 12:46] VITALS: BP 116/65; O2SAT 96
[2020-12-11 13:15] VITALS: O2SAT 83
--- NOTE | 2020-12-11 13:23 | ED.FALL ---
HPI - Fall General Chief Complaint: Fall Stated Complaint: fall/hi Time Seen by Provider: 12/11/20 13:09 Source: patient and EMS Mode of arrival: EMS History of Present Illness HPI Narrative: 75 years old white male presents with a fall and occipital laceration. Patient supposed to be in wheelchair all the time, tried to stand up out of the wheelchair lost his balance and fell backward, no loss of consciousness. Patient denying any pain anywhere different than before. Related Data Home Medications Medication Instructions Recorded Confirmed Adults Multivitamin 1 tablet PO DAILY 05/14/20 05/26/20 atorvastatin 40 mg PO HS 05/15/20 05/26/20 metoprolol tartrate 12.5 mg PO Q12H 05/15/20 05/26/20 quetiapine 12.5 mg PO HS 05/15/20 05/26/20 Xarelto 12/11/20 Allergies Allergy/AdvReac Type Severity Reaction Status Date / Time No Known Allergies Allergy Verified 12/11/20 12:50 Review of Systems Review of Systems: Narrative: CONSTITUTIONAL: Denies fever, chills, or sweats. EYES: Denies visual changes, redness, or discharge. ENT: Denies rhinorrhea, congestion, sore throat, or otalgia. CARDIOVASCULAR: Denies chest pain, palpitations, or edema. RESPIRATORY: Denies cough or dyspnea. GASTROINTESTINAL: Denies abdominal pain, nausea, vomiting, or diarrhea. GENITOURINARY: Denies dysuria or hematuria. SKIN: Denies rash or itching. MUSCULOSKELETAL: General body aches and pain NEUROLOGIC: Denies headache, numbness, or weakness. PSYCHIATRIC: Denies anxiety or depression. [facility] Past Medical History Medical History Alcohol withdrawal Alcoholism Atrial fibrillation (Unknown) BPH (benign prostatic hyperplasia) Chronic neck pain Congestive heart failure Diastolic COPD (chronic obstructive pulmonary disease) Coronary artery disease CVA (cerebral vascular accident) (Unknown) Cytotoxic cerebral edema DVT (deep venous thrombosis) DVT prophylaxis HTN (hypertension) Hyperlipidemia Leukocytosis Pneumonia Pulmonary emboli Tobacco abuse Surgical History Surgical History H/O cataract extraction Left eye H/O cervical spine surgery Multiple H/O local excision of skin lesion History of colonoscopy with polypectomy [address] Larson. History of open reduction and internal fixation (ORIF) procedure History of tonsillectomy 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 Hudson has 1 daughter Aliza who has a appointed power prosecuting attorney. Years smoked: 57 Smoking status: Former smoker Tobacco type: cigarettes Second hand tobacco smoke exposure: Yes Smoking end date: 11/27/14 Alcohol intake: former Substance use: unknown Substance use type: unknown Other substance usage details: Has previously used marijuana, unclear on recent drug use d/t confusion. Gender identity (if verbalized by the patient): Male Spiritual care concerns: No Agree to blood products: Yes Exam Narrative: Exam Narrative: General appearance: Well-developed, well-nourished Skin: Normal color Head: Normocephalic, nontraumatic, 1 cm occipital laceration Eyes: Clear conjunctiva ENT: Oropharynx normal, ears normal, nose normal Neck: Supple, nontender Chest and respiratory: Airway patent, no respiratory distress, no accessory muscle use Heart: Regular rate/rhythm Abdomen: Soft, nontender, no organomegaly, quiet bowel sounds Vascular: Normal peripheral pulses, normal capillary refill. Musculoskeletal: Normal range of motion, nontender back Neurologic: Alert and oriented ?3, LIQUOR INSPECTOR is normal as tested, no gross motor deficit
--- NOTE | 2020-12-11 15:13 | PC.NURSE ---
[facility] accepted return to [id number] trip#[id number]
[2020-12-11 15:16] VITALS: BP 128/68; PULSE 87; RESP 18; O2SAT 97
== END 2020-12-11 17:02 ==
PROVIDERS: Emergency Provider Emergency Medicine; PCP Family Medicine
DX: S01.01XA Laceration without foreign body of scalp, initial encounter (principal); N40.0 Benign prostatic hyperplasia without lower urinary tract symptoms; I50.30 Unspecified diastolic (congestive) heart failure; J44.9 Chronic obstructive pulmonary disease, unspecified; I25.10 Atherosclerotic heart disease of native coronary artery without angina pectoris; Z86.73 Personal history of transient ischemic attack (TIA), and cerebral infarction without residual deficits; Z86.718 Personal history of other venous thrombosis and embolism; E78.5 Hyperlipidemia, unspecified; Z86.711 Personal history of pulmonary embolism; I48.91 Unspecified atrial fibrillation; Z79.01 Long term (current) use of anticoagulants; Z98.42 Cataract extraction status, left eye; Z87.891 Personal history of nicotine dependence; W05.0XXA Fall from non-moving wheelchair, initial encounter
CPT/HCPCS: 12001; 70450; 72125; 99284

== ENCOUNTER 2021-05-29 18:24 | Emergency (ER) | payer MEDICARE, MEDICAID, SELFPAY ==
--- NOTE | ~2021-05-29 | CT_ITS ---
EXAMINATION: CT brain wo con EXAM DATE: 05/29/2021 19:00 INDICATION: Fall, confusion. Multiple old strokes. TECHNIQUE: Spiral CT of the head was performed without contrast. Axial, coronal and sagittal images were reviewed. The dose-length product (DLP) for this examination was 605.33 mGy-cm. The exposure w as tailored according to patient size, and iterative reconstruction (ASIR) was used as additional dos e reduction technique. Comparison is made to prior examination from 12/11/2020. FINDINGS: Old moderate-sized left parieto-occipital lobe infarction. Old small right parieto-occipit al lobe infarction. Bilateral old thalamic and right basal ganglia lacunar infarctions. Small old lef t cerebellar and tiny old right cerebellar infarctions. Small old pontine infarction. There is no acute intraparenchymal hemorrhage. No evidence of intraparenchymal brain mass lesion. N o evidence of acute infarction. Please note that initial head CT has limited sensitivity for small o r acute infarctions. There is moderate periventricular and subcortical hypodensity, nonspecific but p robably related to small vessel ischemic disease. There is moderate prominence of the sulci and maris tricles related to cerebral atrophy. There is intracranial carotid arteriosclerosis. There are no extra-axial collections. There is no mass effect or midline shift. Patient has had bilateral ocular lens surgery. Soft tissue is unremarkable. The visualized sinuses and mastoid air cells are well a erated. There is no significant interval change. IMPRESSION: 1. Multiple old infarctions. 2. Senescent changes. Reviewed, dictated and finalized at location G.
[2021-05-29 18:28] VITALS: BP 155/95; PULSE 81; RESP 18; TEMP 36.9; O2SAT 96
--- NOTE | 2021-05-29 18:33 | ED.FALL ---
HPI - Fall General Chief Complaint: Fall Stated Complaint: fall no injuries Source: patient, EMS, RN notes reviewed and old records reviewed Mode of arrival: EMS Limitations: dementia History of Present Illness HPI Narrative: Patient is a 75-year-old male who presents to emergency department for evaluation of having fallen out of a chair at the long term patient presents in no distress has no complaints is oriented to self location and reason for being in the emergency department. Patient is pleasant denies any pain or other complaints Related Data Home Medications Medication Instructions Recorded Confirmed Adults Multivitamin 1 tablet PO DAILY 05/14/20 05/26/20 atorvastatin 40 mg PO HS 05/15/20 05/26/20 metoprolol tartrate 12.5 mg PO Q12H 05/15/20 05/26/20 quetiapine 12.5 mg PO HS 05/15/20 05/26/20 Xarelto 12/11/20 bisacodyl 10 mg RECTAL DAILY PRN 05/29/21 finasteride 5 mg PO DAILY 05/29/21 magnesium citrate [Citroma] 300 ml PO DAILY PRN 05/29/21 magnesium hydroxide [Milk of 400 mg PO DAILY PRN 05/29/21 Magnesia] ondansetron 4 mg PO Q6H 05/29/21 sodium phosphates [Fleet Enema] 197 ml RECTAL ONCE PRN 05/29/21 Allergies Allergy/AdvReac Type Severity Reaction Status Date / Time No Known Allergies Allergy Verified 05/29/21 18:45 Review of Systems Review of Systems: Narrative: Limited due to history of dementia [facility] Past Medical History Medical History Alcohol withdrawal Alcoholism Atrial fibrillation (Unknown) BPH (benign prostatic hyperplasia) Chronic neck pain Congestive heart failure Diastolic COPD (chronic obstructive pulmonary disease) Coronary artery disease CVA (cerebral vascular accident) (Unknown) Cytotoxic cerebral edema DVT (deep venous thrombosis) DVT prophylaxis HTN (hypertension) Hyperlipidemia Leukocytosis Pneumonia Pulmonary emboli Tobacco abuse Surgical History Surgical History H/O cataract extraction Left eye H/O cervical spine surgery Multiple H/O local excision of skin lesion History of colonoscopy with polypectomy [address] Larson. History of open reduction and internal fixation (ORIF) procedure History of tonsillectomy 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 Hudson has 1 daughter Aliza who has a appointed power sheet metal shop foreman. Years smoked: 57 Smoking status: Former smoker Tobacco type: cigarettes Second hand tobacco smoke exposure: Yes Smoking end date: 11/27/14 Alcohol intake: former Substance use: unknown Substance use type: unknown Other substance usage details: Has previously used marijuana, unclear on recent drug use d/t confusion. Gender identity (if verbalized by the patient): Male Spiritual care concerns: No Agree to blood products: Yes Exam Narrative: Exam Narrative: GENERAL: Well-appearing, well-nourished, and in no acute distress. HEAD: Normocephalic, atraumatic. EYES: PERRLA and EOMI. ENT: Nares clear, no rhinorrhea or epistaxis. Mucous membranes moist. NECK: Supple. No adenopathy or masses. CHEST: Clear to auscultation. No respiratory distress. No wheezes rales or rhonchi HEART: Regular rate and rhythm. No murmur heard. Normal peripheral pulses. ABDOMEN: Soft, nontender, nondistended EXTREMITIES: Normal range of motion. No edema. SKIN: Warm, dry, no rash. NEURO: No focal deficits. Alert and oriented person place and reason for being in the emergency department. Cranial nerves II through XII grossly intact PSYCH: Normal mood and affect. Course Course Emergency Course: Patient pre
--- NOTE | 2021-05-29 19:13 | PC.NURSE ---
Report received from NICOLAS Munoz. Assumed care of patient at this time.
--- NOTE | 2021-05-29 19:45 | PC.NURSE ---
called [facility] to request transport. ETA [phone]
--- NOTE | 2021-05-29 19:45 | PC.NURSE ---
Attempted to call report twice to [facility]. No answer and unable to leave message.
--- NOTE | 2021-05-29 20:00 | PC.NURSE ---
Attempted to call report twice to [facility]. Again, no answer, just a busy tone then phone hung up.No message was able to be left.
--- NOTE | 2021-05-29 20:26 | PC.NURSE ---
called [facility] for ETA update. ETA [phone]
--- NOTE | 2021-05-29 21:00 | PC.NURSE ---
[facility] here.
--- NOTE | 2021-05-29 21:03 | PC.NURSE ---
EMS here to take patient back home. Patient report called to LOLIS Medina at [facility].
[2021-05-29 21:06] VITALS: BP 150/90; PULSE 80; RESP 17; TEMP 36.6; O2SAT 97
== END 2021-05-29 21:08 ==
PROVIDERS: Emergency Provider Emergency Medicine
DX: F03.90 Unspecified dementia, unspecified severity, without behavioral disturbance, psychotic disturbance, mood disturbance, and anxiety (principal); I48.91 Unspecified atrial fibrillation; I11.0 Hypertensive heart disease with heart failure; I50.9 Heart failure, unspecified; J44.9 Chronic obstructive pulmonary disease, unspecified; Z79.01 Long term (current) use of anticoagulants; W07.XXXA Fall from chair, initial encounter
CPT/HCPCS: 70450; 99284

== ENCOUNTER 2021-06-17 12:53 | Observation (INO) | payer MEDICARE, MEDICAID, SELFPAY ==
--- NOTE | ~2021-06-17 | CT_ITS ---
EXAMINATION: CT abdomen pelvis w con DATE: 06/17/2021 15:39 INDICATION: Vomiting TECHNIQUE: Computed tomography (CT) of the abdomen and pelvis was performed with 100 cc Omnipaque 350 intravenous contrast. Automated exposure control and iterative reconstruction technique were employe d. Exam dose: 557.78 mGy-cm total exam DLP. COMPARISON: 05/26/2020 CT abdomen pelvis examination FINDINGS: Gynecomastia. Normal heart size. Prominent coronary artery calcification. No pericardial or pleural effusion. Bilateral lower lobe dependent atelectasis. The gallbladder is present. No gallbladder wall thickening or pericholecystic fluid or fat stranding. No hepatic space-occupying mass lesion. No hepatic or bile duct dilatation. Normal splenic size. No pancreatic mass lesion or calcification or pancreatic duct dilatation. Normal morphology of the adrenal glands. There are areas of cortical thinning in both kidneys suggesting bilateral chronic pyelonephritis or p ossibly infarct. Extensive bilateral renal artery calcification. Probable 3 mm nonobstructing lower pole left renal calculus. Additional smaller calculi of either kid angela cannot be excluded due to the rather extensive arterial calcifications. Indeterminate approximately 11 mm hypoenhancing lesion of the medial aspect of the mid left kidney. T his appears mildly diminished in size since 05/26/2020, suggesting most likely benign process. No ureteral calculus or hydroureteronephrosis. There is moderate diffuse thickening of the urinary bladder wall. Moderate prostate enlargement. There is calcification of the abdominal aorta, celiac, superior mesenteric and renal arteries and mercy ac and femoral arteries. No abdominal aortic aneurysm. No intraperitoneal or retroperitoneal or pelvi c mass lesion or adenopathy or ascites. Small fat-containing umbilical hernia. There is a prominent amount of fecal material in the rather redundant colon. No bowel obstruction or bowel wall thickening, pneumatosis or intraperitoneal free air is evident. There are fluid distended small bowel segments with scattered small bowel air-fluid levels. Findings suggest enteritis or mild adynamic ileus. No apparent bowel obstruction. Diffuse osteopenia. Mild anterior wedge compression fracture deformity of T12. Bilateral L5 pars interarticularis defects with grade 2 anterolisthesis and severe degenerative disc disease at L5-S1. There is severe degenerative disc disease 5 mm retrolisthesis at L1-2. There is mild degenerative disease and lesser retrolisthesis at L2-3. There is moderately severe degenerative disc disease at L3-4. IMPRESSION: Fluid distended nondilated small bowel segments with scattered air-fluid levels, suggest ing enteritis or mild adynamic ileus Prominent amount of fecal material in the colon; no apparent bowel obstruction Mild distention of the gallbladder Bilateral renal stable scarring which may be due to pyelonephritis prior infarction or infection Extensive atherosclerotic disease Possible nonobstructive mild nephrolithiasis (difficult to definitively evaluate due to the extensive atherosclerotic calcification of the kidneys) Reviewed, dictated and finalized at [facility]. Reviewed, dictated and finalized at [facility]. IMPRESSION: Fluid distended nondilated small bowel segments with scattered air -fluid levels, suggesting enteritis or mild adynamic ileus Prominent amount of fecal material in the colon; no apparent bowel obstruction Mild distention of the gallbladder Bilateral renal stable scarring which may be due to pyelonephritis prior infarc tion or infection Extensive atherosclerotic disease Possible nonobstructive mild nephrolithiasis (difficult to definitively evaluat e due to th
--- NOTE | ~2021-06-17 | XR_ITS ---
EXAMINATION: XR abdomen/kub 1V INDICATION: Ileus TECHNIQUE: Supine view of the abdomen is obtained. COMPARISON: CT from yesterday FINDINGS: The bowel gas pattern is nonspecific. No dilated loops of bowel are evident. Contrast from yesterday's CT examination partially opacifies the urinary tract. There is severe lumbar spondylosis. IMPRESSION: 1. Nonspecific bowel gas pattern. Reviewed, dictated and finalized at [facility].
[2021-06-17 12:57] VITALS: BP 178/78; PULSE 74; RESP 16; TEMP 36.8; O2SAT 96
[2021-06-17 13:12] LABS: Basophils Percent Auto 0.2 % (0.2-1.2); Eosinophils Absolute Auto 0.4 K/mm3 (0-0.3); Hematocrit 37.6 % (42.0-52.0); Hemoglobin 11.6 g/dL (14.0-18.0); Immature Granulocyte Absolute 0.03 K/mm3 (0.00-0.031); Immature Granulocyte Percent A 0.3 % (0-0.5); Lymphocytes Absolute Auto 1.62 K/mm3 (0.9-3.2); Lymphocytes Percent Auto 17.7 % (18.3-44.2); Mean Corpuscular HGB Conc 30.9 g/dl (32-36); Mean Corpuscular Hemoglobin 27.8 pg (26-34); Mean Platelet Volume 11.1 fl (7.4-10.4); Monocytes Absolute Auto 1.1 K/mm3 (0.1-0.6); Monocytes Percent Auto 12.3 % (2.6-8.5); Neutrophils Percent Auto 65.5 % (45.5-73.1); Platelet Count Result 311 k/mm3 (150-375); Red Blood Count 4.18 M/mm3 (4.6-6.20); White Blood Count 9.1 K/mm3 (4.5-10.0)
[2021-06-17 13:31] LABS: Alanine Aminotransferase 8 U/L (4-50); Albumin Level 3.9 g/dL (3.5-5.1); Alkaline Phosphatase 96 U/L (38-126); Anion Gap 9 mmol/L (8-16); Aspartate Amino Transferase 19 U/L (17-59); Bilirubin,Total 0.9 mg/dL (0.2-1.3); Blood Urea Nitrogen 16 mg/dL (9-20); Carbon Dioxide 28 mmol/L (22-30); Chloride 103 mmol/L (98-107); Estimated CRCL calculation 93 ml/min; Estimated Glomerular Filt Rate > 60; Glucose 90 mg/dL (65-110); Lipase 59 U/L (23-300); Potassium 3.8 mmol/L (3.4-5.0); Sodium 140 mmol/L (137-145)
[2021-06-17 13:49] VITALS: BP 136/88; PULSE 81; RESP 16; O2SAT 96
--- NOTE | 2021-06-17 14:09 | ED.GENADULT ---
HPI - General Adult General Chief complaint: Nausea/Vomiting/Diarrhea Stated complaint: blood in stool Time Seen by Provider: 06/17/21 13:57 Source: patient and EMS Mode of arrival: EMS Limitations: dementia History of Present Illness HPI narrative: Patient is a 76-year-old demented individual that presents to emergency department for evaluation of nausea and vomiting from memory care unit custodial. On arrival patient has no complaints resting comfortably in the room in no distress. shelter reported that there may have been some blood in either the emesis or stool Related Data Home Medications Medication Instructions Recorded Confirmed Adults Multivitamin 1 tablet PO DAILY 05/14/20 05/26/20 atorvastatin 40 mg PO HS 05/15/20 05/26/20 metoprolol tartrate 12.5 mg PO Q12H 05/15/20 05/26/20 quetiapine 100 mg PO HS 05/15/20 05/26/20 Xarelto 20 mg PO DAILY 12/11/20 bisacodyl 10 mg RECTAL DAILY PRN 05/29/21 finasteride 5 mg PO DAILY 05/29/21 magnesium citrate [Citroma] 300 ml PO DAILY PRN 05/29/21 magnesium hydroxide [Milk of 400 mg PO DAILY PRN 05/29/21 Magnesia] sodium phosphates [Fleet Enema] 197 ml RECTAL ONCE PRN 05/29/21 Allergies Allergy/AdvReac Type Severity Reaction Status Date / Time No Known Allergies Allergy Verified 05/29/21 18:45 Review of Systems Review of Systems: Narrative: Limited due to clinical history of dementia. ROS unobtainable: Yes unobtainable due to mental status [facility] Past Medical History Medical History Alcohol withdrawal Alcoholism Atrial fibrillation (Unknown) BPH (benign prostatic hyperplasia) Chronic neck pain Congestive heart failure Diastolic COPD (chronic obstructive pulmonary disease) Coronary artery disease CVA (cerebral vascular accident) (Unknown) Cytotoxic cerebral edema DVT (deep venous thrombosis) DVT prophylaxis HTN (hypertension) Hyperlipidemia Leukocytosis Pneumonia Pulmonary emboli Tobacco abuse Surgical History Surgical History H/O cataract extraction Left eye H/O cervical spine surgery Multiple H/O local excision of skin lesion History of colonoscopy with polypectomy [address] Larson. History of open reduction and internal fixation (ORIF) procedure History of tonsillectomy 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 Hudson has 1 daughter Aliza who has a appointed power estate attorney. Years smoked: 57 Smoking status: Former smoker Tobacco type: cigarettes Second hand tobacco smoke exposure: Yes Smoking end date: 11/27/14 Alcohol intake: former Alcohol use details: Unable to answer specific questions d/t confusion. Substance use: unknown Substance use type: unknown Other substance usage details: Has previously used marijuana, unclear on recent drug use d/t confusion. Gender identity (if verbalized by the patient): Male Spiritual care concerns: No Agree to blood products: Yes Exam Narrative: Exam Narrative: GENERAL: Well-appearing, well-nourished, does not appear uncomfortable, and in no acute distress. HEAD: Normocephalic, atraumatic. EYES: PERRLA and EOMI. ENT: Nares clear, no rhinorrhea or epistaxis. Mucous membranes moist. CHEST: Clear to auscultation. No respiratory distress. No wheezes rales or rhonchi HEART: Regular rate and rhythm. No murmur heard. Normal peripheral pulses. ABDOMEN: Soft, nontender, nondistended EXTREMITIES: Normal range of motion. No edema. SKIN: Warm, dry, no rash. NEURO: No focal deficits. Alert and oriented person and place. cranial nerves II th
[2021-06-17] MEDS: FAMOTIDINE 20 MG/2 ML VIAL IV PUSH (14:19)
[2021-06-17] MEDS: ONDANSETRON INJ 4 MG/2 ML VIAL IV PUSH (14:19)
[2021-06-17] MEDS: SODIUM CHLORIDE 0.9% IV 500 ML 999 ML IV CONT (14:19)
[2021-06-17 14:23] LABS: Add Urine Microscopic? YES; Appearance Urine Cloudy (Clear); Bacteria Urine 2+ /hpf; Bilirubin Urine 1+ (Negative); Blood Urine Negative (Negative); Color Urine Amber (Yellow); Glucose Urine UA Negative (Negative); Ketones Urine Negative (Negative); Leukocyte Esterase Ur 3+ LEU/UL (Negative); Mucus Urine Moderate /lpf; Nitrate Urine Negative (Negative); Protein Urine Negative (Negative); Specific Grav Ur 1.025 (1.001-1.035); WBC Urine >75 /hpf
--- NOTE | 2021-06-17 14:29 | PC.NURSE ---
Unable to perform orthostatic blood pressure patient is unable to stand.
[2021-06-17 16:43] VITALS: BP 150/84; PULSE 80; RESP 16; O2SAT 98
[2021-06-17 18:27] VITALS: BP 132/79; PULSE 76; RESP 15; O2SAT 99
[2021-06-17] MEDS: BISACODYL 10 MG SUPPOSITORY RECTAL (18:31)
--- NOTE | 2021-06-17 21:00 | PM.IMHP ---
H&P: HPI History of Present Illness Date/Time: 06/17/21 21:00 Chief Complaint: Vomiting and diarrhea. Narrative: This is a 76-year-old male with dementia, paroxysmal atrial fibrillation, diastolic congestive heart failure, benign prostatic hyperplasia, and several other comorbidities who presented to the emergency department earlier today via EMS from [facility] for evaluation of vomiting and diarrhea. Due to his dementia he is not able to provide me much in the way of history and as such a majority of the following is obtained via a review of his electronic medical records. According to EMS documentation, the patient has had vomiting and diarrhea for the last 3 days an it is my understanding that he had some blood in his stool as well with his last bowel movement being at approximately 05:30. CT of the abdomen and pelvis showed fluid distended, non dilated small bowel with scattered air-fluid levels suggesting enteritis or mild adynamic ileus and prominent amount of fecal matter in the colon and he is being admitted in this setting. At the time my evaluation he does not even know that he is in the hospital but when prompted he does tell me that at least last night he was having mild abdominal discomfort with nausea and vomiting. He does not recall having diarrhea or blood in his stools. Currently he has no complaints and specifically denies fever, chills, sweats, chest pain, shortness of breath, epigastric and abdominal pain, and dysuria. He denies having issues with constipation. Review of Systems Review of Systems: Narrative: Twelve systems were reviewed but to the accuracy of such is questionable given his severe dementia. Except as documented all other systems were reviewed and are negative. [facility] Past Medical History Medical History (Updated 06/17/21 @ 21:37 by Bridget Morel PA-C) Alcoholism Benign prostatic hyperplasia Cerebrovascular accident Chronic anemia Chronic neck pain Chronic obstructive pulmonary disease Congestive heart failure Diastolic Coronary artery disease Deep venous thrombosis Dementia Hyperlipidemia Hypertension Leukocytosis Paroxysmal atrial fibrillation Pulmonary emboli Tobacco abuse Surgical History Surgical History (Updated 06/17/21 @ 21:30 by Bridget Morel PA-C) History of cataract extraction History of cervical spinal surgery History of colonoscopy with polypectomy [address] Larson. History of open reduction and internal fixation (ORIF) procedure History of tonsillectomy Status post surgical removal of malignant neoplasm of skin Nose Family History Family History Sibling Cerebrovascular accident Unknown Adopted Social History Social History (Updated 06/17/21 @ 21:32 by Bridget Morel PA-C) Social History: The patient lives at [facility]. He grew up in [place] but previously lived in [place] and [place]. Former smoker. Previously drank in large quantities. Denies illicit substance use. He has a daughter, Aliza who is his emergency contact as well as a friend, Radha Hudson. Code status: Full code. Years smoked: 57 Smoking end date: 11/27/14 Meds Home Medications and Allergies Home Medications Medication Instructions Recorded Confirmed Type aspirin [Children's Aspirin] 81 mg PO DAILY@0800 #30 tablet 12/23/19 05/26/20 Rx folic acid 1 mg PO DAILY #30 tablet 12/23/19 05/26/20 Rx thiamine HCl (vitamin B1) [Vitamin 100 mg PO QAM #30 tablet 12/23/19 05/26/20 Rx B-1] Adults Multivitamin 1 tablet PO DAILY 05/14/20 05/26/20 History atorvastatin 40 mg PO HS 05/15/20 05/26/20 History metoprolol tartrate 12.5 mg PO Q12H 05/15/20 05/26/20 History quetiapine 100 mg PO HS 05/15/20 05/26/20 History famotidine 20 mg PO Q12HR #60 tablet 05/21/20 05/26/20 Rx polyethylene glycol 3350 [Miralax] 17 g PO QAM #30 ea 05/21/20 05/26/20 Rx tamsulosin [Flomax] 0.4 mg PO HS #90 cap 05/21/20 05/26/20 Rx Xarelto
[2021-06-17 21:30] VITALS: BP 119/91; PULSE 70; RESP 16; TEMP 36.3; O2SAT 97
[2021-06-17 21:40] VITALS: BMI 20.1
[2021-06-17 21:59] LABS: Hematocrit 36.6 % (42.0-52.0); Hemoglobin 11.4 g/dL (14.0-18.0)
[2021-06-17] MEDS: LACTATED RINGERS 1,000 ML 80 ML IV CONT (22:20)
--- NOTE | 2021-06-17 22:36 | ADMGEN ---
This patient, Choco Hastings, was admitted to [facility]01. Patient/family oriented to hospital policies and general routines including ID bracelet, bed and alarms, visiting hours, pain management, procedures, bathroom and other care routines, personal items, smoking policy, room service/diet, and visiting hours. Information on how to activate the Rapid Response Team has been discussed. Patient/Family are encouraged to report perceived risks to care and to ask questions if they do not understand what they are told or what they should do.
[2021-06-18 06:00] VITALS: BP 117/58; PULSE 75; RESP 16; TEMP 36.2; O2SAT 92
[2021-06-18 06:38] LABS: Basophils Percent Auto 0.3 % (0.2-1.2); Eosinophils Absolute Auto 0.4 K/mm3 (0-0.3); Eosinophils Percent Auto 4.2 % (0-4.4); Hematocrit 35.2 % (42.0-52.0); Hemoglobin 11.2 g/dL (14.0-18.0); Immature Granulocyte Absolute 0.04 K/mm3 (0.00-0.031); Immature Granulocyte Percent A 0.4 % (0-0.5); Lymphocytes Percent Auto 15.3 % (18.3-44.2); Mean Corpuscular HGB Conc 31.8 g/dl (32-36); Mean Corpuscular Hemoglobin 28.4 pg (26-34); Mean Corpuscular Volume 89.3 fl (80-100); Mean Platelet Volume 11.9 fl (7.4-10.4); Monocytes Percent Auto 11.3 % (2.6-8.5); Neutrophils Absolute Auto 6.3 K/mm3 (1.3-6.7); Neutrophils Percent Auto 68.5 % (45.5-73.1); Platelet Count Result 243 k/mm3 (150-375); Red Blood Count 3.94 M/mm3 (4.6-6.20); Red Cell Distribution Width 15.7 % (11.5-14.5); White Blood Count 9.2 K/mm3 (4.5-10.0)
[2021-06-18 06:51] LABS: Alanine Aminotransferase 7 U/L (4-50); Albumin Level 3.5 g/dL (3.5-5.1); Alkaline Phosphatase 88 U/L (38-126); Anion Gap 8 mmol/L (8-16); Aspartate Amino Transferase 19 U/L (17-59); Bilirubin,Total 0.7 mg/dL (0.2-1.3); Blood Urea Nitrogen 12 mg/dL (9-20); Calcium 8.7 mg/dL (8.4-10.2); Carbon Dioxide 27 mmol/L (22-30); Chloride 104 mmol/L (98-107); Estimated CRCL calculation 99 ml/min; Estimated Glomerular Filt Rate > 60; Glucose 83 mg/dL (65-110); Magnesium 1.5 mg/dL (1.6-2.3); Potassium 3.5 mmol/L (3.4-5.0); Sodium 139 mmol/L (137-145)
[2021-06-18] MEDS: PANTOPRAZOLE SODIUM IV 40 MG VIAL IV PUSH ×2 (09:21→20:51)
[2021-06-18] MEDS: MAGNESIUM SULFATE 3GM/D5W100ML 3 GM/100 ML BAG IVPB (09:32)
[2021-06-18 09:33] VITALS: PULSE 62
[2021-06-18] MEDS: METOPROLOL TARTRATE 12.5 MG TABLET PO ×2 (09:33→20:50)
[2021-06-18] MEDS: chlordiazePOXIDE (*CRX) 10 MG CAPSULE PO ×2 (09:33→18:00)
[2021-06-18] MEDS: FOLIC ACID 1 MG TABLET PO (09:36)
[2021-06-18] MEDS: THIAMINE HCL 100 MG TABLET PO (09:36)
[2021-06-18] MEDS: FINASTERIDE 5 MG TABLET PO (09:36)
[2021-06-18 14:00] VITALS: BP 123/71; PULSE 62; RESP 18; TEMP 36.1; O2SAT 96
--- NOTE | 2021-06-18 15:44 | PM.IMPN ---
Progress Note: A&P Assessment and Plan (1) Agitation: Code(s): R45.1 - Restlessness and agitation Status: Acute Assessment and Plan: the patient is acutely confused and now getting agitated. We tried offer him his 5:00 p.m. Librium but he refused. I will give 1 dose of IM Zyprexa 5 mg and we will monitor his symptoms . (2) Abnormal urinalysis: Code(s): R82.90 - Unspecified abnormal findings in urine Status: Acute Assessment and Plan: Urinalysis is suspicious for UTI. He was started on IV Rocephin for treatment of urinary tract infection. Continuing to monitor for urine culture results. (3) Gastroenteritis: Code(s): K52.9 - Noninfective gastroenteritis and colitis, unspecified Status: Acute Assessment and Plan: the patient came to the emergency room with nausea, vomiting, diarrhea for the last 3 days. Most likely viral gastroenteritis and I do not feel there was any need for antibiotics at this time. (4) Constipation: Code(s): K59.00 - Constipation, unspecified Status: Acute Assessment and Plan: Diarrhea could also be due to large amount of fecal matter noted in the colon. Staff at the [facility] also report that he had some blood in the stool the last several days. KUB this morning showed nonspecific bowel gas pattern. (5) Blood in stool: Code(s): K92.1 - Melena Status: Acute Assessment and Plan: Custodial reported his last stool having blood present. Will hold his Xarelto and send stool to check for occult blood. It is noted that sometime last year he had a GI bleed though no obvious source of bleeding was noted on colonoscopy albeit he had a poor prep. Continue monitoring. H&H stable. (6) Chronic anemia: Code(s): D64.9 - Anemia, unspecified Status: Acute Assessment and Plan: H&H appear stable on labs from prior hospitalizations. Continue monitoring. (7) Dementia: Code(s): F03.90 - Unspecified dementia without behavioral disturbance Status: Acute Assessment and Plan: As such will hold his Xarelto and send stool to check for occult blood. It is noted that sometime last year he had a GI bleed though no obvious source of bleeding was noted on colonoscopy albeit he had a poor prep. (8) Benign prostatic hyperplasia: Code(s): N40.0 - Benign prostatic hyperplasia without lower urinary tract symptoms Status: Inactive Assessment and Plan: Continue Flomax and Finasteride. Monitor for any urinary retention issues. Time Spent With Patient Time with patient: 25 - 35 minutes Subjective Date/time seen: 06/18/21 15:44 Interval history: date of service 06/18/2021: the patient is shouting out for help . He states he is at his home and we are in his house. He does not believe he is in the hospital at this time. He is starting to get agitated. I asked him if he has any pain or discomfort, trouble breathing or cough. He will not answer my questions. Poor historian secondary to history of dementia with worsening confusion with UTI Review of Systems Review of Systems: ROS unobtainable: Yes unobtainable due to medical condition Exam Narrative: Exam Narrative: General: 76-year-old man sitting up in bed, fighting the aid, trying to get up. Moving all extremities without any difficulty. Appears agitated. In no acute Respiratory distress. Skin: No jaundice or cyanosis. Good skin turgor. Neck: Full range of motion. Supple. Respiratory: Lungs are clear
[2021-06-18] MEDS: OLANZapine 10 MG INJ VIAL 5 MG IM (16:15)
[2021-06-18] MEDS: WATER, STERILE FOR INJECTION 10 ML VIAL XX (16:18)
[2021-06-18 20:50] VITALS: PULSE 80
[2021-06-18] MEDS: QUEtiapine FUMARATE 100 MG TABLET PO (20:50)
[2021-06-18] MEDS: TAMSULOSIN HCL 0.4 MG CAPSULE PO (20:51)
[2021-06-18 21:58] VITALS: BP 136/63; PULSE 80; RESP 18; TEMP 36.7; O2SAT 96
[2021-06-19 05:45] VITALS: BP 119/64; PULSE 59; RESP 20; TEMP 37.2; O2SAT 95
[2021-06-19 07:15] LABS: Hematocrit 33.3 % (42.0-52.0); Hemoglobin 10.3 g/dL (14.0-18.0); Mean Corpuscular HGB Conc 30.9 g/dl (32-36); Mean Corpuscular Hemoglobin 27.6 pg (26-34); Mean Corpuscular Volume 89.3 fl (80-100); Mean Platelet Volume 11.4 fl (7.4-10.4); Platelet Count Result 249 k/mm3 (150-375); Red Blood Count 3.73 M/mm3 (4.6-6.20); Red Cell Distribution Width 15.6 % (11.5-14.5); White Blood Count 9.3 K/mm3 (4.5-10.0)
[2021-06-19 07:22] LABS: Anion Gap 5 mmol/L (8-16); Blood Urea Nitrogen 7 mg/dL (9-20); Calcium 8.1 mg/dL (8.4-10.2); Carbon Dioxide 27 mmol/L (22-30); Chloride 106 mmol/L (98-107); Estimated CRCL calculation 84 ml/min; Estimated Glomerular Filt Rate > 60; Glucose 76 mg/dL (65-110); Magnesium 1.8 mg/dL (1.6-2.3); Potassium 3.3 mmol/L (3.4-5.0); Sodium 138 mmol/L (137-145)
[2021-06-19] MEDS: MAGNESIUM SULF 2 GM/WATER 50ML 2 GM/50 ML BAG IVPB (07:55)
[2021-06-19] MEDS: FINASTERIDE 5 MG TABLET PO (10:10)
[2021-06-19] MEDS: THIAMINE HCL 100 MG TABLET PO (10:10)
[2021-06-19] MEDS: PANTOPRAZOLE SODIUM IV 40 MG VIAL IV PUSH ×2 (10:10→21:36)
[2021-06-19] MEDS: FOLIC ACID 1 MG TABLET PO (10:10)
[2021-06-19] MEDS: KCL 20 MEQ/LR 1,000 ML 65 ML IV CONT (10:14)
[2021-06-19] MEDS: chlordiazePOXIDE (*CRX) 10 MG CAPSULE PO ×2 (10:14→17:11)
[2021-06-19 10:19] VITALS: PULSE 80
[2021-06-19] MEDS: METOPROLOL TARTRATE 12.5 MG TABLET PO ×2 (10:19→21:34)
[2021-06-19 11:12] VITALS: O2SAT 96
--- NOTE | 2021-06-19 11:59 | PM.IMPN ---
Progress Note: A&P Assessment and Plan (1) Gastroenteritis: Code(s): K52.9 - Noninfective gastroenteritis and colitis, unspecified Status: Acute Assessment and Plan: Clinically resolving 06/19 feed [facility] if diet tolerated (2) Constipation: Qualifiers: Constipation type: other constipation type Qualified Code(s): K59.09 - Other constipation Code(s): K59.00 - Constipation, unspecified Status: Acute Assessment and Plan: 06/18 KUB w/ nonspecific bowel gas patter 06/19 bowel regimen (3) Agitation: Code(s): R45.1 - Restlessness and agitation Status: Acute Assessment and Plan: Due to dementia, hunger . (4) Abnormal urinalysis: Code(s): R82.90 - Unspecified abnormal findings in urine Status: Acute Assessment and Plan: Urinalysis is suspicious for UTI. He was started on IV Rocephin for treatment of urinary tract infection. Continuing to monitor for urine culture results. (5) Blood in stool: Code(s): K92.1 - Melena Status: Acute Assessment and Plan: [facility] reported his last stool having blood present. Will hold his Xarelto and send stool to check for occult blood. It is noted that sometime last year he had a GI bleed though no obvious source of bleeding was noted on colonoscopy albeit he had a poor prep. Continue monitoring. H&H stable. (6) Chronic anemia: Code(s): D64.9 - Anemia, unspecified Status: Acute Assessment and Plan: H&H appear stable on labs from prior hospitalizations. Continue monitoring. (7) Dementia: Qualifiers: Dementia type: unspecified type Dementia behavioral disturbance: with behavioral disturbance Qualified Code(s): F03.91 - Unspecified dementia with behavioral disturbance Code(s): F03.90 - Unspecified dementia without behavioral disturbance Status: Acute Assessment and Plan: As such will hold his Xarelto and send stool to check for occult blood. It is noted that sometime last year he had a GI bleed though no obvious source of bleeding was noted on colonoscopy albeit he had a poor prep. (8) Benign prostatic hyperplasia: Qualifiers: Lower urinary tract symptom presence: unspecified whether lower urinary tract symptoms present Qualified Code(s): N40.0 - Benign prostatic hyperplasia without lower urinary tract symptoms Code(s): N40.0 - Benign prostatic hyperplasia without lower urinary tract symptoms Status: Inactive Assessment and Plan: Continue Flomax and Finasteride. Monitor for any urinary retention issues. Subjective Date/time seen: 06/19/21 11:59 Interval history: [facility]v and adynamic ileus on CT abd/pelvis. Question of rectal bleeding. 06/19: Hungry. No n/v. No bleeding. Denied pain. Confirmed by medical staff managerNubia. Review of Systems Review of Systems: ROS unobtainable: Yes unobtainable due to medical condition Exam Narrative: Exam Narrative: HEENT: PERRL, sclerae nonicteric, pharyngeal mucosa pink and intact NECK: No JVD, adenopathy, or thyromegaly CHEST: Clear to auscultation. Normal effort. HEART: NL S1/S2, regular, no murmur ABDOMEN: BS+, soft, nontender, no mass, no bruits EXTREMITIES: No cyanosis, edema, or clubbing NEUROLOGIC: CN intact and symmetric to inspection. MUSCULOSKELETAL: Tone and strength symmetric. PSYCH: Alert. Oriented to person only. Objective Data Vital Signs Vital Signs: Vital Signs - 24 hr 06/18/21 14:00 06/18/21 20:50 07
[2021-06-19 14:00] VITALS: BP 136/63; PULSE 52; RESP 20; TEMP 36.3; O2SAT 92
[2021-06-19 21:34] VITALS: PULSE 53
[2021-06-19] MEDS: QUEtiapine FUMARATE 100 MG TABLET PO (21:36)
[2021-06-19] MEDS: TAMSULOSIN HCL 0.4 MG CAPSULE PO (21:49)
[2021-06-19] MEDS: SENNOSIDES 8.6 MG TABLET PO (21:52)
[2021-06-19 21:57] VITALS: BP 110/63; PULSE 53; RESP 18; TEMP 36.7; O2SAT 94
[2021-06-20] MEDS: KCL 20 MEQ/LR 1,000 ML 65 ML IV CONT (02:09)
[2021-06-20 05:43] VITALS: BP 119/68; PULSE 56; RESP 18; TEMP 36.9; O2SAT 92
[2021-06-20 06:54] LABS: Hematocrit 33.3 % (42.0-52.0); Hemoglobin 10.5 g/dL (14.0-18.0); Mean Corpuscular HGB Conc 31.5 g/dl (32-36); Mean Corpuscular Hemoglobin 27.5 pg (26-34); Mean Corpuscular Volume 87.2 fl (80-100); Platelet Count Result 235 k/mm3 (150-375); Red Blood Count 3.82 M/mm3 (4.6-6.20); Red Cell Distribution Width 15.8 % (11.5-14.5); White Blood Count 9.6 K/mm3 (4.5-10.0)
[2021-06-20 07:16] LABS: Alanine Aminotransferase 9 U/L (4-50); Alkaline Phosphatase 82 U/L (38-126); Anion Gap 5 mmol/L (8-16); Aspartate Amino Transferase 21 U/L (17-59); Bilirubin,Total 0.5 mg/dL (0.2-1.3); Blood Urea Nitrogen 7 mg/dL (9-20); Calcium 8.2 mg/dL (8.4-10.2); Carbon Dioxide 28 mmol/L (22-30); Chloride 106 mmol/L (98-107); Estimated CRCL calculation 73 ml/min; Estimated Glomerular Filt Rate > 60; Glucose 91 mg/dL (65-110); Magnesium 1.7 mg/dL (1.6-2.3); Potassium 3.6 mmol/L (3.4-5.0); Sodium 139 mmol/L (137-145)
[2021-06-20 08:56] VITALS: PULSE 56
[2021-06-20] MEDS: METOPROLOL TARTRATE 12.5 MG TABLET PO (08:56)
[2021-06-20] MEDS: FOLIC ACID 1 MG TABLET PO (08:56)
[2021-06-20] MEDS: PANTOPRAZOLE SODIUM IV 40 MG VIAL IV PUSH (08:57)
[2021-06-20] MEDS: FINASTERIDE 5 MG TABLET PO (08:57)
[2021-06-20] MEDS: THIAMINE HCL 100 MG TABLET PO (08:57)
[2021-06-20] MEDS: chlordiazePOXIDE (*CRX) 10 MG CAPSULE PO (08:59)
--- NOTE | 2021-06-20 09:03 | PC.NURSE ---
Rate of infusion for IVF misread, momentarily increased to 80cc/hour. Corrected by RN after clarification of correct infusion rate.
--- NOTE | 2021-06-20 10:03 | PM.DS ---
DS: Admitting Diagnosis Admitting Diagnosis nausea with emesis DS: Discharge Diagnosis Discharge Diagnosis (1) Gastroenteritis: Code(s): K52.9 - Noninfective gastroenteritis and colitis, unspecified Status: Acute Assessment and Plan: Clinically resolving 06/19 feed Return to [facility] 06/20 as diet tolerated (2) Constipation: Qualifiers: Constipation type: other constipation type Qualified Code(s): K59.09 - Other constipation Code(s): K59.00 - Constipation, unspecified Status: Acute Assessment and Plan: 06/18 KUB w/ nonspecific bowel gas patter 06/19 bowel regimen (3) Agitation: Code(s): R45.1 - Restlessness and agitation Status: Acute Assessment and Plan: Due to dementia, hunger RESOLVED . (4) Abnormal urinalysis: Code(s): R82.90 - Unspecified abnormal findings in urine Status: Acute Assessment and Plan: Urinalysis is suspicious for UTI. He was started on IV Rocephin for treatment of urinary tract infection. Gp B strep on culture. Rx amoxicillin for 7 additional days. (5) Blood in stool: Code(s): K92.1 - Melena Status: Acute Assessment and Plan: Correction reported his last stool having blood present. Held Xarelto and send stool to check for occult blood. It is noted that sometime last year he had a GI bleed though no obvious source of bleeding was noted on colonoscopy albeit he had a poor prep. Resume Xarelto at discharge (6) Chronic anemia: Code(s): D64.9 - Anemia, unspecified Status: Acute Assessment and Plan: H&H appear stable on labs from prior hospitalizations. Continue monitoring. (7) Dementia: Qualifiers: Dementia type: unspecified type Dementia behavioral disturbance: with behavioral disturbance Qualified Code(s): F03.91 - Unspecified dementia with behavioral disturbance Code(s): F03.90 - Unspecified dementia without behavioral disturbance Status: Acute Assessment and Plan: At baseline (8) Benign prostatic hyperplasia: Qualifiers: Lower urinary tract symptom presence: unspecified whether lower urinary tract symptoms present Qualified Code(s): N40.0 - Benign prostatic hyperplasia without lower urinary tract symptoms Code(s): N40.0 - Benign prostatic hyperplasia without lower urinary tract symptoms Status: Inactive Assessment and Plan: Continue Flomax and Finasteride. Monitor for any urinary retention issues. DS: Summary Hospital Course Reason for hospitalization: Nausea with emesis Hospital Course: [facility]. Was treated with bowel rest and IV fluids. Noted to have excess stool in the colon on CT scanning. Symptoms resolved spontaneously. Adynamic ileus resolved by 06/18. Feedings were restarted on 06/19. He tolerated these well. No rectal bleeding. No hematemesis. Hemoglobin hematocrit remained stable at his baseline. He was treated with ceftriaxone for possible urinary tract infection and urine grew group B strep. Transition to p.o. amoxicillin to complete 7 days as outpatient. Time Spent with Patient Time attestation: Total time spent providing and/or coordinating discharge services: Exam Narrative: Exam Narrative: Alert. No acute distress. Oriented to person. Pleasant and cooperative. Mucous membranes pink and moist. Sclerae nonicteric. Chest clear to auscultation. Heart normal S1-S2 regular rate. Extremities no edema sounds cl
== END 2021-06-20 12:36 ==
LOC: ANHED 17:29 → ANH3MEDSUR 19:28
PROVIDERS: Emergency Medicine; Emergency Medicine Emergency Medical Services; Physician Assistant; Admitting Provider Family Medicine; Emergency Provider Emergency Medicine; Visit Provider Internal Medicine
DX: K52.9 Noninfective gastroenteritis and colitis, unspecified (principal); K59.09 Other constipation; I11.0 Hypertensive heart disease with heart failure; I50.30 Unspecified diastolic (congestive) heart failure; R82.90 Unspecified abnormal findings in urine; K92.1 Melena; D64.9 Anemia, unspecified; F03.90 Unspecified dementia, unspecified severity, without behavioral disturbance, psychotic disturbance, mood disturbance, and anxiety; N40.0 Benign prostatic hyperplasia without lower urinary tract symptoms
CPT/HCPCS: 36415; 74018; 74177; 80048; 80053; 81001; 83690; 83735; 85014; 85018; 85025; 85027; 87077; 87086; 87088; 96361; 96365; 96366; 96375; 96376; 99285; A9270; C9113; G0378; J0696; J2405; J3475; J7040; J7120; Q9967

== ENCOUNTER 2021-07-19 20:11 | Emergency (ER) | payer MEDICARE, OTHER, SELFPAY ==
[2021-07-19 20:08] VITALS: BP 130/76; PULSE 103; RESP 18; TEMP 36.6; O2SAT 100
--- NOTE | 2021-07-19 20:20 | ECG_ITS ---
Measurements Intervals [place] Rate: 98 P: 62 NV: 155 QRS: 38 QRSD: 98 T: 11 QT: 338 QTc: 433 Interpretive Statements SINUS RHYTHM BORDERLINE ST-T WAVE ABNORMALITY- ANTEROLAT/INF LEADS BASELINE ARTIFACT- I, II, III, AVR, AVL, AVF, V1-V6 BORDERLINE ECG Electronically Signed On 07-20-2021 6:46:00 CDT by Herminio Diaz D.O.
[2021-07-19 20:37] LABS: Basophils Absolute Auto 0.1 K/mm3 (0.0-0.1); Basophils Percent Auto 0.5 % (0.2-1.2); Eosinophils Absolute Auto 0.1 K/mm3 (0-0.3); Eosinophils Percent Auto 0.9 % (0-4.4); Hematocrit 38.3 % (42.0-52.0); Hemoglobin 12.3 g/dL (14.0-18.0); Immature Granulocyte Absolute 0.05 K/mm3 (0.00-0.031); Immature Granulocyte Percent A 0.4 % (0-0.5); Lymphocytes Absolute Auto 1.92 K/mm3 (0.9-3.2); Lymphocytes Percent Auto 13.8 % (18.3-44.2); Mean Corpuscular HGB Conc 32.1 g/dl (32-36); Mean Corpuscular Hemoglobin 28.2 pg (26-34); Mean Corpuscular Volume 87.8 fl (80-100); Mean Platelet Volume 11.5 fl (7.4-10.4); Monocytes Absolute Auto 1.3 K/mm3 (0.1-0.6); Monocytes Percent Auto 9.5 % (2.6-8.5); Neutrophils Absolute Auto 10.5 K/mm3 (1.3-6.7); Neutrophils Percent Auto 74.9 % (45.5-73.1); Platelet Count Result 267 k/mm3 (150-375); Red Blood Count 4.36 M/mm3 (4.6-6.20); White Blood Count 13.9 K/mm3 (4.5-10.0)
[2021-07-19 20:49] LABS: Add Urine Microscopic? YES; Appearance Urine Clear (Clear); Bilirubin Urine Negative (Negative); Blood Urine Negative (Negative); Color Urine Amber (Yellow); Glucose Urine UA Negative (Negative); Ketones Urine Negative (Negative); Leukocyte Esterase Ur 1+ LEU/UL (Negative); Nitrate Urine Positive (Negative); Protein Urine 1+ mg/dL (Negative); Specific Grav Ur 1.024 (1.001-1.035)
[2021-07-19 21:05] LABS: Alanine Aminotransferase 12 U/L (4-50); Albumin Level 4.1 g/dL (3.5-5.1); Alkaline Phosphatase 86 U/L (38-126); Anion Gap 8 mmol/L (8-16); Aspartate Amino Transferase 20 U/L (17-59); Bilirubin,Total 0.7 mg/dL (0.2-1.3); Blood Urea Nitrogen 14 mg/dL (9-20); Calcium 9.6 mg/dL (8.4-10.2); Carbon Dioxide 27 mmol/L (22-30); Chloride 107 mmol/L (98-107); Estimated CRCL calculation 66 ml/min; Estimated Glomerular Filt Rate > 60; Glucose 95 mg/dL (65-110); Potassium 3.7 mmol/L (3.4-5.0); Sodium 142 mmol/L (137-145)
[2021-07-19 21:07] LABS: Bacteria Urine 4+ /hpf; Squamous Epithelial Cell Urine Few /hpf (Few); WBC Urine 51-75 /hpf
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
[2021-07-19 22:41] VITALS: BP 105/71
[2021-07-19 22:47] VITALS: BP 101/79
[2021-07-20 00:01] VITALS: BP 103/85
[2021-07-20 00:18] VITALS: BP 110/78; O2SAT 96
--- NOTE | 2021-07-20 00:31 | PC.NURSE ---
called [facility] to request transport. ETA [id number]
== END 2021-07-20 01:28 ==
PROVIDERS: Emergency Provider Emergency Medicine
DX: N39.0 Urinary tract infection, site not specified (principal); N40.0 Benign prostatic hyperplasia without lower urinary tract symptoms; J44.9 Chronic obstructive pulmonary disease, unspecified; D64.9 Anemia, unspecified; I50.30 Unspecified diastolic (congestive) heart failure; I25.10 Atherosclerotic heart disease of native coronary artery without angina pectoris; F03.90 Unspecified dementia, unspecified severity, without behavioral disturbance, psychotic disturbance, mood disturbance, and anxiety; E78.5 Hyperlipidemia, unspecified; I11.0 Hypertensive heart disease with heart failure; I48.0 Paroxysmal atrial fibrillation; Z79.01 Long term (current) use of anticoagulants; Z86.711 Personal history of pulmonary embolism; Z86.718 Personal history of other venous thrombosis and embolism; Z86.73 Personal history of transient ischemic attack (TIA), and cerebral infarction without residual deficits; Z98.49 Cataract extraction status, unspecified eye; Z85.828 Personal history of other malignant neoplasm of skin; Z87.891 Personal history of nicotine dependence; R94.31 Abnormal electrocardiogram [ECG] [EKG]
CPT/HCPCS: 36415; 51701; 80053; 81001; 85025; 87077; 87086; 87186; 93005; 96365; 99284; J0696

== ENCOUNTER 2021-10-05 15:26 | Emergency (ER) | payer MEDICARE, MEDICAID, SELFPAY ==
--- NOTE | ~2021-10-05 | CT_ITS ---
EXAMINATION: CT brain wo [facility] EXAM DATE: 10/05/2021 17:08 INDICATION: Transient ischemic attack, lethargy. TECHNIQUE: Spiral CT of the head was performed without contrast. Axial, coronal and sagittal images were reviewed. The dose-length product (DLP) for this examination was 605.33 mGy-cm. The exposure w as tailored according to patient size, and iterative reconstruction (ASIR) was used as additional dos e reduction technique. Comparison is made to prior examination from 05/29/2021. FINDINGS: There is no acute intraparenchymal hemorrhage. No evidence of intraparenchymal brain mass lesion. No evidence of acute infarction. Please note that initial head CT has limited sensitivity f or small or acute infarctions. There are multiple old infarctions including small left cerebellar in farction, additional bilateral punctate cerebellar infarctions, left thalamic and bilateral basal mahendra glia old lacunar infarctions, old pontine lacunar infarction, small to moderate size old left right o ccipital infarction and small right occipital infarction. There is moderate periventricular and subc ortical hypodensity, nonspecific but probably related to small vessel ischemic disease. There is mo derate prominence of the sulci and ventricles related to cerebral atrophy. There is intracranial car otid arteriosclerosis. There are no extra-axial collections. There is no mass effect or midline yessenia ft. Patient has had bilateral ocular lens surgery. Soft tissue is unremarkable. There is mild righ t maxillary sinus mucoperiosteal thickening. IMPRESSION: 1. No acute intracranial findings. 2. Multiple old infarctions. 3. Atrophy, microangiopathy. Reviewed, dictated and finalized at location A. FINISHER
[2021-10-05 15:40] VITALS: BP 134/89; PULSE 74; RESP 16; TEMP 36.6; O2SAT 97
[2021-10-05 16:15] VITALS: BP 125/84; PULSE 70; RESP 16; O2SAT 98
[2021-10-05 16:41] LABS: Basophils Absolute Auto 0.1 K/mm3 (0.0-0.1); Basophils Percent Auto 0.7 % (0.2-1.2); Eosinophils Absolute Auto 0.3 K/mm3 (0-0.3); Hematocrit 36.9 % (42.0-52.0); Hemoglobin 11.9 g/dL (14.0-18.0); Immature Granulocyte Absolute 0.03 K/mm3 (0.00-0.031); Immature Granulocyte Percent A 0.3 % (0-0.5); Lymphocytes Absolute Auto 1.81 K/mm3 (0.9-3.2); Lymphocytes Percent Auto 20.7 % (18.3-44.2); Mean Corpuscular HGB Conc 32.2 g/dl (32-36); Mean Corpuscular Hemoglobin 28.1 pg (26-34); Mean Corpuscular Volume 87.2 fl (80-100); Mean Platelet Volume 11.5 fl (7.4-10.4); Monocytes Absolute Auto 0.9 K/mm3 (0.1-0.6); Monocytes Percent Auto 10.2 % (2.6-8.5); Neutrophils Absolute Auto 5.7 K/mm3 (1.3-6.7); Neutrophils Percent Auto 65.1 % (45.5-73.1); Platelet Count Result 274 k/mm3 (150-375); Red Blood Count 4.23 M/mm3 (4.6-6.20); Red Cell Distribution Width 16.5 % (11.5-14.5); White Blood Count 8.7 K/mm3 (4.5-10.0)
[2021-10-05 16:46] LABS: INR 2.2; Prothrombin Time 23.5 Seconds (11.1-14.7)
[2021-10-05 16:57] LABS: Alanine Aminotransferase 10 U/L (4-50); Albumin Level 4.1 g/dL (3.5-5.1); Alkaline Phosphatase 92 U/L (38-126); Anion Gap 8 mmol/L (8-16); Aspartate Amino Transferase 18 U/L (17-59); Bilirubin,Total 0.5 mg/dL (0.2-1.3); Blood Urea Nitrogen 12 mg/dL (9-20); Calcium 8.8 mg/dL (8.4-10.2); Carbon Dioxide 26 mmol/L (22-30); Chloride 106 mmol/L (98-107); Estimated CRCL calculation 85 ml/min; Estimated Glomerular Filt Rate > 60; Glucose 101 mg/dL (65-110); Potassium 3.9 mmol/L (3.4-5.0); Sodium 140 mmol/L (137-145)
[2021-10-05 17:15] VITALS: BP 124/72; PULSE 74; RESP 16; O2SAT 98
--- NOTE | 2021-10-05 17:36 | ED.WEAKNESS ---
HPI - Weakness General Chief complaint: Weakness Stated complaint: Possible TIA 3 days ago Time Seen by Provider: 10/05/21 15:51 Source: EMS and RN notes reviewed Mode of arrival: EMS Limitations: no limitations History of Present Illness HPI Narrative: 76-year-old with a history of hyperlipidemia, hypertension, dementia, CVA, anxiety disorder was sent from a [facility] for possible [facility]. Patient presently has no complaints except for right shoulder pain which is been having it for a while. He denies any fall. No history of chest pain or shortness of breath or abdominal pain. She states he is feeling fine. Relieving factors: none Associated symptoms: denies other symptoms Related Data Home Medications Medication Instructions Recorded Confirmed Adults Multivitamin 1 tablet PO DAILY 05/14/20 06/18/21 atorvastatin 40 mg PO HS 05/15/20 06/18/21 metoprolol tartrate 12.5 mg PO Q12H 05/15/20 06/18/21 quetiapine 100 mg PO HS 05/15/20 06/18/21 Xarelto 20 mg PO DAILY 12/11/20 06/18/21 Fleet Enema 197 ml RECTAL ONCE PRN 05/29/21 06/18/21 bisacodyl 10 mg RECTAL DAILY PRN 05/29/21 06/18/21 finasteride 5 mg PO DAILY 05/29/21 06/18/21 magnesium citrate [Citroma] 300 ml PO DAILY PRN 05/29/21 06/18/21 magnesium hydroxide [Milk of 400 mg PO DAILY PRN 05/29/21 06/18/21 Magnesia] calcium carbonate 600 mg PO DAILY 10/05/21 trazodone 25 mg PO HS 10/05/21 Allergies Allergy/AdvReac Type Severity Reaction Status Date / Time No Known Allergies Allergy Verified 10/05/21 15:53 Review of Systems Review of Systems: All systems reviewed & are unremarkable except as noted in HPI and below Constitutional: Constitutional: Reports no additional constitutional complaints Eyes: Eyes: Reports no additional eye complaints ENT: Reports system reviewed and no additional complaints, except as documented Cardiovascular: Cardiovascular: Reports no additional cardiovascular complaints Respiratory: Respiratory: Reports no additional respiratory complaints Gastrointestinal: Gastrointestinal: Reports no additional gastrointestinal complaints Musculoskeletal: Musculoskeletal: Reports no additional musculoskeletal complaints PMFSH Past Medical History Medical History Alcoholism Benign prostatic hyperplasia Cerebrovascular accident Chronic anemia Chronic neck pain Chronic obstructive pulmonary disease Congestive heart failure Diastolic Coronary artery disease Deep venous thrombosis Dementia Hyperlipidemia Hypertension Leukocytosis Paroxysmal atrial fibrillation Pulmonary emboli Tobacco abuse Surgical History Surgical History History of cataract extraction History of cervical spinal surgery History of colonoscopy with polypectomy April [address] Larson. History of open reduction and internal fixation (ORIF) procedure History of tonsillectomy Status post surgical removal of malignant neoplasm of skin Nose Family History Family History Sibling Cerebrovascular accident Unknown Adopted Social History Social History Social History: The patient lives at [facility]. He grew up in [place] but previously lived in [place] and [place]. Former smoker. Previously drank in large quantities. Denies illicit substance use. He has a daughter, Aliza who is his emergency contact as well as a friend, Radha Hudson. Code status: Full code. Years smoked: 57 Smoking status: Unknown if ever smoked Smoking end date: 11/27/14 Alcohol intake: unknown Substance use: unknown Substance use type: does not use Spiritual care concerns: No Exam Narrative: GENERAL: Well-appearing, , and in no acute distress. HEAD: Normocephalic, atraumatic. EYES: PERRLA and EOMI. NECK: Supple. CHEST: Clear to auscultation. No respiratory d
--- NOTE | 2021-10-05 17:53 | ECG_ITS ---
Measurements Intervals [place] Rate: 74 P: 68 TX: 152 QRS: 56 QRSD: 107 T: 61 QT: 382 QTc: 426 Interpretive Statements SINUS RHYTHM BASELINE ARTIFACT- I, II, AVR, AVL, V1-V2 NORMAL ECG Electronically Signed On 10-05-2021 20:16:03 ELASTIC ATTACHER COVERSTITCH by Herminio Diaz D.O.
[2021-10-05 17:59] LABS: NT Pro B Type Natriuretic Pept 272 pg/mL (5-100)
[2021-10-05 18:15] VITALS: BP 120/82; PULSE 77; RESP 16; O2SAT 98
--- NOTE | 2021-10-05 19:19 | PC.NURSE ---
called [facility] , [facility], and [facility] to request transport. No trucks available tonight.
[2021-10-05 21:15] LABS: Troponin I < 0.012 ng/mL (0.000-0.034)
--- NOTE | 2021-10-05 21:45 | PC.NURSE ---
[facility] here.
[2021-10-05 21:52] VITALS: BP 137/79; PULSE 81; RESP 16; O2SAT 98
== END 2021-10-05 21:53 ==
PROVIDERS: Emergency Provider Family Medicine
DX: R53.1 Weakness (principal); I25.10 Atherosclerotic heart disease of native coronary artery without angina pectoris; E78.5 Hyperlipidemia, unspecified; I48.0 Paroxysmal atrial fibrillation; F03.90 Unspecified dementia, unspecified severity, without behavioral disturbance, psychotic disturbance, mood disturbance, and anxiety; J44.9 Chronic obstructive pulmonary disease, unspecified; I11.0 Hypertensive heart disease with heart failure; I50.30 Unspecified diastolic (congestive) heart failure; Z79.01 Long term (current) use of anticoagulants
CPT/HCPCS: 36415; 70450; 80053; 83880; 84484; 85025; 85610; 93005; 99284

== ENCOUNTER 2021-10-20 14:13 | Emergency (ER) | payer MEDICARE, MEDICAID, SELFPAY ==
[2021-10-20] VITALS (9 sets, daily range): BP systolic 123–157; BP diastolic 69–89; PULSE 79–88; RESP 14–18; TEMP 36.5; O2SAT 97–99
--- NOTE | ~2021-10-20 | CT_ITS ---
EXAMINATION: CT brain wo con DATE: 10/20/2021 14:44 INDICATION: Seizure. TECHNIQUE: Computed tomography (CT) of the head was performed without intravenous contrast. The mA wa s adjusted according to patient size. Iterative reconstruction technique was employed. The dose-lengt h product was 605.33 mGy-cm. COMPARISON: Head CT 10/05/2021, brain MRI 12/16/2019 FINDINGS: There are old infarcts in the cerebellum bilaterally. There is an old infarct in the trista. There is an old infarct in right lentiform nucleus. There are old infarcts in the right occipital lob e and left parietal occipital region. There are scattered areas of low attenuation in the cerebral wh ite matter. There are old infarcts in the thalami bilaterally. There is no intracranial hemorrhage, a cute infarction, or abnormal intracranial mass lesion. The ventricles are normal in size. There is mi ld mucosal thickening in the paranasal sinuses. There are likely changes of ocular lens replacement s urgeries. The mastoid air cells are normal. IMPRESSION: 1. Multiple old infarcts in the brain. 2. Moderate nonspecific cerebral white matter disease, which likely represents chronic small vessel i schemic disease, worsened on the right. Reviewed, dictated and finalized at location B. ION PLOTTER OPERATOR IMPRESSION: 1. Multiple old infarcts in the brain. 2. Moderate nonspecific cerebral white matter disease, which likely represents chronic small vessel ischemic disease, worsened on the right.
--- NOTE | ~2021-10-20 | XR_ITS ---
EXAMINATION: XR chest 1V DATE: 10/20/2021 14:49 INDICATION: Seizure. TECHNIQUE: A single frontal view of the chest was obtained. COMPARISON: Chest single view 05/14/2020, CT abdomen and pelvis 06/17/2021 FINDINGS: There is mild atelectasis at left lung base. No pleural effusion or pneumothorax. The heart size is normal. There are old healed left rib fractures. IMPRESSION: 1. Mild atelectasis at left lung base. Reviewed, dictated and finalized at location B. SURGICAL
--- NOTE | 2021-10-20 14:32 | ECG_ITS ---
Measurements Intervals [place] Rate: 80 P: 67 NC: 169 QRS: 60 QRSD: 92 T: 48 QT: 341 QTc: 395 Interpretive Statements SINUS RHYTHM BORDERLINE ST-T WAVE ABNORMALITY- INF/LAT LEADS BASELINE ARTIFACT- I, II, III, AVR, AVL, AVF, V1-V6 BORDERLINE ECG Electronically Signed On 10-20-2021 16:12:30 [employer] by Herminio Diaz D.O.
--- NOTE | 2021-10-20 14:34 | ED.GENADULT ---
HPI - General Adult General Chief complaint: Seizure Stated complaint: ?SEIZURE Time Seen by Provider: 10/20/21 14:20 Source: RN notes reviewed History of Present Illness HPI narrative: Patient presents emergency department from [facility] via EMS for possible seizure like episode. Per staff the patient was noted to have shaking of his arms while laying in the bed. The patient not have loss of consciousness during that time. Per EMS patient had no postictal. He had no loss of bowel or bladder patient is at baseline at this time and is ANO x2 he denies any pain time per the staff the patient has been evaluated several times recently for TIA episodes patient denies any chest pain or shortness of breath Related Data Home Medications Medication Instructions Recorded Confirmed Adults Multivitamin 1 tablet PO DAILY 05/14/20 06/18/21 atorvastatin 40 mg PO HS 05/15/20 06/18/21 metoprolol tartrate 12.5 mg PO Q12H 05/15/20 06/18/21 quetiapine 100 mg PO HS 05/15/20 06/18/21 Xarelto 20 mg PO DAILY 12/11/20 06/18/21 Fleet Enema 197 ml RECTAL ONCE PRN 05/29/21 06/18/21 bisacodyl 10 mg RECTAL DAILY PRN 05/29/21 06/18/21 finasteride 5 mg PO DAILY 05/29/21 06/18/21 magnesium citrate [Citroma] 300 ml PO DAILY PRN 05/29/21 06/18/21 magnesium hydroxide [Milk of 400 mg PO DAILY PRN 05/29/21 06/18/21 Magnesia] calcium carbonate 600 mg PO DAILY 10/05/21 trazodone 25 mg PO HS 10/05/21 Allergies Allergy/AdvReac Type Severity Reaction Status Date / Time No Known Allergies Allergy Verified 10/05/21 15:53 Review of Systems Review of Systems: Gen.: Denies fevers or chills ENT: Denies congestion Respiratory: Denies shortness of breath or cough CV: Denies chest pain or palpitations GI: Denies abdominal pain nausea, emesis or diarrhea Musculoskeletal: Denies back pain or muscle pain Neuro: See HPI Skin: Denies rash Except as documented, all other systems reviewed and negative PMFSH Past Medical History Medical History Alcoholism Benign prostatic hyperplasia Cerebrovascular accident Chronic anemia Chronic neck pain Chronic obstructive pulmonary disease Congestive heart failure Diastolic Coronary artery disease Deep venous thrombosis Dementia Hyperlipidemia Hypertension Leukocytosis Paroxysmal atrial fibrillation Pulmonary emboli Tobacco abuse Surgical History Surgical History History of cataract extraction History of cervical spinal surgery History of colonoscopy with polypectomy [address] Larson. History of open reduction and internal fixation (ORIF) procedure History of tonsillectomy Status post surgical removal of malignant neoplasm of skin Nose Family History Family History Sibling Cerebrovascular accident Unknown Adopted Social History Social History Social History: The patient lives at [facility]. He grew up in [place] but previously lived in [place] and [place]. Former smoker. Previously drank in large quantities. Denies illicit substance use. He has a daughter, Aliza who is his emergency contact as well as a friend, Radha Hudson. Code status: Full code. Years smoked: 57 Smoking status: Unknown if ever smoked Smoking end date: 11/27/14 Alcohol intake: unknown Substance use: unknown Substance use type: does not use Spiritual care concerns: No Exam Narrative: APPEARANCE: No acute distress, nontoxic, resting in bed HEENT: Normocephalic, atraumatic, OMM, TMs clear bilaterally EYES: PERRL, EOMI NECK: Supple, nontender, full range of motion without pain, no meningismus RESPIRATORY: No respiratory distress, clear to auscultation bilaterally with no rhonchi wheezing or rales CARDIOVASCULAR: RRR s murmur ABDOMINAL: Soft, nontender, nondistended MUSCULOSKELETAL: Moves all extr
[2021-10-20 15:11] LABS: Basophils Absolute Auto 0.1 K/mm3 (0.0-0.1); Basophils Percent Auto 0.6 % (0.2-1.2); Eosinophils Absolute Auto 0.2 K/mm3 (0-0.3); Eosinophils Percent Auto 1.5 % (0-4.4); Hematocrit 38.9 % (42.0-52.0); Hemoglobin 12.3 g/dL (14.0-18.0); Immature Granulocyte Absolute 0.04 K/mm3 (0.00-0.031); Immature Granulocyte Percent A 0.3 % (0-0.5); Lymphocytes Absolute Auto 1.32 K/mm3 (0.9-3.2); Lymphocytes Percent Auto 11.4 % (18.3-44.2); Mean Corpuscular HGB Conc 31.6 g/dl (32-36); Mean Corpuscular Hemoglobin 28.4 pg (26-34); Mean Corpuscular Volume 89.8 fl (80-100); Mean Platelet Volume 10.8 fl (7.4-10.4); Monocytes Percent Auto 8.4 % (2.6-8.5); Neutrophils Percent Auto 77.8 % (45.5-73.1); Platelet Count Result 338 k/mm3 (150-375); Red Blood Count 4.33 M/mm3 (4.6-6.20); Red Cell Distribution Width 15.6 % (11.5-14.5); White Blood Count 11.5 K/mm3 (4.5-10.0)
[2021-10-20 15:24] LABS: Alanine Aminotransferase 10 U/L (4-50); Albumin Level 3.8 g/dL (3.5-5.1); Alkaline Phosphatase 98 U/L (38-126); Anion Gap 5 mmol/L (8-16); Aspartate Amino Transferase 17 U/L (17-59); Bilirubin,Total 0.6 mg/dL (0.2-1.3); Blood Urea Nitrogen 12 mg/dL (9-20); Calcium 9.2 mg/dL (8.4-10.2); Carbon Dioxide 33 mmol/L (22-30); Chloride 103 mmol/L (98-107); Estimated CRCL calculation 74 ml/min; Estimated Glomerular Filt Rate > 60; Glucose 102 mg/dL (65-110); Potassium 3.8 mmol/L (3.4-5.0); Sodium 141 mmol/L (137-145)
[2021-10-20 16:19] LABS: INR 1.4; Partial Thromboplastin Time 38.5 SECONDS (22.3-36.8); Prothrombin Time 17.1 Seconds (11.1-14.7)
[2021-10-20 17:01] LABS: Add Urine Microscopic? YES; Appearance Urine Cloudy (Clear); Bacteria Urine Trace /hpf; Bilirubin Urine Negative (Negative); Blood Urine Negative (Negative); Color Urine Yellow (Yellow); Glucose Urine UA Negative (Negative); Ketones Urine Negative (Negative); Leukocyte Esterase Ur Negative LEU/UL (Negative); Mucus Urine Moderate /lpf; Nitrate Urine Negative (Negative); Protein Urine Negative (Negative); RBC Urine 0-2 /hpf (0-2); Specific Grav Ur 1.019 (1.001-1.035); Squamous Epithelial Cell Urine Rare /hpf (Few)
[2021-10-20] MEDS: levETIRAcetam 500 MG TABLET PO (17:47)
--- NOTE | 2021-10-20 18:26 | PC.NURSE ---
ATTEMPTED TO CALL [facility] IN [place] X2 WITH NO ANSWER. UNABLE TO EVEN LEAVE A MESSAGE. WILL TRY AGAIN IN NEXT 1/2 HOUR.
--- NOTE | 2021-10-20 19:22 | PC.NURSE ---
called [facility] to request transport. ETA 2300 called [facility] to request transport. ETA possibly [id number]
--- NOTE | 2021-10-20 19:32 | PC.NURSE ---
Pt is alert on stretcher and awaiting EMS transport back to [place]. Per Cat RN report was called to [facility]. V[facility].
--- NOTE | 2021-10-20 22:25 | PC.NURSE ---
[facility] here
== END 2021-10-20 22:42 ==
PROVIDERS: Emergency Provider Emergency Medicine
DX: G40.909 Epilepsy, unspecified, not intractable, without status epilepticus (principal); D64.9 Anemia, unspecified; J44.9 Chronic obstructive pulmonary disease, unspecified; I50.30 Unspecified diastolic (congestive) heart failure; I25.10 Atherosclerotic heart disease of native coronary artery without angina pectoris; F03.90 Unspecified dementia, unspecified severity, without behavioral disturbance, psychotic disturbance, mood disturbance, and anxiety; E78.5 Hyperlipidemia, unspecified; I11.0 Hypertensive heart disease with heart failure; I48.0 Paroxysmal atrial fibrillation; N40.0 Benign prostatic hyperplasia without lower urinary tract symptoms; Z79.01 Long term (current) use of anticoagulants; Z86.73 Personal history of transient ischemic attack (TIA), and cerebral infarction without residual deficits; Z86.718 Personal history of other venous thrombosis and embolism; Z86.711 Personal history of pulmonary embolism; Z98.49 Cataract extraction status, unspecified eye; Z87.891 Personal history of nicotine dependence; R90.82 White matter disease, unspecified; R94.31 Abnormal electrocardiogram [ECG] [EKG]; Z86.010 Personal history of colon polyps
CPT/HCPCS: 36415; 70450; 71045; 80053; 81001; 85025; 85610; 85730; 93005; 99284; A9270